=== PATIENT | male | born 1980 | race Caucasian/White ===

== ENCOUNTER 2017-03-23 15:08 | Emergency (ER) | payer OTHER ==
[~2017-03-23] VITALS: Ht 188 cm; Wt 76.9 kg
[~2017-03-23 15:08] MED LIST: ACET-1311 PO; ALBUAER19 INH; NAPR-1168 PO; TRAM-10 PO
[2017-03-23 15:12] VITALS: TEMP 36.3; Ht 188 cm; Wt 76.9 kg
[2017-03-23] MEDS ORDERED: KETOROLAC TROMETHAMINE 60 MG/2 ML VIAL IM STA (15:36)
[2017-03-23] MEDS ORDERED: HYDROmorphone INJ 1 MG/ML SYR IM STA ×2 (15:36→16:32)
--- NOTE | 2017-03-23 16:26 | EMERGENCY ROOM VISIT NOTE ---
ED Visit Note First contact with patient: 16:25 I have seen and examined this patient with Debby Miranda and generally agree with the treatment plan as discussed. Problem List Medical Problems: (1) Bipolar II disorder Status: Chronic (2) Idiopathic peripheral neuropathy Status: Chronic (3) Methicillin resistant Staphylococcus aureus infection Status: Resolved (4) Tobacco user Status: Chronic Current/Historical Medications Scheduled PRN Albuterol Hfa (Ventolin Hfa), 2 PUFFS INH Q6H PRN for SOB/Wheezing Aspirin (Aspirin), 650 MG PO BID PRN for Pain Ibuprofen (Advil), 1,000 MG PO DAILY PRN for Headache or Pain Allergies Coded Allergies: Cyclobenzaprine (Verified Allergy, Severe, SHORTNESS OF BREATH, 03/23/17) Zolpidem (Verified Allergy, Unknown, hallucinations, 03/23/17) Benzodiazepines (Verified Adverse Reaction, Intermediate, PSYCH ISSUES, ) Uncoded Allergies: [id number] (Allergy, Severe, SHORTNESS OF BREATH, 06/14/15) [id number] (Allergy, Intermediate, PSYCH ISSUES, 06/14/15) [id number] (Allergy, Unknown, hallucinations, 06/14/15) Vital Signs Date Time Temp Pulse Resp B/P (MAP) Pulse Ox O2 Delivery O2 Flow Rate FiO2 03/23/17 15:12 36.3 110 18 118/77 96 Room Air Medications Administered Medications (Trade) Dose Ordered Sig/Cynthia Route Start Time Stop Time Status Last Admin Dose Admin Hydromorphone HCl (Dilaudid Inj) 1 mg NOW STAT IM 03/23/17 15:36 03/23/17 15:38 DC 03/23/17 15:51 1 MG Ketorolac Tromethamine (Toradol Inj) 60 mg NOW STAT IM 03/23/17 15:36 03/23/17 15:38 DC 03/23/17 15:50 60 MG Departure Information Referrals No Doctor, Assigned (PCP) Patient Instructions My [facility]
--- NOTE | 2017-03-23 16:34 | EMERGENCY ROOM VISIT NOTE ---
History First contact with patient: 15:15 Chief Complaint: HEADACHE Stated Complaint: MIGRAINE History of Present Illness The patient is a 36 year old male who presents to the Emergency Room with complaints of migraine headache that started last evening. She he states it is on both sides of the top of his head. He denies any visual changes except for photosensitivity. The patient denies any dizziness. The patient denies any nausea or vomiting. The patient states this is typical for his migraine headaches. This is not the worse headache of his life. Review of Systems 10 system review was performed and was negative unless stated otherwise history of present illness. Past Medical/Surgical History Medical Problems: (1) Bipolar II disorder (2) Idiopathic peripheral neuropathy (3) Methicillin resistant Staphylococcus aureus infection (4) Tobacco user Family History No pertinent family history Social History Smoking Status: Former Smoker Alcohol Use: none Drug Use: none Marital Status: Occupation Status: employed Current/Historical Medications Scheduled PRN Albuterol Hfa (Ventolin Hfa), 2 PUFFS INH Q6H PRN for SOB/Wheezing Aspirin (Aspirin), 650 MG PO BID PRN for Pain Ibuprofen (Advil), 1,000 MG PO DAILY PRN for Headache or Pain Allergies Coded Allergies: Cyclobenzaprine (Verified Allergy, Severe, SHORTNESS OF BREATH, 03/23/17) Zolpidem (Verified Allergy, Unknown, hallucinations, 03/23/17) Benzodiazepines (Verified Adverse Reaction, Intermediate, PSYCH ISSUES, ) Uncoded Allergies: [id number] (Allergy, Severe, SHORTNESS OF BREATH, 06/14/15) [id number] (Allergy, Intermediate, PSYCH ISSUES, 06/14/15) [id number] (Allergy, Unknown, hallucinations, 06/14/15) Physical Exam Vital Signs Date Time Temp Pulse Resp B/P (MAP) Pulse Ox O2 Delivery O2 Flow Rate FiO2 03/23/17 15:12 36.3 110 18 118/77 96 Room Air Physical Exam GENERAL: 36-year-old white male appears lying in a darkened room in no acute distress. MENTAL STATUS: Patient is alert and oriented x3 EYES: PERRLA. EOMs intact. EARS: Canals clear. TMs without fluid level noted. NECK: Supple, no lymphadenopathy noted. No carotid bruits noted. LUNGS: Clear auscultation without wheezes rales or rhonchi. CARDIAC: Regular rate and rhythm without murmur. Pulses is full and equal throughout. ABDOMEN: Positive bowel sounds all 4 quadrants. Soft, nontender to palpation without organomegaly or masses. NEURO:Cranial nerves two through 12 intact. Cerebellar function intact with [id number]. Fine motor intact with alternating finger motions. Medical Decision & Procedures Medications Administered Medications (Trade) Dose Ordered Sig/Cynthia Route Start Time Stop Time Status Last Admin Dose Admin Hydromorphone HCl (Dilaudid Inj) 1 mg NOW STAT IM 03/23/17 15:36 03/23/17 15:38 DC 03/23/17 15:51 1 MG Ketorolac Tromethamine (Toradol Inj) 60 mg NOW STAT IM 03/23/17 15:36 03/23/17 15:38 DC 03/23/17 15:50 60 MG ED Course The patient was evaluated. The patient's EMR was reviewed. The patient was given Dilaudid 1 mg IM and Toradol 60 mg IM. The patient was reevaluated and was still in significant pain and therefore was given an additional 1 mg of Dilaudid IM. The patient was reevaluated and still had a slight headache but was discharged to home in stable condition.. Medical Decision Differential includes: Acute intracranial bleed, trauma, meningitis, encephalitis, increased intracranial pressure, mass or mass effect, facial or dental infection, temporal arteritis, CVA, TIA, acute hypertensive emergency, sinusitis, carbon monoxide exposure. The patient presented with this typical migraine headache symptoms therefore no additional diagnostic imaging was performed. Impression Primary Impression: Headache Departure Information Dispostion Home / Self-Care Condition GOOD Referrals No Doctor, Assigned (PCP) Forms HOME CARE DOCUMENTATION FORM, IMPORTANT VISIT INFORMATION Patient Instructions ED Headache Migraine, [facility] Additional Instructions Go home and rest in a dark room. Do not drive for the remainder of the day. If symptoms persist or worsen, return to ER. If you have recurrent migraines recommend follow-up with your family doctor or neurologist. Problem Qualifiers Primary Impression: Headache Headache type: unspecified Headache chronicity pattern: acute headache Intractability: intractable Qualified Codes: R51 - Headache
[2017-03-23 16:50] VITALS: BP 122/79; PULSE 80; O2SAT 95
[2017-08-22] MEDS ORDERED: ASPI325T45 PO (13:34)
[2017-08-22] MEDS ORDERED: IBUP-1050 PO (15:34)
[2017-08-22] MEDS ORDERED: VNTHFA/IN INH (15:34)
== END 2017-03-23 16:55 | disposition home or self-care (01) ==
LOC: C.EDB 15:09 → C.EDD 16:55
DX: G43.909 Migraine, unspecified, not intractable, without status migrainosus (principal); F31.81 Bipolar II disorder; Z87.891 Personal history of nicotine dependence

== ENCOUNTER 2017-04-30 07:54 | Emergency (ER) | payer OTHER ==
[~2017-04-30] VITALS: Ht 188 cm; Wt 75.2 kg
[~2017-04-30 07:54] MED LIST changes: -ACET-1311 PO; -ALBUAER19 INH; +ASPI325T45 PO; +IBUP-1050 PO; -NAPR-1168 PO; -TRAM-10 PO; +VNTHFA/IN INH
[2017-04-30 07:56] VITALS: TEMP 36.7; Ht 188 cm; Wt 75.2 kg
[2017-04-30] MEDS ORDERED: DiphenhydrAMINE HCL 50 MG/ML VIAL IV STA (08:18)
[2017-04-30] MEDS ORDERED: ONDANSETRON INJ 2 MG/ML 2 ML VIAL IV STA (08:18)
[2017-04-30] MEDS ORDERED: KETOROLAC TROMETHAMINE 30 MG/ML VIAL IV STA (08:18)
[2017-04-30] MEDS ORDERED: SODIUM CHLORIDE 0.9% 1000ML 1,000 ML IV STA (08:18)
[2017-04-30] MEDS ORDERED: PROCHLORPERAZINE 5 MG/ML 2 ML VIAL IV STA (08:18)
[2017-04-30] MEDS ORDERED: DEXAMETHASONE SOD INJ 10 MG/ML VIAL IV ONE (08:30)
[2017-04-30 09:45] VITALS: BP 138/82; PULSE 83; O2SAT 96
--- NOTE | 2017-04-30 10:09 | EMERGENCY ROOM VISIT NOTE ---
ED Visit Note First contact with patient: 07:59 CHIEF COMPLAINT: Headache 3 days HISTORY OF PRESENT ILLNESS: Patient is a 37-year-old white male who presents to emergency department for evaluation of a headache that started about 3 days ago. He has a history of headaches, but has not been formally diagnosed with a migraine disorder. He states that his headache started Wednesday evening. He describes it as being located in the left side of his head. It is constant and throbbing in nature. He presently rates his pain an 8/10. He notes associated dizziness, nausea and photophobia. He has had difficulty sleeping due to the pain. He states this is similar to the headaches that he has been experiencing in the past. It is not alleviated with ibuprofen, aspirin and melatonin. He reports being under increased stress recently due to a move, and health issues related to his son. He states that the headaches are often worsened by exertion. He was here about one month ago for a migraine. Prior to that he was here about a year ago. He had a negative head CT scan at that time. He has never been formally evaluated by a neurologist. He reports that he is in the process of becoming reestablished with a primary care provider in [place]. He has not been ill with any cold or upper respiratory symptoms or fever. No head or neck trauma. He denies any difficulty with balance, speech or coordination. No numbness, tickling or weakness into the extremities. REVIEW OF SYSTEMS: Review of systems as per HPI. All other systems reviewed were negative. 10 systems reviewed. PMH: Electronic medical records are reviewed and summarized as above/below. See Problem List. SOCIAL HISTORY: Patient lives at home with his son. He is presently on disability. Positive tobacco use. PHYSICAL EXAM: Vital Signs: Reviewed Nurse's notes. General Appearance: Patient is an uncomfortable-appearing 37-year-old white male who is awake and alert and laying in a darkened room in moderate distress due to his headache. Eyes: Pupils equal round reactive to light extraocular muscles are intact, no proptosis, mild photophobia ENT: Oropharynx is clear, mucous membranes are moist, tympanic membranes are clear bilaterally, no sinus or dental tenderness. Neck: Supple, no cervical lymphadenopathy, no meningismus Heart: Regular rate and rhythm, S1 and S2 Lungs: Clear to auscultation bilaterally, no wheezes Rales or rhonchi, no increased work of breathing Abdomen: Soft nontender nondistended. Normal active bowel sounds. No rebound. No guarding. Back: No midline tenderness to palpation. : No CVA tenderness to palpation. Skin: Warm, no diaphoresis, no rashes. Extremities: No cyanosis, clubbing, or edema Neurologic: Patient is awake alert, and oriented x 3. Cranial nerves 2-12 are grossly intact. Motor 5 out of 5 strength bilateral upper extremities and lower extremities. No gross sensory deficits. Reflexes are 2+ throughout. EMERGENCY DEPARTMENT COURSE: The patient was seen and evaluated as above. His old records were reviewed. IV lock was initiated and he was hydrated with a liter of normal saline solution, given Toradol 30 mg, Zofran 4 mg, Benadryl 25 mg and Compazine 10 mg IV. He was allowed to rest in the emergency department. He was reassessed frequently. He rated his headache improved at a 5/10. He reports that he has to take public transportation home, and given this and his history of opiate dependence and Suboxone use, I was not comfortable providing him with narcotics today. He reported that he would not be able to fill a prescription for steroids. He was encouraged to continue using over-the- counter medications, and was strongly advised to reestablish care with his primary care provider for further care and management of his chronic headache condition. The patient rated his headache a 4/10 at discharge. Differential includes: acute intracranial bleed, meningitis, encephalitis, mass or mass effect, sinusitis, infection, migraine, tumor, headache, temporal arteritis and carbon monoxide exposure. Medication reconciliation: I attest that I have personally reviewed the patient' s current medication list. Blood pressure screening : Patient was found to have normal blood pressure on screening and does not require follow-up. Problem List Medical Problems: (1) Anxiety State Nos Status: Chronic (2) Asthma, Unspecified Status: Chronic (3) Bipolar II disorder Status: Chronic (4) Cellulitis and abscess of ankle Status: Resolved (5) Headache Status: Resolved (6) Idiopathic peripheral neuropathy Status: Chronic (7) Methicillin resistant Staphylococcus aureus infection Status: Resolved (8) Migraine Status: Chronic (9) Tobacco user Status: Chronic Current/Historical Medications Scheduled PRN Albuterol Hfa (Ventolin Hfa), 2 PUFFS INH Q6H PRN for SOB/Wheezing Aspirin (Aspirin), 650 MG PO BID PRN for Pain Ibuprofen (Advil), 1,000 MG PO DAILY PRN for Headache or Pain Allergies Coded Allergies: Cyclobenzaprine (Verified Allergy, Severe, SHORTNESS OF BREATH, 04/30/17) Zolpidem (Verified Allergy, Unknown, hallucinations, 04/30/17) Benzodiazepines (Verified Adverse Reaction, Intermediate, PSYCH ISSUES, ) Uncoded Allergies: [id number] (Allergy, Severe, SHORTNESS OF BREATH, 06/14/15) [id number] (Allergy, Intermediate, PSYCH ISSUES, 06/14/15) [id number] (Allergy, Unknown, hallucinations, 06/14/15) Vital Signs Date Time Temp Pulse Resp B/P (MAP) Pulse Ox O2 Delivery O2 Flow Rate FiO2 04/30/17 09:45 83 16 138/82 96 Room Air 04/30/17 07:56 36.7 93 18 122/88 98 Room Air Medications Administered Medications (Trade) Dose Ordered Sig/Cynthia Route Start Time Stop Time Status Last Admin Dose Admin Ketorolac Tromethamine (Toradol Inj) 30 mg NOW STAT IV 04/30/17 08:18 04/30/17 08:20 DC 04/30/17 08:42 30 MG Prochlorperazine Edisylate (Compazine Inj) 10 mg NOW STAT IV 04/30/17 08:18 04/30/17 08:20 DC 04/30/17 08:41 10 MG Diphenhydramine HCl (Benadryl Inj) 25 mg NOW STAT IV 04/30/17 08:18 04/30/17 08:20 DC 04/30/17 08:42 25 MG Ondansetron HCl (Zofran Inj) 4 mg NOW STAT IV 04/30/17 08:18 04/30/17 08:20 DC 04/30/17 08:41 4 MG Sodium Chloride 1,000 ml @ 999 mls/hr Q1H1M STAT IV 04/30/17 08:18 04/30/17 09:18 DC 04/30/17 08:18 999 MLS/HR Dexamethasone Sodium Phosphate (Decadron Inj) 10 mg NOW ONCE IV 04/30/17 08:30 04/30/17 08:31 DC 04/30/17 08:43 10 MG Departure Information Impression Primary Impression: Headache Referrals No Doctor, Assigned (PCP) Patient Instructions My [facility] Additional Instructions DO NOT drive, drink alcohol, operate machinery, or perform dangerous activities today. You were given medications in the ER that can affect your ability to safely function or operate a vehicle. Rest today in a quiet, peaceful, dark environment and get a full 8-10 hrs of sleep tonight. Avoid loud noises, smoke/smoking, alcohol, bright lights, stress, or physical exertion today to minimize the chance the headache may return. Continue current medications. Ibuprofen(Motrin, Advil) may be used for fever or pain. Use 600mg every six hours as needed. Take with food. Avoid using more than 2400mg in a 24 hour period. Do not use 2400mg per day for more than three consecutive days without physician direction. Prolonged inappropriate use can lead to stomach upset or ulcers. (AND/OR) Acetaminophen(Tylenol) may be used for fever or pain. Use 1000mg every six hours as needed. Avoid using more than 3000mg in a 24 hour period. Return to the ER for passing out, worsening headache, vision problems, neck stiffness/pain, fevers, vomiting, worsening of your condition, or as needed. Follow up with your primary physician in 2-3 days for a recheck of your current condition.
== END 2017-04-30 10:15 | disposition home or self-care (01) ==
LOC: C.EDB 07:55 → C.EDA 10:15
DX: R51 Headache (principal); F17.200 Nicotine dependence, unspecified, uncomplicated; F41.9 Anxiety disorder, unspecified; J45.909 Unspecified asthma, uncomplicated; F31.9 Bipolar disorder, unspecified; G60.9 Hereditary and idiopathic neuropathy, unspecified; Z86.14 Personal history of Methicillin resistant Staphylococcus aureus infection; Z79.82 Long term (current) use of aspirin

== ENCOUNTER 2017-08-22 18:44 | Inpatient (IN) | payer OTHER ==
[~2017-08-22] VITALS: Ht 188 cm; Wt 79.2 kg
[2017-08-22] MEDS ORDERED: VANCOMYCIN INJ 1,000 MG in SODIUM CHLORIDE 0.9% 250ML 250 ML IV STA (19:10)
--- NOTE | 2017-08-22 19:29 | DIAGNOSTIC IMAGING REPORT ---
CHEST ONE VIEW PORTABLE HISTORY: Sepsis COMPARISON: Chest 02/12/2013. FINDINGS: The lungs are clear. Cardiac silhouette is normal in size. No pleural effusions. No pneumothorax. IMPRESSION: No acute process. Electronically signed by: Omer Santos M.D. 08/22/2017 7:28 PM Dictated Date/Time: 08/22/2017 7:27 PM
[2017-08-22 20:07] LABS: BASO ABS # 0.01 K/uL (0-0.2); COMPLETE YES; HEMATOCRIT 35.2 % (42-52); IG% 0.6 %; LYMPH % 4.1 %; LYMPH ABS # 0.86 K/uL (1.2-3.4); MEAN CELL VOLUME 86.3 fL (80-100); MEAN CORPUSCULAR HEMOGLOBIN 27.9 pg (25-34); MEAN CORPUSCULAR HGB CONC 32.4 g/dl (32-36); MEAN PLATELET VOLUME 10.9 fL (7.4-10.4); MONO % 6.1 %; NEUT % 89.2 %; PLATELET COUNT 222 K/uL (130-400); RED BLOOD COUNT 4.08 M/uL (4.7-6.1); WHITE BLOOD COUNT 21.02 K/uL (4.8-10.8)
[2017-08-22 20:18] LABS: INR 1.2 (0.9-1.1); PARTIAL THROMBOPLASTIN RATIO 1.4; PROTHROMBIN TIME (PATIENT) 12.4 SECONDS (9.0-12.0)
[2017-08-22 20:20] LABS: BUN/CREATININE RATIO 20.3 (10-20); CALCIUM 9.3 mg/dl (8.5-10.1); CREATININE 0.84 mg/dl (0.60-1.40); POTASSIUM 3.3 mmol/L (3.5-5.1)
[2017-08-22 20:24] LABS: ALB/GLOB RATIO 0.6 (0.9-2)
[2017-08-22] MEDS ORDERED: LORAZEPAM 2 MG/ML 1 ML VIAL IV STA (21:57)
[2017-08-22] MEDS ORDERED: ALBUTEROL HFA 8 GM INHALER INH ONE ×2 (22:29→22:30)
--- NOTE | 2017-08-22 22:54 | DIAGNOSTIC IMAGING REPORT ---
LEFT UPPER EXTREMITY VENOUS DOPPLER HISTORY: eval for dvt left arm COMPARISON STUDY: None. FINDINGS: The left internal jugular vein is patent. There is normal flow within the left subclavian vein. There is normal flow and compressibility within the left axillary, basilic, brachial, radial, and ulnar veins. The cephalic vein is thrombosed from the upper arm to the wrist. This is consistent with a superficial thrombus. IMPRESSION: No DVT within the left upper extremity. The majority of the cephalic vein is thrombosed consistent with a superficial thrombosis. Electronically signed by: Omer Santos M.D. 08/22/2017 10:53 PM Dictated Date/Time: 08/22/2017 10:51 PM
[2017-08-22] MEDS ORDERED: LACTATED RINGER'S 1000ML 1,000 ML IV SCH (23:30)
[2017-08-22] MEDS ORDERED: ACETAMINOPHEN 325 MG TAB PO SCH (23:30)
[2017-08-22] MEDS ORDERED: MAGNESIUM HYDROXIDE SUSP 30 ML UDC PO PRN (23:30)
[2017-08-22] MEDS ORDERED: CEFEPIME IV 1,000 MG in DEXTROSE 5% 100ML 100 ML IV SCH (23:30)
[2017-08-22] MEDS ORDERED: POLYETHYLENE (MIRALAX) 17 GM PACK PO PRN (23:30)
[2017-08-22] MEDS ORDERED: ONDANSETRON INJ 2 MG/ML 2 ML VIAL IV PRN (23:30)
[2017-08-22] MEDS ORDERED: ALUMINUM/MAGNESIUM/SIMETH (MAALOX MAX) 30 ML UDC PO PRN (23:30)
[2017-08-22] MEDS ORDERED: ACETAMINOPHEN 325 MG TAB PO PRN (23:30)
--- NOTE | 2017-08-23 00:04 | History and Physical ---
History & Physical Date & Time of Service: August 22, 2017 Chief Complaint: Swollen Lt Arm Primary Care Physician: No Doctor, Assigned History of Present Illness Source: patient, hospital records [place] is a 37 yo M who presents with left arm swelling. He reports this started last Wednesday after he was injecting speed into his L arm while camping. He reports he did not sterilize the arm as he usually does before injecting since he was camping. He reports intermittent fevers the last week but overnight yesterday was when he felt the worst. Nothing has made his pain in the arm better or worse. He was concerned he had a DVT. He had tried warm compresses but that did not help much. He had also tried Aspirin and reports he took an entire aspirin bottle, but this did not help. He also took Tylenol and Ibuprofen throughout the last few days. Past Medical/Surgical History Medical Problems: (1) Anxiety State Nos Status: Chronic (2) Asthma, Unspecified Status: Chronic (3) Bipolar II disorder Status: Chronic (4) Cellulitis and abscess of ankle Status: Resolved (5) Headache Status: Resolved (6) Idiopathic peripheral neuropathy Status: Chronic (7) Methicillin resistant Staphylococcus aureus infection Status: Resolved (8) Migraine Status: Chronic (9) Tobacco user Status: Chronic Family History No pertinent family history Social History Had stopped using IV drugs for 2 years but relapsed last week. Lives in [place], usually alone unless he is with his son who is visiting. Uses marijuana, smokes occasionally. Smoking Status: Current Some Day Smoker Alcohol Use: socially Drug Use: other Marital Status: Housing status: lives alone Occupational Status: unemployed Immunizations History of Influenza Vaccine: Unknown History of Tetanus Vaccine?: Unknown Tetanus Immunization Date: Dec 04, 2003 History of Pneumococcal: Unknown History of Hepatitis B Vaccine: Unknown Multi-Drug Resistant Organisms History of MDRO: Yes Type of MDRO: MRSA Allergies Coded Allergies: Cyclobenzaprine (Verified Allergy, Severe, SHORTNESS OF BREATH, 04/30/17) Zolpidem (Verified Allergy, Unknown, hallucinations, 04/30/17) Benzodiazepines (Verified Adverse Reaction, Intermediate, PSYCH ISSUES, ) Uncoded Allergies: [id number] (Allergy, Severe, SHORTNESS OF BREATH, 06/14/15) [id number] (Allergy, Intermediate, PSYCH ISSUES, 06/14/15) [id number] (Allergy, Unknown, hallucinations, 06/14/15) Home Medications Scheduled PRN Albuterol Hfa (Ventolin Hfa), 2 PUFFS INH Q6H PRN for SOB/Wheezing Aspirin (Aspirin), 650 MG PO UD PRN for Pain Ibuprofen (Advil), 800 MG PO Q8 PRN for Headache or Pain Review of Systems See HPI for pertinent positives & negatives. A total of 10 systems reviewed and were otherwise negative. Physical Exam Vital Signs Date Time Temp Pulse Resp B/P (MAP) Pulse Ox O2 Delivery O2 Flow Rate FiO2 08/22/17 22:51 137 22 124/70 94 Room Air 08/22/17 20:54 95 16 131/77 96 Room Air 08/22/17 19:57 95 Room Air 08/22/17 19:54 36.8 08/22/17 18:53 36.4 109 20 137/73 98 Room Air General Appearance: WD/WN, no apparent distress, + thin Head: normocephalic, atraumatic Eyes: normal inspection, PERRL ENT: hearing grossly normal, + pertinent finding (edentulous) Neck: supple, no JVD Respiratory/Chest: lungs clear, normal breath sounds, no respiratory distress Cardiovascular: regular rate, rhythm, no murmur, normal peripheral pulses Abdomen/GI: normal bowel sounds, non tender, soft Back: no CVA tenderness, no muscle spasm, normal range of motion Extremities/Musculoskelatal: + pertinent finding (edema to L arm, most prominently in hand. erythema and tenderness up to mid L forearm.) Neurologic/Psych: alert, normal mood/affect, normal reflexes, oriented x 3 Skin: + rash (up to mid-L forearm, mostly on medial aspect) Diagnostics Laboratory Results Results Past 24 Hours Test 08/22/17 19:35 08/22/17 19:42 08/22/17 20:59 Range/Units White Blood Count 21.02 4.8-10.8 K/uL Red Blood Count 4.08 4.7-6.1 M/uL Hemoglobin 11.4 14.0-18.0 g/dL Hematocrit 35.2 42-52 % Mean Corpuscular Volume 86.3 80-100 fL Mean Corpuscular Hemoglobin 27.9 25-34 pg Mean Corpuscular Hemoglobin Concent 32.4 32-36 g/dl Platelet Count 222 130-400 K/uL Mean Platelet Volume 10.9 7.4-10.4 fL Neutrophils (%) (Auto) 89.2 % Lymphocytes (%) (Auto) 4.1 % Monocytes (%) (Auto) 6.1 % Eosinophils (%) (Auto) 0.0 % Basophils (%) (Auto) 0.0 % Neutrophils # (Auto) 18.73 1.4-6.5 K/uL Lymphocytes # (Auto) 0.86 1.2-3.4 K/uL Monocytes # (Auto) 1.29 0.11-0.59 K/uL Eosinophils # (Auto) 0.01 0-0.5 K/uL Basophils # (Auto) 0.01 0-0.2 K/uL RDW Standard Deviation 45.1 36.4-46.3 fL RDW Coefficient of Variation 14.3 11.5-14.5 % Immature Granulocyte % (Auto) 0.6 % Immature Granulocyte # (Auto) 0.12 0.00-0.02 K/uL Prothrombin Time 12.4 9.0-12.0 SECONDS Prothromb Time International Ratio 1.2 0.9-1.1 Activated Partial Thromboplast Time 35.5 21.0-31.0 SECONDS Partial Thromboplastin Ratio 1.4 Sodium Level 137 136-145 mmol/L Potassium Level 3.3 3.5-5.1 mmol/L Chloride Level 100 98-107 mmol/L Carbon Dioxide Level 27 21-32 mmol/L Anion Gap 9.0 3-11 mmol/L Blood Urea Nitrogen 17 7-18 mg/dl Creatinine 0.84 0.60-1.40 mg/dl Est Creatinine Clear Calc Drug Dose 134.4 ml/min Estimated GFR () 127.8 Estimated GFR (Non- 110.3 BUN/Creatinine Ratio 20.3 10-20 Random Glucose 85 70-99 mg/dl Calcium Level 9.3 8.5-10.1 mg/dl Total Bilirubin 0.3 0.2-1 mg/dl Aspartate Amino Transf (AST/SGOT) 10 15-37 U/L Alanine Aminotransferase (ALT/SGPT) 12 12-78 U/L Alkaline Phosphatase 116 45-117 U/L Total Protein 7.7 6.4-8.2 gm/dl Albumin 3.0 3.4-5.0 gm/dl Globulin 4.7 2.5-4.0 gm/dl Albumin/Globulin Ratio 0.6 0.9-2 Bedside Lactic Acid Venous 1.29 0.90-1.70 mmol/L Salicylates Level 13.9 2.8-20 mg/dl Acetaminophen Level < 2 10-30 ug/ml Microbiology Results 08/22/17 Blood Culture, Received Pending 08/22/17 Blood Culture, Received Pending Diagnostic Radiology LEFT UPPER EXTREMITY VENOUS DOPPLER HISTORY: eval for dvt left arm COMPARISON STUDY: None. FINDINGS: The left internal jugular vein is patent. There is normal flow within the left subclavian vein. There is normal flow and compressibility within the left axillary, basilic, brachial, radial, and ulnar veins. The cephalic vein is thrombosed from the upper arm to the wrist. This is consistent with a superficial thrombus. IMPRESSION: No DVT within the left upper extremity. The majority of the cephalic vein is thrombosed consistent with a superficial thrombosis. CXR normal Impression Assessment and Plan 37 yo M, recent IV drug use, presents with cellulitis and superficial thrombosis of the L arm. Cellulitis of L forearm - Will treat with Vancomycin and Cefepime IV for now - Elevate arm - If worsens, would consider consulting ID - Tylenol for pain Thrombosis of L cephalic vein - Will provide a dose of Lovenox 1.5mg/kg - If does not improve, will consider consulting Vascular Tachycardia - Likely from infection and dehydration, will provide IV fluids for now and monitor IV drug use - Will obtain an echo to evaluate for endocarditis if fever and tachycardia persist (though this may require a XENIA, will start with TTE first) - Pending drug urine tox screen Hx of asthma - Albuterol VTE: Lovenox Dispo: Tele Code status: Full Attending addendum: I have physically seen this patient, have supervised the medical residents activities, and agree with the H&P unless as otherwise noted. Assessment and Plan: Cellulitis of left upper extremity/presumptive infected left upper extremity superficial thrombophlebitis involving cephalic vein/history of MRSA-- Place on vancomycin IV and cefepime IV. Keep left arm elevated History of narcotic abuse and recent injection while out in the [place]oo[place]. We'll place on Tylenol when necessary for pain Therapeutic Lovenox subcutaneous. Monitor closely for compartment syndrome Order a 2-D echocardiogram with Dopplers to assess for coincident SBE Level of Care Telemetry Advanced Directives Existing Advance Directive: No Existing Living Will: No Existing Power of Laborer [place]: No Resuscitation Status FULL RESUSCITATION VTE Prophylaxis VTE Risk Assessment Done? Y/N: Yes Risk Level: Moderate Given or contraindicated: Other Anticoagulation (Lovenox 1 mg/kg subcutaneous every 12 hours) Resident Tracking Resident Involvement: Resident Care Provided Care Provided: Adult Hospital Medicine
[2017-08-23] MEDS ORDERED: CEFEPIME IV 1,000 MG in SYRINGE 0 ML IV STA (00:12)
[2017-08-23] MEDS ORDERED: ALUMINUM/MAGNESIUM/SIMETH (MAALOX MAX) 30 ML UDC PO PRN (00:30)
[2017-08-23] MEDS ORDERED: POLYETHYLENE (MIRALAX) 17 GM PACK PO PRN (00:30)
[2017-08-23] MEDS ORDERED: ONDANSETRON INJ 2 MG/ML 2 ML VIAL IV PRN (00:30)
--- NOTE | 2017-08-23 00:55 | EMERGENCY ROOM VISIT NOTE ---
History Report prepared by Edilberto: Kim Ramirez Under the Supervision of: Dr. Colby Sky M.D. First contact with patient: 19:00 Chief Complaint: SWELLING TO EXTREMITY Stated Complaint: SWOLLEN LT ARM History of Present Illness The patient is a 37 year old male who presents to the Emergency Room with complaints of constant swelling to his left arm starting a week ago. The patient states that he relapsed on speed a week ago. He states that he is an IV drug user. He states that this is the first time he has done so in 2 years. He states that he did so while camping and went out to buy a brand new box of needles. He reports that he hasn't injected since a week ago and that the swelling and redness started almost immediately. The patient states that he had this happen once before. He states it went away after he massaged it out and wrapped it tightly in the past. He reports that he has been using warm compresses with little relief. He notes that since he was camping he didn't prep his skin. The patient states that he has had a tactile fever and been vomiting. He notes all he has been having is water, Aspirin, and Ibuprofen. He states that he thinks he may have overdose on Aspirin because he has been having ringing in his ears. He reports that he took a whole bottle of 81 mg Aspirin in one day. The patient denies having HIV, chest pain, and shortness of breath. The patient notes a history of asthma. The patient notes that the pain is about gone from when it originally swelled. Source of History: patient Onset: a week ago Position: arm (left) Quality: other (swelling) Timing: constant Associated Symptoms: + fevers, + vomiting, No chest pain, No SOB Note: The patient complains of redness to his arm and ringing in his ears. Review of Systems See HPI for pertinent positives & negatives. A total of 10 systems reviewed and were otherwise negative. Past Medical & Surgical Medical Problems: (1) Anxiety State Nos (2) Asthma, Unspecified (3) Bipolar II disorder (4) Cellulitis and abscess of ankle (5) Fever (6) Headache (7) Idiopathic peripheral neuropathy (8) Left arm swelling (9) Methicillin resistant Staphylococcus aureus infection (10) Migraine (11) SIRS (systemic inflammatory response syndrome) (12) Thrombophlebitis (13) Tobacco user Family History No pertinent family history Social History Smoking Status: Never Smoker Alcohol Use: none Drug Use: other (speed) Marital Status: Housing Status: lives alone Occupation Status: employed Current/Historical Medications Scheduled PRN Albuterol Hfa (Ventolin Hfa), 2 PUFFS INH Q6H PRN for SOB/Wheezing Aspirin (Aspirin), 650 MG PO UD PRN for Pain Ibuprofen (Advil), 800 MG PO Q8 PRN for Headache or Pain Allergies Coded Allergies: Cyclobenzaprine (Verified Allergy, Severe, SHORTNESS OF BREATH, 04/30/17) Zolpidem (Verified Allergy, Unknown, hallucinations, 04/30/17) Benzodiazepines (Verified Adverse Reaction, Intermediate, PSYCH ISSUES, ) Uncoded Allergies: [id number] (Allergy, Severe, SHORTNESS OF BREATH, 06/14/15) [id number] (Allergy, Intermediate, PSYCH ISSUES, 06/14/15) [id number] (Allergy, Unknown, hallucinations, 06/14/15) Physical Exam Vital Signs Date Time Temp Pulse Resp B/P (MAP) Pulse Ox O2 Delivery O2 Flow Rate FiO2 08/22/17 23:22 135 08/22/17 22:51 137 22 124/70 94 Room Air 08/22/17 20:54 95 16 131/77 96 Room Air 08/22/17 19:57 95 Room Air 08/22/17 19:54 36.8 08/22/17 18:53 36.4 109 20 137/73 98 Room Air Physical Exam Constitutional: Vital signs reviewed. Eyes: Pupils are equal round reactive to light. Conjunctiva are noninjected. ENT: Pharynx is clear without erythema or exudate. Mucous membranes are moist. Neck supple without meningeal signs. Respiratory: Clear to auscultation bilaterally. Breath sounds are equal bilaterally. Cardiovascular: Regular rate and rhythm. No rubs or gallops. GI: Soft, nondistended and nontender. Bowel sounds are present. Musculoskeletal: No peripheral edema. No lower extremity tenderness. Swelling to the left upper extremity from mid bicep to the wrist with erythema. No increased warmth. No signs of compartment syndrome. Integumentary: No cyanosis. Neurological: The patient is awake and alert. No focal deficits. Psychiatric: Normal affect. Medical Decision & Procedures ER Provider Diagnostic Interpretation: Radiology results as stated below per my review and the radiologist's interpretation: CHEST ONE VIEW PORTABLE HISTORY: Sepsis COMPARISON: Chest 02/12/2013. FINDINGS: The lungs are clear. Cardiac silhouette is normal in size. No pleural effusions. No pneumothorax. IMPRESSION: No acute process. Electronically signed by: Omer Santos M.D. 08/22/2017 7:28 PM Dictated Date/Time: 08/22/2017 7:27 PM LEFT UPPER EXTREMITY VENOUS DOPPLER HISTORY: eval for dvt left arm COMPARISON STUDY: None. FINDINGS: The left internal jugular vein is patent. There is normal flow within the left subclavian vein. There is normal flow and compressibility within the left axillary, basilic, brachial, radial, and ulnar veins. The cephalic vein is thrombosed from the upper arm to the wrist. This is consistent with a superficial thrombus. IMPRESSION: No DVT within the left upper extremity. The majority of the cephalic vein is thrombosed consistent with a superficial thrombosis. Electronically signed by: Omer Santos M.D. 08/22/2017 10:53 PM Dictated Date/Time: 08/22/2017 10:51 PM Laboratory Results 08/22/17 19:35 Red Blood Count 4.08, Mean Corpuscular Volume 86.3, Mean Corpuscular Hemoglobin 27.9, Mean Corpuscular Hemoglobin Concent 32.4, Mean Platelet Volume 10.9, Neutrophils (%) (Auto) 89.2, Lymphocytes (%) (Auto) 4.1, Monocytes (%) (Auto) 6.1, Eosinophils (%) (Auto) 0.0, Basophils (%) (Auto) 0.0, Neutrophils # (Auto) 18.73, Lymphocytes # (Auto) 0.86, Monocytes # (Auto) 1.29, Eosinophils # (Auto) 0.01, Basophils # (Auto) 0.01 08/22/17 19:35 Test 08/22/17 19:35 08/22/17 19:42 08/22/17 20:59 White Blood Count 21.02 K/uL (4.8-10.8) Red Blood Count 4.08 M/uL (4.7-6.1) Hemoglobin 11.4 g/dL (14.0-18.0) Hematocrit 35.2 % (42-52) Mean Corpuscular Volume 86.3 fL (80-100) Mean Corpuscular Hemoglobin 27.9 pg (25-34) Mean Corpuscular Hemoglobin Concent 32.4 g/dl (32-36) Platelet Count 222 K/uL (130-400) Mean Platelet Volume 10.9 fL (7.4-10.4) Neutrophils (%) (Auto) 89.2 % Lymphocytes (%) (Auto) 4.1 % Monocytes (%) (Auto) 6.1 % Eosinophils (%) (Auto) 0.0 % Basophils (%) (Auto) 0.0 % Neutrophils # (Auto) 18.73 K/uL (1.4-6.5) Lymphocytes # (Auto) 0.86 K/uL (1.2-3.4) Monocytes # (Auto) 1.29 K/uL (0.11-0.59) Eosinophils # (Auto) 0.01 K/uL (0-0.5) Basophils # (Auto) 0.01 K/uL (0-0.2) RDW Standard Deviation 45.1 fL (36.4-46.3) RDW Coefficient of Variation 14.3 % (11.5-14.5) Immature Granulocyte % (Auto) 0.6 % Immature Granulocyte # (Auto) 0.12 K/uL (0.00-0.02) Prothrombin Time 12.4 SECONDS (9.0-12.0) Prothromb Time International Ratio 1.2 (0.9-1.1) Activated Partial Thromboplast Time 35.5 SECONDS (21.0-31.0) Partial Thromboplastin Ratio 1.4 Anion Gap 9.0 mmol/L (3-11) Est Creatinine Clear Calc Drug Dose 134.4 ml/min Estimated GFR () 127.8 Estimated GFR (Non- 110.3 BUN/Creatinine Ratio 20.3 (10-20) Calcium Level 9.3 mg/dl (8.5-10.1) Total Bilirubin 0.3 mg/dl (0.2-1) Aspartate Amino Transf (AST/SGOT) 10 U/L (15-37) Alanine Aminotransferase (ALT/SGPT) 12 U/L (12-78) Alkaline Phosphatase 116 U/L (45-117) Total Protein 7.7 gm/dl (6.4-8.2) Albumin 3.0 gm/dl (3.4-5.0) Globulin 4.7 gm/dl (2.5-4.0) Albumin/Globulin Ratio 0.6 (0.9-2) Bedside Lactic Acid Venous 1.29 mmol/L (0.90-1.70) Salicylates Level 13.9 mg/dl (2.8-20) Acetaminophen Level < 2 ug/ml (10-30) Laboratory results as reviewed by me. Medications Administered Medications (Trade) Dose Ordered Sig/Cynthia Route Start Time Stop Time Status Last Admin Dose Admin Vancomycin HCl 1000 mg/Sodium Chloride 270 ml @ 125 mls/hr NOW STAT IV 08/22/17 19:10 08/22/17 21:19 DC 08/22/17 19:10 125 MLS/HR Lorazepam (Ativan Inj) 1 mg NOW STAT IV 08/22/17 21:57 08/22/17 21:58 DC 08/22/17 22:10 1 MG Albuterol (Ventolin Hfa Inhaler) 2 puffs NOW ONCE INH 08/22/17 22:30 08/22/17 22:31 DC 08/22/17 22:30 2 PUFFS Cefepime HCl 1000 mg/Syringe 11 ml @ 5.5 mls/min NOW STAT IV 08/23/17 00:12 08/23/17 00:13 DC 08/23/17 00:41 5.5 MLS/MIN ED Course 1901: The patient was evaluated in room B9. A complete history and physical exam was performed. 1909: Ordered Vancomycin HCl 1000 mg/ Sodium Chloride 270 ml @ 125 mls/hr IV. 2124: I reevaluated the patient and talked to him about his test results. He states that he wants to treat this at home, but I told him that I didn't think that this was a good idea. 2152: The patient was getting anxious at ultrasound so I ordered Ativan IV. He also demanded Albuterol or he will not be able to finish the ultrasound. 2156: Ordered Ativan Inj 1 mg IV. 2229: Ordered Albuterol 2 puffs INH. 2257: I reevaluated the patient and talked to him about his test results. His heart rate is 140, although he just used the Albuterol. He is really anxious about what's going on. He denies chest pain and shortness of breath. I explained that he needed to be admitted for anticoagulants IV. 2331: I spoke with Dr. Matthews of [facility] [place] We discussed the patient and his results. The patient will be further evaluated by Dr. Matthews. Medical Decision This is a 37-year-old male who presents with left arm swelling and pain. Differential diagnosis includes cellulitis, myositis, abscess, DVT, superficial phlebitis, compartment syndrome. I did perform a limited focused review of portions of the patient's old chart on the electronic medical record. The patient has had no recent pertinent visits to this hospital. I did evaluate the patient as noted above. The patient is presenting with left arm swelling and redness. He states he had pain initially but the pain is almost completely gone at this point. There is no evidence of compartment syndrome. He does have what appears to be cellulitis to the arm extending from the wrist to the mid upper arm. His symptoms started after injecting himself with illicit drugs a week ago. IV access was established. The patient was placed on a continuous district supervisor. I did order and personally review the patient's chest x-ray as described above. I did order and review the patient' s blood work as noted in the electronic medical record. His white blood cell count is over 21,000. His salicylate level is within normal limits. He does state that he took a large amount of aspirin to help with his pain. He does not have evidence of salicylate toxicity at this time. No anion gap or acidosis. Blood cultures were obtained and I did treat patient with vancomycin IV. I did order a Doppler ultrasound of the left upper extremity. I did review the images myself as well as the radiology report as described above. He does have superficial, colitis of the cephalic vein. No DVT is noted. He did have significant anxiety during the procedure and was given a Ventolin inhaler and Ativan 1 mg IV. I did reassess the patient. I did discuss his test results with him. He is very tachycardic at this time but he states that he is very anxious about being admitted and the clot in his arm. He denies any shortness of breath or chest pain or back pain. I did recommend he be admitted for IV antibiotics and anticoagulation. I did discuss the case with the hospitalist and mental health case manager. Medication Reconcilliation Current Medication List: was personally reviewed by me Blood Pressure Screening Patient's blood pressure: Elevated blood pressure Blood pressure disposition: Referred to PCP Consults Time Called: 2255 Consulting Physician: Dr. Matthews of [facility] [place]ed Call[place] [phone] Matthews of [facility] [place]. We discussed the patient and his results. The patient will be further evaluated by Dr. Matthews. Impression Primary Impression: Left arm cellulitis Additional Impressions: Superficial thrombophlebitis of arm IV drug abuse Scribe Attestation The scribe's documentation has been prepared under my direct and personally reviewed by me in its entirety. I confirm that the note above accurately reflects all work, treatment, procedures, and medical decision making performed by me. Departure Information Dispostion Being Evaluated By Hospitalist Referrals No Doctor, Assigned (PCP) Patient Instructions My [facility] Problem Qualifiers Additional Impressions: Superficial thrombophlebitis of arm Laterality: left Qualified Codes: I80.8 - Phlebitis and thrombophlebitis of other sites
[2017-08-23] MEDS ORDERED: VANCOMYCIN CONSULT ACTIVE PRN (01:30)
[2017-08-23] MEDS: LACTATED RINGER'S 1000ML 1,000 ML IV SCH ×3 (01:30→21:32)
[2017-08-23 01:32] VITALS: BP 105/70; PULSE 113; TEMP 36.8; O2SAT 97; Ht 188 cm; Wt 79.2 kg
[2017-08-23] MEDS: VANCOMYCIN INJ 1,250 MG in SODIUM CHLORIDE 0.9% 250ML 250 ML IV SCH ×3 (02:08→18:02)
[2017-08-23 03:30] VITALS: BP 90/60; PULSE 84; TEMP 36.8; O2SAT 97
[2017-08-23 06:13] LABS: HEMATOCRIT 31.2 % (42-52); MEAN CORPUSCULAR HEMOGLOBIN 27.5 pg (25-34); MEAN CORPUSCULAR HGB CONC 32.1 g/dl (32-36); MEAN PLATELET VOLUME 10.7 fL (7.4-10.4); PLATELET COUNT 177 K/uL (130-400); RED BLOOD COUNT 3.63 M/uL (4.7-6.1); WHITE BLOOD COUNT 19.65 K/uL (4.8-10.8)
[2017-08-23 06:44] LABS: CALCIUM 8.2 mg/dl (8.5-10.1); CREATININE 0.59 mg/dl (0.60-1.40); POTASSIUM 3.5 mmol/L (3.5-5.1)
[2017-08-23] MEDS ORDERED: CEFEPIME IV 500 MG in SYRINGE 0 ML IV SCH (08:00)
[2017-08-23 08:15] VITALS: BP 102/77; PULSE 82; TEMP 36.9; O2SAT 96
[2017-08-23] MEDS: CEFEPIME IV 1,000 MG in SYRINGE 0 ML IV SCH ×2 (08:27→15:37)
[2017-08-23] MEDS: ALBUTEROL HFA 8 GM INHALER INH SCH ×4 (08:28→19:51)
[2017-08-23] MEDS ORDERED: VANCOMYCIN INJ 1,000 MG in SODIUM CHLORIDE 0.9% 250ML 250 ML IV SCH (09:00)
[2017-08-23] MEDS ORDERED: ENOXAPARIN 120 MG/0.8 ML SYR SQ SCH (09:00)
[2017-08-23] MEDS ORDERED: ENOXAPARIN 1.5 MG/KG SQ SCH (09:00)
[2017-08-23] MEDS ORDERED: KETOROLAC TROMETHAMINE 15 MG/ML VIAL ONE (10:00)
[2017-08-23] MEDS ORDERED: NURSING VERBAL MED ORDER ONE ×2 (10:00→16:30)
--- NOTE | 2017-08-23 11:04 | Pharmacy Progress Note ---
Pharmacy Abx Initial Consult Date of Service Aug 23, 2017. Pharmacy Dosing Scope Date of Consult: 08/22/17 Pharmacy is consulted to initiate Vancomycin IV dosing therapy, order appropriate labs and adjust drug dose/frequency. Subjective The patient is a 37 year old male admitted on Aug 22, 2017 at 23:37 with L arm cellulitis. Objective Height (Feet): 6 Height (Inches): 2.00 Weight (Kilograms): 79.200 Vital Signs (Past 12Hrs) Vital Signs Past 12 Hours Date Time Temp Pulse Resp B/P (MAP) Pulse Ox O2 Delivery O2 Flow Rate FiO2 08/23/17 08:15 36.9 82 16 102/77 (85) 96 Room Air 08/23/17 08:00 Room Air 08/23/17 04:00 Room Air 08/23/17 03:30 36.8 84 16 90/60 (70) 97 Room Air 08/23/17 01:32 36.8 113 20 105/70 97 Room Air 08/23/17 00:49 114 16 122/70 98 08/22/17 23:22 135 Lab Results (24Hrs) Laboratory Tests (24 Hours) Test 08/22/17 19:35 08/23/17 05:22 White Blood Count 21.02 K/uL (4.8-10.8) H 19.65 K/uL (4.8-10.8) H Red Blood Count 4.08 M/uL (4.7-6.1) L Hemoglobin 11.4 g/dL (14.0-18.0) L Hematocrit 35.2 % (42-52) L Mean Corpuscular Volume 86.3 fL (80-100) Mean Corpuscular Hemoglobin 27.9 pg (25-34) Mean Corpuscular Hemoglobin Concent 32.4 g/dl (32-36) Platelet Count 222 K/uL (130-400) Mean Platelet Volume 10.9 fL (7.4-10.4) H Neutrophils (%) (Auto) 89.2 % Lymphocytes (%) (Auto) 4.1 % Monocytes (%) (Auto) 6.1 % Eosinophils (%) (Auto) 0.0 % Basophils (%) (Auto) 0.0 % Neutrophils # (Auto) 18.73 K/uL (1.4-6.5) H Lymphocytes # (Auto) 0.86 K/uL (1.2-3.4) L Monocytes # (Auto) 1.29 K/uL (0.11-0.59) H Eosinophils # (Auto) 0.01 K/uL (0-0.5) Basophils # (Auto) 0.01 K/uL (0-0.2) Micro Results Date/Time Source Procedure Growth Status 08/22/17 19:35 Blood Blood Culture Pending Received 08/22/17 19:30 Blood Blood Culture Pending Received Assessment & Plan Assessment 37 year old male initiated on Vancomycin/cefepime IV for L arm cellulitis. Blood cultures pending. Plan Vancomycin IV * Loading dose: 1000 mg (12.4 mg/kg) X 1 given in ED * Maintenance dose determined by overnight pharmacist: 1250 mg IV (15.5 mg/kg) every 8 hours * Goal trough level for cellulitis: ~15 mcg/mL * Trough level ordered for 08/23/17 @1730 prior to 1800 dose. Pharmacy will continue to follow and will adjust dose/frequency as necessary. Thank you.
[2017-08-23 11:49] LABS: BENZODIAZEPINE, URINE NEG (NEG); COCAINE,URINE NEG (NEG); PHENCYCLIDINE, URINE NEG (NEG)
[2017-08-23 12:27] VITALS: BP 113/75; PULSE 91; TEMP 36.6; O2SAT 100
[2017-08-23 15:29] VITALS: BP 118/68; PULSE 85; TEMP 36.9; O2SAT 99
[2017-08-23] MEDS: KETOROLAC TROMETHAMINE 15 MG/ML VIAL IV. PRN (15:42)
[2017-08-23 16:10] VITALS: BP 118/68; PULSE 85; TEMP 36.9; O2SAT 99
[2017-08-23] MEDS ORDERED: CALCIUM CARBONATE 500 MG CHEWABLE PO PRN (17:00)
[2017-08-23] MEDS ORDERED: VANCOMYCIN TROUGH ONE (17:30)
--- NOTE | 2017-08-23 17:36 | ECHOCARDIOGRAM REPORT ---
*NOTICE TO RECEIVING LIBERTARIAN AGENCY This information is strictly Confidential and protected under [place] law. [place] law prohibits you from making any further disclosure of this information unless further disclosure is expressly permitted by the written consent of the person to whom it pertains or is authorized by law. A general authorization for the release of medical or other information is not sufficient for this purpose. Hospital accepts no responsibility if the information is made available to any other person, INCLUDING THE PATIENT. Interpretation Summary * Name: CATERINA FOWLER Study Date: 08/23/2017 11:49 AM BP: 102/77 mmHg * Patient Location: C.2E\S\E204\S\1 HR: 87 * : 1980 (M/d/yyyy) Gender: Male Height: 74 in * Age: 37 yrs Ethnicity: CA Weight: 174 lb * Ordering Physician: Dixie Ashley * Referring Physician: Self, Referred * Performed By: Barbara Cruz RCS * * Reason For Study: ENDOCARDITIS * BSA: 2.0 m2 * -- Conclusions -- * 1. Normal LV size. Normal LV wall thickness. * 2. Normal LV systolic function. LVEF 55-60%. No regional wall motion abnormalities. * 3. Normal RV size and function. * 4. No significant valvular pathology. No evidence of vegetations. * 5. No prior studies for comparison. Procedure Details * A complete two-dimensional transthoracic echocardiogram was performed (2D, M-mode, Doppler and color flow Doppler). Left Ventricle * The left ventricle is grossly normal size. * There is normal left ventricular wall thickness. * Ejection Fraction = 55-60%. * No regional wall motion abnormalities noted. Right Ventricle * The right ventricle is grossly normal size. * The right ventricular systolic function is normal as assessed by tricuspid annular plane systolic excursion (TAPSE) (normal >1.5 cm). Atria * The left atrial size is normal. * Right atrial size is normal. * No ASD detected; PFO is not assessed. Mitral Valve * The mitral valve is grossly normal. * There is no vegetation seen on the mitral valve. * There is no mitral valve stenosis. * Significant mitral regurgitation is absent. Tricuspid Valve * The tricuspid valve is not well visualized, but is grossly normal. * There is no tricuspid valve vegetation. * There is no tricuspid stenosis. * Significant tricuspid regurgitation is absent. Aortic Valve * The aortic valve opens well. * The aortic valve is trileaflet. * There is no aortic valvular vegetation. * No hemodynamically significant valvular aortic stenosis. * There is no significant aortic regurgitation. Pulmonic Valve * The pulmonary valve is inadequately visualized, but the Doppler data is adequate for interpretation. * Pulmonic stenosis is absent. * There is no significant pulmonary regurgitation. Great Vessels * The aortic root and proximal ascending aorta are normal sized. Pericardium/Pleural * There is no pericardial effusion. Great Vessels * IVC < 2.1, <50% change with respiration. MMode 2D Measurements and Calculations IVSd 1.1 cm IVSs 1.7 cm LVIDd 5.5 cm LVIDs 3.7 cm LVPWd 1.1 cm LVPWs 1.6 cm IVS/LVPW 1.0 FS 33.0 % EDV(Teich) 150.1 ml ESV(Teich) 58.8 ml EF(Teich) 60.9 % EDV(cubed) 170.4 ml ESV(cubed) 51.3 ml EF(cubed) 69.9 % % IVS thick 48.6 % % LVPW thick 41.1 % LV mass(C)d 256.0 grams LV mass(C)dI 125.0 grams/m\S\2 LV mass(C)s 244.2 grams LV mass(C)sI 119.2 grams/m\S\2 SV(Teich) 91.4 ml SI(Teich) 44.6 ml/m\S\2 SV(cubed) 119.0 ml SI(cubed) 58.1 ml/m\S\2 Ao root diam 3.3 cm Ao root area 8.8 cm\S\2 ACS 2.3 cm LA dimension 4.0 cm LA/Ao 1.2 LVOT diam 2.1 cm LVOT area 3.3 cm\S\2 LVAd ap4 42.1 cm\S\2 LVLd ap4 8.8 cm EDV(MOD-sp4) 165.9 ml EDV(sp4-el) 171.3 ml LVAs ap4 24.4 cm\S\2 LVLs ap4 6.9 cm ESV(MOD-sp4) 76.7 ml ESV(sp4-el) 73.7 ml EF(MOD-sp4) 53.8 % EF(sp4-el) 57.0 % LVAd ap2 43.9 cm\S\2 LVLd ap2 9.2 cm EDV(MOD-sp2) 174.9 ml EDV(sp2-el) 178.9 ml LVAs ap2 24.9 cm\S\2 LVLs ap2 6.7 cm ESV(MOD-sp2) 75.9 ml ESV(sp2-el) 78.7 ml EF(MOD-sp2) 56.6 % EF(sp2-el) 56.0 % LVLd %diff 4.0 % EDV(MOD-bp) 169.5 ml LVLs %diff -2.97 % ESV(MOD-bp) 77.2 ml EF(MOD-bp) 54.4 % SV(MOD-sp4) 89.2 ml SI(MOD-sp4) 43.6 ml/m\S\2 SV(MOD-sp2) 98.9 ml SI(MOD-sp2) 48.3 ml/m\S\2 SV(MOD-bp) 92.2 ml SI(MOD-bp) 45.0 ml/m\S\2 SV(sp4-el) 97.6 ml SI(sp4-el) 47.7 ml/m\S\2 SV(sp2-el) 100.2 ml SI(sp2-el) 48.9 ml/m\S\2 Doppler Measurements and Calculations Ao V2 max 118.2 cm/sec Ao max PG 5.6 mmHg Ao max PG (full) 0.80 mmHg DA(V,A) 3.1 cm\S\2 DA(V,D) 3.1 cm\S\2 LV V1 max PG 4.8 mmHg LV V1 max 109.5 cm/sec PA V2 max 116.5 cm/sec PA max PG 5.4 mmHg
--- NOTE | 2017-08-23 19:56 | Pharmacy Progress Note ---
Pharmacy Abx Dose Short Note Date of Service Aug 23, 2017. Assessment & Plan Assessment The patient is a 37 year old male being treated with vancomycin/rocephin for L arm cellulitis. Blood cultures from 08/22 grew gram positive cocci. Day # 2 of antimicrobial therapy. Item Value Date Time Vancomycin Level Trough 11.2 mcg/ml 08/23/17 1800 Item Value Date Time Blood Culture - Preliminary Resulted 08/22/17 1935 Blood Gram Positive Cocci Blood Culture - Preliminary Resulted 08/22/17 1930 Blood Gram Positive Cocci Plan Vancomycin * Trough level of 11.2 mcg/mL is subtherapeutic. * Increase dose to (21mg/kg) 1750 mg IV every 8 hours * Goal trough level 15-20 mcg/mL * Trough level ordered for: 08/24 @1530 Pharmacy will continue to follow and will adjust dose/frequency as necessary. Thank you.
[2017-08-23] MEDS ORDERED: CEFTRIAXONE SOD INJ 2,000 MG in DEXTROSE 5% 50ML 50 ML IV ONE (20:00)
--- NOTE | 2017-08-23 20:33 | Family Medicine Progress Note ---
Progress Note Date of Service Aug 23, 2017. Subjective Pt evaluation today including: conversation w/ patient, physical exam, chart review, lab review, review of studies Pain: Patient complaints of moderate pain over his left forearm Voiding: no voiding problems, no incontinence Patient is resting comfortably in bed this morning. He states that he is having moderate discomfort over the left arm, where a palpable cord is located between the distal biceps to the wrist. He states that the discomfort has significantly improved since starting antibiotic therapy yesterday. Denies any fevers or chills. Constitutional: No fever, No chills, No sweats Respiratory: No cough, No wheezing, No shortness of breath, No dyspnea at rest Cardiovascular: No chest pain, No edema, No palpitations Abdomen: No pain, No nausea, No vomiting Musculoskeletal: + problem reported (Pain over the left forearm with warmth and a palpable cord) Neurologic: No weakness, No numbness/tingling Medications Current Inpatient Medications Medications (Trade) Dose Ordered Sig/Cynthia Route Start Time Stop Time Status Last Admin Dose Admin Acetaminophen (Tylenol Tab) 650 mg Q4H PRN PO 08/23/17 00:30 09/22/17 00:29 Al Hydrox/Mg Hydrox/Simethicone (Maalox Max Susp) 15 ml Q4H PRN PO 08/23/17 00:30 09/22/17 00:29 Magnesium Hydroxide (Milk Of Magnesia Susp) 30 ml Q12H PRN PO 08/23/17 00:30 09/22/17 00:29 Ondansetron HCl (Zofran Inj) 4 mg Q6H PRN IV 08/23/17 00:30 09/22/17 00:29 Polyethylene (Miralax Powder Packet) 17 gm DAILY PRN PO 08/23/17 00:30 09/22/17 00:29 Albuterol (Ventolin Hfa Inhaler) 2 puffs Q4HWA INH 08/23/17 08:00 09/22/17 07:59 08/23/17 19:51 2 PUFFS Lactated Ringer's 1,000 ml @ 100 mls/hr Q10H IV 08/23/17 01:30 09/22/17 01:29 08/23/17 11:30 100 MLS/HR Vancomycin HCl (Consult) 1 ea UD PRN N/A 08/23/17 01:30 09/22/17 01:29 Ketorolac Tromethamine (Toradol Inj) 15 mg Q6H PRN IV. 08/23/17 10:15 08/28/17 10:14 08/23/17 15:42 15 MG Calcium Carbonate (Tums Chew Tab) 1,000 mg Q8H PRN PO 08/23/17 17:00 09/22/17 16:59 08/23/17 18:39 1,000 MG Ceftriaxone Sodium 2000 mg/ Dextrose 70 ml @ 100 mls/hr ONE ONCE IV 08/23/17 20:00 08/23/17 20:41 Enoxaparin Sodium (Lovenox Inj) 40 mg QAM SQ 08/24/17 08:00 09/23/17 07:59 Vancomycin HCl 1750 mg/Sodium Chloride 535 ml @ 200 mls/hr Q8H IV 08/24/17 00:00 09/02/17 01:59 Objective Vital Signs Date Time Temp Pulse Resp B/P (MAP) Pulse Ox O2 Delivery O2 Flow Rate FiO2 08/23/17 18:30 Room Air 08/23/17 16:10 36.9 85 24 99 08/23/17 15:29 36.9 85 24 118/68 (85) 99 Room Air 08/23/17 12:27 36.6 91 16 113/75 (88) 100 Room Air 08/23/17 12:00 Room Air 08/23/17 08:15 36.9 82 16 102/77 (85) 96 Room Air 08/23/17 08:00 Room Air 08/23/17 04:00 Room Air 08/23/17 03:30 36.8 84 16 90/60 (70) 97 Room Air 08/23/17 01:32 36.8 113 20 105/70 97 Room Air 08/23/17 00:49 114 16 122/70 98 08/22/17 23:22 135 08/22/17 22:51 137 22 124/70 94 Room Air 08/22/17 20:54 95 16 131/77 96 Room Air Physical Exam General Appearance: WD/WN, no apparent distress Respiratory/Chest: chest non-tender, lungs clear, normal breath sounds, no respiratory distress, no accessory muscle use Cardiovascular: regular rate, rhythm, no edema, no gallop, no murmur Abdomen: normal bowel sounds, non tender, soft Extremities: + pertinent finding (Palpable cord between the distal biceps and the distal forarm proximal to the wrist on the left arm. Moderate erythema over the effected area in addition to the surrounding skin. Tenderness to palpation most significant over the proximal forearm.) Neurologic/Psychiatric: alert, normal mood/affect, oriented x 3 Laboratory Results Results Past 24 Hours Test 08/22/17 20:59 08/23/17 05:22 08/23/17 11:20 08/23/17 18:00 Range/Units Salicylates Level 13.9 2.8-20 mg/dl Acetaminophen Level < 2 10-30 ug/ml White Blood Count 19.65 4.8-10.8 K/uL Red Blood Count 3.63 4.7-6.1 M/uL Hemoglobin 10.0 14.0-18.0 g/dL Hematocrit 31.2 42-52 % Mean Corpuscular Volume 86.0 80-100 fL Mean Corpuscular Hemoglobin 27.5 25-34 pg Mean Corpuscular Hemoglobin Concent 32.1 32-36 g/dl RDW Standard Deviation 45.4 36.4-46.3 fL RDW Coefficient of Variation 14.4 11.5-14.5 % Platelet Count 177 130-400 K/uL Mean Platelet Volume 10.7 7.4-10.4 fL Sodium Level 137 136-145 mmol/L Potassium Level 3.5 3.5-5.1 mmol/L Chloride Level 104 98-107 mmol/L Carbon Dioxide Level 26 21-32 mmol/L Anion Gap 7.0 3-11 mmol/L Blood Urea Nitrogen 15 7-18 mg/dl Creatinine 0.59 0.60-1.40 mg/dl Est Creatinine Clear Calc Drug Dose 188.3 ml/min Estimated GFR () 147.8 Estimated GFR (Non- 127.5 BUN/Creatinine Ratio 26.0 10-20 Random Glucose 108 70-99 mg/dl Calcium Level 8.2 8.5-10.1 mg/dl Urine Opiates Screen NEG NEG Urine Methadone, Qualitative NEG NEG Urine Barbiturates NEG NEG Urine Phencyclidine (PCP) Level NEG NEG Ur Amphetamine/Methamphetamine NEG NEG MDMA (Ecstasy) Screen NEG NEG Urine Benzodiazepines Screen NEG NEG Urine Cocaine Metabolite NEG NEG Urine Marijuana (THC) POS NEG Vancomycin Level Trough 11.2 SEE COMMENT mcg/ml Microbiology Results 08/23/17 Blood Culture, Ordered Pending 08/23/17 Blood Culture, Ordered Pending Assessment and Plan Patient is a 37 year old male that presents with worsening left arm pain secondary to IV drug use 1) Superficial Thrombosis of L arm/ Cellulitis of L Forearm --> Improving clinically on IV Antibiotics, Blood Cultures positive for Gram Positive Cocci, Continue broad spectrum coverage with Vancomycin and Rocephin - Venous doppler: Cephalic Vein thrombosed, No DVT - Elevate arm - Warm compress 15 minutes TID - Vancomycin and Cefepime IV --> Will give extra dose of Rocephin tonight as patient states he will be leaving AMA tomorrow - Blood Cultures positive from Gram Positive Cocci - Repeat blood cultures ordered - Toradol 15mg q6h PRN for pain - Received dose of Lovenox 1.5mg/kg - Tomorrow will convert to prophylactic lovenox (40mg qD) - Moved to Med/Surg due to improvement on Antibiotics 2) Tachycardia - Resolved, Sinus Rhythm in 70s overnight on tele - Likely from infection and dehydration 3) IV drug use - ECHO shows no valvular abnormalities or vegetations - Urine tox screen negative for amphetamines or opiates 4) Hx of asthma - Albuterol 5) Aspirin overdose - Patient took bottle of aspirin over last few days due to pain - Prophylactic PPI ordered for protection - Watch for melena and monitor H/H VTE: Lovenox Dispo: Med/Surg Code status: Full Reviewed: Pt Seen/Exam by Me History Resident Physician Supervision Note: I interviewed and examined the patient. Discussed with Dr. Basilio and agree with findings and plan as documented in the note. Any exceptions or clarifications are listed here: Pt says PENNY feels much better than previously.He informs me that he has a crucial family meeting tomorrow in [place] that he must attend that has been planned for some time, and that he will have to leave AMA in the morning. Wants to know how dangerous this is. We discussed his positive Blood cultures, risk of worsening infection without appropriate antibiotics, etc. Vitals reviewed NAD, anxious, thin, appears older than stated age Edentulous RRR no mgr CTAB no wcr Ext: PENNY with diffuse erythema, edema from hand to mid humerus, +palpable cord in AC region and ventral foream 37 yo male with a h/o IVDA here with LUE cellulitis and superficial thrombophlebitis after IV drug use. Now with sepsis, GPC Bacteremia. -was on Cefepime and Vanco, discussed giving Rocephin for 24 hour coverage in case leaves AMA-can do in the AM before he leaves-pt states he plans on coming back to the ER to check himself back into the hospital when he returns from his family meeting in [place] tomorrow -repeat BCxs now and ensure clearing ECHO no vegetation. If BCxs persistently positive, may need XENIA -will need 2 weeks total IV abx, await BCx ID and sensitivity Given h/o IVDA, sending him home with a PICC is a huge risk for him to have easy access for further drug use -continue Lovenox but at DVT proph dose, warm compresses, and NSAIDs with PPI for superficial thrombophlebitis Documented By: Dixie Ashley
[2017-08-23] MEDS ORDERED: PANTOprazole INJ 40 MG in SYRINGE 0 ML IV ONE (20:45)
[2017-08-23] MEDS: ACETAMINOPHEN 325 MG TAB PO PRN (21:00)
--- NOTE | 2017-08-23 21:57 | Progress Note ---
Progress Note Date of Service Aug 23, 2017. Progress Note Called by nurse overnight for patient's requests 1- Wanted to discuss his blood cultures since thought it may be a contaminant. Informed them that both are now positive, so he should wait for sensitivities to return. pt was going to leave AMA in the morning otherwise. 2- Suboxone. Pt reports his sister brought in suboxone and didn't realize it was there. Reports he does not have further suboxone at home. Reviewed PDMP, pt had a 15 day prescription for BID dosing given on 08/10/2017. Has been getting this every [address] in [place]. Unclear if patient took the suboxone his sister brought in, his urine drug screen also only showed marijuana. I had placed an order for one dose, cancelled now until is it clarified if he took it today. 3- Box fan requested. Resident Tracking Resident Involvement: Tobacco Sampler Coverage Note Care Provided: Adult Hospital Medicine
[2017-08-23] MEDS ORDERED: BUPRENORPHINE/NALOXONE 2/0.5MG 1 TAB PO ONE (22:00)
[2017-08-24] VITALS: O2SAT 97
[2017-08-24 00:30] VITALS: BP 129/77; PULSE 73; TEMP 36.8; O2SAT 100
[2017-08-24] MEDS ORDERED: NURSING VERBAL MED ORDER ONE (02:15)
[2017-08-24] MEDS: ACETAMINOPHEN 325 MG TAB PO PRN ×2 (03:35→14:07)
[2017-08-24] MEDS: KETOROLAC TROMETHAMINE 15 MG/ML VIAL IV. PRN ×4 (03:35→22:20)
[2017-08-24] MEDS: VANCOMYCIN INJ 1,750 MG in SODIUM CHLORIDE 0.9% 500ML 500 ML IV SCH ×3 (03:36→21:03)
[2017-08-24 07:31] VITALS: BP 147/75; PULSE 84; TEMP 36.9; O2SAT 99
[2017-08-24 08:05] LABS: HEMATOCRIT 31.1 % (42-52); MEAN CELL VOLUME 85.9 fL (80-100); MEAN CORPUSCULAR HEMOGLOBIN 27.9 pg (25-34); MEAN CORPUSCULAR HGB CONC 32.5 g/dl (32-36); MEAN PLATELET VOLUME 10.4 fL (7.4-10.4); PLATELET COUNT 212 K/uL (130-400); RED BLOOD COUNT 3.62 M/uL (4.7-6.1); WHITE BLOOD COUNT 14.52 K/uL (4.8-10.8)
[2017-08-24] MEDS: ENOXAPARIN 40 MG/0.4 ML SYR SQ SCH (08:16)
[2017-08-24] MEDS: PANTOprazole SOD 40 MG TAB PO SCH (08:16)
[2017-08-24] MEDS: ALBUTEROL HFA 8 GM INHALER INH SCH ×4 (08:17→20:00)
[2017-08-24 08:37] LABS: BLOOD UREA NITROGEN 12 mg/dl (7-18); BUN/CREATININE RATIO 23.1 (10-20); CALCIUM 8.7 mg/dl (8.5-10.1); CARBON DIOXIDE 28 mmol/L (21-32); CHLORIDE 101 mmol/L (98-107); CREATININE 0.51 mg/dl (0.60-1.40); GLUCOSE 76 mg/dl (70-99); POTASSIUM 2.6 mmol/L (3.5-5.1); SODIUM 136 mmol/L (136-145)
[2017-08-24] MEDS: POTASSIUM CHLR 10 MEQ / WTR 10 MEQ in PREMIXED WATER 100 ML IV SCH ×5 (09:55→19:13)
[2017-08-24] MEDS ORDERED: POTASSIUM CHLORIDE 20 MEQ TABCR PO ONE (10:00)
[2017-08-24] MEDS ORDERED: BUPRENORPHINE/NALOXONE 8/2 MG TAB SL ONE (12:00)
[2017-08-24 15:15] VITALS: BP 144/89; PULSE 79; TEMP 36.9; O2SAT 100
[2017-08-24] MEDS ORDERED: VANCOMYCIN TROUGH ONE (15:30)
[2017-08-24] MEDS: BUPRENORPHINE/NALOXONE 8/2 MG TAB SL SCH (21:02)
--- NOTE | 2017-08-24 21:07 | Family Medicine Progress Note ---
Progress Note Date of Service Aug 24, 2017. Subjective Pt evaluation today including: conversation w/ patient, physical exam, chart review, lab review, review of studies Pain: 3/10 left arm pain Voiding: no voiding problems, no incontinence Patient states that overnight he was having worsening pain in his biceps region and was well controlled with Toradol. The swelling over his forearm appears to have improved with current antibiotic treatment. Patient also overnight revealed that he is normally on Suboxone and is following with [facility] in [place]. This morning he states that he will be missing his Bi-monthly appointment to refill his Suboxone. He is adamant about remaining clean. Constitutional: No fever, No chills, No sweats Respiratory: No cough, No sputum, No wheezing Cardiovascular: No chest pain, No palpitations Abdomen: No pain, No nausea, No vomiting Musculoskeletal: + problem reported (Tenderness over medial aspect of biceps. Tenderness over proximal forearm and swelling.) Skin: + problem reported (redness and swelling from wrist to biceps) Medications Current Inpatient Medications Medications (Trade) Dose Ordered Sig/Cynthia Route Start Time Stop Time Status Last Admin Dose Admin Acetaminophen (Tylenol Tab) 650 mg Q4H PRN PO 08/23/17 00:30 09/22/17 00:29 08/24/17 14:07 650 MG Al Hydrox/Mg Hydrox/Simethicone (Maalox Max Susp) 15 ml Q4H PRN PO 08/23/17 00:30 09/22/17 00:29 Magnesium Hydroxide (Milk Of Magnesia Susp) 30 ml Q12H PRN PO 08/23/17 00:30 09/22/17 00:29 Ondansetron HCl (Zofran Inj) 4 mg Q6H PRN IV 08/23/17 00:30 09/22/17 00:29 Polyethylene (Miralax Powder Packet) 17 gm DAILY PRN PO 08/23/17 00:30 09/22/17 00:29 Albuterol (Ventolin Hfa Inhaler) 2 puffs Q4HWA INH 08/23/17 08:00 09/22/17 07:59 08/24/17 16:12 2 PUFFS Vancomycin HCl (Consult) 1 ea UD PRN N/A 08/23/17 01:30 09/22/17 01:29 Ketorolac Tromethamine (Toradol Inj) 15 mg Q6H PRN IV. 08/23/17 10:15 08/28/17 10:14 08/24/17 16:16 15 MG Calcium Carbonate (Tums Chew Tab) 1,000 mg Q8H PRN PO 08/23/17 17:00 09/22/17 16:59 08/23/17 18:39 1,000 MG Enoxaparin Sodium (Lovenox Inj) 40 mg QAM SQ 08/24/17 08:00 09/23/17 07:59 08/24/17 08:16 40 MG Vancomycin HCl 1750 mg/Sodium Chloride 535 ml @ 200 mls/hr Q8H IV 08/24/17 00:00 09/02/17 01:59 08/24/17 12:23 200 MLS/HR Pantoprazole Sodium (Protonix Tab) 40 mg QAM PO 08/24/17 08:00 09/23/17 07:59 08/24/17 08:16 40 MG Buprenorphine/ Naloxone (Suboxone Tab) 1 tab BID SL 08/24/17 20:00 09/23/17 19:59 Potassium Chloride (Klor-Con Tab) 40 meq BID PO 08/24/17 20:00 09/23/17 19:59 Objective Vital Signs Date Time Temp Pulse Resp B/P (MAP) Pulse Ox O2 Delivery O2 Flow Rate FiO2 08/24/17 16:30 Room Air 08/24/17 15:15 36.9 79 18 144/89 (107) 100 Room Air 08/24/17 09:00 Room Air 08/24/17 07:31 36.9 84 18 147/75 (99) 99 Room Air 08/24/17 00:30 36.8 73 20 129/77 (94) 100 Room Air 08/24/17 00:00 97 Room Air Physical Exam General Appearance: WD/WN, no apparent distress Respiratory/Chest: chest non-tender, lungs clear, normal breath sounds, no respiratory distress, no accessory muscle use Cardiovascular: regular rate, rhythm, no edema, no gallop, no murmur Abdomen: normal bowel sounds, non tender, soft Extremities: + swelling, + pertinent finding (Tenderness to palpation over medial aspect of biceps. Firmness over forearm with palpable cord over proximal forearm with overlying erythema. Erythema extends from wrist distally to mid biceps proximally. 2+ radial pulses and full sensation in the forearm. Full ROM of all digits and wrist.) Neurologic/Psychiatric: alert, normal mood/affect, oriented x 3 Laboratory Results Results Past 24 Hours Test 08/24/17 07:19 Range/Units White Blood Count 14.52 4.8-10.8 K/uL Red Blood Count 3.62 4.7-6.1 M/uL Hemoglobin 10.1 14.0-18.0 g/dL Hematocrit 31.1 42-52 % Mean Corpuscular Volume 85.9 80-100 fL Mean Corpuscular Hemoglobin 27.9 25-34 pg Mean Corpuscular Hemoglobin Concent 32.5 32-36 g/dl RDW Standard Deviation 45.0 36.4-46.3 fL RDW Coefficient of Variation 14.3 11.5-14.5 % Platelet Count 212 130-400 K/uL Mean Platelet Volume 10.4 7.4-10.4 fL Sodium Level 136 136-145 mmol/L Potassium Level 2.6 3.5-5.1 mmol/L Chloride Level 101 98-107 mmol/L Carbon Dioxide Level 28 21-32 mmol/L Anion Gap 7.0 3-11 mmol/L Blood Urea Nitrogen 12 7-18 mg/dl Creatinine 0.51 0.60-1.40 mg/dl Est Creatinine Clear Calc Drug Dose 217.8 ml/min Estimated GFR () > 150.0 Estimated GFR (Non- 135.4 BUN/Creatinine Ratio 23.1 10-20 Random Glucose 76 70-99 mg/dl Calcium Level 8.7 8.5-10.1 mg/dl Assessment and Plan Patient is a 37 year old male that presents with worsening left arm pain secondary to IV drug use 1) Superficial Thrombosis of L arm/ Cellulitis of L Forearm --> Improving clinically on IV Antibiotics, Blood Cultures positive for Gram Positive Cocci, Continue broad spectrum coverage with Vancomycin and Rocephin - Based on blood cultures --> Narrow antibiotic spectrum to Vancomycin --> Currently on Day 2 of Antibiotic therapy (Previously received 2 days of Vancomycin + Cefepime and Rocephin) - Leukocytosis improving (19.65 to 14.52) - Venous doppler: Cephalic Vein thrombosed, No DVT - Elevate arm - Warm compress 15 minutes TID - Blood Cultures positive from Gram Positive Cocci - Repeat blood cultures ordered - Toradol 15mg q6h PRN for pain - Lovenox 40mg daily - Med/Surg 2) Tachycardia - Resolved, Sinus Rhythm in 70s overnight on tele - Likely from infection and dehydration 3) IV drug use - ECHO shows no valvular abnormalities or vegetations - Urine tox screen negative for amphetamines or opiates - Suboxone (8 Buprenorphine/2 Naloxone) --> Confirmed dose after calling [facility] in [place] 4) Hx of asthma - Albuterol 5) Aspirin overdose - Patient took bottle of aspirin over last few days due to pain - Prophylactic PPI ordered for protection --> Protonix - Watch for melena and monitor H/H 6) Hypokalemia - K+ of 2.6 Today - Potassium 50 mEq IV - KCl 40mg PO BID ordered - Morning BMP tomorrow VTE: Lovenox Dispo: Med/Surg Code status: Full Resident Tracking Resident Involvement: Resident Care Provided Care Provided: Adult Hospital Medicine
[2017-08-24] MEDS: POTASSIUM CHLORIDE 20 MEQ TABCR PO SCH (22:22)
[2017-08-24 23:59] VITALS: BP 135/79; PULSE 72; TEMP 36.8; O2SAT 99
[2017-08-25] MEDS: VANCOMYCIN INJ 1,750 MG in SODIUM CHLORIDE 0.9% 500ML 500 ML IV SCH ×3 (04:12→20:54)
[2017-08-25] MEDS: KETOROLAC TROMETHAMINE 15 MG/ML VIAL IV. PRN ×4 (04:16→22:11)
[2017-08-25] MEDS: PANTOprazole SOD 40 MG TAB PO SCH (07:42)
[2017-08-25] MEDS: POTASSIUM CHLORIDE 20 MEQ TABCR PO SCH ×2 (07:42→20:55)
[2017-08-25] MEDS: ALBUTEROL HFA 8 GM INHALER INH SCH ×4 (07:42→20:55)
[2017-08-25] MEDS: ENOXAPARIN 40 MG/0.4 ML SYR SQ SCH (07:44)
[2017-08-25] MEDS: MAGNESIUM HYDROXIDE SUSP 30 ML UDC PO PRN ×2 (07:47→21:00)
[2017-08-25] MEDS: BUPRENORPHINE/NALOXONE 8/2 MG TAB SL SCH ×2 (07:48→20:54)
[2017-08-25 07:50] LABS: HEMATOCRIT 30.1 % (42-52); MEAN CELL VOLUME 85.3 fL (80-100); MEAN CORPUSCULAR HEMOGLOBIN 27.2 pg (25-34); MEAN CORPUSCULAR HGB CONC 31.9 g/dl (32-36); MEAN PLATELET VOLUME 10.4 fL (7.4-10.4); PLATELET COUNT 184 K/uL (130-400); RED BLOOD COUNT 3.53 M/uL (4.7-6.1); WHITE BLOOD COUNT 8.86 K/uL (4.8-10.8)
[2017-08-25 07:53] VITALS: BP 133/66; PULSE 66; TEMP 37; O2SAT 98
[2017-08-25] MEDS: ACETAMINOPHEN 325 MG TAB PO PRN ×2 (08:01→21:00)
[2017-08-25 08:37] LABS: BLOOD UREA NITROGEN 8 mg/dl (7-18); BUN/CREATININE RATIO 14.9 (10-20); CALCIUM 8.4 mg/dl (8.5-10.1); CARBON DIOXIDE 29 mmol/L (21-32); CHLORIDE 103 mmol/L (98-107); CREATININE 0.54 mg/dl (0.60-1.40); GLUCOSE 76 mg/dl (70-99); POTASSIUM 3.1 mmol/L (3.5-5.1); SODIUM 136 mmol/L (136-145)
[2017-08-25] MEDS ORDERED: VANCOMYCIN TROUGH ONE (11:30)
--- NOTE | 2017-08-25 14:10 | Pharmacy Progress Note ---
Pharmacy Abx Dose Progress Nt Date of Service Aug 25, 2017. Pharmacy Dosing Scope The patient is currently receiving the following antimicrobial agents per Pharmacy consult: Vancomycin 1750 mg IV every 8 hours Objective Height (Feet): 6 Height (Inches): 2.00 Weight (Kilograms): 79.200 Vital Signs (Past 12Hrs) Vital Signs Past 12 Hours Date Time Temp Pulse Resp B/P (MAP) Pulse Ox O2 Delivery O2 Flow Rate FiO2 08/25/17 08:00 Room Air 08/25/17 07:53 37.0 66 18 133/66 (88) 98 Lab Results (24Hrs) Laboratory Tests (24 Hours) Test 08/25/17 07:22 White Blood Count 8.86 K/uL (4.8-10.8) Micro Results Date/Time Source Procedure Growth Status 08/23/17 19:58 Blood Blood Culture - Preliminary NO GROWTH TO DATE. Resulted 08/23/17 19:45 Blood Blood Culture - Preliminary NO GROWTH TO DATE. Resulted 08/22/17 19:35 Blood Blood Culture - Final Alpha Strep Not S.pne/Enteroco Complete 08/22/17 19:30 Blood Blood Culture - Final Coag Neg Staph Not Lugdunensis Complete Assessment & Plan Assessment 37 year old male receiving vancomycin IV for treatment of left forearm cellulitis with gram positive bacteremia. * 1/2 BC growing coagulase negative staph and 1/2 growing alpha strep (not S.pneumoniae or enterococci). Repeat cultures pending. * h/o MRSA and IV drug use. No evidence of valvular abnormalities or vegetations on ECHO. * Day # 4 of antimicrobial therapy Plan Vancomycin IV * Trough level of 17.9 mcg/mL is therapeutic * Continue current dose of 1750 mg IV every 8 hours * Goal trough level for cellulitis/bacteremia : 15 to 20 mcg/mL * Trough level ordered for: 08/25/17 * If extended IV antibiotic therapy is desired, dalbavancin may be an option d/ t h/o IVDU. Dalbavancin is FDA approved for the treatment of cellulitis. It is not FDA approved for bacteremia, however, there is data supporting its use in catheter-related bloodstream infections caused by gram positive organisms. This would require approval from the Infectious Diseases service. Pharmacy will continue to follow and will adjust dose/frequency as necessary. Thank you.
--- NOTE | 2017-08-25 15:17 | Medical Consult ---
Consultation Date of Consultation: Aug 25, 2017. Attending Physician: Jesus Zendejas D.O. Reason for Consultation: IV drug use, Staph bacteremia History of Present Illness 37-year-old male with history of IV drug abuse, who was admitted to the hospital August 23 with several day history of progressively worsening left arm pain, swelling, and erythema. He reportedly had injected methamphetamine into that arm previously. Came to the emergency department where he was found to have evidence of severe cellulitis, and ultrasound confirmed the presence of cephalic vein thrombosis. patient was started on IV vancomycin and Zosyn. Blood culture growing coagulase negative Staph, 2nd set growing alpha strep. Currently afebrile but with significant pain in his left arm, rated 8 out of 10 in intensity currently. Past Medical/Surgical History Medical Problems: (1) Anxiety State Nos Status: Chronic (2) Asthma, Unspecified Status: Chronic (3) Bipolar II disorder Status: Chronic (4) Headache Status: Acute (5) Idiopathic peripheral neuropathy Status: Chronic (6) IV drug abuse Status: Acute (7) Left arm cellulitis Status: Acute (8) Migraine Status: Chronic (9) Superficial thrombophlebitis of arm Status: Acute (10) Tobacco user Status: Chronic Medical Problems: (1) Anxiety State Nos (2) Asthma, Unspecified (3) Bipolar II disorder (4) Cellulitis and abscess of ankle (5) Fever (6) Headache (7) Idiopathic peripheral neuropathy (8) Left arm swelling (9) Methicillin resistant Staphylococcus aureus infection (10) Migraine (11) SIRS (systemic inflammatory response syndrome) (12) Thrombophlebitis (13) Tobacco user Family History No pertinent family history Social History Smoking Status: Unknown if Ever Smoked Alcohol Use: socially Drug Use: other Marital Status: Housing Status: lives alone Occupation Status: unemployed Allergies Coded Allergies: Cyclobenzaprine (Verified Allergy, Severe, SHORTNESS OF BREATH, 04/30/17) Zolpidem (Verified Allergy, Unknown, hallucinations, 04/30/17) Benzodiazepines (Verified Adverse Reaction, Intermediate, PSYCH ISSUES, ) Current Inpatient Medications He Current Inpatient Medications Medications (Trade) Dose Ordered Sig/Cynthia Route Start Time Stop Time Status Last Admin Dose Admin Acetaminophen (Tylenol Tab) 650 mg Q4H PRN PO 08/23/17 00:30 09/22/17 00:29 08/25/17 08:01 650 MG Al Hydrox/Mg Hydrox/Simethicone (Maalox Max Susp) 15 ml Q4H PRN PO 08/23/17 00:30 09/22/17 00:29 Magnesium Hydroxide (Milk Of Magnesia Susp) 30 ml Q12H PRN PO 08/23/17 00:30 09/22/17 00:29 08/25/17 07:47 30 ML Ondansetron HCl (Zofran Inj) 4 mg Q6H PRN IV 08/23/17 00:30 09/22/17 00:29 08/24/17 20:17 4 MG Polyethylene (Miralax Powder Packet) 17 gm DAILY PRN PO 08/23/17 00:30 09/22/17 00:29 Albuterol (Ventolin Hfa Inhaler) 2 puffs Q4HWA INH 08/23/17 08:00 09/22/17 07:59 08/25/17 07:42 2 PUFFS Vancomycin HCl (Consult) 1 ea UD PRN N/A 08/23/17 01:30 09/22/17 01:29 Ketorolac Tromethamine (Toradol Inj) 15 mg Q6H PRN IV. 08/23/17 10:15 08/28/17 10:14 08/25/17 10:20 15 MG Calcium Carbonate (Tums Chew Tab) 1,000 mg Q8H PRN PO 08/23/17 17:00 09/22/17 16:59 08/23/17 18:39 1,000 MG Enoxaparin Sodium (Lovenox Inj) 40 mg QAM SQ 08/24/17 08:00 09/23/17 07:59 08/25/17 07:44 40 MG Vancomycin HCl 1750 mg/Sodium Chloride 535 ml @ 200 mls/hr Q8H IV 08/24/17 00:00 09/02/17 01:59 08/25/17 12:29 200 MLS/HR Pantoprazole Sodium (Protonix Tab) 40 mg QAM PO 08/24/17 08:00 09/23/17 07:59 08/25/17 07:42 40 MG Buprenorphine/ Naloxone (Suboxone Tab) 1 tab BID SL 08/24/17 20:00 09/23/17 19:59 08/25/17 07:48 1 TAB Potassium Chloride (Klor-Con Tab) 40 meq BID PO 08/24/17 20:00 09/23/17 19:59 08/25/17 07:42 40 MEQ Review of Systems Constitutional: No fever, No chills Eyes: No problem reported ENT: No problem reported Respiratory: No problem reported Cardiovascular: No problem reported Abdomen: No problem reported Musculoskeletal: + muscle pain Genitourinary - Male: No problem reported Neurologic: No problem reported Psychiatric: + substance abuse Endocrine: No problem reported Hematologic / Lymphatic: No problem reported Integumentary: + new/changing skin lesions Allergic / Immunologic: No problem reported Physical Exam Date Time Temp Pulse Resp B/P (MAP) Pulse Ox O2 Delivery O2 Flow Rate FiO2 08/25/17 08:00 Room Air 08/25/17 07:53 37.0 66 18 133/66 (88) 98 08/25/17 00:00 Room Air 08/24/17 23:59 36.8 72 20 135/79 (97) 99 Room Air 08/24/17 20:00 Room Air 08/24/17 16:30 Room Air 08/24/17 15:15 36.9 79 18 144/89 (107) 100 Room Air General Appearance: WD/WN, no apparent distress Head: normocephalic, atraumatic Eyes: normal inspection, EOMI, sclerae normal ENT: normal ENT inspection, pharynx normal Neck: supple, no adenopathy, thyroid normal, trachea midline Respiratory/Chest: chest non-tender, lungs clear, normal breath sounds, no respiratory distress Cardiovascular: regular rate, rhythm, no gallop, no murmur Abdomen/GI: normal bowel sounds, non tender, soft, no organomegaly Back: normal inspection, no CVA tenderness Extremities/Musculoskelatal: normal inspection, no calf tenderness, + inflammation (Left arm), + swelling (Left arm) Neurologic/Psych: alert, oriented x 3 Skin: normal color, no rash, + pertinent finding (Left arm cellulitis with tender left forearm cord) Lymphatic: no adenopathy Laboratory Results RUN DATE: 08/25/17 [facility] LAB PAGE 1 RUN TIME: 1318 Specimen Inquiry PATIENT: CATERINA FOWLER LOC: [place]rena # : [id number] AGE/SX: 37/M ROOM: [facility] REG : 08/22/[address]: Jesus Zendejas D.O : 1980 BED: 1 DIS : STATUS: ADM IN TLOC: SPEC #: [id number] KECIA: 08/22/17 STATUS: COMP REQ #: [id number] RECD: 08/22/[address]: Colby Sky M.D. SOURCE: BLOOD ENTR: 08/22/[address]: Evangelina Viera, Assigned [facility]: ORDERED: BLOOD CULTURE Procedure Result Verified Site BLD CULT Final 08/25/17-1318 Organism 1 ALPHA STREP NOT S.PNE/ENTEROCO SENS NO SENSITIVITY TO FOLLOW One set of 2 positive. Isolation does not necessarily mean infection. No susceptibility tests performed. Contact microbiology laboratory ([phone]) if further studies are indicated. Phoned Positive Blood Culture Gram Stain Report to FELICITA TOBAR on 08/23/17 At 1935 By AUBREY. Results were verbalized back to AUBREY. Last 24 Hours Test 08/25/17 07:22 08/25/17 11:36 White Blood Count 8.86 K/uL Red Blood Count 3.53 M/uL Hemoglobin 9.6 g/dL Hematocrit 30.1 % Mean Corpuscular Volume 85.3 fL Mean Corpuscular Hemoglobin 27.2 pg Mean Corpuscular Hemoglobin Concent 31.9 g/dl RDW Standard Deviation 44.6 fL RDW Coefficient of Variation 14.2 % Platelet Count 184 K/uL Mean Platelet Volume 10.4 fL Sodium Level 136 mmol/L Potassium Level 3.1 mmol/L Chloride Level 103 mmol/L Carbon Dioxide Level 29 mmol/L Anion Gap 4.0 mmol/L Blood Urea Nitrogen 8 mg/dl Creatinine 0.54 mg/dl Est Creatinine Clear Calc Drug Dose 205.7 ml/min Estimated GFR () > 150.0 Estimated GFR (Non- 132.3 BUN/Creatinine Ratio 14.9 Random Glucose 76 mg/dl Calcium Level 8.4 mg/dl Vancomycin Level Trough 17.9 mcg/ml Patient Name: CATERINA FOWLER Unit Number: [id number] Dictated: 08/22/[id number] Transcribed: 08/22/172250 ART Printed Date/Time: [~ rep prt dt]/[~ rep prt tm] [~ rep ct labl] - [~ rep ct ivnm] [facility] [address] Radiology Department [place], [place] [id number] Dictated: 08/22/172250 Transcribed: 08/22/172250 [facility] Printed Date/Time: [~ rep prt dt]/[~ rep prt tm] [~ rep ct labl] - [~ rep ct ivnm] LEFT UPPER EXTREMITY VENOUS DOPPLER HISTORY: eval for dvt left arm COMPARISON STUDY: None. FINDINGS: The left internal jugular vein is patent. There is normal flow within the left subclavian vein. There is normal flow and compressibility within the left axillary, basilic, brachial, radial, and ulnar veins. The cephalic vein is thrombosed from the upper arm to the wrist. This is consistent with a superficial thrombus. IMPRESSION: No DVT within the left upper extremity. The majority of the cephalic vein is thrombosed consistent with a superficial thrombosis. Electronically signed by: Omer Santos M.D. 08/22/2017 10:53 PM Dictated Date/Time: 08/22/2017 10:51 PM The status of this report is Signed. Draft = Not yet reviewed or approved by Radiologist. Signed = Reviewed and approved by Radiologist. <AttendingPhy></AttendingPhy> <FamilyPhy>No Doctor, Assigned</FamilyPhy> < PrimaryPhy>No Doctor, Assigned</PrimaryPhy> <UnitNumber>[id number]</UnitNumber> <VisitNumber>[id number]</VisitNumber> <PatientName>CATERINA FOWLER</PatientName > <DateOfBirth>1980</DateOfBirth> <Location>C.EDB</Location> <ServiceDate> 08/22/17</ServiceDate> <MNE>ESINDI</MNE> <OrderingPhy>Colby Sky MD</ OrderingPhy> <OrderingPhyMNE>f rep ord dr carter</OrderingPhyMNE> <DictatingPhyMNE> f rep dict dr carter</DictatingPhyMNE> <CCListMNE>f rep ct mne</CCListMNE> < AdmittingPhyMNE>f pt admit dr carter</AdmittingPhyMNE> <AttendingPhyMNE>f pt attend dr carter</AttendingPhyMNE> <ConsultingPhyMNE>f pt consult dr carter</ConsultingPhyMNE> <FamilyPhyMNE>f pt fam dr carter</FamilyPhyMNE> <OtherPhyMNE>f pt other dr carter</OtherPhyMNE> < PrimaryPhyMNE>f pt prim care dr carter</PrimaryPhyMNE> <ReferringPhyMNE>f pt referring dr carter</ReferringPhyMNE> Assessment & Plan Septic thrombophlebitis with cellulitis of the left arm in patient with known IV drug use, with positive blood culture, 1 set with strep, other with coagulase negative Staph. Significance unclear given discrepancy between cultures. Additional cultures have been taken. Patient should be continued on current IV antibiotics pending further culture results. Length of IV therapy will be determined by clinical response. Patient not good candidate for outpatient IV antibiotics. Will follow.
[2017-08-25 15:30] VITALS: BP 124/68; PULSE 69; TEMP 36.8; O2SAT 93
--- NOTE | 2017-08-25 15:43 | Family Medicine Progress Note ---
Progress Note Date of Service Aug 25, 2017. Subjective Pt evaluation today including: conversation w/ patient, physical exam, chart review, lab review, review of studies Pain: Mild 2/10 pain in left arm Voiding: no voiding problems, no incontinence Patient states that his pain is significantly improved with antibiotic treatment and Toradol. He states that while he was sleeping the area of questionable abscess over the left forearm began to drain and the pressure over that region has significantly improved. States that his fever and chills have resolved and denies any shortness of breath, palpitations or chest pain. Constitutional: + fatigue, No fever, No chills, No sweats, No weakness Respiratory: No cough, No sputum, No wheezing, No shortness of breath Cardiovascular: No chest pain, No palpitations Abdomen: No pain, No nausea, No vomiting, No diarrhea Skin: + problem reported (Left arm redness and swelling improving) Medications Current Inpatient Medications Medications (Trade) Dose Ordered Sig/Cynthia Route Start Time Stop Time Status Last Admin Dose Admin Acetaminophen (Tylenol Tab) 650 mg Q4H PRN PO 08/23/17 00:30 09/22/17 00:29 08/25/17 08:01 650 MG Al Hydrox/Mg Hydrox/Simethicone (Maalox Max Susp) 15 ml Q4H PRN PO 08/23/17 00:30 09/22/17 00:29 Magnesium Hydroxide (Milk Of Magnesia Susp) 30 ml Q12H PRN PO 08/23/17 00:30 09/22/17 00:29 08/25/17 07:47 30 ML Ondansetron HCl (Zofran Inj) 4 mg Q6H PRN IV 08/23/17 00:30 09/22/17 00:29 08/24/17 20:17 4 MG Polyethylene (Miralax Powder Packet) 17 gm DAILY PRN PO 08/23/17 00:30 09/22/17 00:29 Albuterol (Ventolin Hfa Inhaler) 2 puffs Q4HWA INH 08/23/17 08:00 09/22/17 07:59 08/25/17 07:42 2 PUFFS Vancomycin HCl (Consult) 1 ea UD PRN N/A 08/23/17 01:30 09/22/17 01:29 Ketorolac Tromethamine (Toradol Inj) 15 mg Q6H PRN IV. 08/23/17 10:15 08/28/17 10:14 08/25/17 10:20 15 MG Calcium Carbonate (Tums Chew Tab) 1,000 mg Q8H PRN PO 08/23/17 17:00 09/22/17 16:59 08/23/17 18:39 1,000 MG Enoxaparin Sodium (Lovenox Inj) 40 mg QAM SQ 08/24/17 08:00 09/23/17 07:59 08/25/17 07:44 40 MG Vancomycin HCl 1750 mg/Sodium Chloride 535 ml @ 200 mls/hr Q8H IV 08/24/17 00:00 09/02/17 01:59 08/25/17 12:29 200 MLS/HR Pantoprazole Sodium (Protonix Tab) 40 mg QAM PO 08/24/17 08:00 09/23/17 07:59 08/25/17 07:42 40 MG Buprenorphine/ Naloxone (Suboxone Tab) 1 tab BID SL 08/24/17 20:00 09/23/17 19:59 08/25/17 07:48 1 TAB Potassium Chloride (Klor-Con Tab) 40 meq BID PO 08/24/17 20:00 09/23/17 19:59 08/25/17 07:42 40 MEQ Objective Vital Signs Date Time Temp Pulse Resp B/P (MAP) Pulse Ox O2 Delivery O2 Flow Rate FiO2 08/25/17 08:00 Room Air 08/25/17 07:53 37.0 66 18 133/66 (88) 98 08/25/17 00:00 Room Air 08/24/17 23:59 36.8 72 20 135/79 (97) 99 Room Air 08/24/17 20:00 Room Air 08/24/17 16:30 Room Air Physical Exam General Appearance: WD/WN, no apparent distress Eyes: normal inspection, sclerae normal Respiratory/Chest: chest non-tender, lungs clear, normal breath sounds Cardiovascular: regular rate, rhythm, no edema, no gallop, no murmur Abdomen: normal bowel sounds, non tender, soft Extremities: normal inspection, no pedal edema, no calf tenderness Neurologic/Psychiatric: alert, normal mood/affect, oriented x 3 Skin: + pertinent finding (Erythema over left biceps and forearm improving and moving away from from the margins both proximally and distally. Significantly improved swelling over the forearm region and removal of dressing reveals serosanguinius discharge from the abscess over the forearm. The patient states that there is still tenderness especially over the biceps but it continues to improve.) Laboratory Results Results Past 24 Hours Test 08/25/17 07:22 08/25/17 11:36 Range/Units White Blood Count 8.86 4.8-10.8 K/uL Red Blood Count 3.53 4.7-6.1 M/uL Hemoglobin 9.6 14.0-18.0 g/dL Hematocrit 30.1 42-52 % Mean Corpuscular Volume 85.3 80-100 fL Mean Corpuscular Hemoglobin 27.2 25-34 pg Mean Corpuscular Hemoglobin Concent 31.9 32-36 g/dl RDW Standard Deviation 44.6 36.4-46.3 fL RDW Coefficient of Variation 14.2 11.5-14.5 % Platelet Count 184 130-400 K/uL Mean Platelet Volume 10.4 7.4-10.4 fL Sodium Level 136 136-145 mmol/L Potassium Level 3.1 3.5-5.1 mmol/L Chloride Level 103 98-107 mmol/L Carbon Dioxide Level 29 21-32 mmol/L Anion Gap 4.0 3-11 mmol/L Blood Urea Nitrogen 8 7-18 mg/dl Creatinine 0.54 0.60-1.40 mg/dl Est Creatinine Clear Calc Drug Dose 205.7 ml/min Estimated GFR () > 150.0 Estimated GFR (Non- 132.3 BUN/Creatinine Ratio 14.9 10-20 Random Glucose 76 70-99 mg/dl Calcium Level 8.4 8.5-10.1 mg/dl Vancomycin Level Trough 17.9 SEE COMMENT mcg/ml Assessment and Plan Patient is a 37 year old male that presents with worsening left arm pain secondary to IV drug use 1) Superficial Thrombosis of L arm/ Cellulitis of L Forearm --> Improving clinically on IV Antibiotics, Blood Cultures positive for Gram Positive Cocci, Continue broad spectrum coverage with Vancomycin and Rocephin - Leukocytosis continue to improve (19.65 --> 14.52 --> 8.86) - Based on blood cultures --> Narrow antibiotic spectrum to Vancomycin --> Currently on Day 3 of Antibiotic therapy (Previously received 2 days of Vancomycin + Cefepime and Rocephin) - Venous doppler: Cephalic Vein thrombosed, No DVT - Elevate arm - Warm compress 15 minutes TID - Blood Cultures positive from Gram Positive Cocci - Repeat blood cultures ordered - Toradol 15mg q6h PRN for pain - Lovenox 40mg daily - Med/Surg - Not good candidate for outpatient IV therapy --> Will determine course based on recommendations from Infectious disease 2) Tachycardia - Resolved, Sinus Rhythm in 70s overnight on tele - Likely from infection and dehydration 3) IV drug use - ECHO shows no valvular abnormalities or vegetations - Urine tox screen negative for amphetamines or opiates - Suboxone (8 Buprenorphine/2 Naloxone) --> Confirmed dose after calling [facility] in [place] - soft iron inspector discussed counselling options locally for patient so he does not have to travel to [place] but patient was argumentative. Options relayed were [facility] in [facility] 4) Hx of asthma - Albuterol 5) Aspirin overdose - Patient took bottle of aspirin over last few days due to pain - Prophylactic PPI ordered for protection --> Protonix - Watch for melena and monitor H/H 6) Hypokalemia - Improving - K+ of 3.1 Today - KCl 40mg PO BID VTE: Lovenox Dispo: Med/Surg Code status: Full I agree with resident assessment and plan and have seen and examined pt myself Resting comfortably in bed VSS Labs reviewed Left arm cellulitis with hx of IV drug abuse Cont IV vanc at this time Appreciate ID recs Repeat blood cx NGTC Poor candidate for OP antibx
[2017-08-26] MEDS: KETOROLAC TROMETHAMINE 15 MG/ML VIAL IV. PRN ×4 (03:36→21:23)
[2017-08-26] MEDS: VANCOMYCIN INJ 1,750 MG in SODIUM CHLORIDE 0.9% 500ML 500 ML IV SCH ×3 (03:37→20:16)
[2017-08-26 06:32] LABS: HEMATOCRIT 29.9 % (42-52); MEAN CELL VOLUME 84.9 fL (80-100); MEAN CORPUSCULAR HEMOGLOBIN 27.3 pg (25-34); MEAN CORPUSCULAR HGB CONC 32.1 g/dl (32-36); MEAN PLATELET VOLUME 10.2 fL (7.4-10.4); PLATELET COUNT 196 K/uL (130-400); RED BLOOD COUNT 3.52 M/uL (4.7-6.1); WHITE BLOOD COUNT 7.15 K/uL (4.8-10.8)
[2017-08-26 06:58] LABS: BUN/CREATININE RATIO 13.3 (10-20); CALCIUM 8.1 mg/dl (8.5-10.1); CREATININE 0.6 mg/dl (0.60-1.40); POTASSIUM 3.5 mmol/L (3.5-5.1)
[2017-08-26 07:37] VITALS: BP 131/76; PULSE 69; TEMP 36.7; O2SAT 97
[2017-08-26] MEDS: ALBUTEROL HFA 8 GM INHALER INH SCH ×4 (08:02→20:16)
[2017-08-26] MEDS: PANTOprazole SOD 40 MG TAB PO SCH (08:04)
[2017-08-26] MEDS: POTASSIUM CHLORIDE 20 MEQ TABCR PO SCH ×2 (08:04→20:17)
[2017-08-26] MEDS: ENOXAPARIN 40 MG/0.4 ML SYR SQ SCH (08:05)
[2017-08-26] MEDS: BUPRENORPHINE/NALOXONE 8/2 MG TAB SL SCH ×2 (08:11→20:44)
[2017-08-26] MEDS: ACETAMINOPHEN 325 MG TAB PO PRN ×3 (08:18→20:21)
[2017-08-26 15:29] VITALS: BP 143/72; PULSE 86; TEMP 37.1; O2SAT 99
--- NOTE | 2017-08-26 15:38 | Family Medicine Progress Note ---
Progress Note Date of Service Aug 26, 2017. Subjective Pt evaluation today including: conversation w/ patient, physical exam, chart review, lab review, review of studies Pain: Pain well controlled with toradol Voiding: no voiding problems, no incontinence Patient resting comfortably in bed this morning with no acute complaints overnight. Has noticed improvement in both swelling and erythema of the left arm. Denies any fevers or chills overnight. Constitutional: No fever, No chills, No sweats, No fatigue Respiratory: No cough, No sputum, No wheezing Cardiovascular: No chest pain, No palpitations Abdomen: No pain, No nausea, No vomiting Neurologic: No weakness, No numbness/tingling, No vertigo Skin: + problem reported (left forearm redness and swelling improved) Medications Current Inpatient Medications Medications (Trade) Dose Ordered Sig/Cynthia Route Start Time Stop Time Status Last Admin Dose Admin Acetaminophen (Tylenol Tab) 650 mg Q4H PRN PO 08/23/17 00:30 09/22/17 00:29 08/26/17 13:04 650 MG Al Hydrox/Mg Hydrox/Simethicone (Maalox Max Susp) 15 ml Q4H PRN PO 08/23/17 00:30 09/22/17 00:29 Magnesium Hydroxide (Milk Of Magnesia Susp) 30 ml Q12H PRN PO 08/23/17 00:30 09/22/17 00:29 08/25/17 21:00 30 ML Ondansetron HCl (Zofran Inj) 4 mg Q6H PRN IV 08/23/17 00:30 09/22/17 00:29 08/24/17 20:17 4 MG Polyethylene (Miralax Powder Packet) 17 gm DAILY PRN PO 08/23/17 00:30 09/22/17 00:29 Albuterol (Ventolin Hfa Inhaler) 2 puffs Q4HWA INH 08/23/17 08:00 09/22/17 07:59 08/26/17 12:55 2 PUFFS Vancomycin HCl (Consult) 1 ea UD PRN N/A 08/23/17 01:30 09/22/17 01:29 Ketorolac Tromethamine (Toradol Inj) 15 mg Q6H PRN IV. 08/23/17 10:15 08/28/17 10:14 08/26/17 09:34 15 MG Calcium Carbonate (Tums Chew Tab) 1,000 mg Q8H PRN PO 08/23/17 17:00 09/22/17 16:59 08/23/17 18:39 1,000 MG Enoxaparin Sodium (Lovenox Inj) 40 mg QAM SQ 08/24/17 08:00 09/23/17 07:59 08/26/17 08:05 40 MG Vancomycin HCl 1750 mg/Sodium Chloride 535 ml @ 200 mls/hr Q8H IV 08/24/17 00:00 09/02/17 01:59 08/26/17 12:55 200 MLS/HR Pantoprazole Sodium (Protonix Tab) 40 mg QAM PO 08/24/17 08:00 09/23/17 07:59 08/26/17 08:04 40 MG Buprenorphine/ Naloxone (Suboxone Tab) 1 tab BID SL 08/24/17 20:00 09/23/17 19:59 08/26/17 08:11 1 TAB Potassium Chloride (Klor-Con Tab) 40 meq BID PO 08/24/17 20:00 09/23/17 19:59 08/26/17 08:04 40 MEQ Objective Vital Signs Date Time Temp Pulse Resp B/P (MAP) Pulse Ox O2 Delivery O2 Flow Rate FiO2 08/26/17 15:29 37.1 86 18 143/72 (95) 99 Room Air 08/26/17 08:00 Room Air 08/26/17 07:37 36.7 69 18 131/76 (94) 97 08/26/17 00:00 Room Air 08/25/17 20:00 Room Air 08/25/17 16:00 Room Air Physical Exam General Appearance: WD/WN, no apparent distress Eyes: normal inspection, sclerae normal Respiratory/Chest: chest non-tender, lungs clear, normal breath sounds Cardiovascular: regular rate, rhythm, no edema, no gallop Abdomen: normal bowel sounds, non tender, soft Extremities: normal range of motion, non-tender, + pertinent finding (left arm erythema has improved and swelling over previous abscess has reduced significantly since yesterday. Palpable queenie over proximal forearm has also reduced in size. No significant tenderness with palpating compared to yesterday. Dressing over forearm is c/d/i.) Neurologic/Psychiatric: alert, normal mood/affect, oriented x 3 Laboratory Results Results Past 24 Hours Test 08/26/17 06:18 Range/Units White Blood Count 7.15 4.8-10.8 K/uL Red Blood Count 3.52 4.7-6.1 M/uL Hemoglobin 9.6 14.0-18.0 g/dL Hematocrit 29.9 42-52 % Mean Corpuscular Volume 84.9 80-100 fL Mean Corpuscular Hemoglobin 27.3 25-34 pg Mean Corpuscular Hemoglobin Concent 32.1 32-36 g/dl RDW Standard Deviation 43.7 36.4-46.3 fL RDW Coefficient of Variation 14.1 11.5-14.5 % Platelet Count 196 130-400 K/uL Mean Platelet Volume 10.2 7.4-10.4 fL Sodium Level 137 136-145 mmol/L Potassium Level 3.5 3.5-5.1 mmol/L Chloride Level 104 98-107 mmol/L Carbon Dioxide Level 27 21-32 mmol/L Anion Gap 5.0 3-11 mmol/L Blood Urea Nitrogen 8 7-18 mg/dl Creatinine 0.60 0.60-1.40 mg/dl Est Creatinine Clear Calc Drug Dose 185.2 ml/min Estimated GFR () 146.8 Estimated GFR (Non- 126.7 BUN/Creatinine Ratio 13.3 10-20 Random Glucose 110 70-99 mg/dl Calcium Level 8.1 8.5-10.1 mg/dl Assessment and Plan Patient is a 37 year old male that presents with worsening left arm pain secondary to IV drug use 1) Superficial Thrombosis of L arm/ Cellulitis of L Forearm --> Improving clinically on IV Antibiotics, Blood Cultures positive for Gram Positive Cocci, Continue broad spectrum coverage with Vancomycin and Rocephin - Leukocytosis continue to improve (19.65 --> 14.52 --> 8.86 --> 76.15) - Based on blood cultures --> Narrow antibiotic spectrum to Vancomycin --> Currently on Day 4 of Antibiotic therapy (Previously received 2 days of Vancomycin + Cefepime and Rocephin) - Venous doppler: Cephalic Vein thrombosed, No DVT - Elevate arm - Warm compress 15 minutes TID - Blood Cultures positive --> 1 tube coag negative staph not lugdunenses, 1 tube alpha strep not strep pneumo/enterococcus --> sensitivities pending - Repeat blood cultures ordered - Toradol 15mg q6h PRN for pain - Lovenox 40mg daily - Med/Surg - Not good candidate for outpatient IV therapy --> Will determine course based on recommendations from Infectious disease 2) Tachycardia - Resolved, Sinus Rhythm in 70s overnight on tele - Likely from infection and dehydration 3) IV drug use - ECHO shows no valvular abnormalities or vegetations - Urine tox screen negative for amphetamines or opiates - Suboxone (8 Buprenorphine/2 Naloxone) --> Confirmed dose after calling [facility] in [place] - cafeteria team leader discussed counselling options locally for patient so he does not have to travel to [place] but patient was argumentative. Options relayed were [facility] located in [facility] 4) Hx of asthma - Albuterol 5) Aspirin overdose - Patient took bottle of aspirin over last few days due to pain - Prophylactic PPI ordered for protection --> Protonix - Watch for melena and monitor H/H 6) Hypokalemia - Resolved - K+ of 3.5 Today - KCl 40mg PO BID VTE: Lovenox Dispo: Med/Surg Code status: Full Resident Tracking Resident Involvement: Resident Care Provided Care Provided: Adult Hospital Medicine
[2017-08-26 18:00] VITALS: BP 139/84; PULSE 69; TEMP 36.7; O2SAT 97
[2017-08-26 23:14] VITALS: BP 137/87; PULSE 72; TEMP 36.8; O2SAT 97
[2017-08-27] MEDS: VANCOMYCIN INJ 1,750 MG in SODIUM CHLORIDE 0.9% 500ML 500 ML IV SCH (03:30)
[2017-08-27] MEDS: KETOROLAC TROMETHAMINE 15 MG/ML VIAL IV. PRN ×2 (03:30→09:12)
[2017-08-27] MEDS: ACETAMINOPHEN 325 MG TAB PO PRN ×2 (03:33→08:46)
[2017-08-27] MEDS: PANTOprazole SOD 40 MG TAB PO SCH (08:37)
[2017-08-27] MEDS: ALBUTEROL HFA 8 GM INHALER INH SCH (08:38)
[2017-08-27] MEDS: ENOXAPARIN 40 MG/0.4 ML SYR SQ SCH (08:38)
[2017-08-27] MEDS: POTASSIUM CHLORIDE 20 MEQ TABCR PO SCH (08:38)
[2017-08-27] MEDS: BUPRENORPHINE/NALOXONE 8/2 MG TAB SL SCH (09:04)
[2017-08-27 09:08] VITALS: BP 137/68; PULSE 63; TEMP 36.6; O2SAT 97
[2017-08-27] MEDS ORDERED: SULF800T23 PO ×2 (11:03→15:03)
[2017-08-27] MEDS ORDERED: ACET-1047 PO (11:03)
[2017-08-27] MEDS ORDERED: LEVO1TAB35 PO ×2 (11:03→15:03)
--- NOTE | 2017-08-27 11:10 | Discharge Instructions ---
Discharge Instructions Date of Service Aug 27, 2017. Admission Reason for Admission: Fever, Left Arm Swelling, Sirs, Thrombophlebitis Discharge Discharge Diagnosis / Problem: Left Arm Cellulitis with bacteremia secondary to IVDU Discharge Goals Goal(s): Improve function, Therapeutic intervention Activity Recommendations Activity Limitations: per Instructions/Follow-up section . Instructions / Follow-Up Instructions / Follow-Up You were treated in the hospital for a skin infection and clots in your left arm. You were treated with IV antibiotics and your infection and pain substantially improved. You will be discharged home on a 1 week course of oral antibiotics. Medications: Levaquin 750mg tab - Take 1 tab daily for 7 days - this is an antibiotic for your infection --> This antibiotic makes your at risk for tendon injuries over the next month so please limit any heavy lifting or running for the next month Bactrim DS 800mg/160mg tab - Take 1 tab twice daily for 7 days - this is an antibiotic for your infection Ibuprofen(Motrin, Advil) may be used for fever or pain. Use 800mg every eight hours as needed. Take with food. Avoid using more than 2400mg in a 24 hour period. Do not use 2400mg per day for more than three consecutive days without physician direction. Prolonged inappropriate use can lead to stomach upset or ulcers. (AND/OR) Acetaminophen(Tylenol) may be used for fever or pain. Use 625mg every four hours as needed or 1000mg every six hours as needed. Avoid using more than 4000mg in a 24 hour period. Rest and drink plenty of fluids as tolerated. Return to the ER immediately for worsening or persistent arm pain, redness, swelling, vomiting, fevers, chest pains, difficulty breathing, worsening of your condition, or as needed. Follow up with your primary physician in 2-3 days for a recheck of your current condition. Current Hospital Diet Patient's current hospital diet: Regular Diet Discharge Diet Recommended Diet: Regular Diet Pending Studies Studies pending at discharge: no Medical Emergencies . Who to Call and When: Medical Emergencies: If at any time you feel your situation is an emergency, please call 911 immediately. . Non-Emergent Contact Non-Emergency issues call your: Primary Care Provider . . "Provider Documentation" section prepared by Tayo Basilio. . VTE Core Measure Inpt VTE Proph given/why not?: Other Anticoagulation (Lovenox 1 mg/kg subcutaneous every 12 hours) Resident Tracking Resident Involvement: Resident Care Provided Care Provided: Adult [facility] Medicine
[2017-08-27 11:16] VITALS: BP 137/68; PULSE 63; TEMP 36.6; O2SAT 97
--- NOTE | 2017-08-27 15:09 | Discharge Summary ---
Discharge Summary Date of Service Aug 27, 2017. Discharge Summary Admission Date: Aug 22, 2017 at 23:37 Discharge Date: Aug 27, 2017 Discharge Disposition: Home Principal Diagnosis: Superficial Thrombosis, Cellulitis Problems/Secondary Diagnoses: (1) Anxiety State Nos Status: Chronic (2) Asthma, Unspecified Status: Chronic (3) Bipolar II disorder Status: Chronic (4) Idiopathic peripheral neuropathy Status: Chronic (5) Migraine Status: Chronic (6) Tobacco user Status: Chronic Immunizations: Have You Had Influenza Vaccine: Unknown History of Tetanus Vaccine?: Unknown Tetanus Immunization Date: Dec 04, 2003 History of Pneumococcal: Unknown History of Hepatitis B Vaccine: Unknown Medication Reconciliation New Medications: Levofloxacin (Levaquin) 750 Mg Tab 750 MG PO DAILY for 7 Days, #7 TAB Sulfa/Trimethoprim (Bactrim Ds 800MG/160MG) Tab 1 TAB PO BID for 7 Days, #14 TAB Acetaminophen (Mapap) 325 Mg Tab 650 MG PO Q4H PRN for Pain or Fever for 7 Days, #20 TAB Continued Medications: Albuterol Hfa (Ventolin Hfa) 200 Puffs/[id number] Mcg Aers 2 PUFFS INH Q6H PRN for SOB/Wheezing, INHALER Aspirin (Aspirin) 325 Mg Tab 650 MG PO UD PRN for Pain TAKE PER PACKAGE DIRECTIONS Ibuprofen (Advil) 200 Mg Tab 800 MG PO Q8 PRN for Headache or Pain, TAB Discharge Exam Review of Systems: Constitutional: No fever, No chills, No weight loss, No fatigue Respiratory: No cough, No sputum, No shortness of breath Cardiovascular: No chest pain, No palpitations Abdomen: No pain, No nausea, No vomiting Integumentary: + problem reported (Left arm tenderness and redness have improved. Still has palpable cord that is tender to palpation.) Physical Exam: General Appearance: WD/WN, no apparent distress Respiratory/Chest: chest non-tender, lungs clear, normal breath sounds Cardiovascular: regular rate, rhythm, no edema, no gallop, no murmur Abdomen / GI: normal bowel sounds, non tender, soft Extremities: + pertinent finding (Left arm swelling and erythema significantly improved. Still palpable cord present over proximal forearm region with mild tenderness to palpation. Erythema and swelling extend from distal forearm to mid biceps. Full ROM of all digits in the left hand, sensation grossly intact, and 2+ pulses over the left radial artery. ) Neurologic/Psychiatric: alert, normal mood/affect, oriented x 3 Hospital Course Patient is a 37 year old male that presents with worsening left arm pain secondary to IV drug use 1) Superficial Thrombosis of L arm/ Cellulitis of L Forearm --> Improving clinically on IV Antibiotics, Blood Cultures positive for Gram Positive Cocci, Received 5 days of broad spectrum coverage with Vancomycin and Rocephin --> Discharge on 14 days of PO Levaquin + Bactrim - Leukocytosis continue to improve (19.65 --> 14.52 --> 8.86 --> 6.15) - Based on blood cultures --> Narrowed antibiotic spectrum to Vancomycin --> Completed 5 days of IV antibiotics --> Disccharged on additional 14 days of PO antibiotics - Venous doppler: Cephalic Vein thrombosed, No DVT - Elevate arm - Warm compress 15 minutes TID - Blood Cultures positive --> 1 tube coag negative staph not lugdunenses, 1 tube alpha strep not strep pneumo/enterococcus - Repeat blood cultures ordered --> No growth - Toradol 15mg q6h PRN for pain - Lovenox 40mg daily - Med/Surg - Not good candidate for outpatient IV therapy --> Will determine course based on recommendations from Infectious disease 2) Tachycardia - Resolved, Sinus Rhythm in 70s overnight on tele - Likely from infection and dehydration 3) IV drug use - ECHO shows no valvular abnormalities or vegetations - Urine tox screen negative for amphetamines or opiates - Suboxone (8 Buprenorphine/2 Naloxone) --> Confirmed dose after calling [facility] in [place] 4) Hx of asthma - Albuterol 5) Aspirin overdose - Patient took bottle of aspirin over last few days due to pain - Prophylactic PPI ordered for protection --> Protonix - Watch for melena and monitor H/H 6) Hypokalemia - Resolved - K+ of 3.5 Today - KCl 40mg PO BID VTE: Lovenox Dispo: Med/Surg Code status: Full Total Time Spent: Greater than 30 minutes This includes examination of the patient, discharge planning, medication reconciliation, and communication with other providers. Discharge Instructions Please refer to the electronic Patient Visit Report (Discharge Instructions) for additional information.
--- NOTE | 2017-08-31 06:49 | EDITING REQUIRED CODING QUERY ---
SEPSIS To promote full compliance with coding requirements relating to patient care, physician participation is requested in all cases of remote medical coder uncertainty. Please assist us with the question(s) below: In responding to this query, please exercise your independent professional judgment. The fact that a question is asked does not imply that any particular answer is desired or expected. We appreciate your clarification on this issue. Septic Thrombophlebitis was documented in the record, please clarify below to the best of your knowledge. Thank you for your help! (X) Sepsis (X) Present on Admission () Not present on admission () Unable to clinically determine () Other, patient has:
== END 2017-08-27 12:15 | disposition home or self-care (01) | DRG 872 ==
LOC: C.EDB 18:45 → C.2E 23:37 → ENRESERV 08-23 00:39 → C.4E 08-23 16:23
PROVIDERS: ADMIT Hospitalist; ATTEND Hospitalist
DX: A41.9 Sepsis, unspecified organism (principal); L03.114 Cellulitis of left upper limb; I82.612 Acute embolism and thrombosis of superficial veins of left upper extremity; F19.20 Other psychoactive substance dependence, uncomplicated; R00.0 Tachycardia, unspecified; I80.8 Phlebitis and thrombophlebitis of other sites; E87.6 Hypokalemia; T39.011A Poisoning by aspirin, accidental (unintentional), initial encounter; J45.909 Unspecified asthma, uncomplicated; Z79.82 Long term (current) use of aspirin; Z86.14 Personal history of Methicillin resistant Staphylococcus aureus infection; F17.200 Nicotine dependence, unspecified, uncomplicated

== ENCOUNTER 2021-05-17 23:29 | Inpatient (IN) ==
[2021-05-18 00:02] LABS: Hematocrit (blood only) 33.3 % (42-52); Hemoglobin 10.1 g/dL (14.0-18.0); Mean Corpuscular Hemoglobin 23.7 pg (25-34); Mean Corpuscular Hgb Conc 30.3 g/dL (32-36); Mean Corpuscular Volume 78.2 fL (80-100); Mean Platelet Volume 8.8 fL (7.4-10.4); Platelet Count 438 K/uL (130-400); RDW Coefficient of Variation 16.3 % (11.5-14.5); RDW Standard Deviation 46.4 fL (36.4-46.3); Red Blood Count 4.26 M/uL (4.7-6.1)
[2021-05-18 00:03] LABS: Appearance Urine Clear (Clear); Bilirubin Urine Negative (Negative); Blood Urine Negative (Negative); Color Urine Yellow; Glucose Urine UA Negative (Negative); Ketones Urine Negative (Negative); Leukocyte Esterase Urine Negative (Negative); Nitrite Urine Negative (Negative); Protein Urine Negative (Negative); Specific Gravity Urine 1.015 (1.000-1.030); Urobilinogen Urine Negative (Negative)
--- NOTE | 2021-05-18 00:04 | Emergency Department Note ---
History of Present Illness General Chief complaint: Mental Health Evaluation Time Seen by Provider: 05/17/21 23:31 Source: patient Mode of arrival: ambulatory Limitations: no limitations History of Present Illness Provider complaint: mental health evaluation Onset (ago): unknown Maximum Pain Intensity: 1 This is a 41-year-old male brought in by police on a 302 warrant. Petitioning statement on 302 states that patient has been increasingly paranoid and delusional, agitated/combative at times. Patient denies SI and HI. Patient states he does have a prior history of drug use but is not currently using and takes Suboxone. States he is not taking any other medications nor does he see any current mental health providers. 302 petitioning statement states the pa sahil does have a prior history of bipolar disorder. Pt seen during a time of high acuity and national emergency pandemic while wearing PPE. Home Medications Medication Instructions Recorded Confirmed Type buprenorphine 8 mg-naloxone 2 mg 1 tab SUBLINGUAL BID 10/27/19 05/18/21 History sublingual tablet Allergies Allergy/AdvReac Type Severity Reaction Status Date / Time cyclobenzaprine Allergy Severe SHORTNESS Verified 05/18/21 00:02 OF BREATH zolpidem Allergy Unknown hallucinati Verified 05/18/21 00:02 ons Benzodiazepines AdvReac Intermediate PSYCH Verified 05/18/21 00:02 ISSUES Past Med/Surg History Medical History IV drug user No pertinent family history SIRS (systemic inflammatory response syndrome) Surgical History History of hernia surgery Social History Smoking Status: Current every day smoker Tobacco Type: Cigarettes and Smokeless Tobacco (Dip or Chew) Preferred Language: Slovenian Feels Safe at Home: Yes Review of Systems A total of 10 systems reviewed and were otherwise negative All systems reviewed & are unremarkable except as noted in HPI & below Physical Exam Vital Signs Vital Signs - 24 hr 05/17/21 23:33 05/18/21 01:59 Temperature 36.9 C Temperature Source Oral Pulse Rate 112 H Pulse Rate [Finger] 102 H Respiratory Rate 18 18 Respiratory Effort / Characteristics Non-Labored Spontaneous Non-Labored Spontaneous Respiratory Depth Normal Normal Respiratory Pattern Regular Blood Pressure 134/91 Blood Pressure [Right Arm] 119/65 Blood Pressure Mean 105 Blood Pressure Mean [Right Arm] 83 Blood Pressure Position Sitting Pulse Oximetry 99 95 Oxygen Delivery Method Room Air Room Air GENERAL: alert, well appearing, well nourished, no distress, non-toxic EYE EXAM: normal conjunctiva, PERRL and EOM's grossly intact OROPHARYNX: no exudate, no erythema, lips, buccal mucosa, and tongue normal and mucous membranes are moist NECK: supple, no nuchal rigidity, no adenopathy, non-tender LUNGS: Clear to auscultation. Normal chest wall mechanics, no w/r/r HEART: no murmurs, S1 normal and S2 normal ABDOMEN: abdomen soft, non-tender, normo-active bowel sounds, no masses, no rebound or guarding. BACK: Back is symmetrical on inspection and there is no deformity, no midline tenderness, no CVA tenderness. SKIN: no rashes and no bruising, multiple areas of healing excoriation to bilateral forearms, no overlying rash or surrounding erythema UPPER EXTREMITIES: upper extremities are grossly normal. FROM, nml pulses b/l. LOWER EXTREMITIES: No pitting edema. FROM, nml pulses b/l. Chronic appearing deformity of the right knee, well-healed vertical scar along the medial aspect consistent with prior surgery. No overlying erythema, no active joint effusion, patient states he has chronic pain in this knee due to his prior injury and subsequent surgery and chronic edema. NEURO EXAM: Normal sensorium, cranial nerves II-XII grossly intact, normal speech, no gross weakness of arms, no gross weakness of legs. Gross sensation intact. Course Course 0600: Pt evaluated by case management manager. 0700: 302 signed by [place]. Delegate here beginning bed search. 0840: Case signed out to Dr. Rodriguez. Medical Decision Making Differential Diagnosis Differential diagnoses considered include mood disorder, infection, hypoglycemia, electrolyte abnormalities, cardiac sources, intracerebral event, toxicologic, neurologic, as well as others. Medical Records Attestation: I reviewed the patient's medical records. Home Medications Current Medication List: was personally reviewed by [place] Laboratory Data Attestation: I reviewed the patient's lab results. Result diagrams: 05/17/21 23:50 05/17/21 23:50 Lab Results 08/14/21 08/14/21 08/14/21 Range/Units 23:46 23:46 23:50 WBC 11.90 H (4.8-10.8) K/uL RBC 4.26 L (4.7-6.1) M/uL Hgb 10.1 L (14.0-18.0) g/dL Hct 33.3 L (42-52) % MCV 78.2 L (80-100) fL MCH 23.7 L (25-34) pg MCHC 30.3 L (32-36) g/dL RDW Std Deviation 46.4 H (36.4-46.3) fL RDW Coeff of [place] 16.3 H (11.5-14.5) % Plt Count 438 H (130-400) K/uL MPV 8.8 (7.4-10.4) fL Immature Gran % (Auto) 6.2 % Neut % (Auto) 82.6 % Lymph % (Auto) 8.2 % Dane % (Auto) 1.4 % Eos % (Auto) 1.3 % Baso % (Auto) 0.3 % Neut # (Auto) 9.83 H (1.4-6.5) K/uL Lymph # (Auto) 0.97 L (1.2-3.4) K/uL Dane # (Auto) 0.17 (0.11-0.59) K/uL Eos # (Auto) 0.15 (0-0.5) K/uL Baso # (Auto) 0.04 (0-0.2) K/uL Immature Gran # (Auto) 0.74 H (0.00-0.02) K/uL Polychromasia 1+ Sodium (136-145) mmol/L Potassium (3.5-5.1) mmol/L Chloride (98-107) mmol/L Carbon Dioxide (21-32) mmol/L Anion Gap (3-11) BUN (7-18) mg/dl Creatinine (0.6-1.4) mg/dl Est Cr Clr Drug Dosing ml/min Est GFR ( Amer) ml/min Est GFR (Non-Af Amer) ml/min BUN/Creatinine Ratio (10-20) Glucose (70-99) mg/dl Calcium (8.5-10.1) mg/dl Total Bilirubin (0.2-1) mg/dl AST (15-37) U/L ALT (12-78) U/L Alkaline Phosphatase (45-117) U/L Total Protein (6.4-8.2) gm/dl Albumin (3.4-5.0) gm/dl Globulin (2.5-4.0) gm/dl Albumin/Globulin Ratio (0.9-2) TSH (0.300-4.500) uIu/ml Urine Color Yellow Urine Appearance Clear (Clear) Urine pH 7.0 (4.5-7.5) Ur Specific [place] 1.015 (1.000-1.030) Urine Protein Negative (Negative) Urine Glucose (UA) Negative (Negative) Urine Ketones Negative (Negative) Urine Blood Negative (Negative) Urine Nitrite Negative (Negative) Urine Bilirubin Negative (Negative) Urine Urobilinogen Negative (Negative) Ur Leukocyte Esterase Negative (Negative) Salicylates (2.8-20) mg/dl Urine Opiates Screen Neg (Neg) Ur Methadone, Qual Neg (Neg) Acetaminophen (10-30) ug/ml Urine Barbiturates Neg (Neg) Ur Phencyclidine (PCP) Neg (Neg) U Amphetamin/Meth Scrn Neg (Neg) MDMA (Ecstasy) Screen Neg (Neg) U Benzodiazepines Scrn Neg (Neg) Ur Cocaine Metabolite Neg (Neg) U Marijuana (THC) Screen Pos H (Neg) Ethyl Alcohol mg/dL (0-3) mg/dl COVID-19 Eval Order SARS-CoV-2 (PCR) (Negative) 05/17/21 05/17/21 05/17/21 Range/Units 23:50 23:50 23:50 WBC (4.8-10.8) K/uL RBC (4.7-6.1) M/uL Hgb (14.0-18.0) g/dL Hct (42-52) % MCV (80-100) fL MCH (25-34) pg MCHC (32-36) g/dL RDW Std Deviation (36.4-46.3) fL RDW Coeff of Smith[place] (11.5-14.5) % Plt Count (130-400) K/uL MPV (7.4-10.4) fL Immature Gran % (Auto) % Neut % (Auto) % Lymph % (Auto) % Dane % (Auto) % Eos % (Auto) % Baso % (Auto) % Neut # (Auto) (1.4-6.5) K/uL Lymph # (Auto) (1.2-3.4) K/uL Dane # (Auto) (0.11-0.59) K/uL Eos # (Auto) (0-0.5) K/uL Baso # (Auto) (0-0.2) K/uL Immature Gran # (Auto) (0.00-0.02) K/uL Polychromasia Sodium 134 L (136-145) mmol/L Potassium 3.8 (3.5-5.1) mmol/L Chloride 101 (98-107) mmol/L Carbon Dioxide 28 (21-32) mmol/L Anion Gap 5.0 (3-11) BUN 8 (7-18) mg/dl Creatinine 0.59 L (0.6-1.4) mg/dl Est Cr Clr Drug Dosing 187.7 ml/min Est GFR ( Amer) 143.7 ml/min Est GFR (Non-Af Amer) 124.0 ml/min BUN/Creatinine Ratio 13.7 (10-20) Glucose 106 H (70-99) mg/dl Calcium 9.0 (8.5-10.1) mg/dl Total Bilirubin 0.5 (0.2-1) mg/dl AST 19 (15-37) U/L ALT 29 (12-78) U/L Alkaline Phosphatase 306 H (45-117) U/L Total Protein 8.5 H (6.4-8.2) gm/dl Albumin 2.7 L (3.4-5.0) gm/dl Globulin 5.7 H (2.5-4.0) gm/dl Albumin/Globulin Ratio 0.5 L (0.9-2) TSH 1.700 (0.300-4.500) uIu/ml Urine Color Urine Appearance (Clear) Urine pH (4.5-7.5) Ur Specific [place] (1.000-1.030) Urine Protein (Negative) Urine Glucose (UA) (Negative) Urine Ketones (Negative) Urine Blood (Negative) Urine Nitrite (Negative) Urine Bilirubin (Negative) Urine Urobilinogen (Negative) Ur Leukocyte Esterase (Negative) Salicylates < 1.7 L (2.8-20) mg/dl Urine Opiates Screen (Neg) Ur Methadone, Qual (Neg) Acetaminophen < 2 L (10-30) ug/ml Urine Barbiturates (Neg) Ur Phencyclidine (PCP) (Neg) U Amphetamin/Meth Scrn (Neg) MDMA (Ecstasy) Screen (Neg) U Benzodiazepines Scrn (Neg) Ur Cocaine Metabolite (Neg) U Marijuana (THC) Screen (Neg) Ethyl Alcohol mg/dL < 3.0 (0-3) mg/dl COVID-19 Eval Order SARS-CoV-2 (PCR) (Negative) 05/18/21 05/18/21 Range/Units 00:00 00:00 WBC (4.8-10.8) K/uL RBC (4.7-6.1) M/uL Hgb (14.0-18.0) g/dL Hct (42-52) % MCV (80-100) fL MCH (25-34) pg MCHC (32-36) g/dL RDW Std Deviation (36.4-46.3) fL RDW Coeff of [place] (11.5-14.5) % Plt Count (130-400) K/uL MPV (7.4-10.4) fL Immature Gran % (Auto) % Neut % (Auto) % Lymph % (Auto) % Dane % (Auto) % Eos % (Auto) % Baso % (Auto) % Neut # (Auto) (1.4-6.5) K/uL Lymph # (Auto) (1.2-3.4) K/uL Dane # (Auto) (0.11-0.59) K/uL Eos # (Auto) (0-0.5) K/uL Baso # (Auto) (0-0.2) K/uL Immature Gran # (Auto) (0.00-0.02) K/uL Polychromasia Sodium (136-145) mmol/L Potassium (3.5-5.1) mmol/L Chloride (98-107) mmol/L Carbon Dioxide (21-32) mmol/L Anion Gap (3-11) BUN (7-18) mg/dl Creatinine (0.6-1.4) mg/dl Est Cr Clr Drug Dosing ml/min Est GFR ( Amer) ml/min Est GFR (Non-Af Amer) ml/min BUN/Creatinine Ratio (10-20) Glucose (70-99) mg/dl Calcium (8.5-10.1) mg/dl Total Bilirubin (0.2-1) mg/dl AST (15-37) U/L ALT (12-78) U/L Alkaline Phosphatase (45-117) U/L Total Protein (6.4-8.2) gm/dl Albumin (3.4-5.0) gm/dl Globulin (2.5-4.0) gm/dl Albumin/Globulin Ratio (0.9-2) TSH (0.300-4.500) uIu/ml Urine Color Urine Appearance (Clear) Urine pH (4.5-7.5) Ur Specific [place] (1.000-1.030) Urine Protein (Negative) Urine Glucose (UA) (Negative) Urine Ketones (Negative) Urine Blood (Negative) Urine Nitrite (Negative) Urine Bilirubin (Negative) Urine Urobilinogen (Negative) Ur Leukocyte Esterase (Negative) Salicylates (2.8-20) mg/dl Urine Opiates Screen (Neg) Ur Methadone, Qual (Neg) Acetaminophen (10-30) ug/ml Urine Barbiturates (Neg) Ur Phencyclidine (PCP) (Neg) U Amphetamin/Meth Scrn (Neg) MDMA (Ecstasy) Screen (Neg) U Benzodiazepines Scrn (Neg) Ur Cocaine Metabolite (Neg) U Marijuana (THC) Screen (Neg) Ethyl Alcohol mg/dL (0-3) mg/dl COVID-19 Eval Order Covid19 at [facility] SARS-CoV-2 (PCR) NEGATIVE (Negative) MDM Narrative This is a 41-year-old male brought in as a 302 warrant by police. Patient with paranoia, delusions, and poor insight into his condition. Patient unwilling to voluntarily pursue inpatient mental health treatment. 302 upheld. At time of signout delegate is beginning bed search. Patient will need outpatient follow- up for his isolated alkaline phosphatase elevation. Impression & Plan Psychosis, Paranoia, Delusions, Aggressive behavior, Alkaline phosphatase elevation Discharge Plan Visit Data Chief Complaint: Mental Health Evaluation ED Provider: Patricia Rodriguez Discharge Problem: Psychosis, Paranoia, Delusions, Aggressive behavior, Alkaline phosphatase elevation Forms Stand Alone Forms: [facility], Suicide Prevention Resources Prescriptions Prescriptions: No Action buprenorphine-naloxone 8-2 mg Tablet, Sublingual 1 tab SUBLINGUAL BID RF: 0 Referrals Referrals: PCP,NO [Primary Care Provider] -
[2021-05-18 00:19] LABS: Albumin Level 2.7 gm/dl (3.4-5.0); BUN Creatinine Ratio 13.7 (10-20); Creatinine Clr Calc Pharmacy 187.7 ml/min; Est GFR (African American) 143.7 ml/min; Potassium 3.8 mmol/L (3.5-5.1)
[2021-05-18 00:25] LABS: Basophils # (auto) 0.04 K/uL (0-0.2); Basophils % (auto) 0.3 %; Eosinophils # (auto) 0.15 K/uL (0-0.5); Eosinophils % (auto) 1.3 %; Immature Granulocytes # (auto) 0.74 K/uL (0.00-0.02); Immature Granulocytes % (auto) 6.2 %; Lymphocytes # (auto) 0.97 K/uL (1.2-3.4); Lymphocytes % (auto) 8.2 %; Monocytes # (auto) 0.17 K/uL (0.11-0.59); Monocytes % (auto) 1.4 %; Neutrophils # (auto) 9.83 K/uL (1.4-6.5); Neutrophils % (auto) 82.6 %; Polychromasia 1+
[2021-05-18 00:29] LABS: Albumin Globulin Ratio 0.5 (0.9-2); Bilirubin,Total 0.5 mg/dl (0.2-1); Globulin 5.7 gm/dl (2.5-4.0); Thyroid Stimulating Hormone 1.7 uIu/ml (0.300-4.500); Total Protein 8.5 gm/dl (6.4-8.2)
[2021-05-18 00:32] LABS: Acetaminophen < 2 ug/ml (10-30); Salicylate < 1.7 mg/dl (2.8-20)
[2021-05-18 00:33] LABS: Amphetamines+Metham, Urine Neg (Neg); Barbiturates, Urine Neg (Neg); Benzodiazepine, Urine Neg (Neg); Cocaine, Urine Neg (Neg); MDMA (Ecstacy), Urine Neg (Neg); Methadone, Urine Neg (Neg); Opiate, Urine Neg (Neg); Phencyclidine, Urine Neg (Neg)
[2021-05-18 11:33] LABS: Basophils # (auto) 0.02 K/uL (0-0.2); Basophils % (auto) 0.2 %; Eosinophils # (auto) 0.09 K/uL (0-0.5); Eosinophils % (auto) 0.8 %; Hematocrit (blood only) 30.2 % (42-52); Hemoglobin 9.1 g/dL (14.0-18.0); Immature Granulocytes # (auto) 0.15 K/uL (0.00-0.02); Immature Granulocytes % (auto) 1.3 %; Lymphocytes % (auto) 10.1 %; Mean Corpuscular Hemoglobin 23.6 pg (25-34); Mean Corpuscular Hgb Conc 30.1 g/dL (32-36); Mean Corpuscular Volume 78.4 fL (80-100); Mean Platelet Volume 8.9 fL (7.4-10.4); Monocytes # (auto) 0.64 K/uL (0.11-0.59); Monocytes % (auto) 5.4 %; Neutrophils # (auto) 9.75 K/uL (1.4-6.5); Neutrophils % (auto) 82.2 %; Platelet Count 356 K/uL (130-400); RDW Coefficient of Variation 16.6 % (11.5-14.5); Red Blood Count 3.85 M/uL (4.7-6.1); White Blood Count 11.85 K/uL (4.8-10.8)
[2021-05-18 11:49] LABS: Albumin Level 2.4 gm/dl (3.4-5.0); BUN Creatinine Ratio 14.4 (10-20); Calcium 9.5 mg/dl (8.5-10.1); Creatinine Clr Calc Pharmacy 194.3 ml/min; Est GFR (African American) 145.8 ml/min; Est GFR (Non-African American) 125.8 ml/min; Potassium 4.1 mmol/L (3.5-5.1)
[2021-05-18 11:52] LABS: Albumin Globulin Ratio 0.4 (0.9-2); Bilirubin,Total 0.6 mg/dl (0.2-1); Globulin 5.4 gm/dl (2.5-4.0); Total Protein 7.8 gm/dl (6.4-8.2)
[2021-05-18] MEDS ORDERED: BUPRENORPHINE/NALOXONE 8/2 MG TAB SL STA (14:31)
--- NOTE | 2021-05-18 15:25 | Emergency Department Note ---
ED Visit Note I received this patient in signout at the change of shift from Dr. Padmini Fink pending a mental health bed search. Patient is currently on a 302 as he was paranoid and delusional. The delegate is currently been searching and he is currently under review by [facility]. Patient did receive his Suboxone per home dosing. Case was signed out to Dr. Edmondson at the change of shift pending final disposition. . : Psychosis Qualifiers: Psychosis type: unspecified psychosis type Qualified Code(s): F29 - Unspecified psychosis not due to a substance or known physiological condition
--- NOTE | 2021-05-18 22:18 | Emergency Department Note ---
ED Visit Note The patient was taken in signout from Dr. Rodriguez at change of shift. Patient was initially seen by Dr. Fink. Please see her note for details of the patient's visit. In brief, the patient is a 41-year-old gentleman who presented with paranoid delusions with 302 and delegate bed search in progress. Suboxone Rx confirmed in PDMP and was ordered as scheduled medication. Patient signed out to Dr. Fink at change of shift. . : Psychosis Qualifiers: Psychosis type: unspecified psychosis type Qualified Code(s): F29 - Unspecified psychosis not due to a substance or known physiological condition
[2021-05-19] MEDS: BUPRENORPHINE/NALOXONE 8/2 MG TAB SL SCH ×3 (00:43→21:24)
[2021-05-19] MEDS ORDERED: IBUPROFEN 200 MG TAB PO STA (05:58)
--- NOTE | 2021-05-19 06:33 | Emergency Department Note ---
ED Visit Note Patient signed out to me at change of shift by Dr. Edmondson. Patient is a 302 with a bed search underway by the delegate. Patient slept throughout his shift, did request Motrin for his chronic knee pain. Otherwise had no complaints and no other changes were reported. Patient signed out to Dr. Noriega at change of shift. . : Psychosis Qualifiers: Psychosis type: unspecified psychosis type Qualified Code(s): F29 - Unspecified psychosis not due to a substance or known physiological condition
[2021-05-19] MEDS ORDERED: LOPERAMIDE HCL 2 MG CAP PO STA (07:42)
[2021-05-19 10:17] LABS: Basophils # (auto) 0.03 K/uL (0-0.2); Basophils % (auto) 0.2 %; Eosinophils % (auto) 0.8 %; Hematocrit (blood only) 34.7 % (42-52); Hemoglobin 10.6 g/dL (14.0-18.0); Immature Granulocytes # (auto) 0.37 K/uL (0.00-0.02); Immature Granulocytes % (auto) 2.8 %; Lymphocytes # (auto) 2.92 K/uL (1.2-3.4); Lymphocytes % (auto) 21.9 %; Mean Corpuscular Hemoglobin 23.9 pg (25-34); Mean Corpuscular Hgb Conc 30.5 g/dL (32-36); Mean Corpuscular Volume 78.3 fL (80-100); Mean Platelet Volume 8.9 fL (7.4-10.4); Monocytes # (auto) 0.84 K/uL (0.11-0.59); Monocytes % (auto) 6.3 %; Neutrophils # (auto) 9.07 K/uL (1.4-6.5); Platelet Count 479 K/uL (130-400); RDW Coefficient of Variation 16.5 % (11.5-14.5); Red Blood Count 4.43 M/uL (4.7-6.1); White Blood Count 13.33 K/uL (4.8-10.8)
[2021-05-19 10:43] LABS: BUN Creatinine Ratio 32.8 (10-20); Calcium 10.2 mg/dl (8.5-10.1); Creatinine Clr Calc Pharmacy 178.6 ml/min; Est GFR (African American) 140.8 ml/min; Est GFR (Non-African American) 121.5 ml/min; Potassium 4.6 mmol/L (3.5-5.1)
[2021-05-19] MEDS ORDERED: MAGNESIUM HYDROXIDE SUSP 30 ML UDC PO PRN (10:50)
[2021-05-19] MEDS ORDERED: hydrOXYzine HCl 25 MG TAB PO PRN ×2 (10:50)
[2021-05-19] MEDS ORDERED: ACETAMINOPHEN 325 MG TAB PO PRN (10:50)
[2021-05-19] MEDS ORDERED: SODIUM CHLORIDE 0.65% NA SOLN 45 ML (OCEAN) PRN (10:50)
[2021-05-19] MEDS ORDERED: ALUMINUM/MAGNESIUM SUSP 30 ML UDC PO PRN (10:50)
[2021-05-19] MEDS ORDERED: BISMUTH SUBSALICYLATE LIQD 236 ML PO PRN (10:50)
[2021-05-19] MEDS ORDERED: diazePAM 2 MG TABLET PO ONE (11:35)
[2021-05-19] MEDS: NICOTINE POLACRILEX 2 MG GUM MT PRN ×2 (11:47→17:06)
--- NOTE | 2021-05-19 14:48 | Emergency Department Note ---
ED Visit Note Patient was signed out to me awaiting disposition. Accepted to 3 S. . : Psychosis Qualifiers: Psychosis type: unspecified psychosis type Qualified Code(s): F29 - Unspecified psychosis not due to a substance or known physiological condition
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
[2021-05-19] MEDS ORDERED: IBUPROFEN 200 MG TAB PO PRN (19:55)
[2021-05-19] MEDS ORDERED: hydrOXYzine HCl 25 MG TAB PO SCH (22:00)
[2021-05-20] MEDS ORDERED: LIDOCAINE 2%/EPINEPHRINE 1:200,000 20 ML SDV INFIL ONE (08:07)
--- NOTE | 2021-05-20 11:11 | Orthopedic Consultation ---
Date of Service May 20, 2021 Assessment & Plan (1) Effusion of right knee: The aspiration is mildly concerning for a septic effusion though it appears chronic. Does have underlying osteoarthritis changes, likely a result of posttraumatic change. The aspiration was sent for laboratory evaluation. If is results are consistent with a septic process, he should be treated with an irrigation debridement by knee arthroscopy, possible open. He is n.p.o. and should remain so today until laboratory results are returned. We will tentatively add him to the OR schedule for myself or a partner to do expeditiously later today. I explained the potential need for knee arthroscopy, and he stated his understanding. Formal informed consent will still need to be obtained. The plan was reviewed with his nurse as well as primary psychiatric physician. History of Present Illness Reason for Consultation: Right knee painful effusion Requesting Physician: . Attending Physician: Tod Brewster MD 41-year-old male with a history of drug abuse and bipolar disorder was admitted on 05/19/2021 for involuntary commitment due to mood swings and potential hallucinations. On admission, it was noted that he still had persistent right knee swelling and difficulty weightbearing. He was requiring crutches for ambulation. He had a history of a previous evaluation in the ER on 03/05/2021 where he was noted to have difficulty weightbearing with a swollen right knee. There was concern for a septic effusion and an aspiration was planned. Unfortunately, the patient left AGAINST MEDICAL ADVICE before this can be evaluated further. Today the patient reports that he has been persistently painful and has had trouble walking this whole summer. He denies any acute injuries that he can recall associated with the symptoms. He does have a history of IV drug abuse. He has a history of a tibial plateau fracture that he reported was from falling from a roof. He underwent surgery with open reduction internal fixation. When asked if he has had a history of arthritis treatment, he cannot recall. He also is unaware of any previous gout diagnoses. Allergies Allergy/AdvReac Type Severity Reaction Status Date / Time cyclobenzaprine Allergy Severe SHORTNESS Verified 05/18/21 00:02 OF BREATH zolpidem Allergy Unknown hallucinati Verified 05/18/21 00:02 ons Benzodiazepines AdvReac Intermediate PSYCH Verified 05/18/21 00:02 ISSUES Home Medications Medication Instructions Recorded Confirmed Type buprenorphine 8 mg-naloxone 2 mg 1 tab SUBLINGUAL BID 10/27/19 05/18/21 History sublingual tablet Past Med/Surg History Medical History IV drug user No pertinent family history SIRS (systemic inflammatory response syndrome) Surgical History History of hernia surgery Social History Smoking Status: Heavy tobacco smoker Tobacco Type: Cigarettes and Smokeless Tobacco (Dip or Chew) Preferred Language: Chadian Communication Ability: Effective Assignment Officer Required: No Beliefs That Will Affect Care: None Feels Safe at Home: Yes Assistive Devices: Crutches Assistive Devices Comment: uses crutches appropriately Review of Systems All systems reviewed & are unremarkable except as noted in HPI & below. Physical Exam Right lower extremity: The knee has a obvious mild to moderate effusion. He attempts to cooperate but cannot extend past 25 degrees short of full extension. He can flex to about 95 degrees. He is nontender along the medial scar for his plateau surgery. He is diffusely tender over the suprapatellar pouch. Is minimally tender along the joint lines. Constitutional + disheveled and cooperative; no acute distress and not intoxicated appearing Respiratory normal respiratory effort; no respiratory distress Cardiovascular Extremities: normal capillary refill; no edema Skin Diffuse truncal and extremity rashes without any evidence of cellulitis. The skin overlying the right knee without significant compromise or edema. Psychiatric A+Ox3, euthymic affect Results & Data Results & Data Laboratory Results White blood cell count was elevated mildly yesterday. No new labs today. A knee aspiration was performed yielding approximately 20 mL of thickened brown and somewhat purulent fluid. It was not pus under pressure. Diagnostic Findings X-rays of the right knee: X-rays were obtained on this admission and they demonstrate diffuse degenerative change in the anterior and medial lateral compartments. His x-rays are nonweightbearing. There is indwelling medial tibial plateau plate and screw construct with no evidence of loosening. PG Care Time/CCT Total # of Minutes Spent Total Time Spent with Patient: Total time spent is greater than 50% in coordination of care (as documented) at patient's floor/unit and/or counseling patient: Coding Level of Care Code 90616 Inpt Consult Level 4 Diagnoses Effusion of right knee M25.461
[2021-05-20 12:07] LABS: Appearance Synovial Fluid TURBID; Color Synovial Fluid AMBER; Mononuclear WBC Synovial 8.2 %; Polynuclear WBC Synovial 91.8 %; RBC Synovial Fluid (A) 68000 /uL; Source Synovial Fluid KNEE; WBC Synovial Fluid (A) 129130 /ul (0-200)
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
[2021-05-21 08:51] LABS: Marijuana Quant, GCMS Urine 45 ng/mL (<5)
[2021-05-23 17:42] LABS: Lyme DNA PCR CSF or Synovial Not detected (Not Detected); Lyme DNA Source Synovial Fluid
== END 2021-05-20 13:55 | disposition home or self-care (01) | DRG 897 ==
LOC: ED 23:29 → 3S 05-19 10:50
DX: F15.14 Other stimulant abuse with stimulant-induced mood disorder; F17.290 Nicotine dependence, other tobacco product, uncomplicated; F17.210 Nicotine dependence, cigarettes, uncomplicated; M25.461 Effusion, right knee; F19.10 Other psychoactive substance abuse, uncomplicated

== ENCOUNTER 2021-05-20 14:01 | Inpatient (IN) ==
[2021-05-20] MEDS ORDERED: diphenhydrAMINE 50 MG/ML VIAL IV PRN (14:15)
[2021-05-20] MEDS ORDERED: MAGNESIUM HYDROXIDE SUSP 30 ML UDC PO PRN (14:15)
[2021-05-20] MEDS ORDERED: ONDANSETRON INJ 2 MG/ML 2 ML VIAL IV PRN ×2 (14:15→15:24)
[2021-05-20] MEDS ORDERED: fentaNYL citrate 100 MCG/2 ML VIAL ONE ×2 (14:33→15:52)
[2021-05-20] MEDS ORDERED: ONDANSETRON INJ 2 MG/ML 2 ML VIAL ONE (14:33)
[2021-05-20] MEDS ORDERED: DEXAMETHASONE SOD INJ 4 MG/ML VIAL ONE (14:33)
[2021-05-20] MEDS ORDERED: LIDOCAINE 2% 2 ML VIAL/AMP(20MG/ML) INFIL ONE (14:33)
[2021-05-20] MEDS ORDERED: PROPOFOL IV EMULSION 10 MG/ML 20 ML VIAL IV ONE (14:33)
[2021-05-20] MEDS ORDERED: MIDAZOLAM HCL 1 MG/ML 2ML VIAL ONE (14:33)
[2021-05-20] MEDS ORDERED: BUPIVACAINE 0.25% 30 ML VIAL ONE (14:34)
[2021-05-20] MEDS ORDERED: EPINEPHrine INJ 1 MG/ML AMP ONE (14:34)
--- NOTE | 2021-05-20 14:49 | History & Physical Report ---
Date of Service May 20, 2021 Assessment & Plan (1) Effusion of right knee: The aspiration is mildly concerning for septic effusion and was sent for laboratory evaluation. Results are consistent with septic process. He has been NPO since yesterday. OR now for Arthroscopic I&D of left knee, possibly open Formal consent obtained by Dr. Hooper. Post operative plan to follow. History of Present Illness Chief Complaint: Left Knee Septic Effusion. Primary Care Provider: NO PCP 41-year-old male with a history of drug abuse and bipolar disorder was admitted on 05/19/2021 for involuntary commitment due to mood swings and potential hallucinations. On admission, it was noted that he still had persistent right knee swelling and difficulty weightbearing. He was requiring crutches for ambulation. He had a history of a previous evaluation in the ER on 03/05/2021 where he was noted to have difficulty weightbearing with a swollen right knee. There was concern for a septic effusion and an aspiration was planned. Unfortunately, the patient left AGAINST MEDICAL ADVICE before this can be evaluated further. Today the patient reports that he has been persistently painful and has had trouble walking this whole summer. He denies any acute injuries that he can recall associated with the symptoms. He does have a history of IV drug abuse. He has a history of a tibial plateau fracture that he reported was from falling from a roof. He underwent surgery with open reduction internal fixation. When asked if he has had a history of arthritis treatment, he cannot recall. He also is unaware of any previous gout diagnoses. . Allergies Allergy/AdvReac Type Severity Reaction Status Date / Time cyclobenzaprine Allergy Severe SHORTNESS Verified 05/18/21 00:02 OF BREATH zolpidem Allergy Unknown hallucinati Verified 05/18/21 00:02 ons Benzodiazepines AdvReac Intermediate PSYCH Verified 05/18/21 00:02 ISSUES Home Medications Medication Instructions Recorded Confirmed Type buprenorphine 8 mg-naloxone 2 mg 1 tab SUBLINGUAL BID 10/27/19 05/18/21 History sublingual tablet hydroxyzine HCl 25 mg tablet 50 mg PO HSZ #0 tab 05/20/21 Rx Past Med/Surg History Medical History IV drug user No pertinent family history SIRS (systemic inflammatory response syndrome) Surgical History History of hernia surgery Social History Smoking Status: Former smoker Tobacco Type: Cigarettes and Smokeless Tobacco (Dip or Chew) Second Hand Exposure: No; Do You Dip or Chew Tobacco: Yes; Tobacco Cessation Education Requested by Patient: No Hx Alcohol Use: No Hx Substance Use: Yes Last Used Substance Other:: marijuana 1 week ago Substance Use Type Other:: about 3 weeks ago Preferred Language: [place] Citizen Communication Ability: Effective Senior Buyer Required: No Beliefs That Will Affect Care: None Current Living Situation: Family Other Information That Helps Us Care for You: No Feels Safe at Home: Yes Assistive Devices: Crutches Review of Systems All systems reviewed & are unremarkable except as noted in HPI & below. Physical Exam Right lower extremity: The knee has a obvious mild to moderate effusion. He attempts to cooperate but cannot extend past 25 degrees short of full extension. He can flex to about 95 degrees. He is nontender along the medial scar for his plateau surgery. He is diffusely tender over the suprapatellar pouch. Is minimally tender along the joint lines. Constitutional + disheveled and cooperative; no acute distress and not intoxicated appearing Respiratory normal respiratory effort; no respiratory distress Cardiovascular Extremities: normal capillary refill; no edema Skin Diffuse truncal and extremity rashes without any evidence of cellulitis. The skin overlying the right knee without significant compromise or edema. Psychiatric A+Ox3, euthymic affect . Results & Data Results & Data Laboratory Results . Laboratory Tests 05/19/21 05/19/21 09:59 09:59 WBC 13.33 H Hgb 10.6 L Hct 34.7 L Plt Count 479 H Neut # (Auto) 9.07 H Sodium 131 L Potassium 4.6 Chloride 100 BUN 20 H D Creatinine 0.62 Diagnostic Findings Laboratory Tests 05/20/21 10:30 Synovial Source KNEE Synovial Color CALLI Synovial Appearance TURBID Synovial WBC 951601 H Synovial RBC 04648 Synovial Polynuclear % 91.8 Synovial Mononuclear % 8.2 -No crystals seen on microscopic examination -Infectious studies pending (GS/Culture, AFB, Fungal, Lyme) . PG Care Time/CCT Total # of Minutes Spent Total Time Spent with Patient: Total time spent is greater than 50% in coordination of care (as documented) at patient's floor/unit and/or counseling patient: Supervising Physician Co-Signing Physician Notes agree w note. urgent right knee arthroscopic I&D for septic effusion. Coding Level of Care Code 89800 Initial Inpt Care Lvl 3 (57 - DECISION FOR SURGERY) Diagnoses Effusion of right knee M25.461
--- NOTE | 2021-05-20 14:52 | Anesthesiology Consultation ---
Date of Service May 20, 2021 Assessment & Plan (1) Encounter for pre-operative examination: Chart Review Chart Review: Acceptable Risk for Surgery (pending finding out NPO status) History Surgery Operation Date: 05/20/21 11:20 Proposed Procedures p Right Knee Arthroscopy, Irrigation and Debridement - Niall Hooper MD Height/Weight Height: 6 ft 2 in Weight: 89.6 kg Allergies Allergy/AdvReac Type Severity Reaction Status Date / Time cyclobenzaprine Allergy Severe SHORTNESS Verified 05/18/21 00:02 OF BREATH zolpidem Allergy Unknown hallucinati Verified 05/18/21 00:02 ons Benzodiazepines AdvReac Intermediate PSYCH Verified 05/18/21 00:02 ISSUES Medications Home Medications Medication Instructions Recorded Confirmed Last Taken buprenorphine 8 mg-naloxone 2 mg 1 tab SUBLINGUAL BID 10/27/19 05/18/21 05/17/21 sublingual tablet hydroxyzine HCl 25 mg tablet 50 mg PO HSZ #0 tab 05/20/21 Unknown Past Medical History Medical History IV drug user No pertinent family history SIRS (systemic inflammatory response syndrome) Past Surgical History Surgical History History of hernia surgery Social History Smoking Status: Former smoker tobacco type: cigarettes Do You Dip or Chew Tobacco: Yes Hx Alcohol Use: No Hx Substance Use: Yes substance use type: marijuana and IV drugs Substance Use Type Other:: about 3 weeks ago Last Used Substance Other:: marijuana 1 week ago Physical Exam Vital Signs Last Vital Signs Temp 36.6 C 05/20/21 14:06 Pulse 96 H 05/20/21 14:06 Resp 16 05/20/21 14:06 BP 121/83 05/20/21 14:06 Pulse Ox 97 05/20/21 14:06 Lab Results Anesthesia Preop Results Results Anesthesia Widget: WBC 13.33 K/uL (4.8-10.8) H 05/19/21 Hgb 10.6 g/dL (14.0-18.0) L 05/19/21 Hct 34.7 % (42-52) L 05/19/21 Plt 479 K/uL (130-400) H 05/19/21 Na 131 mmol/L (136-145) L 05/19/21 K 4.6 mmol/L (3.5-5.1) 05/19/21 Cl 100 mmol/L (98-107) 05/19/21 CO2 26 mmol/L (21-32) 05/19/21 BUN 20 mg/dl (7-18) H 05/19/21 Creat 0.62 mg/dl (0.6-1.4) 05/19/21 Glucose Level 95 mg/dl (70-99) 05/19/21 TSH 1.700 uIu/ml (0.300-4.500) 05/17/21 COVID-19 PCR NEGATIVE (Negative) 05/18/21
[2021-05-20] MEDS ORDERED: ACETAMINOPHEN 1000 MG/100 ML IV IV ONE (15:10)
[2021-05-20] MEDS ORDERED: LARYING-O-JET KIT (LTA) ONE (15:15)
[2021-05-20] MEDS ORDERED: SUCCINYLCHOLINE CHLORIDE 20 MG/ML 10 ML VIAL IV ONE (15:15)
[2021-05-20] MEDS ORDERED: ROCURONIUM BROMIDE 10 MG/ML 5 ML VIAL IV ONE (15:15)
--- NOTE | 2021-05-20 15:18 | History & Physical Bridge Note ---
Date of Service May 20, 2021 History & Physical Bridge Note I have examined the patient, reviewed the History & Physical and in the interval since the performance of the History & Physical I have noted the following changes of clinical significance: no changes noted Patient is aware of COVID-19 risks. Patient is asymptomatic for COVID-19. Patient has been tested for COVID-19 - [NEGATIVE].
[2021-05-20] MEDS ORDERED: PROMETHAZINE HCL 12.5 MG in SODIUM CHLORIDE 0.9% 50 ML IV PRN (15:24)
[2021-05-20] MEDS ORDERED: ePHEDrine sulfate 50 MG/ML AMP IV PRN (15:24)
[2021-05-20] MEDS ORDERED: HYDROmorphone INJ 1 MG/ML SYRINGE IV PRN (15:24)
[2021-05-20] MEDS ORDERED: ATROPINE SULFATE 0.1 MG/ML 10ML SYR IV PRN (15:24)
[2021-05-20] MEDS ORDERED: PIPERACILL/TAZOBAC CONSULT ACTIVE PRN (15:25)
[2021-05-20] MEDS ORDERED: VANCOMYCIN CONSULT ACTIVE PRN ×2 (15:25→18:43)
[2021-05-20] MEDS ORDERED: VANCOMYCIN HCL 1 GM/270 ML BAG ONE (15:37)
[2021-05-20] MEDS ORDERED: KETOROLAC 30 MG/ML VIAL ONE (15:58)
[2021-05-20] MEDS ORDERED: HYDROmorphone INJ 2 MG/ML SYR/VIAL ONE ×2 (15:59→16:29)
[2021-05-20] MEDS ORDERED: PIPERACILLIN/TAZOBACTAM 3.375 GM in DEXTROSE 5% 100 ML IV ONE (16:00)
[2021-05-20] MEDS ORDERED: HYDROmorphone INJ 0.5 MG/0.5 ML SYR IV PRN ×2 (17:27→17:41)
[2021-05-20] MEDS ORDERED: oxyCODONE HCL IR 5 MG TAB (IMMEDIATE RELEASE) PO PRN ×4 (17:27→17:41)
--- NOTE | 2021-05-20 17:38 | Operative Report ---
PG Post Operative Report Pre & Post Diagnosis Operation Date: 05/20/21 11:20 Pre-Op Diagnosis: Right knee septic effusion Post-Op Diagnosis: Right knee septic effusion I identified the patient and participated in the time-out.: Yes Procedure Operation Date: 05/20/21 11:20 Actual Procedures p Right knee arthroscopy, irrigation and extensive debridement(Right) - Niall Hooper MD Surgeon Niall Hooper MD Equipment Washer Pascual Hahn PA-C Estimated Blood Loss 50 Findings See Below EUA demonstrated fixed flexion contracture at about 40 degrees. He can flex to 110 degrees. After extensive arthroscopic debridement, there was only a gain of 10-15 degrees of extension. He had abundant thickened synovitis throughout the anterior compartment, suprapatellar pouch, medial lateral gutters. The medial lateral compartment showed extensive chondrolysis, particular on the plateaus. There was subchondral bone visible in the margins of the medial and lateral femoral condyles. 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 Specimens Tissue specimen consisting of synovium for tissue culture Anesthesia Type General Complications none Disposition Accompanied Patient To Recovery: No Disposition: Recovery Room Indications 41-year-old male with history of IV drug abuse and a chronic painful swollen knee since at least March 2021 was admitted with a 302 to the [facility]. Orthopedics was consulted for a painful effusion and inability to bear weight. He had an elevated white counts over the course of his stay. The knee aspiration today yielded purulent material that showed a white blood cell count of over 100,000. Given these findings, my recommendation was for an arthroscopic irrigation debridement to remove an infectious source from a likely chronic septic knee. His radiographs revealed degenerative changes at baseline. We discussed the risk-benefit of surgery in detail with the patient, and he was agreeable to proceed. Informed consent was obtained in the preop holding area today. Description of Procedure On the day of surgery was greeted in the preoperative holding area with informed consent was reviewed and confirmed. The surgical site was identified by the patient and signed by myself. The patient was turned over to the anesthesia team. The patient was taken to the operating place upon the OR table and anesthesia was induced. The position was supine for knee arthroscopy with a lateral post. All bony prominences what were well-padded. A nonsterile tourniquet was placed high in the thigh. Leg hair was trimmed. The operative extremity was prepped and draped in usual sterile fashion for knee arthroscopy. Surgical timeout was called by the circulating nurse verified all present. Antibiotics had been held for culture, and equipment was available and functional. Using superficial landmarks the lateral portal was established using #11 blade. Trocar was used to enter the joint and the camera was then introduced. The medial portal was established using arthroscopic visualization and spinal needle for localization. The capsulotomy performed using 11 blade under arthroscopic visualization. An accessory superior lateral portal was established for outflow and a metal cannula was placed here connected to suction. A probe was introduced and thorough diagnostic arthroscopy was carried out revealing the findings listed above. The joint fluid was extensively purulent upon entry and required high flow irrigation to obtain visualization. The motorized shaver was utilized for an extensive synovectomy in the suprapatellar pouch with debridement of thickened synovium from the capsular redman and the medial lateral gutters. There were several areas of chronic appearing thickened tissue that could have potentially been former abscesses. Dissection was carried out to the medial lateral gutter, with switching to medial and lateral view as needed to improve visualization and access with a shaver. Electrocautery was used to achieve hemostasis as we went. Once all inflamed synovium was dissected back to stable capsular tissue, we proceeded to the medial compartment. At this point, the tourniquet was inflated to allow more appropriate visualization. Total tourniquet time was 43 minutes at 250 mmHg. The medial compartment showed extensive chondrolysis of the medial tibial plateau and near complete medial meniscectomy. There were several areas of full-thickness cartilage loss in the femoral condyles as well. All synovial tissue about the meniscus was debrided using a motorized shaver. On the plateau there were areas of complete devitalization of cartilage with exposed subchondral woven bone which could potentially be related to chronic osteolysis from an chronic septic joint. We entered their intra-articular notch and there was a torn ACL that lied on the PCL. There was an empty lateral wall with extensive synovitic material that was debrided back to stable margin. We scope through the ACL area to the posterior compartment to remove synovium about the reflection of the posterior capsule. The PCL was intact. There was a flipped lateral meniscus component into the articular notch which was debrided to improve visualization. The lateral compartment was entered in the [id number] position. Again there was extensive subchondral erosion in the plateau and several areas of full- thickness cartilage loss in the lateral femoral condyle. The meniscus was essentially absent back to capsular redman with thickened synovium. This was debrided back to healthy appearing tissue. The retropatellar fat pad was then debrided gently until normal tissue was encountered. We then thoroughly irrigated the knee in all compartments. I then use electrocautery to achieve hemostasis in areas with obvious bleeding. I then returned to the suprapatellar pouch and continue to irrigate the knee for a total of 6 x 3000 mL bags throughout the case. Suction was used to decompress the arthroscopic fluid. A 10 Finnish round drain was then placed from the superior lateral portal down to the anterior medial portal. It was hooked to a CHRISTAL drain. The diagnostic arthroscopy was completed in the anterior compartment, the gutters, and the lateral compartment. The knee was then thoroughly irrigated with arthroscopic fluid and drained of arthroscopic fluid. The wounds were then closed with interrupted 3-0 nylon suture. The drain was secured with a simple stitch in the superior lateral portal and backed up by long Steri-Strips. The wounds are dressed with sterile Xeroform, sterile gauze, ABD, and contained by web roll followed by an Jamaal wrap. The patient tolerated procedure well, was asked with the operative without complication, and transferred to the recovery area in stable condition. Anesthesia did note that he required 4 mg of Dilaudid, 200 mg of fentanyl, 30 mg of Toradol and at 1000 mg of acetaminophen IV. Disposition: The patient will be weightbearing and range of motion as tolerated. He will remain as an inpatient on parenteral empiric antibiotic coverage until cultures return to tailor the antibiotic plan. We will seek antibiotic guidance from infectious disease consult, if available. Lovenox will be used for initial DVT prophylaxis, with transition to oral aspirin when his pain is under better control and we do not need IV Toradol. Pain management will be complicated but will have a multimodal plan established with nonopioid options maxed. We will consult psychiatric service for ongoing management from his original admission. I attest to the content of the Intraoperative Record and any orders documented therein. Any exceptions are noted below.
[2021-05-20] MEDS: fentaNYL citrate 100 MCG/2 ML VIAL IV PRN ×2 (17:54→17:59)
[2021-05-20] MEDS ORDERED: HYDROmorphone INJ 1 MG/ML SYRINGE ONE (18:00)
[2021-05-20] MEDS: HYDROmorphone INJ 1 MG/ML SYRINGE IV PRN ×2 (18:04→18:09)
[2021-05-20] MEDS ORDERED: NALOXONE HCL 0.4 MG/1 ML VIAL/CARP IV PRN (18:09)
[2021-05-20] MEDS ORDERED: HYDROmorphone PCA 30 MG/30 ML IV PRN (18:09)
--- NOTE | 2021-05-20 19:01 | Anesthesiology Progress Note ---
Date of Service May 20, 2021 Anesthesia Post Procedure Vital Signs Vital Signs: Temp Pulse Pulse Pulse Resp BP BP 05/20/21 18:44 97.7 F 84 16 118/65 05/20/21 18:25 97.9 F 85 13 113/71 05/20/21 18:15 86 14 116/68 05/20/21 18:05 84 18 117/81 05/20/21 17:55 80 20 113/76 05/20/21 17:45 84 14 112/67 05/20/21 17:35 84 16 108/69 05/20/21 17:29 97.7 F 85 18 116/76 05/20/21 14:06 97.9 F 96 H 16 121/83 05/20/21 14:03 97.9 F 96 H 96 H 16 121/83 Pulse Ox 05/20/21 18:44 97 05/20/21 18:25 93 05/20/21 18:15 95 05/20/21 18:05 94 05/20/21 17:55 95 05/20/21 17:45 100 05/20/21 17:35 98 05/20/21 17:29 100 05/20/21 14:06 97 05/20/21 14:03 97 Pain Intensity Right Knee: Pain Intensity: 4 Transfer of Care Handoff Completed per policy Notes Mental Status: alert / awake / arousable and participated in evaluation Patient Amnestic to Procedure: Yes Nausea / Vomiting: adequately controlled Pain: adequately controlled Airway Patency, RR, SpO2: stable & adequate BP & HR: stable & adequate Hydration State: stable & adequate Anesthetic Complications: no major complications apparent and Pt Satisfied with anesthetic care
[2021-05-20] MEDS: KETOROLAC TROMETHAMINE 15 MG/ML VIAL IV SCH ×2 (19:06→23:44)
[2021-05-20 20:31] LABS: Creatinine Clr Calc Pharmacy 145.7 ml/min; Est GFR (African American) 129.5 ml/min; Est GFR (Non-African American) 111.7 ml/min
[2021-05-20] MEDS: SODIUM CHLORIDE 0.9% 1000ML 1,000 ML IV SCH (20:40)
[2021-05-20] MEDS: PIPERACILLIN/TAZOBACTAM 3.375 GM in DEXTROSE 5% 100 ML IV SCH (20:54)
[2021-05-20] MEDS: ENOXAPARIN INJ 40 MG/0.4 ML SYR SQ SCH (20:54)
[2021-05-20] MEDS: DOCUSATE SODIUM 100 MG CAP PO SCH (20:56)
[2021-05-20] MEDS: GABAPENTIN 300 MG CAP PO SCH (20:56)
[2021-05-20] MEDS: BUPRENORPHINE/NALOXONE 8/2 MG TAB SL SCH (20:59)
[2021-05-20] MEDS ORDERED: VANCOMYCIN HCL 1,000 MG/270 ML BAG IV SCH (21:00)
[2021-05-20] MEDS: ACETAMINOPHEN 1,000 MG/100 ML VIAL IV SCH (21:00)
[2021-05-20] MEDS ORDERED: ACETAMINOPHEN 1000 MG/100 ML IV IV SCH (22:00)
[2021-05-20] MEDS: hydrOXYzine HCl 25 MG TAB PO SCH (22:38)
[2021-05-21] MEDS: VANCOMYCIN HCL 1,000 MG in SODIUM CHLORIDE 0.9% 250 ML IV SCH ×3 (01:19→17:12)
[2021-05-21] MEDS: PIPERACILLIN/TAZOBACTAM 3.375 GM in DEXTROSE 5% 100 ML IV SCH ×3 (04:54→21:09)
[2021-05-21] MEDS: KETOROLAC TROMETHAMINE 15 MG/ML VIAL IV SCH ×3 (04:54→17:14)
[2021-05-21] MEDS ORDERED: VANCOMYCIN HCL 1,000 MG/270 ML BAG IV SCH (06:00)
[2021-05-21] MEDS: ACETAMINOPHEN 1,000 MG/100 ML VIAL IV SCH ×2 (06:05→13:59)
[2021-05-21] MEDS ORDERED: ceFAZolin 2000MG 2,000 MG/15 ML SYR IV SCH (08:00)
--- NOTE | 2021-05-21 08:12 | Orthopedic Progress Note ---
Date of Service May 21, 2021 Assessment & Plan (1) Septic arthritis of knee, right: Making uncomplicated progress on POD1. Pain management sufficient thus far - Appreciate Pain Mgt and Psych consults - Advance w PT/OT for ADLs and knee ROM. WBAT and ROMAT. Drain will be irritable for now. - Monitor drain - will consider pulling tomorrow. - Empiric abx to continue until speciation and sensitivities. - DVT ppx Lovenox until ambulatory and NSAID needs decrease to use ASA Dispo: Need parenteral abx tx until final abx plan is established by cultures. Expect 1-3 days. Subjective Seen over lunch. States that pain 'is not bad' unless he moves it. Fearful for therapy today. Nursing reports no issues overnight. ADDING MACHINE SERVICER was not used. Review of Systems All systems reviewed & are unremarkable except as noted in HPI & below. Physical Exam RLE: Knee dressing c/d/i. Drain with serosang drainage. DNVI. ROM 20-60. Results & Data Results & Data Laboratory Results . H & H 05/21/21 Range/Units 08:12 Hgb 9.0 L (14.0-18.0) g/dL Hct 30.4 L (42-52) % Microbiology 05/20/21 16:15 Gram Stain - Final Knee,Right Aerobic and Anaerobic Culture - Preliminary Staphylococcus species Diagnostic Findings . Microbiology 05/20/21 16:15 Gram Stain - Final Knee,Right PG Care Time/CCT Total # of Minutes Spent Total Time Spent with Patient: Total time spent is greater than 50% in coordination of care (as documented) at patient's floor/unit and/or counseling patient: Coding Level of Care Code 78585 Post Operative Follow-Up Diagnoses Septic arthritis of knee, right M00.9
[2021-05-21 08:37] LABS: Basophils # (auto) 0.02 K/uL (0-0.2); Basophils % (auto) 0.2 %; Eosinophils # (auto) 0.12 K/uL (0-0.5); Eosinophils % (auto) 1.2 %; Hematocrit (blood only) 30.4 % (42-52); Immature Granulocytes # (auto) 0.06 K/uL (0.00-0.02); Immature Granulocytes % (auto) 0.6 %; Lymphocytes # (auto) 2.44 K/uL (1.2-3.4); Lymphocytes % (auto) 25.1 %; Mean Corpuscular Hemoglobin 23.2 pg (25-34); Mean Corpuscular Hgb Conc 29.6 g/dL (32-36); Mean Corpuscular Volume 78.4 fL (80-100); Monocytes # (auto) 0.62 K/uL (0.11-0.59); Monocytes % (auto) 6.4 %; Neutrophils # (auto) 6.45 K/uL (1.4-6.5); Neutrophils % (auto) 66.5 %; Platelet Count 427 K/uL (130-400); RDW Coefficient of Variation 16.5 % (11.5-14.5); RDW Standard Deviation 47.4 fL (36.4-46.3); Red Blood Count 3.88 M/uL (4.7-6.1); White Blood Count 9.71 K/uL (4.8-10.8)
--- NOTE | 2021-05-21 09:10 | Pain Management Consultation ---
Date of Consultation May 21, 2021 Assessment & Plan (1) Septic arthritis of knee, right: (2) Polysubstance abuse: (3) IV drug user: 1. Will discontinue [employer]TI[employer] MA[employer]TE[employer]CE WORKER hydromorphone as the patient has had minimal pain throughout the night and was extremely sedate. There appears to be no need for [employer]TI[employer]NCE WORKER hydromorphone at this time. 2. Recommend ongoing utilization of IV Toradol which the patient is finding to be effective at pain control. We discussed utilization anticipation of movement. 3. Consider transition to celecoxib 100 mg twice daily 4. Consider limited utilization of hydrocodone for as needed breakthrough pain. Would recommend extremely limited prescription of hydrocodone for discharge due to his history of polysubstance abuse. 5. Would recommend ongoing utilization of Suboxone and follow-up in the outpatient setting with Suboxone clinic 6. Continue with gabapentin 300 mg 3 times daily with consideration of dose titration in the outpatient setting Thank you for allowing us to participate in the care of Mr. Owusu. History of Present Illness Reason for Consultation: Right knee pain-septic arthritis Requesting Physician: Niall Hooper MD Attending Physician: Niall Hooper MD History of Present Illness Mr. Owusu is a 41-year-old white male who was initially admitted for mental health evaluation on a 302 warrant brought in by police with increasing paranoia, delusional, agitation and combativeness. The patient has a longstanding history of polysubstance abuse and has been on chronic Suboxone therapy currently followed by Suboxone clinic near [place] in [place]. Patient reports that he has resumed using methamphetamine within the past month indicating his most recent use was a few weeks ago. The patient had complaints of right-sided knee pain with swelling and diminished range of motion which was found to be septic and required a surgical procedure performed by Dr. Hooper yesterday on 05/20/2021. Patient is currently on IV antibiotic therapy for treatment of the septic arthritis. His Suboxone therapy has been resumed upon this admission which he did refuse this morning. Patient has been extremely sedate over the past 12 hours per nursing staff. He was written for hydromorphone [employer]CE WORKER which was not started due to his sedation. His pain complaints have been minimal. He reports his pain is currently a 0-1/10 but his pain can escalate to an 8/10 with movement of the right leg/knee. Patient indicates that he does find IV Toradol to be effective without side effects. The patient reports diarrhea upon this admission and some loose stools but he denies any acute withdrawal from illicit drugs. Patient denies axial low back pain or lumbar radicular component to his current pain complaints. He denies abdominal pain or rectal bleeding. He admits to excessive use of Aleve throughout the summer due to the knee pain. Patient has no further constitutional complaints at this time. Plan of care discussed with Dr. Chelsy Urias. Pain Assessment Full Body Front + Back: 1. Right knee pain status post arthroscopy, irrigation and extensive debridement Pain scale - at its best (0-10): 1 Pain scale - at its worst (0-10): 8 Allergies Allergy/AdvReac Type Severity Reaction Status Date / Time cyclobenzaprine Allergy Severe SHORTNESS Verified 05/18/21 00:02 OF BREATH zolpidem Allergy Unknown hallucinati Verified 05/18/21 00:02 ons Benzodiazepines AdvReac Intermediate PSYCH Verified 05/18/21 00:02 ISSUES Home Medications Medication Instructions Recorded Confirmed Type buprenorphine 8 mg-naloxone 2 mg 1 tab SUBLINGUAL BID 10/27/19 05/18/21 History sublingual tablet hydroxyzine HCl 25 mg tablet 50 mg PO HSZ #0 tab 05/20/21 Rx Pain History Pain Intensity Pain scale - at its best (0-10): 1 Pain scale - at its worst (0-10): 8 Patient History Medical History (Updated 05/21/21 @ 09:08 by Kyle Lock PA-C) Aggressive behavior Delusions IV drug user No pertinent family history Paranoia Polysubstance abuse Psychosis Septic arthritis of knee, right SIRS (systemic inflammatory response syndrome) Surgical History History of hernia surgery Social History Smoking Status: Former smoker Tobacco Type: Cigarettes and Smokeless Tobacco (Dip or Chew) Second Hand Exposure: No; Do You Dip or Chew Tobacco: Yes; Tobacco Cessation Education Requested by Patient: No Hx Alcohol Use: No Hx Substance Use: Yes Last Used Substance Other:: marijuana 1 week ago Substance Use Type Other:: about 3 weeks ago Preferred Language: Grenadian Communication Ability: Effective Optical Brightener Maker Helper Required: No Beliefs That Will Affect Care: None Current Living Situation: Family Other Information That Helps Us Care for You: No Feels Safe at Home: Yes Assistive Devices: Crutches Physical Exam Physical Exam: General: Patient lying quietly in exam room in no acute distress. Patient was eating his breakfast upon entering. Speech slightly rapid. Thought process appropriate. Mood and affect appropriate. Cognition intact. Head: Normocephalic and atraumatic. ENT: No evidence of nasal or oral mucosal lesions. Mucous membranes are moist. Eyes: Pupils equal round reactive to light. Neck: Supple without adenopathy and full range of motion. Abdomen: Soft and nondistended. No organomegaly. Bowel sounds active. Lower extremities: Patient has a large Jamaal wrap and dressing in place on the right lower extremity with CHRISTAL drain. Knee is in approximately 45 and 50 degrees of flexion. Moderate discomfort with minimal range of motion. Dressing was not removed for visual inspection. Patient has sensation distally to sharp and dull of the toes, foot and ankle region. Pulses are 2+ and intact dorsalis pedis and posterior tibial bilaterally and equal. His strength was 5/5 with dorsiflexion, plantarflexion and EHL testing bilaterally. There is no appreciable edema of the distal lower extremities. Neurologic: Cranial nerves grossly intact. Ambulatory function not witnessed.
[2021-05-21 09:19] LABS: BUN Creatinine Ratio 34.7 (10-20); C Reactive Protein 5.48 mg/dl (0-0.29); Calcium 8.5 mg/dl (8.5-10.1); Creatinine Clr Calc Pharmacy 151.7 ml/min; Est GFR (African American) 131.7 ml/min; Est GFR (Non-African American) 113.6 ml/min
[2021-05-21] MEDS: GABAPENTIN 300 MG CAP PO SCH ×3 (09:51→21:08)
[2021-05-21] MEDS: DOCUSATE SODIUM 100 MG CAP PO SCH ×2 (09:51→21:07)
[2021-05-21] MEDS: BUPRENORPHINE/NALOXONE 8/2 MG TAB SL SCH ×2 (10:58→21:07)
--- NOTE | 2021-05-21 13:42 | Psychiatric Consultation ---
Date of Consultation May 21, 2021 Impression / Recommendations Impression This is a 41-year-old male who presented to the unit on a 302 for complaints of delusional/psychotic behavior in the home. Upon evaluation in the psychiatric unit it was determined that patient is not delusional or psychotic and that the symptoms used to prompt his admission were likely caused by his methamphetamine use. Patient is no longer using any substances and is denying the need for rehab. Currently patient has a stable mood without any perceptual disturbances. He no longer meets criteria for inpatient psychiatric hospitalization. Patient is stable from a psychiatric perspective to be discharged back to the community. (1) Polysubstance abuse: -Patient is doing well without any overt psychiatric symptoms. -He does not meet criteria for inpatient psychiatric hospitalization Medications: Continue hydroxyzine 50 mg as needed nightly for sleep Patient is normally prescribed Suboxone, will defer management of this medication during acute postoperative state to hospitalist team/pain management. Risk Factors Assessment Male: Yes : Yes Do You Have Access To A Gun?: No Health Problems: Yes Substance Use Disorders: Yes Hopelessness: No Psych History Chief Complaint "I am okay, I am thankful I got this surgery". History of Present Illness Patient recently had a 1 day stay on the psychiatric inpatient unit. His hospital course is as follows: Patient was referred to the unit on a 302 for concerns of hallucinations and mood swings. Patient denied symptoms when asked however 3 was upheld in the emergency room due to collateral information from patient's sister. Upon admission to the unit patient was cooperative with care although somewhat irritable for his presence here on the unit. Patient did acknowledge a drug past for which she was taking Suboxone but also acknowledged recent use of methamphetamine as recently as a week prior. It was explained to patient that this is drug use may have been responsible for the symptoms of hallucinations and mood swings. Patient did acknowledge occasional difficulty sleeping and requested the use of ZzzQuil medication as needed. Patient was informed that an appropriate substitute, Vistaril, would be used instead to which she was agreeable. It was mutually decided with the patient that he would be observed for a day or so prior to revisiting the idea of involuntary hospitalization given the report of serious perceptual symptoms. Patient was in agreement with the plan, was thankful for the assistance with sleep via Vistaril, and expressed a potential interest in outpatient therapy services. Patient did express some concern regarding his right knee, which had been swollen and had been preventing him from walking. Accommodations were made for patient have crutches while in the unit, and consultation with orthopedic team was called. Upon evaluation this morning, patient continued to be calm and cooperative without any instances of delusion or hallucinations. Orthopedic team arrived and ministerio samples and labs from patient which indicated a significant infection requiring surgical procedure. Patient will be discharged to medical service for treatment of his knee. He no longer meets 302 criteria and has not expressed any suicidal or homicidal ideation nor has he shown any psychiatric symptoms while here on the unit. Upon evaluation today patient states that he is feeling better and is thankful for the operation. He states that he feels as if it will help him with his anger and frustration now that he will not be in constant pain. Patient continues to deny any psychotic or delusional symptoms. He denies any suicidal or homicidal ideation. He stated that he is sleeping well and eating well. He reports feeling better and is looking forward to being able to be more mobile now that his knee is being treated. Past Psychiatric History Do You Have Access To A Gun?: No Allergies Allergy/AdvReac Type Severity Reaction Status Date / Time cyclobenzaprine Allergy Severe SHORTNESS Verified 05/18/21 00:02 OF BREATH zolpidem Allergy Unknown hallucinati Verified 05/18/21 00:02 ons Benzodiazepines AdvReac Intermediate PSYCH Verified 05/18/21 00:02 ISSUES Home Medications Medication Instructions Recorded Confirmed Type buprenorphine 8 mg-naloxone 2 mg 1 tab SUBLINGUAL BID 10/27/19 05/18/21 History sublingual tablet hydroxyzine HCl 25 mg tablet 50 mg PO HSZ #0 tab 05/20/21 Rx Personal History Beliefs That Will Affect Care: None Patient History Medical History (Updated 05/21/21 @ 09:08 by Kyle Lock PA-C) Aggressive behavior Delusions IV drug user No pertinent family history Paranoia Polysubstance abuse Psychosis Septic arthritis of knee, right SIRS (systemic inflammatory response syndrome) Surgical History History of hernia surgery Social History Smoking Status: Former smoker Tobacco Type: Cigarettes and Smokeless Tobacco (Dip or Chew) Second Hand Exposure: No; Do You Dip or Chew Tobacco: Yes; Tobacco Cessation Education Requested by Patient: No Hx Alcohol Use: No Hx Substance Use: Yes Last Used Substance Other:: marijuana 1 week ago Substance Use Type Other:: about 3 weeks ago Preferred Language: Egyptian Communication Ability: Effective Commercial Litigation Paralegal Required: No Beliefs That Will Affect Care: None Current Living Situation: Family Other Information That Helps Us Care for You: No Feels Safe at Home: Yes Assistive Devices: Crutches Physical Exam Psychiatric: Orientation: alert and oriented x 3 Apperance: appropriately groomed Eye Contact: + fair eye contact Motor Behavior: no abnormal motor movements Speech: normal rate/rhythm/volume of speech Affect: euthymic affect Mood: no depressed mood Thought Process: goal directed thought process, linear/logical thought process and clear/coherent thought process Thought Content: reality based without delusions Suicidal Thoughts: denies suicidal thoughts Homicidal Thoughts: denies homicidal thoughts Hallucinations: no auditory hallucinations and no visual hallucinations Cognition: recent memory grossly intact Estimated Intelligence: average estimated intelligence Insight: + fair insight Judgement: + fair judgement Vital Signs (Past 24 Hours): Last Vital Signs Temp 37.0 C 05/21/21 07:51 Pulse 84 05/21/21 07:51 Resp 16 05/21/21 07:51 BP 106/57 L 05/21/21 07:51 Pulse Ox 93 05/21/21 07:51 Review of Systems All systems reviewed & are unremarkable except as noted in HPI & below Results & Data (PSY) Medications Administered Buprenorphine/Naloxone (Buprenorphine/Naloxone 8/2 Mg Tab) 1 tab SL BID [facility] Stop: 06/19/21 20:59 Last Admin: 05/21/21 10:58 Dose: 1 tab Documented by: [id number] Admin: 05/20/21 20:59 Dose: Not Given Documented by: [id number] Docusate Sodium (Docusate Sodium 100 Mg Cap) 100 mg PO BID [facility] Stop: 06/19/21 20:59 Last Admin: 05/21/21 09:51 Dose: 100 mg Documented by: [id number] Admin: 05/20/21 20:56 Dose: 100 mg Documented by: [id number] Enoxaparin Sodium (Enoxaparin Inj 40 Mg/0.4 Ml Syr) 40 mg SQ Q24H [facility] Stop: 06/19/21 19:14 Last Admin: 05/20/21 20:54 Dose: 40 mg Documented by: [id number] Gabapentin (Gabapentin 300 Mg Cap) 300 mg PO TID [facility] Stop: 06/19/21 20:59 Last Admin: 05/21/21 09:51 Dose: 300 mg Documented by: [id number] Admin: 05/20/21 20:56 Dose: 300 mg Documented by: [id number] Hydroxyzine HCl (Hydroxyzine Hcl 25 Mg Tab) 50 mg PO HSZ [facility] Stop: 06/19/21 21:59 Last Admin: 05/20/21 22:38 Dose: Not Given Documented by: [id number] Piperacillin Sod/Tazobactam (Sod 3.375 gm/ Dextrose) 115 mls @ 28.75 mls/hr IV Q8H [facility]; Protocol Stop: 05/22/21 20:59 Last Admin: 05/21/21 12:48 Dose: 28.8 mls/hr Documented by: [id number] Infusion: 05/21/21 09:23 Dose: 0 mls/hr Documented by: [id number] Infusion: 05/21/21 06:20 Dose: 28.8 mls/hr Documented by: [id number] Admin: 05/21/21 04:54 Dose: 28.8 mls/hr Documented by: [id number] Infusion: 05/21/21 01:14 Dose: 0 mls/hr Documented by: [id number] Infusion: 05/21/21 00:24 Dose: 0 mls/hr Documented by: [id number] Infusion: 05/20/21 21:15 Dose: 28.8 mls/hr Documented by: [id number] Admin: 05/20/21 20:54 Dose: 28.8 mls/hr Documented by: [id number] Sodium Chloride (Nss 1000ml) 1,000 mls @ 15 mls/hr IV .Q24H [facility] Stop: 06/03/21 18:09 Last Admin: 05/20/21 20:40 Dose: Not Given Documented by: [id number] Acetaminophen (Ofirmev) 1,000 mg in 100 mls @ 400 mls/hr IV Q8 [facility]; Protocol Stop: 05/21/21 23:59 Last Infusion: 05/21/21 06:20 Dose: 0 mls/hr Documented by: [id number] Admin: 05/21/21 06:05 Dose: 400 mls/hr Documented by: [id number] Infusion: 05/20/21 21:15 Dose: 0 mls/hr Documented by: [id number] Admin: 05/20/21 21:00 Dose: 400 mls/hr Documented by: [id number] Vancomycin HCl 1,000 mg/ (Sodium Chloride) 270 mls @ 200 mls/hr IV Q8H [facility] Stop: 05/23/21 00:59 Last Infusion: 05/21/21 10:59 Dose: 0 mls/hr Documented by: [id number] Admin: 05/21/21 09:35 Dose: 200 mls/hr Documented by: [id number] Infusion: 05/21/21 02:40 Dose: 0 mls/hr Documented by: [id number] Admin: 05/21/21 01:19 Dose: 200 mls/hr Documented by: [id number] Ketorolac Tromethamine (Ketorolac Tromethamine 15 Mg/Ml Vial) 15 mg IV Q6H [facility] Stop: 05/25/21 17:29 Last Admin: 05/21/21 10:59 Dose: 15 mg Documented by: [id number] Admin: 05/21/21 04:54 Dose: 15 mg Documented by: [id number] Admin: 05/20/21 23:44 Dose: 15 mg Documented by: [id number] Admin: 05/20/21 19:06 Dose: Not Given Documented by: [id number] Coding Level of Care Code 50255 U Intl Hosp Care Lvl 2 Diagnoses Polysubstance abuse F19.10 Time Spent (min) 45
--- NOTE | 2021-05-21 15:32 | Pharmacy Report ---
Pharmacy Abx Initial Consult - Date of Service May 21, 2021 - Pharmacy Dosing Scope Date of Consult: 05/21/21 Consultation requested by: Dr. Hooper Pharmacy is consulted to initiate Vancomycin IV and Zosyn dosing therapy, order appropriate labs and adjust drug dose/frequency. - Subjective The patient is a 41 year old M admitted on 05/20/21 14:01. - Objective Height: 6 ft 2 in Weight: 89.6 kg Vital Signs (Past 12hrs): Vital Signs Temp Pulse Resp BP BP Pulse Ox 05/21/21 15:21 36.8 C 82 16 127/74 95 05/21/21 07:51 37.0 C 84 16 106/57 L 93 05/21/21 03:27 36.5 C 79 16 117/69 95 Lab Results (24hrs): Laboratory Tests (24 Hours) 05/21/21 05/21/21 05/21/21 08:12 08:12 08:12 WBC 9.71 Neut # (Auto) 6.45 ESR > 130 H Creatinine 0.73 Est Cr Clr Drug Dosing 151.7 C-Reactive Protein 5.48 H 05/20/21 19:55 WBC Neut # (Auto) ESR Creatinine 0.76 Est Cr Clr Drug Dosing 145.7 C-Reactive Protein Micro Results: 05/20/21 16:15 Gram Stain - Final Knee,Right - Risk Factors for Resistance History of IV drug abuse Chronic swollen knee - Assessment & Plan Assessment 41 year old M admitted for R knee infection treatment and I&D. Patient started empirically on Vanco and Zosyn. Today R knee grew Staph species, ID and sensitivities pending. Plan Vancomycin IV * Loading dose: 1000 mg (11 mg/kg) IV x 1 given yesterday at 1144 AM. * Maintenance dose: 1000 mg IV (11 mg/kg) every 8 hours * Goal trough level for joint infection: 15 to 20 mcg/mL * Trough Vanco level ordered for 05/22/21 before dose at 9 am. Piperacillin/tazobactam * 3.375 g bolus administered over 30 minutes, then 3.375 g IV extended infusion every 8 hours for CrCl greater than 20 mL/min Pharmacy will continue to follow and will adjust dose/frequency as necessary. Thank you.
[2021-05-21] MEDS: SODIUM CHLORIDE 0.9% 1000ML 1,000 ML IV SCH (16:13)
[2021-05-21] MEDS ORDERED: ACETAMINOPHEN 500 MG TAB PO PRN (17:44)
[2021-05-21] MEDS: ENOXAPARIN INJ 40 MG/0.4 ML SYR SQ SCH (18:42)
[2021-05-21] MEDS: hydrOXYzine HCl 25 MG TAB PO SCH (21:06)
[2021-05-22] MEDS: KETOROLAC TROMETHAMINE 15 MG/ML VIAL IV SCH ×3 (00:20→11:23)
[2021-05-22] MEDS: HYDROcodone/ACETAMINOPHEN 10/325 TAB PO PRN ×2 (01:11→21:41)
[2021-05-22] MEDS: VANCOMYCIN HCL 1,000 MG in SODIUM CHLORIDE 0.9% 250 ML IV SCH ×2 (01:12→09:51)
[2021-05-22] MEDS: PIPERACILLIN/TAZOBACTAM 3.375 GM in DEXTROSE 5% 100 ML IV SCH (05:23)
[2021-05-22] MEDS ORDERED: VANCOMYCIN TROUGH ONE (08:30)
[2021-05-22 08:44] LABS: Basophils # (auto) 0.02 K/uL (0-0.2); Basophils % (auto) 0.2 %; Eosinophils # (auto) 0.21 K/uL (0-0.5); Eosinophils % (auto) 2.2 %; Hemoglobin 8.4 g/dL (14.0-18.0); Immature Granulocytes # (auto) 0.09 K/uL (0.00-0.02); Lymphocytes # (auto) 3.17 K/uL (1.2-3.4); Lymphocytes % (auto) 33.8 %; Mean Corpuscular Hemoglobin 23.6 pg (25-34); Mean Corpuscular Volume 78.7 fL (80-100); Mean Platelet Volume 8.8 fL (7.4-10.4); Monocytes # (auto) 0.84 K/uL (0.11-0.59); Monocytes % (auto) 8.9 %; Neutrophils # (auto) 5.06 K/uL (1.4-6.5); Neutrophils % (auto) 53.9 %; Platelet Count 355 K/uL (130-400); RDW Coefficient of Variation 16.3 % (11.5-14.5); RDW Standard Deviation 47.2 fL (36.4-46.3); Red Blood Count 3.56 M/uL (4.7-6.1); White Blood Count 9.39 K/uL (4.8-10.8)
[2021-05-22 09:07] LABS: BUN Creatinine Ratio 24.7 (10-20); C Reactive Protein 5.83 mg/dl (0-0.29); Calcium 8.5 mg/dl (8.5-10.1); Creatinine Clr Calc Pharmacy 194.3 ml/min; Est GFR (African American) 145.8 ml/min; Est GFR (Non-African American) 125.8 ml/min; Potassium 3.5 mmol/L (3.5-5.1)
[2021-05-22] MEDS: DOCUSATE SODIUM 100 MG CAP PO SCH ×2 (09:54→21:35)
[2021-05-22] MEDS: GABAPENTIN 300 MG CAP PO SCH ×3 (09:54→21:35)
--- NOTE | 2021-05-22 11:18 | Pharmacy Report ---
Pharmacy Vanc AUC Short Note - Date of Service May 22, 2021 - Assessment & Plan Assessment 41 year old M receiving IV VANCOMYCIN for treatment of MRSA KNEE INFECTION. Day # 3 of 14 of IV antibiotic therapy: Vancomycin 1g IV Q8H Plan Vancomycin * Trough level = 11.6mcg/ml * AUC/LYRIC is the preferred PK/PD target for vancomycin * AUC guided dosing is effective and associated with decreased risk of nephrotoxicity compared to traditional trough targets * Change to 1250 mg IV every 8 hours which is is predicted to achieve target AUC/LYRIC of 400-600 mg/L.hr and may be associated with a 15 % risk of nephrotoxicity * Repeat trough on 05/24 Pharmacy will continue to follow and will adjust dose/frequency as necessary. Thank you.
[2021-05-22] MEDS: BUPRENORPHINE/NALOXONE 8/2 MG TAB SL SCH ×2 (11:21→21:34)
--- NOTE | 2021-05-22 11:52 | Orthopedic Progress Note ---
Date of Service May 22, 2021 Assessment & Plan (1) Septic arthritis of knee, right: (2) MRSA infection (methicillin-resistant Staphylococcus aureus): -Making uncomplicated progress on POD2. -Pain control -Pain management following, recs appreciated -Off RUBBER SPLICER -Transition Toradol to Celecoxib 100 mg PO BID -Continue scheduled gabapentin -IV tylenol transitioned to PO tylenol -Continue G[employer] SQU[employer]GER suboxone -Continue prn Hydrocodone/acetaminophen q 4 h prn; minimize use of this d/t IVDA hx; can use to premedicate prior to PT initially - Drain removed today, reinforce dressings PRN. Can be changed daily prn if saturated - Advance w PT/OT for ADLs and knee ROM. WBAT and ROMAT. - Antibiotics -Cultures from aspiration and intraoperative cultures growing MRSA -Continue IV vancomycin, will need 2 week course or parenteral IV abx followed by 2 weeks PO -D/c'd zosyn; GS w/o gram negative spp. - DVT ppx: D/c Lovenox, transition to daily PO aspirin - Appreciate Psych recommendations; no longer meets criteria for inpatient Psych admission Dispo: Likely needs inpatent rehab vs. SNF to complete his 2 week course of IV abx as well as inpatient PT. Not safe to send home w/ PICC d/t hx IVDA. Will need to follow up in clinic in 2-3 weeks for wound check/suture removal. Discussed plan w/ pt today. Reinforced the need for Case Management and Physical Therapy involvement in his care. Explained he will need inpatient rehab vs SNF after hospitalization for prolonged IV abx and inpatient PT. He voiced understanding of this and was agreeable. Subjective Doing better this AM. Less knee pain today. Per nursing he refused PT yesterday and today, refused Case Management yesterday. Review of Systems All systems reviewed & are unremarkable except as noted in HPI & below. Physical Exam General: Chronically ill appearing male resting in bed in NAD. AAO x 4. RLE: Dressing taken down today. Drain w/ serosanguinous drainage; pulled today. Incisions C/D/I. Redressed w/ gauze, ABD, KHLOE wrap. DNVI. ROM 20-60. Painful w/ any PROM. Results & Data Results & Data Laboratory Results . Laboratory Tests 08/19/21 08/19/21 08/19/21 08:27 08:27 08:27 WBC 9.39 Hgb 8.4 L Hct 28.0 L Plt Count 355 ESR 111 H Sodium 137 Potassium 3.5 Creatinine 0.57 L C-Reactive Protein 5.83 H Diagnostic Findings . Microbiology 05/20/21 16:15 Knee,Right Gram Stain - Final 05/20/21 10:30 Joint Fluid/Space (Synovial) Gram Stain - Final 05/20/21 16:15 Knee,Right Aerobic and Anaerobic Culture - Preliminary Staph aureus MRSA 05/20/21 10:30 Joint Fluid/Space (Synovial) Aerobic and Anaerobic Culture - Preliminary Staph aureus MRSA PG Care Time/CCT Total # of Minutes Spent Total Time Spent with Patient: Total time spent is greater than 50% in coordination of care (as documented) at patient's floor/unit and/or counseling patient: Supervising Physician Co-Signing Physician Notes Seen and evaluated with ASH LÓPEZ. Coding Level of Care Code 39641 Subseq Hosp Care Lvl 3 Diagnoses Septic arthritis of knee, right M00.9 MRSA infection (methicillin-resistant Staphylococcus aureus) A49.02
[2021-05-22] MEDS: CELECOXIB 100 MG CAP PO SCH ×2 (13:00→21:35)
[2021-05-22] MEDS: VANCOMYCIN HCL 1,250 MG in SODIUM CHLORIDE 0.9% 250 ML IV SCH (17:36)
[2021-05-22] MEDS ORDERED: NICOTINE POLACRILEX 2 MG GUM MT PRN (17:46)
[2021-05-22] MEDS: SODIUM CHLORIDE 0.9% 1000ML 1,000 ML IV SCH (19:21)
[2021-05-22] MEDS: NICOTINE POLACRILEX 2 MG GUM MT PRN (20:10)
[2021-05-22] MEDS: hydrOXYzine HCl 25 MG TAB PO SCH (21:36)
[2021-05-23] MEDS: VANCOMYCIN HCL 1,250 MG in SODIUM CHLORIDE 0.9% 250 ML IV SCH ×3 (01:58→17:12)
[2021-05-23 07:04] LABS: Creatinine Clr Calc Pharmacy 184.6 ml/min; Est GFR (African American) 142.7 ml/min; Est GFR (Non-African American) 123.1 ml/min
[2021-05-23] MEDS: NICOTINE POLACRILEX 2 MG GUM MT PRN ×3 (08:53→20:01)
[2021-05-23] MEDS: DOCUSATE SODIUM 100 MG CAP PO SCH ×2 (08:54→20:09)
[2021-05-23] MEDS: ASPIRIN 325 MG ECTAB PO SCH (08:54)
[2021-05-23] MEDS: CELECOXIB 100 MG CAP PO SCH ×2 (08:54→20:07)
[2021-05-23] MEDS: GABAPENTIN 300 MG CAP PO SCH ×3 (08:54→20:08)
[2021-05-23] MEDS: HYDROcodone/ACETAMINOPHEN 10/325 TAB PO PRN ×3 (09:04→18:42)
[2021-05-23] MEDS: BUPRENORPHINE/NALOXONE 8/2 MG TAB SL SCH ×2 (10:34→20:07)
--- NOTE | 2021-05-23 12:50 | Orthopedic Progress Note ---
Date of Service May 23, 2021 Assessment & Plan (1) Septic arthritis of knee, right: (2) MRSA infection (methicillin-resistant Staphylococcus aureus): Making uncomplicated progress on POD3. -Pain control -Cont POC -Continue prn Hydrocodone/acetaminophen q 4 h prn; minimize use of this d/t IVDA hx; can use to premedicate prior to PT initially - Dressing change daily and prn - Advance w PT/OT for ADLs and knee ROM. WBAT and ROMAT. - Antibiotics -Will consult ID to eval options given difficulty of IV access with IVDA hx -Cultures from aspiration and intraoperative cultures growing MRSA -Continue IV vancomycin, will need 2 week course or parenteral IV abx followed by 2 weeks PO - DVT ppx: D/c Lovenox, transition to daily PO aspirin - Appreciate Psych recommendations; no longer meets criteria for inpatient Psych admission Dispo: Will ask ID for options for parenteral therapy. Probably best to plan for IV vancomycin for 2 week duration postop for now. Subjective Pain is '5/10' on evaluation. Said that the nurse 'is driving me nuts.' Could not specify. Aware that he needs to IV antibiotics for a period of time. Review of Systems All systems reviewed & are unremarkable except as noted in HPI & below. Physical Exam General: Chronically ill appearing male resting in bed in NAD. AAO x 4. RLE: Dressing c/d/i. Left in place bc he was quite irritable. No harm in leaving for the day. ROM 15-90, which is improved. +DF to 5d and PF to 20d. Tight heel cord. NV intact. Results & Data Results & Data Laboratory Results H & H 05/21/21 05/22/21 Range/Units 08:12 08:27 Hgb 9.0 L 8.4 L (14.0-18.0) g/dL Hct 30.4 L 28.0 L (42-52) % Diagnostic Findings . PG Care Time/CCT Total # of Minutes Spent Total Time Spent with Patient: Total time spent is greater than 50% in coordination of care (as documented) at patient's floor/unit and/or counseling patient: Coding Level of Care Code 75397 Post Operative Follow-Up Diagnoses Septic arthritis of knee, right M00.9 MRSA infection (methicillin-resistant Staphylococcus aureus) A49.02
[2021-05-23] MEDS: hydrOXYzine HCl 25 MG TAB PO SCH (20:07)
[2021-05-24] MEDS ORDERED: VANCOMYCIN TROUGH ONE (00:30)
[2021-05-24] MEDS: HYDROcodone/ACETAMINOPHEN 10/325 TAB PO PRN ×3 (00:54→20:08)
[2021-05-24] MEDS: VANCOMYCIN HCL 1,250 MG in SODIUM CHLORIDE 0.9% 250 ML IV SCH ×3 (01:27→16:58)
[2021-05-24] MEDS: GABAPENTIN 300 MG CAP PO SCH ×3 (09:03→20:09)
[2021-05-24] MEDS: ASPIRIN 325 MG ECTAB PO SCH (09:03)
[2021-05-24] MEDS: DOCUSATE SODIUM 100 MG CAP PO SCH ×2 (09:03→20:09)
[2021-05-24] MEDS: CELECOXIB 100 MG CAP PO SCH ×2 (09:03→20:09)
[2021-05-24] MEDS: NICOTINE POLACRILEX 2 MG GUM MT PRN ×4 (09:12→20:09)
--- NOTE | 2021-05-24 09:31 | Pharmacy Report ---
Pharmacy Abx Dose Short Note - Date of Service May 24, 2021 - Assessment & Plan Assessment * 41 year old M receiving vancomycin for treatment of MRSA KNEE INFECTION * Day #5 of 14 of IV antibiotic therapy Plan Vancomycin * Target AUC/LYRIC = 400-600 * Trough level of 12.1 mcg/mL is predicted to achieve target AUC/LYRIC * AUC guided dosing is effective and associated with decreased risk of nephrotoxicity * Continue current dose of 1250mg IV q8h * Repeat trough ordered for 05/25 @0830 Pharmacy will continue to follow and will adjust dose/frequency as necessary. Thank you.
[2021-05-24] MEDS: BUPRENORPHINE/NALOXONE 8/2 MG TAB SL SCH ×2 (12:08→20:40)
--- NOTE | 2021-05-24 14:01 | Orthopedic Progress Note ---
Date of Service May 24, 2021 Assessment & Plan (1) Septic arthritis of knee, right: (2) MRSA infection (methicillin-resistant Staphylococcus aureus): Making uncomplicated progress on POD4. -Pain control -Cont POC -Continue prn Hydrocodone/acetaminophen q 4 h prn; minimize use of this d/t IVDA hx; can use to premedicate prior to PT initially - Dressing change daily and prn - Advance w PT/OT for ADLs and knee ROM. WBAT and ROMAT. - Antibiotics -Will ID consult pending given difficulty of IV access with IVDA hx -Cultures from aspiration and intraoperative cultures growing MRSA -Continue IV vancomycin, will need 2 week course or parenteral IV abx followed by 2 weeks PO - DVT ppx: D/c Lovenox, transition to daily PO aspirin - Appreciate Psych recommendations; no longer meets criteria for inpatient Psych admission Dispo: Will ask ID for options for parenteral therapy. Probably best to plan for IV vancomycin for 2 week duration postop for now. Subjective In good spirits today. States his pain is greatly improved. Has been up and ambulating with crutches per nursing. Review of Systems All systems reviewed & are unremarkable except as noted in HPI & below. Physical Exam General: Chronically ill appearing male resting in bed in NAD. AAO x 4. RLE: Dressing c/d/i. ROM 15-90, which is improved. +DF to 5d and PF to 20d. Tight heel cord. NV intact. . Results & Data Results & Data Laboratory Results None recent. Diagnostic Findings None recent . PG Care Time/CCT Total # of Minutes Spent Total Time Spent with Patient: Total time spent is greater than 50% in coordination of care (as documented) at patient's floor/unit and/or counseling patient: Coding Level of Care Code 09409 Subseq Hosp Care Lvl 2 Diagnoses Septic arthritis of knee, right M00.9 MRSA infection (methicillin-resistant Staphylococcus aureus) A49.02
[2021-05-24] MEDS: hydrOXYzine HCl 25 MG TAB PO SCH (20:40)
[2021-05-25] MEDS: VANCOMYCIN HCL 1,250 MG in SODIUM CHLORIDE 0.9% 250 ML IV SCH ×3 (00:47→17:18)
[2021-05-25] MEDS: HYDROcodone/ACETAMINOPHEN 10/325 TAB PO PRN ×3 (02:15→20:03)
[2021-05-25] MEDS ORDERED: VANCOMYCIN TROUGH ONE (08:30)
[2021-05-25] MEDS: BUPRENORPHINE/NALOXONE 8/2 MG TAB SL SCH ×2 (09:53→21:32)
[2021-05-25] MEDS: CELECOXIB 100 MG CAP PO SCH ×2 (09:54→21:39)
[2021-05-25] MEDS: GABAPENTIN 300 MG CAP PO SCH ×3 (09:54→21:39)
[2021-05-25] MEDS: DOCUSATE SODIUM 100 MG CAP PO SCH ×2 (09:54→21:40)
[2021-05-25] MEDS: ASPIRIN 325 MG ECTAB PO SCH (09:54)
--- NOTE | 2021-05-25 10:17 | Orthopedic Progress Note ---
Date of Service May 25, 2021 Assessment & Plan (1) Septic arthritis of knee, right: (2) MRSA infection (methicillin-resistant Staphylococcus aureus): Making uncomplicated progress on POD5. Continued inpatient for parenteral therapy and placement issues. - Pain control -Cont POC -Continue prn Hydrocodone/acetaminophen q 4 h prn; minimize use of this d/t IVDA hx; can use to premedicate prior to PT initially - Dressing change prn. May leave open to air if no drainage. - Advance w PT/OT for ADLs and knee ROM. WBAT and ROMAT. - Antibiotics: Treating MRSA joint sepsis -ID consult pending given difficulty of IV access with IVDA hx -Continue IV vancomycin, will need 2 week course or parenteral IV abx followed by 2 weeks PO -Will eval labs again given somewhat increase in effusion - DVT ppx: Cont PO aspirin Dispo: Will ask ID for options for parenteral therapy. Probably best to plan for IV vancomycin for 2 week duration postop for now. Placement issues. Subjective Reports increase in pain since yesterday and attributes to 'walking around more' and 'doing too much'. Denies fevers/chills. Review of Systems All systems reviewed & are unremarkable except as noted in HPI & below. Physical Exam Sleeping on arrival, cooperative. RLE: Dressing taken down. Wounds well approx without erythema or drainage. Moderate effusion. ROM 15-95. Constitutional no acute distress Respiratory normal respiratory effort Results & Data Results & Data Laboratory Results Cr level normal. Appreciate Pharmacy Vanc management Diagnostic Findings . PG Care Time/CCT Total # of Minutes Spent Total Time Spent with Patient: Total time spent is greater than 50% in coordination of care (as documented) at patient's floor/unit and/or counseling patient: Coding Level of Care Code 14471 Post Operative Follow-Up Diagnoses Septic arthritis of knee, right M00.9 MRSA infection (methicillin-resistant Staphylococcus aureus) A49.02
[2021-05-25] MEDS: NICOTINE POLACRILEX 2 MG GUM MT PRN ×6 (11:04→21:40)
--- NOTE | 2021-05-25 16:24 | Pharmacy Report ---
Pharmacy Abx Dose Short Note - Date of Service May 25, 2021 - Assessment & Plan Assessment 41 year old M receiving Vancomcyin for treatment of MRSA knee infection Day # 6 of antimicrobial therapy. Plan Vancomycin * Target AUC/LYRIC = 400-600 * Trough level of 11.7 mcg/mL is predicted to achieve target AUC/LYRIC * AUC guided dosing is effective and associated with decreased risk of nephrotoxicity * Continue current dose of 1250mg IV q8h Pharmacy will continue to follow and will adjust dose/frequency as necessary. Thank you.
[2021-05-25] MEDS: hydrOXYzine HCl 25 MG TAB PO SCH (21:41)
[2021-05-26] MEDS: NICOTINE POLACRILEX 2 MG GUM MT PRN ×7 (00:18→21:35)
[2021-05-26] MEDS: VANCOMYCIN HCL 1,250 MG in SODIUM CHLORIDE 0.9% 250 ML IV SCH (01:14)
[2021-05-26 06:49] LABS: Basophils # (auto) 0.05 K/uL (0-0.2); Basophils % (auto) 0.6 %; Eosinophils # (auto) 0.24 K/uL (0-0.5); Eosinophils % (auto) 2.9 %; Hematocrit (blood only) 31.1 % (42-52); Hemoglobin 9.3 g/dL (14.0-18.0); Immature Granulocytes # (auto) 0.04 K/uL (0.00-0.02); Immature Granulocytes % (auto) 0.5 %; Lymphocytes # (auto) 2.58 K/uL (1.2-3.4); Lymphocytes % (auto) 31.4 %; Mean Corpuscular Hemoglobin 23.7 pg (25-34); Mean Corpuscular Hgb Conc 29.9 g/dL (32-36); Mean Corpuscular Volume 79.1 fL (80-100); Mean Platelet Volume 9.4 fL (7.4-10.4); Monocytes # (auto) 0.67 K/uL (0.11-0.59); Monocytes % (auto) 8.2 %; Neutrophils # (auto) 4.63 K/uL (1.4-6.5); Neutrophils % (auto) 56.4 %; Platelet Count 458 K/uL (130-400); RDW Coefficient of Variation 16.9 % (11.5-14.5); Red Blood Count 3.93 M/uL (4.7-6.1); White Blood Count 8.21 K/uL (4.8-10.8)
[2021-05-26] MEDS: HYDROcodone/ACETAMINOPHEN 10/325 TAB PO PRN ×3 (07:14→21:23)
[2021-05-26 07:26] LABS: C Reactive Protein 9.13 mg/dl (0-0.29); Creatinine Clr Calc Pharmacy 201.3 ml/min; Est GFR (African American) 147.9 ml/min; Est GFR (Non-African American) 127.6 ml/min
[2021-05-26] MEDS: ASPIRIN 325 MG ECTAB PO SCH (08:57)
[2021-05-26] MEDS: CELECOXIB 100 MG CAP PO SCH ×2 (08:57→21:34)
[2021-05-26] MEDS: BUPRENORPHINE/NALOXONE 8/2 MG TAB SL SCH ×2 (08:57→21:23)
[2021-05-26] MEDS: GABAPENTIN 300 MG CAP PO SCH ×3 (08:57→21:34)
[2021-05-26] MEDS: DOCUSATE SODIUM 100 MG CAP PO SCH ×2 (08:58→21:23)
--- NOTE | 2021-05-26 09:20 | Pharmacy Report ---
Pharmacy Abx Dose Short Note - Date of Service May 26, 2021 - Assessment & Plan Assessment 41 year old M receiving Vancomycin for treatment of right knee infection * Day #7 of antimicrobial therapy * Right knee culture from 05/20/21 grew MRSA with a reported LYRIC of 2 * Contacted lab to see if turbidity method can be ran on sample today to determine true LYRIC * [facility] has been consulted. Await their input. Plan Vancomycin * Trough level of 11.7 mcg/mL is therapeutic. However, given that it is decreasing and if true LYRIC of organism is 2, would like to be more aggressive with vancomycin dosing * Therefore, increasing dose to 1500 mg IV every 8 hours today * Targeting an AUC/LYRIC ratio of 500-600 mg/L.hr. Increased dose is predicted to achieve a steady state AUC/LYRIC of 574 mg/L.hr. * Trough level to assess AUC/LYRIC ordered for tomorrow morning Pharmacy will continue to follow and will adjust dose/frequency as necessary. Thank you.
[2021-05-26] MEDS: VANCOMYCIN HCL 1,500 MG in SODIUM CHLORIDE 0.9% 500 ML IV SCH ×2 (09:47→17:47)
--- NOTE | 2021-05-26 13:07 | Orthopedic Progress Note ---
Date of Service May 26, 2021 Assessment & Plan (1) Septic arthritis of knee, right: (2) MRSA infection (methicillin-resistant Staphylococcus aureus): Making uncomplicated progress on POD6. Continued inpatient for parenteral therapy and placement issues. -Large effusion noted today. This was aspirated more for symptomatic relief rather than diagnostic purposes. Yielded 44 cc of dark bloody fluid. Will resent cell count w/diff and cultures to screen for additional organisms. Has underl lee severe arthritis but cannot inject steroid d/t infection. Anticipate swelling will continue for months. - Pain control -Cont POC -Continue prn Hydrocodone/acetaminophen q 4 h prn; minimize use of this d/t IVDA hx; can use to premedicate prior to PT initially - Dressing change prn. May leave open to air if no drainage. - Advance w PT/OT for ADLs and knee ROM. WBAT and ROMAT. - Antibiotics: Treating MRSA joint sepsis -ID consult pending given difficulty of IV access with IVDA hx -Continue IV vancomycin, will need 2 week course or parenteral IV abx followed by 2 weeks PO -Labs as clinically indicated; no leukocytosis noted on today's labs; inflammatory labs remain elevated - DVT ppx: Cont PO aspirin Dispo: Will ask ID for options for parenteral therapy. Probably best to plan for IV vancomycin for 2 week duration postop for now. Placement issues. Subjective States knee feels sore today, similar to yesterday. Has not been out of bed yet today, refused PT today per nursing. Review of Systems All systems reviewed & are unremarkable except as noted in HPI & below. Physical Exam Sleeping on arrival, cooperative. RLE: Dressing off today. Wounds well approx without erythema or drainage. Large effusion. ROM 15-95. Constitutional no acute distress Respiratory normal respiratory effort . Results & Data Results & Data Laboratory Results Laboratory Tests 05/26/21 05/26/21 05/26/21 05:52 05:52 05:52 WBC 8.21 Hgb 9.3 L Hct 31.1 L Plt Count 458 H ESR 107 H C-Reactive Protein 9.13 H . Diagnostic Findings None recent . PG Care Time/CCT Total # of Minutes Spent Total Time Spent with Patient: Total time spent is greater than 50% in coordination of care (as documented) at patient's floor/unit and/or counseling patient: Coding Level of Care Code 71844 Post Operative Follow-Up Diagnoses Septic arthritis of knee, right M00.9 MRSA infection (methicillin-resistant Staphylococcus aureus) A49.02
[2021-05-26] MEDS ORDERED: LIDOCAINE 2%/EPINEPHRINE 1:200,000 20 ML SDV INFIL ONE (13:30)
[2021-05-26 20:40] LABS: Appearance Synovial Fluid CLOUDY; Color Synovial Fluid RED; Mononuclear WBC Synovial 6.5 %; Polynuclear WBC Synovial 93.5 %; RBC Synovial Fluid (A) 484000 /uL; Source Synovial Fluid KNEE; WBC Synovial Fluid (A) 32456 /ul (0-200)
[2021-05-26] MEDS: hydrOXYzine HCl 25 MG TAB PO SCH (21:24)
[2021-05-27] MEDS: VANCOMYCIN HCL 1,500 MG in SODIUM CHLORIDE 0.9% 500 ML IV SCH ×3 (01:50→16:50)
[2021-05-27] MEDS: NICOTINE POLACRILEX 2 MG GUM MT PRN ×6 (04:31→21:38)
[2021-05-27] MEDS ORDERED: VANCOMYCIN TROUGH ONE (08:30)
[2021-05-27] MEDS: BUPRENORPHINE/NALOXONE 8/2 MG TAB SL SCH ×2 (09:13→21:37)
[2021-05-27] MEDS: CELECOXIB 100 MG CAP PO SCH ×2 (09:13→21:38)
[2021-05-27] MEDS: GABAPENTIN 300 MG CAP PO SCH ×3 (09:13→21:38)
[2021-05-27] MEDS: ASPIRIN 325 MG ECTAB PO SCH (09:14)
[2021-05-27] MEDS: DOCUSATE SODIUM 100 MG CAP PO SCH ×2 (09:14→21:41)
--- NOTE | 2021-05-27 09:48 | Pharmacy Report ---
Pharmacy Vanc AUC Short Note - Date of Service May 27, 2021 - Assessment & Plan Assessment 41 year old M receiving Vancomycin for treatment of right knee infection * Day #8 of antimicrobial therapy * Right knee culture from 05/20/21 grew MRSA with a reported LYRIC of 2 * True Vanc LYRIC = 2 for this organism per microbiology lab via turbidity method * [facility] has been consulted. Await their input. Plan Vancomycin * AUC/LYRIC is the preferred PK/PD target for vancomycin * AUC guided dosing is effective and associated with decreased risk of nephrotoxicity compared to traditional trough targets * Goal AUC/LYRIC = 400 - 600 mg/L.hr * Trough level of 17.7 mcg/mL is predicted to achieve target AUC/LYRIC of 400-600 mg/L.hr and may be associated with a 11% risk of nephrotoxicity * Continue dose of 1500 mg IV every 8 hours * Next trough due 05/29/21 Pharmacy will continue to follow and will adjust dose/frequency as necessary. Thank you.
--- NOTE | 2021-05-27 12:40 | Orthopedic Progress Note ---
Date of Service May 27, 2021 Assessment & Plan (1) Septic arthritis of knee, right: (2) MRSA infection (methicillin-resistant Staphylococcus aureus): Making uncomplicated progress on POD7. Continued inpatient for parenteral therapy and placement issues. -No need to aspirate knee today. Synovial labs pending. Anticipate fpc knee effusion. - Pain control -Cont POC -Continue prn Hydrocodone/acetaminophen q 4 h prn; minimize use of this d/t IVDA hx; can use to premedicate prior to PT initially; requiring minimal dosing of this per nursing - Dressing change prn. May leave open to air if no drainage. - Advance w PT/OT for ADLs and knee ROM. WBAT and ROMAT. - Antibiotics: Treating MRSA joint sepsis -ID consult pending given difficulty of IV access with IVDA hx -Continue IV vancomycin, will need 2 week course or parenteral IV abx followed by 2 weeks PO -Labs as clinically indicated - DVT ppx: Cont PO aspirin Dispo: Will ask ID for options for parenteral therapy. Probably best to plan for IV vancomycin for 2 week duration postop for now. Referrals to [facility] and [facility] for Nursing pending. Subjective Feels well today. Less pain since knee was aspirated yesterday. No issues from nursing. Review of Systems All systems reviewed & are unremarkable except as noted in HPI & below. Physical Exam Pleasant and cooperative today. RLE: Dressing off today. Wounds well approx without erythema or drainage. Knee is nontender today. Still w/ moderate effusion. ROM 15-95. No pain w/ active or passive range of motion. Constitutional no acute distress Respiratory normal respiratory effort . . Results & Data Results & Data Laboratory Results None today . Diagnostic Findings Repeat synovial labs pending . PG Care Time/CCT Total # of Minutes Spent Total Time Spent with Patient: Total time spent is greater than 50% in coordination of care (as documented) at patient's floor/unit and/or counseling patient: Coding Level of Care Code 02101 Post Operative Follow-Up Diagnoses Septic arthritis of knee, right M00.9 MRSA infection (methicillin-resistant Staphylococcus aureus) A49.02
[2021-05-27] MEDS: HYDROcodone/ACETAMINOPHEN 10/325 TAB PO PRN ×2 (13:49→21:37)
[2021-05-27] MEDS: hydrOXYzine HCl 25 MG TAB PO SCH (21:41)
[2021-05-28] MEDS: NICOTINE POLACRILEX 2 MG GUM MT PRN ×8 (00:42→21:41)
[2021-05-28] MEDS: VANCOMYCIN HCL 1,500 MG in SODIUM CHLORIDE 0.9% 500 ML IV SCH ×3 (00:42→16:47)
[2021-05-28] MEDS: GABAPENTIN 300 MG CAP PO SCH ×3 (09:02→21:44)
[2021-05-28] MEDS: BUPRENORPHINE/NALOXONE 8/2 MG TAB SL SCH ×2 (09:02→21:42)
[2021-05-28] MEDS: ASPIRIN 325 MG ECTAB PO SCH (09:02)
[2021-05-28] MEDS: CELECOXIB 100 MG CAP PO SCH ×2 (09:02→21:42)
[2021-05-28] MEDS: DOCUSATE SODIUM 100 MG CAP PO SCH ×2 (09:02→21:42)
[2021-05-28] MEDS: HYDROcodone/ACETAMINOPHEN 10/325 TAB PO PRN (09:14)
--- NOTE | 2021-05-28 13:16 | Orthopedic Progress Note ---
Date of Service May 28, 2021 Assessment & Plan (1) Septic arthritis of knee, right: (2) MRSA infection (methicillin-resistant Staphylococcus aureus): Making uncomplicated progress on POD8. Continued inpatient for parenteral therapy and placement issues. -No need to aspirate knee today. Synovial labs pending. Anticipate chcf knee effusion. - Pain control -Cont POC -Continue prn Hydrocodone/acetaminophen q 4 h prn; minimize use of this d/t IVDA hx; can use to premedicate prior to PT initially; requiring minimal dosing of this per nursing - Dressing change prn. May leave open to air if no drainage. - Advance w PT/OT for ADLs and knee ROM. WBAT and ROMAT. - Antibiotics: Treating MRSA joint sepsis -ID consult pending given difficulty of IV access with IVDA hx -Continue IV vancomycin, will need 2 week course or parenteral IV abx followed by 2 weeks PO -Labs as clinically indicated - DVT ppx: Cont PO aspirin Dispo: Will ask ID for options for parenteral therapy. Probably best to plan for IV vancomycin for 2 week duration postop for now. Referrals to [facility] and [facility] for Nursing pending. Subjective Doing well today. Feels good ambulating with crutches. Review of Systems All systems reviewed & are unremarkable except as noted in HPI & below. Physical Exam Pleasant and cooperative today. RLE: Dressing off today. Wounds well approx without erythema or drainage. Knee is nontender today. Still w/ moderate effusion. ROM 15-95. No pain w/ active or passive range of motion. Constitutional no acute distress Respiratory normal respiratory effort .. Results & Data Results & Data Laboratory Results None recent . Diagnostic Findings N/A . PG Care Time/CCT Total # of Minutes Spent Total Time Spent with Patient: Total time spent is greater than 50% in coordination of care (as documented) at patient's floor/unit and/or counseling patient: Coding Level of Care Code 41590 Post Operative Follow-Up Diagnoses Septic arthritis of knee, right M00.9 MRSA infection (methicillin-resistant Staphylococcus aureus) A49.02
[2021-05-28] MEDS: hydrOXYzine HCl 25 MG TAB PO SCH (21:46)
[2021-05-29] MEDS: NICOTINE POLACRILEX 2 MG GUM MT PRN ×11 (00:23→23:40)
[2021-05-29] MEDS: VANCOMYCIN HCL 1,500 MG in SODIUM CHLORIDE 0.9% 500 ML IV SCH ×2 (00:23→10:17)
[2021-05-29] MEDS ORDERED: VANCOMYCIN TROUGH ONE (08:30)
[2021-05-29] MEDS: BUPRENORPHINE/NALOXONE 8/2 MG TAB SL SCH ×2 (08:58→20:55)
[2021-05-29] MEDS: GABAPENTIN 300 MG CAP PO SCH ×3 (08:58→20:55)
[2021-05-29] MEDS: ASPIRIN 325 MG ECTAB PO SCH (08:58)
[2021-05-29] MEDS: CELECOXIB 100 MG CAP PO SCH ×2 (08:58→20:55)
[2021-05-29] MEDS: DOCUSATE SODIUM 100 MG CAP PO SCH ×2 (08:59→20:55)
[2021-05-29 09:39] LABS: Basophils # (auto) 0.05 K/uL (0-0.2); Basophils % (auto) 0.6 %; Eosinophils # (auto) 0.23 K/uL (0-0.5); Eosinophils % (auto) 2.6 %; Hematocrit (blood only) 32.7 % (42-52); Hemoglobin 9.6 g/dL (14.0-18.0); Immature Granulocytes # (auto) 0.04 K/uL (0.00-0.02); Immature Granulocytes % (auto) 0.5 %; Lymphocytes # (auto) 2.71 K/uL (1.2-3.4); Lymphocytes % (auto) 30.6 %; Mean Corpuscular Hemoglobin 23.2 pg (25-34); Mean Corpuscular Hgb Conc 29.4 g/dL (32-36); Mean Corpuscular Volume 79.2 fL (80-100); Mean Platelet Volume 8.9 fL (7.4-10.4); Monocytes # (auto) 0.75 K/uL (0.11-0.59); Monocytes % (auto) 8.5 %; Neutrophils # (auto) 5.09 K/uL (1.4-6.5); Neutrophils % (auto) 57.2 %; Platelet Count 434 K/uL (130-400); RDW Standard Deviation 48.6 fL (36.4-46.3); Red Blood Count 4.13 M/uL (4.7-6.1); White Blood Count 8.87 K/uL (4.8-10.8)
[2021-05-29 09:59] LABS: BUN Creatinine Ratio 18.1 (10-20); C Reactive Protein 5.41 mg/dl (0-0.29); Calcium 9.1 mg/dl (8.5-10.1); Creatinine Clr Calc Pharmacy 181.5 ml/min; Est GFR (African American) 141.8 ml/min; Est GFR (Non-African American) 122.3 ml/min; Potassium 3.7 mmol/L (3.5-5.1)
--- NOTE | 2021-05-29 10:00 | Orthopedic Progress Note ---
Date of Service May 29, 2021 Assessment & Plan (1) Septic arthritis of knee, right: (2) MRSA infection (methicillin-resistant Staphylococcus aureus): Making uncomplicated progress on POD9. Continued inpatient for placement issues -No need to aspirate knee today. Cultures remain positive. Anticipate lobsterman knee effusion. - Pain control -Cont POC -Continue prn Hydrocodone/acetaminophen q 4 h prn; minimize use of this d/t IVDA hx; can use to premedicate prior to PT initially; requiring minimal dosing of this per nursing - Dressing change prn. May leave open to air if no drainage. - Advance w PT/OT for ADLs and knee ROM. WBAT and ROMAT. - Antibiotics: Treating MRSA joint sepsis -Appreciate ID recommendations -Will transition to PO Bactrim DS BID x 6 weeks starting today. Needs weekly BMP and CRP and treat at least until CRP has normalized. -Labs as clinically indicated - DVT ppx: Cont PO aspirin Dispo: He is stable from a medical and orthopedic perspective for discharge to home with self care since he no longer requires IV abx. However he is now homeless and anticipate he will have issues with follow up going forward. Needs follow up in clinic 2-3 weeks post op, weekly labs while on PO abx, and standard post op follow ups for knee arthroscopy. Would also benefit from ongoing PT but anticipate that he would not do well with PT. Will touch base with Case Management today for plan going forward. Subjective Knee feels fine today. Not much pain. Concerned because he had a phone call with family yesterday that did not go well, now does not have a place to stay after discharge. Review of Systems All systems reviewed & are unremarkable except as noted in HPI & below. Physical Exam Pleasant and cooperative today. RLE: Dressing off today. Wounds well approx without erythema or drainage. Knee is nontender today. Still w/ moderate effusion. ROM 15-95. No pain w/ active or passive range of motion. Constitutional no acute distress Respiratory normal respiratory effort . Results & Data Results & Data Laboratory Results Laboratory Tests 05/26/21 05/29/21 05/29/21 05:52 09:23 09:23 WBC 8.87 BUN 11 Creatinine 0.61 C-Reactive Protein 9.13 H 5.41 H . Diagnostic Findings None recent . PG Care Time/CCT Total # of Minutes Spent Total Time Spent with Patient: Total time spent is greater than 50% in coordination of care (as documented) at patient's floor/unit and/or counseling patient: Coding Level of Care Code 02831 Post Operative Follow-Up Diagnoses Septic arthritis of knee, right M00.9 MRSA infection (methicillin-resistant Staphylococcus aureus) A49.02
--- NOTE | 2021-05-29 10:10 | Pharmacy Report ---
Pharmacy Abx Dose Short Note - Date of Service May 29, 2021 - Assessment & Plan Assessment 41 year old M receiving Vancomycin for treatment of right knee infection * Day #10 of antimicrobial therapy * Right knee culture from 05/20/21 grew MRSA with a reported LYRIC of 2 * True Vanc LYRIC = 2 for this organism per microbiology lab via turbidity method * [facility] recommended Bactrim DS 1 tab PO BID. Spoke with orthopedics, plan is to start Bactrim DS today. Plan Vancomycin * Trough level of 13.6 mcg/mL is therapeutic * Continue dose of 1500 mg IV every 8 hours * Goal trough level: 15 mcg/mL * No further troughs will be ordered Pharmacy will continue to follow and will adjust dose/frequency as necessary. Thank you.
[2021-05-29] MEDS ORDERED: NICOTINE 21 MG/24 HR TDSY TD SCH (10:30)
[2021-05-29] MEDS: HYDROcodone/ACETAMINOPHEN 10/325 TAB PO PRN ×2 (17:42→21:48)
[2021-05-29] MEDS: SULFAMETHOXAZOLE/TRIMETHOPRIM DS 800/160MG TAB PO SCH (20:55)
[2021-05-29] MEDS: hydrOXYzine HCl 25 MG TAB PO SCH (21:48)
[2021-05-30 07:30] VITALS: PULSE 82; TEMP 98.6; O2SAT 94
[2021-05-30] MEDS: ASPIRIN 325 MG ECTAB PO SCH ×2 (09:43→11:15)
[2021-05-30] MEDS: DOCUSATE SODIUM 100 MG CAP PO SCH (09:43)
[2021-05-30] MEDS: CELECOXIB 100 MG CAP PO SCH (09:43)
[2021-05-30] MEDS: GABAPENTIN 300 MG CAP PO SCH ×2 (09:43→13:54)
[2021-05-30] MEDS: BUPRENORPHINE/NALOXONE 8/2 MG TAB SL SCH (09:43)
[2021-05-30] MEDS: SULFAMETHOXAZOLE/TRIMETHOPRIM DS 800/160MG TAB PO SCH (09:43)
[2021-05-30] MEDS ORDERED: MICONAZOLE NITRATE POWDER 43 GM EXT PRN (09:57)
[2021-05-30] MEDS: HYDROcodone/ACETAMINOPHEN 10/325 TAB PO PRN (10:06)
--- NOTE | 2021-05-30 10:44 | Orthopedic Progress Note ---
Date of Service May 30, 2021 Assessment & Plan (1) Septic arthritis of knee, right: (2) MRSA infection (methicillin-resistant Staphylococcus aureus): POD10. Continued inpatient for placement issues. Stable effusion. Needs further abx tx to 6 weeks postop for optimal treatment. - Dressing for comfort only - Advance w PT/OT for ADLs and knee ROM. WBAT and ROMAT. - Antibiotics: Treating MRSA joint sepsis -Appreciate ID recommendations -Continue PO Bactrim DS BID x 6 weeks starting today. Needs weekly BMP and CRP and treat at least until CRP has normalized. - DVT ppx: Cont PO aspirin Will attempt discharge today with plan for safety and followup. Dispo: He is stable from a medical and orthopedic perspective for discharge to home with self care since he no longer requires IV abx. However he is now homeless and anticipate he will have issues with follow up going forward. Needs follow up in clinic 2-3 weeks post op, weekly labs while on PO abx, and standard post op follow ups for knee arthroscopy. Would also benefit from ongoing PT but anticipate that he would not do well with PT. Will touch base with Case Management today for plan going forward. Subjective Reports frustration with not being able to leave overnight - said that his opportunity for place to stay is now gone. Pain tolerable but thinks it is getting worse. Still not able to 'put weight on it'. Nursing reported agitation overnight. Psych eval and intervened. Agreed to not leave AMA. Review of Systems All systems reviewed & are unremarkable except as noted in HPI & below. Physical Exam Gen: AAOx3. Conversant but clearly frustrated. RLE: Dressing off. Wounds well approx without erythema or drainage. Sutures remain. Unclear tenderness bc of lack of cooperation. Still w/ moderate effusion. ROM 15-95. No pain w/ active or passive range of motion and readily shows his motion by moving around the bed. Results & Data Results & Data Laboratory Results . Diagnostic Findings . 05/21/21 05/22/21 05/26/21 Range/Units 08:12 08:27 05:52 Hgb 9.0 L 8.4 L 9.3 L (14.0-18.0) g/dL Hct 30.4 L 28.0 L 31.1 L (42-52) % 05/29/21 Range/Units 09:23 Hgb 9.6 L (14.0-18.0) g/dL Hct 32.7 L (42-52) % PG Care Time/CCT Total # of Minutes Spent Total Time Spent with Patient: Total time spent is greater than 50% in coordination of care (as documented) at patient's floor/unit and/or counseling patient: Coding Level of Care Code 18773 Post Operative Follow-Up Diagnoses Septic arthritis of knee, right M00.9 MRSA infection (methicillin-resistant Staphylococcus aureus) A49.02
--- NOTE | 2021-05-30 13:44 | Discharge Summary ---
Date of Service May 30, 2021 Admission HPI (Per Admitting) 41-year-old male with a history of drug abuse and bipolar disorder was admitted on 05/19/2021 for involuntary commitment due to mood swings and potential hallucinations. On admission, it was noted that he still had persistent right knee swelling and difficulty weightbearing. He was requiring crutches for ambulation. He had a history of a previous evaluation in the ER on 03/05/2021 where he was noted to have difficulty weightbearing with a swollen right knee. There was concern for a septic effusion and an aspiration was planned. Unfortunately, the patient left AGAINST MEDICAL ADVICE before this can be evaluated further. Today the patient reports that he has been persistently painful and has had trouble walking this whole summer. He denies any acute injuries that he can recall associated with the symptoms. He does have a history of IV drug abuse. He has a history of a tibial plateau fracture that he reported was from falling from a roof. He underwent surgery with open reduction internal fixation. When asked if he has had a history of arthritis treatment, he cannot recall. He also is unaware of any previous gout diagnoses. . Admission Exam (Per Admitting) Right lower extremity: The knee has a obvious mild to moderate effusion. He attempts to cooperate but cannot extend past 25 degrees short of full extension. He can flex to about 95 degrees. He is nontender along the medial scar for his plateau surgery. He is diffusely tender over the suprapatellar pouch. Is minimally tender along the joint lines. Constitutional + disheveled and cooperative; no acute distress and not intoxicated appearing Respiratory normal respiratory effort; no respiratory distress Cardiovascular Extremities: normal capillary refill; no edema Skin Diffuse truncal and extremity rashes without any evidence of cellulitis. The skin overlying the right knee without significant compromise or edema. Psychiatric A+Ox3, euthymic affect . Principal Diagnosis Same as "Discharge Diagnosis" noted below under Discharge Instructions. Discharge Exam Gen: AAOx3. Conversant but clearly frustrated. RLE: Dressing off. Wounds well approx without erythema or drainage. Sutures remain. Unclear tenderness bc of lack of cooperation. Still w/ moderate effusion. ROM 15-95. No pain w/ active or passive range of motion and readily shows his motion by moving around the bed. Discharge Data Consultations 05/20/21 14:23 Consult Psychiatry Routine 05/20/21 18:25 Consult Pain Management Routine 05/23/21 12:16 Consult Infectious Diseases Routine Procedures Performed Operation Date: 05/20/21 11:20 Actual Procedures p Right knee arthroscopy, irrigation and extensive debridement(Right) - Niall Hooper MD Hospital Course (1) MRSA infection (methicillin-resistant Staphylococcus aureus): (2) Septic arthritis of knee, right: Originally admitted to Psychiatric unit d/t psychosis/drug use. There was found to have a swollen knee w/ concern for infection. Taken to OR after knee aspiration concerning for infection. Underwent R knee arthroscopic I&D with extensive debridement on 05/13. Cultures grew MRSA. Placed on IV vancomycin initially. [facility] ED consulted who recommended transition to PO Bactrim x 6 weeks. Remained inpatient post operatively d/t placement issues. Now off PO antibiotics and stable from a medical and orthopedic standpoint. Cleared by Psych and does not meet criteria for inpatient psych admission. PG Care Time/CCT Total # of Minutes Spent Total Time Spent with Patient: Total time spent is greater than 50% in coordination of care (as documented) at patient's floor/unit and/or counseling patient: Discharge Plan Discharge Items Patient Disposition: Home - Self-Care Reason For Visit: INFECTED RIGHT KNEE Discharge Diagnosis: Septic arthritis of right knee secondary to MRSA Activity: Per Instructions section Non-emergency contact: Surgeon Call non-emergency contact if: your pain is not controlled and your temperature is above 101 Follow-up/Referrals: Niall Hooper MD [Surgeon] - 06/04/21 (Please call the clinic to schedule a time. ) PCP,NO [Primary Care Provider] - Diet: Regular Addtl Attending Provider Instructions: -You need a total of 6 weeks of oral antibiotics. You will be taking Bactrim DS 1 tab twice daily x 6 weeks from surgery. Finish the bottle as scheduled. -We will need to check labs weekly while on antibiotics. These are to check the inflammation levels in your body to make sure the antibiotics are working, as well as your kidney function due to the antibiotics you are on. -Follow up in the Orthopedic clinic in 1-2 weeks for wound check/suture removal. -For pain we will continue your scheduled gabapentin that was used in the hospital. Utilize Celebrex (prescribed) in combination with tylenol for as needed pain relief. If Celebrex is too expensive, would recommend 800 mg of Ibuprofen or Motrin or Advil. Rest, ice, and elevate the leg as needed as well to help pain and swelling. We will send a small amount of as needed narcotic for breakthrough pain for two more weeks.. -OK to bear weight on right leg as tolerated with crutches. OK for range of motion as tolerated. -You need to abstain from any IV drug use as this will put you at higher risk of ongoing infection or infections in different areas throughout your body. -You can call our office with any questions at [phone]. We are located at [address], [place] [address] Pending Studies at Discharge: No Stand-Alone Forms: My [facility], Opioid Pain Management, Smoking Cessation Medications and DC Order Prescriptions: New acetaminophen [Tylenol Extra Strength] 500 mg Tablet 1,000 mg PO Q8H PRN (Reason: pain, mild) Qty: 100 RF: 0 aspirin [Ecotrin] 325 mg Tablet,Delayed Release (Dr/Ec) 325 mg PO DAILY Qty: 60 RF: 0 celecoxib [Celebrex] 100 mg Capsule 100 mg PO BID Qty: 90 RF: 0 gabapentin 300 mg Capsule 300 mg PO TID Qty: 90 RF: 2 hydrocodone-acetaminophen 10-325 mg Tablet 1 tab PO Q4H PRN (Reason: pain) Qty: 14 RF: 0 Continued buprenorphine-naloxone 8-2 mg Tablet, Sublingual 1 tab SUBLINGUAL BID RF: 0 hydroxyzine HCl 25 mg Tablet 50 mg PO HSZ Qty: 0 RF: 0 Discharge Orders: Discharge Order (Routine); Ordered 05/30/21 Ordered By: Niall Hooper Admission Data Admit Date/Time: 05/20/21 14:15 Attending Provider: Niall Hooper Admit Provider: Devin Moctezuma Primary Care Provider: PCP,NO Other Providers: Ansley Manriquez ; Dr Ganesh ; Shea Feliciano ; Tod Brewster ; Chelsy Urias ; [facility] ; [facility], ; Prabhakar Green ; Nba Omer ; Giorgio Israel I. ; Noah Hernandez II ; Maria Esther Landry ; Ash Olguin ; [facility]
[2021-05-30] MEDS: NICOTINE POLACRILEX 2 MG GUM MT PRN (13:56)
[2021-05-30 14:28] VITALS: BP 118/72
== END 2021-05-30 15:57 | disposition home or self-care (01) | DRG 487 ==
LOC: 3E 14:01 → SUATTDRO 14:01 → 3E 05-27 12:25
DX: B95.62 Methicillin resistant Staphylococcus aureus infection as the cause of diseases classified elsewhere; S82.142 Displaced bicondylar fracture of left tibia; M00.861 Arthritis due to other bacteria, right knee; Z88.8 Allergy status to other drugs, medicaments and biological substances; F31.9 Bipolar disorder, unspecified; Y92.89 Other specified places as the place of occurrence of the external cause; X58.XXXD Exposure to other specified factors, subsequent encounter; F55.8 Abuse of other non-psychoactive substances; Z87.891 Personal history of nicotine dependence

== ENCOUNTER 2021-06-21 13:40 | Inpatient (IN) ==
--- NOTE | 2021-06-21 14:30 | Emergency Department Note ---
Impression & Plan Septic joint of right knee joint, Osteomyelitis of right knee region ED Provider Note CHIEF COMPLAINT: Persistent sutures in the right knee after surgery 1 month ago, right knee pain and swelling. HISTORY OF PRESENT ILLNESS: Patient is a 41-year-old male with past medical history significant for IV drug use, and MRSA septic right knee status post arthroscopic I&D roughly 1 month ago who presents the emergency department for evaluation of his right knee. He still has sutures in place from his surgery from 05/20/2021. He states that the knee is still painful and swollen and has gotten worse in the last couple of days. He currently rates his discomfort a 3/10. He is using crutches for ambulation. Patient was seen here at our facility and treated by Dr. Hooper for the initial infection. He underwent arthroscopic I&D and debridement on 05/20. He was treated with IV Zosyn and Vanco, and t ransition to Bactrim 1 DS twice daily at the recommendation of ID. Patient was in-house until 05/30/2021 when he was ultimately discharged. Patient was supposed to follow-up with Dr. Hooper in the office sometime around 06/04, did not make this appointment. He was also reportedly supposed to be having weekly blood work which he has not done. Patient becomes tearful and expresses significant barriers to transportation secondary to his living and social situation. He is not able to make appointments. He has been generally compliant with his Bactrim but has missed some doses. He is unable to quantify how many. He was prescribed gabapentin and [place] for pain postoperatively but took himself off both of these medications as he did not like the way that today made him feel. He is taking Celebrex, full-strength aspirin and Aleve. He is still on his Suboxone. He has been using some recreational marijuana and use Ritalin offered to him by a friend. He denies IV drug use since hospitalization. He subjectively reports fevers, has not taken his temperature with a thermometer. He reports he had a fa ll the other day. He states that this is the first time since he left the hospital that he had access to a vehicle to get anywhere to be evaluated. REVIEW OF SYSTEMS: Review of systems as per HPI. All other systems reviewed were negative. 10 systems reviewed. PMH: Electronic medical records are reviewed and summarized as above/below. See Problem List. SOCIAL HISTORY: Patient lists himself as homeless, apparently has a difficult relationship with his sister, where he sometimes stays. Uses chewing tobacco and vapes. PHYSICAL EXAM: Vital Signs: Reviewed Nurse's notes. CONSTITUTIONAL: Patient is a well-appearing 41-year-old male who is awake and alert and in no acute distress. He is afebrile, vital signs are stable. CARDIOVASCULAR: Regular rate and rhythm, no murmur appreciated.. Peripheral pulses easily palpable. RESPIRATORY: Breath sounds equal and clear to auscultation. MUSCULOSKELETAL: Examination of the right knee notes arthroscopy surgical scars well-healing, intact with suture material present. He has a well-healed medial surgical scar. Postsurgical deformity of the knee noted, with generalized swelling of the knee joint with palpable knee joint effusion noted. Skin is intact, without overt erythema or cellulitic changes. There is increased warmth but the joint is not overtly hot to the touch. The patient lacks roughly 10 to 15 degrees of extension. He can actively flex to roughly 90 degrees before he has pain. Calf is soft and nontender. Distal pulses are easily palpable. No lymphangitic streaking noted. INTEGUMENTARY: No lesions or rash, normal skin turgor. LYMPH: No lymphadenopathy. EMERGENCY DEPARTMENT COURSE: The patient was seen and assessed as above. Old records were reviewed, including his recent hospitalization and course. Patient unfortunately due to multiple factors has not been able to have any orthopedic follow-up since his discharge from our facility 3 weeks ago. IV was initiated and laboratory studies were collected. CBC with differential, CMP, ESR, CRP and urine toxicology screen were obtained. Blood cultures x2 were drawn. For possible admitting purposes, a Covid swab was obtained. I did review the patient with his established orthopedic surgeon, Dr. Hooper via telephone. Dr. Hooper felt that knee aspirate for synovial fluid analysis was appropriate, this was done at the bedside by myself. Knee x-ray was also performed as the patient reported a history of a fall a week ago. Laboratory studies note a normal white count at 8000, no left shift noted but bandemia present. He is noted to be anemic, H&H 9.3 and 31.4. Indices indicate a hypochromic, microcytic pattern. Platelet count is 431,000. Sed rate elevated at 97, CRP elevated at 4.88. No significant electrolyte abnormalities noted. BUN 29, creatinine 0.92. Transaminases are normal. Urine toxic screen is a test for amphetamine and marijuana, consistent with his Ritalin and marijuana use. Covid test was negative. Synovial fluid cell count notes 23 WBC, 150,000 RBCs, 87% Polys. Gram stain notes many polys, few mononucleated cells and no organisms. Culture is pending. Right knee x-ray notes progressive medial and lateral compartment joint space narrowing and erosive changes of the tibial plateaus, lateral femoral condyle and possible subtle periostitis of the distal metadiaphysis of the right femur. Large right knee joint effusion and soft tissue swelling noted. Findings are suspicious for a septic joint with osteomyelitis. Dr. Hooper reviewed the patient's ED work-up, and feels that admission for further work-up and surgical intervention is necessary. Please refer to his H&P and admission orders for further information. Differential diagnoses entertained included cellulitis, bursitis, septic joint, osteomyelitis, infected hardware, fracture, hardware compromise, DVT, superficial thrombophlebitis, among others. PROCEDURE NOTE: Right knee aspirate for synovial fluid analysis for possible persistent septic joint. The patient's knee was placed in extension, and bumped with a blanket behind the knee. The sutures x3 from the prior arthroscopy were cleansed with alcohol, then removed. The lateral aspect of the knee was prepped with Betadine x3. Sterile technique was used. Target off of the edge of the patella laterally was anesthetized with 1% plain buffered lidocaine. The knee joint was then entered with an 18-gauge needle. Aspirate was successful with roughly 32 cc of blood- tinged watery fluid obtained. Aspirate fluid was sent for cell count, Gram stain and culture. The patient's knee was cleansed thoroughly with normal saline solution. Bacitracin was applied to the aspirate site,, then 4 x 4's and Jamaal wrap. Patient tolerated the procedure well. Past Med/Surg History Medical History Aggressive behavior Delusions No pertinent family history Paranoia Psychosis Septic arthritis of knee, right SIRS (systemic inflammatory response syndrome) Surgical History History of hernia surgery S/P right knee arthroscopy for septic joint, Dr. 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 Beliefs That Will Affect Care: None marital status: Current Living Situation: Family Feels Safe at Home: No Is there a partner from a previous relationship who is making you feel unsafe now?: No Assistive Devices: Crutches Allergies Allergies Allergy/AdvReac Type Severity Reaction Status Date / Time cyclobenzaprine Allergy Severe SHORTNESS Verified 05/18/21 00:02 OF BREATH zolpidem Allergy Unknown hallucinati Verified 05/18/21 00:02 ons Benzodiazepines AdvReac Intermediate PSYCH Verified 05/18/21 00:02 ISSUES Home Meds Home Medications Medication Instructions Recorded Confirmed buprenorphine 8 mg-naloxone 2 mg 1 tab SUBLINGUAL BID 10/27/19 05/18/21 sublingual tablet Previous Rx's Medication Instructions Recorded hydroxyzine HCl 25 mg tablet 50 mg PO HSZ #0 tab 05/20/21 acetaminophen 500 mg tablet 1,000 mg PO Q8H PRN #100 tab 05/30/21 (Tylenol Extra Strength) aspirin 325 mg tablet,delayed 325 mg PO DAILY #60 tab 05/30/21 release (Ecotrin) celecoxib 100 mg capsule (Celebrex) 100 mg PO BID #90 cap 05/30/21 gabapentin 300 mg capsule 300 mg PO TID #90 cap 05/30/21 hydrocodone 10 mg-acetaminophen 1 tab PO Q4H PRN #14 tab 05/30/21 325 mg tablet sulfamethoxazole 800 1 tab PO Q12 #70 tab 05/30/21 mg-trimethoprim 160 mg tablet (Bactrim DS) Results & Data (ED) Vital Signs Vital Signs - 24 hr 06/21/21 13:44 06/21/21 15:00 06/21/21 16:32 Temperature 36.9 C Temperature Source Temporal Artery Scan Pulse Rate 108 H Pulse Rate [Finger] 85 88 Pulse Rhythm [Finger] Regular Regular Respiratory Rate 18 16 16 Respiratory Effort / Characteristics Non-Labored Spontaneous Non-Labored Non-Labored Respiratory Depth Normal Normal Normal Blood Pressure 144/86 H Blood Pressure [Left Arm] 125/71 121/68 Blood Pressure Mean 105 Blood Pressure Mean [Left Arm] 89 85 Pulse Oximetry 98 95 100 Oxygen Delivery Method Room Air Room Air Room Air Sepsis Recent Fever Within 48 Hours No Sepsis New/Unexplained Change in Mental Status No Sepsis Action Taken by Nursing No Action Required Home Medications Current Medication List: was personally reviewed by me Laboratory Data Attestation: I reviewed the patient's lab results. Result diagrams: 06/21/21 15:00 06/21/21 14:42 Lab Results 06/21/21 06/21/21 06/21/21 Range/Units 13:00 14:42 14:59 WBC (4.8-10.8) K/uL RBC (4.7-6.1) M/uL Hgb (14.0-18.0) g/dL Hct (42-52) % MCV (80-100) fL MCH (25-34) pg MCHC (32-36) g/dL RDW Std Deviation (36.4-46.3) fL RDW Coeff of [place] (11.5-14.5) % Plt Count (130-400) K/uL MPV (7.4-10.4) fL Immature Gran % (Auto) % Neut % (Auto) % Lymph % (Auto) % [place] % (Auto) % Eos % (Auto) % Baso % (Auto) % Neut # (Auto) (1.4-6.5) K/uL Lymph # (Auto) (1.2-3.4) K/uL [place] # (Auto) (0.11-0.59) K/uL Eos # (Auto) (0-0.5) K/uL Baso # (Auto) (0-0.2) K/uL Immature Gran # (Auto) (0.00-0.02) K/uL ESR (0-15) mm/hr Sodium 134 L (136-145) mmol/L Potassium 4.0 (3.5-5.1) mmol/L Chloride 101 (98-107) mmol/L Carbon Dioxide 28 (21-32) mmol/L Anion Gap 5.0 (3-11) BUN 29 H (7-18) mg/dl Creatinine 0.92 (0.6-1.4) mg/dl Est Cr Clr Drug Dosing 120.4 ml/min Est GFR ( Amer) 117.6 ml/min Est GFR (Non-Af Amer) 101.5 ml/min BUN/Creatinine Ratio 31.3 H (10-20) Glucose 117 H (70-99) mg/dl Calcium 9.3 (8.5-10.1) mg/dl Total Bilirubin 0.2 (0.2-1) mg/dl AST 34 (15-37) U/L ALT 25 (12-78) U/L Alkaline Phosphatase 108 (45-117) U/L C-Reactive Protein 4.88 H (0-0.29) mg/dl Total Protein 8.7 H (6.4-8.2) gm/dl Albumin 3.0 L (3.4-5.0) gm/dl Globulin 5.7 H (2.5-4.0) gm/dl Albumin/Globulin Ratio 0.5 L (0.9-2) Specimen Hemolysis Fluid Comment Synovial Source Synovial Color Synovial Appearance Synovial WBC (0-200) /ul Synovial RBC /uL Synovial Polynuclear % % Synovial Mononuclear % % Urine Opiates Screen Neg (Neg) Ur Methadone, Qual Neg (Neg) Urine Barbiturates Neg (Neg) Ur Phencyclidine (PCP) Neg (Neg) U Amphetamin/Meth Scrn Pos H (Neg) MDMA (Ecstasy) Screen Neg (Neg) U Benzodiazepines Scrn Neg (Neg) Ur Cocaine Metabolite Neg (Neg) U Marijuana (THC) Screen Pos H (Neg) COVID-19 Eval Order Covid19 at [facility] SARS-CoV-2 (PCR) (Negative) 06/21/21 06/21/21 06/21/21 Range/Units 14:59 15:00 15:00 WBC 8.00 (4.8-10.8) K/uL RBC 4.04 L (4.7-6.1) M/uL Hgb 9.3 L (14.0-18.0) g/dL Hct 31.4 L (42-52) % MCV 77.7 L (80-100) fL MCH 23.0 L (25-34) pg MCHC 29.6 L (32-36) g/dL RDW Std Deviation 49.8 H (36.4-46.3) fL RDW Coeff of [place] 17.4 H (11.5-14.5) % Plt Count 431 H (130-400) K/uL MPV 8.5 (7.4-10.4) fL Immature Gran % (Auto) 0.4 % Neut % (Auto) 60.5 % Lymph % (Auto) 30.5 % [place] % (Auto) 6.9 % Eos % (Auto) 1.3 % Baso % (Auto) 0.4 % Neut # (Auto) 4.85 (1.4-6.5) K/uL Lymph # (Auto) 2.44 (1.2-3.4) K/uL [place] # (Auto) 0.55 (0.11-0.59) K/uL Eos # (Auto) 0.10 (0-0.5) K/uL Baso # (Auto) 0.03 (0-0.2) K/uL Immature Gran # (Auto) 0.03 H (0.00-0.02) K/uL ESR 97 H (0-15) mm/hr Sodium (136-145) mmol/L Potassium (3.5-5.1) mmol/L Chloride (98-107) mmol/L Carbon Dioxide (21-32) mmol/L Anion Gap (3-11) BUN (7-18) mg/dl Creatinine (0.6-1.4) mg/dl Est Cr Clr Drug Dosing ml/min Est GFR ( Amer) ml/min Est GFR (Non-Af Amer) ml/min BUN/Creatinine Ratio (10-20) Glucose (70-99) mg/dl Calcium (8.5-10.1) mg/dl Total Bilirubin (0.2-1) mg/dl AST (15-37) U/L ALT (12-78) U/L Alkaline Phosphatase (45-117) U/L C-Reactive Protein (0-0.29) mg/dl Total Protein (6.4-8.2) gm/dl Albumin (3.4-5.0) gm/dl Globulin (2.5-4.0) gm/dl Albumin/Globulin Ratio (0.9-2) Specimen Hemolysis Fluid Comment Synovial Source Synovial Color Synovial Appearance Synovial WBC (0-200) /ul Synovial RBC /uL Synovial Polynuclear % % Synovial Mononuclear % % Urine Opiates Screen (Neg) Ur Methadone, Qual (Neg) Urine Barbiturates (Neg) Ur Phencyclidine (PCP) (Neg) U Amphetamin/Meth Scrn (Neg) MDMA (Ecstasy) Screen (Neg) U Benzodiazepines Scrn (Neg) Ur Cocaine Metabolite (Neg) U Marijuana (THC) Screen (Neg) COVID-19 Eval Order SARS-CoV-2 (PCR) NEGATIVE (Negative) 06/21/21 Range/Units 15:30 WBC (4.8-10.8) K/uL RBC (4.7-6.1) M/uL Hgb (14.0-18.0) g/dL Hct (42-52) % MCV (80-100) fL MCH (25-34) pg MCHC (32-36) g/dL RDW Std Deviation (36.4-46.3) fL RDW Coeff of [place] (11.5-14.5) % Plt Count (130-400) K/uL MPV (7.4-10.4) fL Immature Gran % (Auto) % Neut % (Auto) % Lymph % (Auto) % [place] % (Auto) % Eos % (Auto) % Baso % (Auto) % Neut # (Auto) (1.4-6.5) K/uL Lymph # (Auto) (1.2-3.4) K/uL [place] # (Auto) (0.11-0.59) K/uL Eos # (Auto) (0-0.5) K/uL Baso # (Auto) (0-0.2) K/uL Immature Gran # (Auto) (0.00-0.02) K/uL ESR (0-15) mm/hr Sodium (136-145) mmol/L Potassium (3.5-5.1) mmol/L Chloride (98-107) mmol/L Carbon Dioxide (21-32) mmol/L Anion Gap (3-11) BUN (7-18) mg/dl Creatinine (0.6-1.4) mg/dl Est Cr Clr Drug Dosing ml/min Est GFR ( Amer) ml/min Est GFR (Non-Af Amer) ml/min BUN/Creatinine Ratio (10-20) Glucose (70-99) mg/dl Calcium (8.5-10.1) mg/dl Total Bilirubin (0.2-1) mg/dl AST (15-37) U/L ALT (12-78) U/L Alkaline Phosphatase (45-117) U/L C-Reactive Protein (0-0.29) mg/dl Total Protein (6.4-8.2) gm/dl Albumin (3.4-5.0) gm/dl Globulin (2.5-4.0) gm/dl Albumin/Globulin Ratio (0.9-2) Specimen Hemolysis Fluid Comment Synovial Source KNEE Synovial Color RED Synovial Appearance CLOUDY Synovial WBC 23 (0-200) /ul Synovial RBC 077444 /uL Synovial Polynuclear % 87.7 % Synovial Mononuclear % 12.3 % Urine Opiates Screen (Neg) Ur Methadone, Qual (Neg) Urine Barbiturates (Neg) Ur Phencyclidine (PCP) (Neg) U Amphetamin/Meth Scrn (Neg) MDMA (Ecstasy) Screen (Neg) U Benzodiazepines Scrn (Neg) Ur Cocaine Metabolite (Neg) U Marijuana (THC) Screen (Neg) COVID-19 Eval Order SARS-CoV-2 (PCR) (Negative) Administered Medications Discontinued Medications Lidocaine HCl (Xylocaine 1%/Sod Bicarb 20 Ml Vial) 20 ml INFIL NOW ONE Stop: 06/21/21 15:05 Last Admin: 06/21/21 15:32 Dose: 20 ml Documented by: [id number] Imaging Data Attestation: I personally reviewed and interpreted this imaging study as follows: Radiologist's Impression: Knee X-Ray 06/21/21 15:03 XR knee RT 3V CLINICAL HISTORY: pain, hx of septic joint, ORIF tib plateau fx COMPARISON: Right knee radiographs March 04, 2021. FINDINGS: Proximal medial tibial plate and screw fixation is noted. Hardware is intact. There is no acute fracture. Note is made of a large right knee joint effusion. Right knee soft tissue swelling is present. There is medial translation of the tibia with respect to the tibia. There is also lateral patellar tilt. There are multiple suspected joint bodies that measure up to 6 mm. Note is made of progressive joint space narrowing within the medial and lateral compartments as well as progressive erosive changes of the tibial plateaus and the lateral femoral condyle. Erosive changes of the medial tibial plateau may extend to the hardware. IMPRESSION: 1. Progressive medial and lateral compartment joint space narrowing and erosive changes of the tibial plateaus and lateral femoral condyle. Large right knee joint effusion and soft tissue swelling. The findings are suspicious for a septic joint with osteomyelitis. 2. Status post post proximal tibial internal fixation. No acute fracture. 3. Multiple suspected joint bodies. ACT 112: Negative or not required by law. Electronically signed by: Benjamin Goldberg M.D. 06/21/2021 3:22 PM Discharge Plan Visit Data Chief Complaint: Knee Injury/Pain Stated Complaint: R KNEE PAIN ED Provider: Chintan Shi ED Midlevel Provider: Sigrid Farr Discharge Problem: Septic joint of right knee joint, Osteomyelitis of right knee region Patient Disposition: Admitted As Inpatient Discharge Instructions Interventions: ED Discharge Assessment Last Done: 06/21/21 17:53 Discharge Problem: Septic joint of right knee joint Qualifiers: Septic arthritis organism: staphylococcal Qualified Code(s): M00.061 - Staphylococcal arthritis, right knee
[2021-06-21] MEDS ORDERED: XYLOCAINE 1%/SOD BICARB 20 ML VIAL INFIL ONE (15:04)
[2021-06-21 15:13] LABS: Basophils # (auto) 0.03 K/uL (0-0.2); Basophils % (auto) 0.4 %; Eosinophils % (auto) 1.3 %; Hematocrit (blood only) 31.4 % (42-52); Hemoglobin 9.3 g/dL (14.0-18.0); Immature Granulocytes # (auto) 0.03 K/uL (0.00-0.02); Immature Granulocytes % (auto) 0.4 %; Lymphocytes # (auto) 2.44 K/uL (1.2-3.4); Lymphocytes % (auto) 30.5 %; Mean Corpuscular Hgb Conc 29.6 g/dL (32-36); Mean Corpuscular Volume 77.7 fL (80-100); Mean Platelet Volume 8.5 fL (7.4-10.4); Monocytes # (auto) 0.55 K/uL (0.11-0.59); Monocytes % (auto) 6.9 %; Neutrophils # (auto) 4.85 K/uL (1.4-6.5); Neutrophils % (auto) 60.5 %; Platelet Count 431 K/uL (130-400); RDW Coefficient of Variation 17.4 % (11.5-14.5); RDW Standard Deviation 49.8 fL (36.4-46.3); Red Blood Count 4.04 M/uL (4.7-6.1)
[2021-06-21 15:14] LABS: Albumin Globulin Ratio 0.5 (0.9-2); BUN Creatinine Ratio 31.3 (10-20); Bilirubin,Total 0.2 mg/dl (0.2-1); C Reactive Protein 4.88 mg/dl (0-0.29); Calcium 9.3 mg/dl (8.5-10.1); Creatinine Clr Calc Pharmacy 120.4 ml/min; Est GFR (African American) 117.6 ml/min; Est GFR (Non-African American) 101.5 ml/min; Globulin 5.7 gm/dl (2.5-4.0); Total Protein 8.7 gm/dl (6.4-8.2)
[2021-06-21 15:21] LABS: Amphetamines+Metham, Urine Pos (Neg); Barbiturates, Urine Neg (Neg); Benzodiazepine, Urine Neg (Neg); Cocaine, Urine Neg (Neg); MDMA (Ecstacy), Urine Neg (Neg); Methadone, Urine Neg (Neg); Opiate, Urine Neg (Neg); Phencyclidine, Urine Neg (Neg)
--- NOTE | 2021-06-21 15:24 | XRay Report ---
XR knee RT 3V CLINICAL HISTORY: pain, hx of septic joint, ORIF tib plateau fx COMPARISON: Right knee radiographs March 04, 2021. FINDINGS: Proximal medial tibial plate and screw fixation is noted. Hardware is intact. There is no acute fracture. Note is made of a large right knee joint effusion. Right knee soft tissue swelling is present. There is medial translation of the tibia with respect to the tibia. There is also lateral p atellar tilt. There are multiple suspected joint bodies that measure up to 6 mm. Note is made of prog ressive joint space narrowing within the medial and lateral compartments as well as progressive erosi ve changes of the tibial plateaus and the lateral femoral condyle. Erosive changes of the medial tibi al plateau may extend to the hardware. IMPRESSION: 1. Progressive medial and lateral compartment joint space narrowing and erosive changes of the tibial plateaus and lateral femoral condyle. Large right knee joint effusion and soft tissue swelling. The findings are suspicious for a septic joint with osteomyelitis. 2. Status post post proximal tibial internal fixation. No acute fracture. 3. Multiple suspected joint bodies. ACT 112: Negative or not required by law. Electronically signed by: Benjamin Goldberg M.D. 06/21/2021 3:22 PM
[2021-06-21 16:20] LABS: Appearance Synovial Fluid CLOUDY; Color Synovial Fluid RED; Mononuclear WBC Synovial 12.3 %; Polynuclear WBC Synovial 87.7 %; RBC Synovial Fluid (A) 150000 /uL; Source Synovial Fluid KNEE; WBC Synovial Fluid (A) 23 /ul (0-200)
[2021-06-21] MEDS ORDERED: ONDANSETRON INJ 2 MG/ML 2 ML VIAL IV PRN (18:13)
[2021-06-21] MEDS ORDERED: CELECOXIB 100 MG CAP PO PRN (18:13)
[2021-06-21] MEDS ORDERED: MAGNESIUM HYDROXIDE SUSP 30 ML UDC PO PRN (18:13)
[2021-06-21] MEDS ORDERED: diphenhydrAMINE Capsule 25 MG CAP PO PRN (18:13)
--- NOTE | 2021-06-21 18:25 | History & Physical Report ---
Date of Service June 21, 2021 Assessment & Plan (1) Septic joint of right knee joint: (2) Osteomyelitis of right knee region: (3) MRSA infection (methicillin-resistant Staphylococcus aureus): While he has made progress with regard to the white blood cell count, ESR, CRP, the overall clinical picture is 1 of progression of an erosive process about the right knee. He states that he has been consistent on Bactrim. This could be a picture of refractory chronic osteomyelitis. He is currently without a stable home, and I do not expect this to be adequately managed as an outpatient. I discussed the situation with the patient. He is in agreement with my recommendations. Admit to the [facility] [place] [place] [facility]. Plan for surgical treatment of the infection with arthroscopic knee debridement, tibial hardware removal, with possibility for open debridement of the tibia and femur if needed. I discussed the risks and benefits of surgical intervention at this point. The risks include but not limited to infection, neurovascular injury, continued arthrofibrosis of the knee joint, further destruction the joint with or without surgery, nerve/vessel injury, blood loss, pain syndromes, blood clots, and complications related to anesthesia. He has appropriate questions, demonstrate good understanding, and wanted to proceed with surgery. Informed consent was documented in the emergency room. Surgical site was identified by the patient and marked by me. Continue outpatient Suboxone, acetaminophen, and Celebrex DVT prophylaxis will be mechanical for now and return to aspirin or LMWH postop. Antibiotics will be changed from his oral regimen to vancomycin cultures tomorrow He can be weightbearing as tolerated on the knee and use crutches that he has as needed. NPO at midnight for surgery in the morning. Expect that he will need an MRI after plate removal to evaluate for osteomyelitic abscess or sequestrum. MRI prior to surgery unlikely to be sensitive enough to guide further treatment to the plate. If the MRI is clear of sequestrum or abscesses after surgery, will continue prolonged antibiotic therapy using an infectious disease consult for guidance. Disposition: He will remain inpatient for surgery and recovery. He may need parenteral antibiotic therapy for prolonged duration. Expect 3-5-day hospital stay. Case management will be needed to assist with placement given his social status. History of Present Illness Chief Complaint: Recurrent right knee pain and swelling Primary Care Provider: Ana Miguel MD 41-year-old male with history of intravenous drug abuse and psychosis/paranoia return to the ED with increasing pain and swelling to the knee. He was an inpatient approximately 5 weeks ago after being admitted from the psychiatric [facility] with obvious septic right knee. He underwent an irrigation debridement. Multiple culture showed MRSA. He remained as an inpatient for parenteral therapy before discharge to an oral regimen of double strength Bactrim, guided by infectious disease consult. He did not follow-up as instructed. He states that he had no ride. States he came to the ER today because the first time he was available for follow-up in a long time. He admits that he has been walking on the leg but needing crutches at times. He tried to do some work and the knee was too painful. He denies any feelings of malaise nor fevers. He admits to tolerance to the Bactrim. He does admit to use of marijuana and some Adderall because he needed to stay awake and avoid being arrested for being homeless. He notes no other sources of pain or complaints. Allergies Allergy/AdvReac Type Severity Reaction Status Date / Time cyclobenzaprine Allergy Severe SHORTNESS Verified 05/18/21 00:02 OF BREATH zolpidem Allergy Unknown hallucinati Verified 05/18/21 00:02 ons Benzodiazepines AdvReac Intermediate PSYCH Verified 05/18/21 00:02 ISSUES Home Medications Medication Instructions Recorded Confirmed Type buprenorphine 8 mg-naloxone 2 mg 1 tab SUBLINGUAL BID 10/27/19 05/18/21 History sublingual tablet hydroxyzine HCl 25 mg tablet 50 mg PO HSZ #0 tab 05/20/21 Rx acetaminophen 500 mg tablet 1,000 mg PO Q8H PRN #100 tab 05/30/21 Rx (Tylenol Extra Strength) aspirin 325 mg tablet,delayed 325 mg PO DAILY #60 tab 05/30/21 Rx release (Ecotrin) celecoxib 100 mg capsule (Celebrex) 100 mg PO BID #90 cap 05/30/21 Rx gabapentin 300 mg capsule 300 mg PO TID #90 cap 05/30/21 Rx hydrocodone 10 mg-acetaminophen 1 tab PO Q4H PRN #14 tab 05/30/21 Rx 325 mg tablet sulfamethoxazole 800 1 tab PO Q12 #70 tab 05/30/21 Rx mg-trimethoprim 160 mg tablet (Bactrim DS) Past Med/Surg History Medical History Aggressive behavior Delusions No pertinent family history Paranoia Psychosis Septic arthritis of knee, right SIRS (systemic inflammatory response syndrome) Surgical History History of hernia surgery S/P right knee arthroscopy for septic joint, Dr. Hooper Social History Smoking Status: Current every day smoker Tobacco Type: E-cigarettes / Vaping and Smokeless Tobacco (Dip or Chew) Second Hand Exposure: No; Hx Alcohol Use: No Hx Substance Use: Yes Last Used Substance Other:: marijuana 1 week ago Substance Use Type Other:: about 3 weeks ago Preferred Language: Italian Communication Ability: Effective Tab Card Press Operator Required: No Beliefs That Will Affect Care: None marital status: Current Living Situation: Family Feels Safe at Home: No Is there a partner from a previous relationship who is making you feel unsafe now?: No Assistive Devices: Crutches Review of Systems All systems reviewed & are unremarkable except as noted in HPI & below. Physical Exam . Constitutional no acute distress and not intoxicated appearing Respiratory normal respiratory effort; no respiratory distress Cardiovascular Extremities: normal capillary refill; no edema Skin no rashes, warm and dry Psychiatric A+Ox3, euthymic affect Results & Data Results & Data Laboratory Results . Laboratory Tests 06/21/21 06/21/21 06/21/21 13:00 14:42 15:00 WBC 8.00 Hgb 9.3 L Hct 31.4 L ESR C-Reactive Protein 4.88 H Synovial RBC U Amphetamin/Meth Scrn Pos H U Marijuana (THC) Screen Pos H 06/21/21 06/21/21 15:00 15:30 WBC Hgb Hct ESR 97 H C-Reactive Protein Synovial RBC [id number] U Amphetamin/Meth Scrn U Marijuana (THC) Screen Microbiology 06/21/21 15:30 Joint Fluid,Knee Gram Stain - Final Diagnostic Findings Radiographs of the right knee were performed and reviewed by me. I agree with the radiologist. There is evidence of progressive loss of joint space since his previous admission. There is suspicion of periostitis of the distal femur. There is no evidence of abscess formation or sequestrum on these x-rays. There is also evidence of erosion of the joint space down to the tibial plateau hardware. There is clear erosion of bone about this joint which is concerning for chronic osteomyelitis and progression. PG Care Time/CCT Total # of Minutes Spent Total Time Spent with Patient: Total time spent is greater than 50% in coordination of care (as documented) at patient's floor/unit and/or counseling patient: Coding Level of Care Code 53412 Initial Inpt Care Lvl 3 Diagnoses Septic joint of right knee joint M00.061 Septic arthritis organism: staphylococcal Osteomyelitis of right knee region M86.9 MRSA infection (methicillin-resistant Staphylococcus aureus) A49.02 (1) Septic joint of right knee joint Septic arthritis organism: staphylococcal Qualified Code(s): M00.061 - Staphylococcal arthritis, right knee
[2021-06-21] MEDS: FERROUS SULFATE 325 MG TAB PO SCH (20:20)
[2021-06-21] MEDS: SULFAMETHOXAZOLE/TRIMETHOPRIM DS 800/160MG TAB PO SCH (20:20)
[2021-06-21] MEDS: GABAPENTIN 300 MG CAP PO SCH (20:21)
[2021-06-21] MEDS: BUPRENORPHINE/NALOXONE 8/2 MG TAB SL SCH (20:23)
[2021-06-21] MEDS ORDERED: BUPRENORPHINE NALOXONE SL SCH (21:00)
[2021-06-22] MEDS ORDERED: PROPOFOL IV EMULSION 10 MG/ML 20 ML VIAL IV ONE (07:20)
[2021-06-22] MEDS ORDERED: DEXAMETHASONE SOD INJ 4 MG/ML VIAL ONE (07:20)
[2021-06-22] MEDS ORDERED: LIDOCAINE 2% 2 ML VIAL/AMP(20MG/ML) INFIL ONE (07:20)
[2021-06-22] MEDS ORDERED: ONDANSETRON INJ 2 MG/ML 2 ML VIAL ONE (07:20)
[2021-06-22] MEDS ORDERED: fentaNYL citrate 100 MCG/2 ML VIAL ONE ×3 (07:20→09:28)
--- NOTE | 2021-06-22 07:28 | Anesthesiology Consultation ---
Date of Service June 22, 2021 Assessment & Plan (1) IV drug abuse: (2) Encounter for pre-operative examination: Chart Review Chart Review: Acceptable Risk for Surgery History Surgery Operation Date: 06/22/21 07:30 Proposed Procedures p Right Knee Arthroscopic Debridement, Open Tibial Hardware Removal(Right) - Niall Hooper MD Height/Weight Height: 6 ft 2 in Weight: 94.1 kg Allergies Allergy/AdvReac Type Severity Reaction Status Date / Time cyclobenzaprine Allergy Severe SHORTNESS Verified 05/18/21 00:02 OF BREATH zolpidem Allergy Unknown hallucinati Verified 05/18/21 00:02 ons Benzodiazepines AdvReac Intermediate PSYCH Verified 05/18/21 00:02 ISSUES Medications Home Medications Medication Instructions Recorded Confirmed Last Taken buprenorphine 8 mg-naloxone 2 mg 1 tab SUBLINGUAL BID 10/27/19 05/18/21 05/17/21 sublingual tablet hydroxyzine HCl 25 mg tablet 50 mg PO HSZ #0 tab 05/20/21 Unknown acetaminophen 500 mg tablet 1,000 mg PO Q8H PRN #100 tab 05/30/21 Unknown (Tylenol Extra Strength) aspirin 325 mg tablet,delayed 325 mg PO DAILY #60 tab 05/30/21 Unknown release (Ecotrin) celecoxib 100 mg capsule (Celebrex) 100 mg PO BID #90 cap 05/30/21 Unknown gabapentin 300 mg capsule 300 mg PO TID #90 cap 05/30/21 Unknown hydrocodone 10 mg-acetaminophen 1 tab PO Q4H PRN #14 tab 05/30/21 Unknown 325 mg tablet sulfamethoxazole 800 1 tab PO Q12 #70 tab 05/30/21 Unknown mg-trimethoprim 160 mg tablet (Bactrim DS) Active Medications Generic Name Dose Route Start Last Admin Trade Name Freq PRN Reason Stop Dose Admin Buprenorphine/Naloxone 1 tab 06/21/21 21:00 06/21/21 20:23 Buprenorphine/Naloxone 8/2 Mg Tab SL 07/21/21 20:59 Not Given BID LADONNA Ferrous Sulfate 325 mg 06/21/21 18:13 06/21/21 20:20 Ferrous Sulfate 325 Mg Tab PO 07/21/21 18:12 325 mg TIDM LADONNA Administration Gabapentin 300 mg 06/21/21 21:00 06/21/21 20:21 Gabapentin 300 Mg Cap PO 07/21/21 20:59 Not Given TID LADONNA Trimethoprim/Sulfamethoxazole 1 tab 06/21/21 21:00 06/21/21 20:20 Sulfamethoxazole/Trimethoprim Ds 800/160mg Tab PO 08/02/21 20:59 1 tab Q12 LADONNA Administration Past Medical History Medical History (Updated 06/22/21 @ 07:28 by James Villarreal MD) Aggressive behavior Anemia Delusions IV drug abuse No pertinent family history Paranoia Psychosis Septic arthritis of knee, right SIRS (systemic inflammatory response syndrome) Past Surgical History Surgical History History of hernia surgery S/P right knee arthroscopy for septic joint, Dr. Hooper Social History Smoking Status: Former smoker tobacco type: cigarettes Do You Dip or Chew Tobacco: No Hx Alcohol Use: No Hx Substance Use: Yes substance use type: marijuana Substance Use Type Other:: IV drugs Last Used Substance: Unknown Last Used Substance Other:: marijuana 1 week ago Physical Exam Vital Signs Last Vital Signs Temp 36.8 C 06/22/21 07:17 Pulse 80 06/22/21 07:17 Resp 16 06/22/21 07:17 BP 114/68 06/22/21 07:17 Pulse Ox 95 06/22/21 07:17 Testing Laboratory Results 06/21/21 15:00 06/21/21 14:42 06/21/21 15:30 Gram Stain - Final Joint Fluid,Knee
[2021-06-22] MEDS ORDERED: BUPIVACAINE/EPINEPHRINE 0.5% MPF 1:200,000 10 ML VIAL ONE (07:29)
--- NOTE | 2021-06-22 07:30 | History & Physical Bridge Note ---
Date of Service June 22, 2021 History & Physical Bridge Note I have examined the patient, reviewed the History & Physical and in the interval since the performance of the History & Physical I have noted the following changes of clinical significance: no changes noted.
[2021-06-22] MEDS ORDERED: EPINEPHrine INJ 1 MG/ML AMP ONE (07:31)
[2021-06-22] MEDS ORDERED: BUPIVACAINE 0.5 % 5 MG/1 ML MPF 30ML VIAL ONE (07:32)
[2021-06-22] MEDS ORDERED: VANCOMYCIN CONSULT ACTIVE PRN ×2 (07:37→11:18)
[2021-06-22] MEDS ORDERED: VANCOMYCIN HCL 1,000 MG/270 ML BAG IV STA (07:37)
[2021-06-22] MEDS ORDERED: ATROPINE SULFATE 0.1 MG/ML 10ML SYR IV PRN (07:41)
[2021-06-22] MEDS ORDERED: ONDANSETRON INJ 2 MG/ML 2 ML VIAL IV PRN (07:41)
[2021-06-22] MEDS ORDERED: KETOROLAC 30 MG/ML VIAL IV PRN ×2 (07:41→10:38)
[2021-06-22] MEDS ORDERED: HYDROmorphone INJ 2 MG/ML SYR/VIAL ONE ×2 (08:10→08:38)
--- NOTE | 2021-06-22 08:55 | Fluoroscopy Report ---
FL knee RT 1 or 2V CLINICAL HISTORY: I D HARDWARE REMOVAL COMPARISON STUDY: None. Correlation is made with radiograph of the right knee performed on June 21, 2021. FLUOROSCOPY TIME: 4 seconds. NUMBER OF FLUOROSCOPIC IMAGES: 1 FINDINGS: Single of fluoroscopy intraoperative image was presented for review. Previously seen orthopedic hardw are within the proximal aspect of the right tibia is no longer visualized. IMPRESSION: As above. ACT 112: Negative or not required by law. The above report was generated using voice recognition software. It may contain grammatical, syntax o r spelling errors. Electronically signed by: Joleen Esposito DO 06/22/2021 8:54 AM
[2021-06-22] MEDS ORDERED: ACETAMINOPHEN 1000 MG/100 ML IV IV ONE (09:11)
--- NOTE | 2021-06-22 09:51 | Post Operative Brief Note ---
PG Immediate Post Op with CF Date of Surgery June 22, 2021 Pre & Post Diagnosis Operation Date: 06/22/21 07:30 Pre-Op Diagnosis: Septic joint of right knee joint Osteomyelitis of right knee region Post-Op Diagnosis: Septic joint of right knee joint Osteomyelitis of right knee region I identified the patient and participated in the time-out.: Yes Procedure Operation Date: 06/22/21 07:30 Actual Procedures p Right Tibial Hardware Removal with Open Debridement and Right Knee Arthros copic Debridement(Right) - Niall Hooper MD Surgeon Niall Hooper MD Associate Theatre Professor Johnny Manzano PA-C Estimated Blood Loss 20 Findings Consistent with Post-Op Diagnosis Specimens Specimen Description: Culture 1. Femur Periosteum (routine aerobic, anaerobic and gram stain, fungal) 2. Right knee joint (routine aerobic, anaerobic and gram stain, fungal) 3. Right knee joint (routine aerobic, anaerobic and gram stain, fungal) 4. Right proximal tibia (routine aerobic, anaerobic and gram stain, fungal) Permanent A. Explated harware right tibia Drains Jadon-Sun Drain (10Fr round)
[2021-06-22] MEDS ORDERED: KETOROLAC TROMETHAMINE 15 MG/ML VIAL IV PRN (10:02)
[2021-06-22] MEDS: HYDROmorphone INJ 1 MG/ML SYRINGE IV PRN ×8 (10:18→22:27)
--- NOTE | 2021-06-22 10:18 | Operative Report ---
PG Post Operative Report Pre & Post Diagnosis Operation Date: 06/22/21 07:30 Pre-Op Diagnosis: Septic joint of right knee joint Osteomyelitis of right knee region Post-Op Diagnosis: Septic joint of right knee joint Osteomyelitis of right knee region I identified the patient and participated in the time-out.: Yes Procedure Operation Date: 06/22/21 07:30 Actual Procedures p Right Tibial Hardware Removal with Open Debridement and Right Knee Arthroscopic Debridement(Right) - Niall Hooper MD Surgeon Niall Hooper MD Digester Cook Johnny Manzano PA-C Estimated Blood Loss 20 Findings Consistent with Post-Op Diagnosis Tibial plate and mucopurulent material in some of the deep proximal screws. The knee joint had abundant clear serous synovial fluid under pressure. Multiple cultures were taken. Specimens Multiple cultures include 2 joint swabs, tibial bone, periosteal tissue from femur Drains 10 Syriac round CHRISTAL Complications none Disposition Accompanied Patient To Recovery: No Disposition: Recovery Room Indications 41-year-old male history of IV drug abuse and chronic septic knee arthritis who was noncompliant with follow-up return to the ER yesterday with signs and symptoms of progressing of his right septic knee and potential periarticular involvement with infected hardware. Description of Procedure On the day of surgery, the patient was greeted in the preoperative holding area. The informed consent was reviewed and confirmed by myself and the patient. The patient identified the surgical site and was marked by me. The patient was then turned over to anesthesia. Taken to the operating room and placed supine on the OR table, and anesthesia was induced. The airway was secured. The right lower extremity was prepped with hair removal and a nonsterile tourniquet was placed high in the thigh. The right lower extremities then prepped and draped in usual sterile fashion for knee arthroscopy. Procedure was initiated by elevating extremity for 30 seconds followed by inflation of the tourniquet to 250 mmHg for total of 90 minutes. Procedure was initiated by incising along his previous scar in the posterior medial tibia to approach the plate. He had thickened periosteal layers without martin purulence. The hamstrings were identified and protected. Plate was d ebrided with a series of curettes and osteotomes of overgrown bone. Were able to access each screw head and remove the screws under hand and power. We then confirmed all the screws removed before elevating the plate using series of osteotomes. Once all the hardware was removed we took final fluoroscopic images. We then debrided the periosteum and bone. Each screw hole was debrided. The proximal subarticular screws trajectories had mucopurulent tissue that was sent for deep culture. Debrided all evidence of purulent material and nonviable bone. The distal femur was visible and it was thickened edematous periosteum which was sent for another deep culture. The medial capsule was involved and completely violated at that time. We could see into the joint. We thoroughly irrigated this area using bulb syringe. We then incised the previous knee arthroscopy portals and used a trocar to enter the joint. We began arthroscopy and suprapatellar pouch. The motorized shaver was used to debride extensively the synovitis that was present, as well as significant contracture and scar inflamed erythematous synovial tissue. Extensive debridement was carried with high flow irrigation. We irrigated and debrided through the gutters then approach the notch. Again there was abundant inflamed synovial tissue. I was able to access the medial and lateral compartments and there was complete erosion of the plateau through the subchondral bone to underlying woven bone. The femur had areas of intact cartilage. The far medial aspect of the medial femoral condyle had erosion through the subchondral bone to the woven bone which provided potential access to the distal femur for infectious progression. The lateral femoral condyle was mostly intact. Cruciate ligaments are intact. There was minimal meniscal tissue in either compartment. Continued arthroscopic irrigation debridement once again through all compartments. Viewing in the motorized shaver was switched to portals to access the lateral gutter in its entirety. Once 4 bags of arthroscopic fluid were run through the knee, proceeded to remove the arthroscopic instruments. We continued the high flow arthroscopic irrigation open to the tibial wound to ensure no debris had washed out into the screw holes. We then establish hemostasis and began closure. A 10 Syriac drain was placed to the wound bed of the tibia and advanced underneath the capsule and out the superior medial distal femur region. It was attached to a CHRISTAL bulb. The periosteal layers were approximated over the exposed bone with 0 Vicryl antibiotic impregnated suture. This layer incorporated the medial capsule, which was closed with a drain perforating more proximally. The deep tissues were irrigated once again. We then began closure with 2-0 nylon suture using simple at the arthroscopic portals and vertical mattress along the posterior tibial incision. Wounds are dressed with sterile Xeroform, sterile gauze and contain by ABDs and web roll. The limb was dressed with a large Jamaal wrap from toes to the thigh. Patient was then turned over to the anesthesiologist. He tolerated procedure well, was extubated in the operating room without complication, and transferred to the recovery area in stable condition. Disposition: He will remain an inpatient for parenteral IV antibiotics in an empiric fashion until cultures are completed. This has the picture of chronic osteomyelitis and leaves the question of whether the distal femur is involved. Will order an MRI of the knee to evaluate for abscess formation in the distal femur and proximal tibia. He will likely need long-term parenteral antibiotic therapy, and will consult infectious disease for guidance with our cultures and antibiotic selection. He will be weightbearing as tolerated and range of motion as tolerated. PT/OT consults will be obtained for mobilization. DVT prophylaxis will be low molecular weight heparin for now. I attest to the content of the Intraoperative Record and any orders documented therein. Any exceptions are noted below.
[2021-06-22] MEDS ORDERED: KETOROLAC 30 MG/ML VIAL ONE (10:35)
--- NOTE | 2021-06-22 10:49 | Anesthesiology Progress Note ---
Date of Service June 22, 2021 Anesthesia Post Procedure Vital Signs Vital Signs: Temp Pulse Pulse Pulse Resp BP BP 06/22/21 10:45 80 16 117/76 06/22/21 10:35 76 16 119/71 06/22/21 10:25 76 16 116/71 06/22/21 10:15 84 16 113/74 06/22/21 10:05 36.2 C L 78 16 117/67 06/22/21 09:56 36.2 C L 85 16 118/75 06/22/21 07:17 36.8 C 80 16 06/21/21 22:49 37.1 C 83 16 06/21/21 18:33 36.6 C 89 18 123/77 06/21/21 18:13 36.6 C 89 18 123/77 06/21/21 16:32 88 16 121/68 06/21/21 15:00 85 16 125/71 06/21/21 13:44 36.9 C 108 H 18 144/86 H BP Pulse Ox 06/22/21 10:45 98 06/22/21 10:35 94 06/22/21 10:25 98 06/22/21 10:15 100 06/22/21 10:05 100 06/22/21 09:56 99 06/22/21 07:17 114/68 95 06/21/21 22:49 130/53 L 97 06/21/21 18:33 97 06/21/21 18:13 97 06/21/21 16:32 100 06/21/21 15:00 95 06/21/21 13:44 98 Pain Intensity Right Knee: Pain Intensity: 3 Transfer of Care Handoff Completed per policy Notes Mental Status: alert / awake / arousable Patient Amnestic to Procedure: Yes Nausea / Vomiting: adequately controlled Pain: adequately controlled Airway Patency, RR, SpO2: stable & adequate BP & HR: stable & adequate Hydration State: stable & adequate Anesthetic Complications: no major complications apparent
[2021-06-22] MEDS ORDERED: NALOXONE HCL 0.4 MG/1 ML VIAL/CARP IV PRN (11:18)
[2021-06-22] MEDS ORDERED: bisacodyL 10 MG SUPP PR PRN (11:18)
[2021-06-22] MEDS ORDERED: VANCOMYCIN HCL 1,000 MG in SODIUM CHLORIDE 0.9% 250 ML IV SCH (11:18)
[2021-06-22] MEDS ORDERED: TAMSULOSIN HCL 0.4 MG CAP PO PRN (11:18)
[2021-06-22] MEDS ORDERED: VANCOMYCIN HCL 1,250 MG in SODIUM CHLORIDE 0.9% 250 ML IV STA (12:02)
[2021-06-22] MEDS: SODIUM CHLORIDE 0.9% 1000ML 1,000 ML IV SCH ×2 (12:19→22:27)
--- NOTE | 2021-06-22 12:21 | Pharmacy Report ---
Pharmacy Abx Dose Short Note - Date of Service June 22, 2021 - Assessment & Plan Assessment 41 year old M receiving IV Vancomycin for treatment of septic R knee joint, +osteomyelitis, possible refractory chronic osteomyelitis Day # 1 of antimicrobial therapy. * Patient was on Bactrim prior to admission * No labs were drawn today, utilized labs from yesterday to calculate pharmacokinetic parameters: * Ke ~0.084/hr, T1/2 ~7.96 hrs * Patient with history of MRSA infection, as recently as last month * According to [facility], a maintenance regimen of Vancomycin 1250mg IV q12 will produce a therapeutic trough of 15 mg/dL to achieve AUC 492 mg/L.hr with a toxicity risk of 10% Plan Vancomycin * Give additional Vancomycin dose [place] 1250mg IV x 1 now to make a total loading dose of ~24 mg/kg (1000mg was given perioperatively) * Initiate Vancomycin 1250mg (~13mg/kg) IV q12 * Goal trough level for osteomyelitis : 15 to 20 mcg/mL * Trough level ordered for: 06/24/21 @ 0930 to confirm predicted pharmacokinetics Pharmacy will continue to follow and will adjust dose/frequency as necessary. Thank you.
[2021-06-22] MEDS ORDERED: GADOBUTROL 10ML VIAL IV ONE (13:29)
[2021-06-22] MEDS: FERROUS SULFATE 325 MG TAB PO SCH ×3 (14:14→18:21)
[2021-06-22] MEDS: PANTOprazole 40 MG TAB PO SCH (14:15)
[2021-06-22] MEDS: GABAPENTIN 300 MG CAP PO SCH ×3 (14:15→19:26)
[2021-06-22] MEDS: BUPRENORPHINE/NALOXONE 8/2 MG TAB SL SCH ×2 (14:18→19:28)
[2021-06-22] MEDS: hydrOXYzine HCl 25 MG TAB PO SCH ×2 (14:19→19:53)
--- NOTE | 2021-06-22 15:36 | Magnetic Resonance Report ---
MR knee RT wo/w con CLINICAL HISTORY: chronic osteo, ? need surgery 24 hrs COMPARISON STUDY: TECHNIQUE: MRI of the right knee was performed utilizing proton density T1, and T2 weighted sequences in the axial, sagittal, and coronal planes FINDINGS: Menisci: The medial and lateral menisci are not well seen. Ligaments: Anterior cruciate ligament is not well seen, possibly foreign. No PCL tear is seen however posterior cruciate ligament appear thickened.. Knee joint space is significantly narrowed with cartilaginous loss. There is mild medial subluxation of the distal aspect of the femur in relation to the tibial plateau. Heterogeneous signal is seen within tibial plateau. Focal area of cortical damage is seen within lateral tibial plateau (06/21) and might represent depres sed fracture. Few irregular areas of magnetic susceptibility within medial aspect of the tibial plateau might repre sent gas collection and sequela from recent hardwire removal. Heterogeneous areas of decrease T1 and increased T2 signal within lateral tibial plateau, bilateral f emoral condyle and patella also shows enhancement after intravenous contrast administration likely re presenting osteomyelitis. Extensive soft tissue edema surrounding knee joint is associated with post contrast-enhancement which could be sign of septic or inflammatory arthritis. There is diffuse soft tissue and muscular edema with patchy areas of enhancement is seen which could also represent infectious/inflammatory process. IMPRESSION: 1. Findings are concerning for chronic/acute osteomyelitis with associated infectious knee joint eff usion/collection concerning for septic or inflammatory arthritis. 2. Bilateral menisci are torn/macerated. Articular surfaces of distal femur and proximal tibia show significant cartilaginous loss and damage of osseous cortex. Possible small fracture at the lateral t ibial plateau. 3. Tear of ACL. 4. Removal of the orthopedic hardware from medial tibial plateau. Focal areas of magnetic susceptibi lity within medial tibial plateau likely represent gastric collection after recent surgery. 5. The rest of findings as above. ACT 112: Negative or not required by law. The above report was generated using voice recognition software. It may contain grammatical, syntax o r spelling errors. Electronically signed by: Joleen Esposito DO 06/22/2021 3:35 PM
[2021-06-22] MEDS: SULFAMETHOXAZOLE/TRIMETHOPRIM DS 800/160MG TAB PO SCH (19:10)
[2021-06-22] MEDS: ACETAMINOPHEN 500 MG TAB PO PRN (19:52)
[2021-06-22] MEDS: DOCUSATE SODIUM 100 MG CAP PO SCH (19:52)
[2021-06-22] MEDS: SENNA 8.6 MG TAB PO SCH (19:52)
[2021-06-22] MEDS: ASCORBIC ACID 500 MG TAB PO SCH (19:53)
[2021-06-22] MEDS: oxyCODONE HCL IR 5 MG TAB (IMMEDIATE RELEASE) PO PRN (20:09)
[2021-06-22] MEDS ORDERED: VANCOMYCIN HCL 1,250 MG in SODIUM CHLORIDE 0.9% 250 ML IV SCH (22:00)
[2021-06-23 05:22] LABS: Hematocrit (blood only) 29.6 % (42-52); Hemoglobin 8.8 g/dL (14.0-18.0); Mean Corpuscular Hemoglobin 22.6 pg (25-34); Mean Corpuscular Hgb Conc 29.7 g/dL (32-36); Mean Corpuscular Volume 76.1 fL (80-100); Mean Platelet Volume 8.4 fL (7.4-10.4); Platelet Count 361 K/uL (130-400); RDW Coefficient of Variation 16.8 % (11.5-14.5); RDW Standard Deviation 46.9 fL (36.4-46.3); Red Blood Count 3.89 M/uL (4.7-6.1)
[2021-06-23 05:56] LABS: BUN Creatinine Ratio 27.7 (10-20); Calcium 8.7 mg/dl (8.5-10.1); Creatinine Clr Calc Pharmacy 151.7 ml/min; Est GFR (African American) 131.7 ml/min; Est GFR (Non-African American) 113.6 ml/min; Potassium 3.5 mmol/L (3.5-5.1)
[2021-06-23 05:58] LABS: C Reactive Protein 2.08 mg/dl (0-0.29)
[2021-06-23] MEDS ORDERED: dexAMETHasone 4 MG TAB PO SCH (08:00)
[2021-06-23] MEDS: HYDROmorphone INJ 1 MG/ML SYRINGE IV PRN ×3 (08:22→21:25)
[2021-06-23] MEDS: DOCUSATE SODIUM 100 MG CAP PO SCH ×2 (08:29→21:26)
[2021-06-23] MEDS: ASCORBIC ACID 500 MG TAB PO SCH ×2 (08:29→16:56)
[2021-06-23] MEDS: MULTIVITAMIN TAB PO SCH (08:29)
[2021-06-23] MEDS: FERROUS SULFATE 325 MG TAB PO SCH ×3 (08:29→16:56)
[2021-06-23] MEDS: PANTOprazole 40 MG TAB PO SCH (08:30)
[2021-06-23] MEDS: ENOXAPARIN INJ 40 MG/0.4 ML SYR SQ SCH (08:30)
[2021-06-23] MEDS: hydrOXYzine HCl 25 MG TAB PO SCH (08:30)
[2021-06-23] MEDS: GABAPENTIN 300 MG CAP PO SCH ×3 (08:31→21:25)
[2021-06-23] MEDS: BUPRENORPHINE/NALOXONE 8/2 MG TAB SL SCH ×2 (08:31→21:24)
--- NOTE | 2021-06-23 08:32 | Orthopedic Progress Note ---
Date of Service June 23, 2021 Assessment & Plan (1) Septic joint of right knee joint: (2) Osteomyelitis of right knee region: (3) MRSA infection (methicillin-resistant Staphylococcus aureus): Day 1 S/p Right Tibial Hardware Removal with Open Debridement and Right Knee Arthroscopic Debridement -Making expected progress on POD 1. Clinically stable, expect higher requirement of pain meds for now. -Drain to remain in place today, possibly remove tomorrow -Pain control: PO oxycodone and IV dilaudid prn. Continue outpatient Suboxone, acetaminophen, gabapentin, and Celebrex. D/c toradol. -DVT prophylaxis: Lovenox -Antibiotics: IV vancomycin until cultures finalize. -Activity: He can be weightbearing as tolerated on the knee and use crutches that he has as needed. Continue PT/OT while inpatient. -Diet: Regular Disposition: Continue inpatient status. He may need parenteral antibiotic therapy for prolonged duration. Expect 3-5-day hospital stay. 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 Dispo status pending an infectious disease consult. Plan discussed w/ pt at bedside who voiced understanding. Subjective Cooperative this morning. Endorses moderate knee pain, worse w/ knee extension. No other concerns. Review of Systems All systems reviewed & are unremarkable except as noted in HPI & below. Physical Exam Dressing taken down for examination. Incisions C/D/I. No surrounding erythema or drainage. Drain w/ minimal bloody drainage. Some tenderness around incisions. Pain w/ PROM/AROM, worse w/ extension. ROM 15-95 degrees. Results & Data Results & Data Laboratory Results Laboratory Tests 06/23/21 06/23/21 06/23/21 05:08 05:08 05:08 WBC 12.10 H Hgb 8.8 L Hct 29.6 L Plt Count 361 ESR 79 H Sodium 136 Potassium 3.5 BUN 20 H Creatinine 0.73 Glucose 117 H C-Reactive Protein 2.08 H . Diagnostic Findings Knee MRI - Findings consistent w/ chronic/acute osteomyelitis. Interval removal of knee hardware w/ no areas of abscesses near hardware sites. PG Care Time/CCT Total # of Minutes Spent Total Time Spent with Patient: Total time spent is greater than 50% in coordination of care (as documented) at patient's floor/unit and/or counseling patient: Coding Level of Care Code 72913 Post Operative Follow-Up Diagnoses Septic joint of right knee joint M00.061 Septic arthritis organism: staphylococcal Osteomyelitis of right knee region M86.9 MRSA infection (methicillin-resistant Staphylococcus aureus) A49.02 (1) Septic joint of right knee joint Septic arthritis organism: staphylococcal Qualified Code(s): M00.061 - Staphylococcal arthritis, right knee
[2021-06-23] MEDS: VANCOMYCIN HCL 1,500 MG in SODIUM CHLORIDE 0.9% 500 ML IV SCH ×2 (10:59→21:27)
[2021-06-23] MEDS: SENNA 8.6 MG TAB PO SCH (21:26)
[2021-06-24] MEDS: HYDROmorphone INJ 1 MG/ML SYRINGE IV PRN ×2 (06:31→13:49)
[2021-06-24] MEDS: FERROUS SULFATE 325 MG TAB PO SCH ×3 (08:42→16:22)
[2021-06-24] MEDS: ENOXAPARIN INJ 40 MG/0.4 ML SYR SQ SCH (08:42)
[2021-06-24] MEDS: DOCUSATE SODIUM 100 MG CAP PO SCH ×2 (08:42→20:25)
[2021-06-24] MEDS: ASCORBIC ACID 500 MG TAB PO SCH ×2 (08:43→16:22)
[2021-06-24] MEDS: hydrOXYzine HCl 25 MG TAB PO SCH (08:43)
[2021-06-24] MEDS: GABAPENTIN 300 MG CAP PO SCH ×3 (08:43→20:23)
[2021-06-24] MEDS: PANTOprazole 40 MG TAB PO SCH (08:43)
[2021-06-24] MEDS: BUPRENORPHINE/NALOXONE 8/2 MG TAB SL SCH ×3 (08:43→20:45)
[2021-06-24] MEDS: MULTIVITAMIN TAB PO SCH (08:44)
[2021-06-24] MEDS ORDERED: VANCOMYCIN TROUGH ONE (09:30)
[2021-06-24] MEDS: VANCOMYCIN HCL 1,500 MG in SODIUM CHLORIDE 0.9% 500 ML IV SCH (10:48)
--- NOTE | 2021-06-24 11:46 | Orthopedic Progress Note ---
Date of Service June 24, 2021 Assessment & Plan (1) Septic joint of right knee joint: (2) Osteomyelitis of right knee region: (3) MRSA infection (methicillin-resistant Staphylococcus aureus): Day 2 S/p Right Tibial Hardware Removal with Open Debridement and Right Knee Arthroscopic Debridement -Making expected progress on POD 2. Clinically stable. -Infectious disease consult pending, should hear back later today. -Drain to remain in place today, reassess tomorrow for removal. Dressing changes daily prn if saturated. -Pain control: PO oxycodone and IV dilaudid prn, spoke to pt about trying to use less IV pain medication today and he was agreeable. Continue outpatient Suboxone , acetaminophen, gabapentin, and Celebrex. D/c toradol. -DVT prophylaxis: Lovenox -Antibiotics: IV vancomycin until cultures finalize. -Activity: He can be weightbearing as tolerated on the knee and use crutches that he has as needed. Continue PT/OT while inpatient. Encouraged pt to try OOB more, still hasn't been OOB post operatively. -Diet: Regular Disposition: Continue inpatient status. He may need parenteral antibiotic therapy for prolonged duration. Expect 3-5-day hospital stay. Case management will be needed to assist with placement given his social status and senior care antibiotic need. Dispo status pending an infectious disease consult. Plan discussed w/ pt at bedside who voiced understanding. Subjective No new clinical events. Feels tired this morning, pain is okay. Denies any other symptoms. Review of Systems All systems reviewed & are unremarkable except as noted in HPI & below. Physical Exam Dressing remained in place to examination. Drain w/ minimal bloody drainage. Knee remains tender. Pain w/ PROM/AROM, improved from yesterday.. ROM 15-95 degrees. . Results & Data Results & Data Laboratory Results None today . Diagnostic Findings None today . PG Care Time/CCT Total # of Minutes Spent Total Time Spent with Patient: Total time spent is greater than 50% in coordination of care (as documented) at patient's floor/unit and/or counseling patient: Coding Level of Care Code 99741 Post Operative Follow-Up Diagnoses Septic joint of right knee joint M00.061 Septic arthritis organism: staphylococcal Osteomyelitis of right knee region M86.9 MRSA infection (methicillin-resistant Staphylococcus aureus) A49.02 (1) Septic joint of right knee joint Septic arthritis organism: staphylococcal Qualified Code(s): M00.061 - Staphylococcal arthritis, right knee
--- NOTE | 2021-06-24 12:22 | Pharmacy Report ---
Pharmacy Vanc AUC Short Note - Date of Service June 24, 2021 - Assessment & Plan Assessment 41 year old M receiving vancomycin for treatment of MRSA joint infection. Pertinent microbiologic data includes: joint culture growing MRSA with vancomycin LYRIC of 1 per turbidity method. Day # 3 of antimicrobial therapy. Plan Vancomycin * AUC/LYRIC is the preferred PK/PD target for vancomycin * AUC guided dosing is effective and associated with decreased risk of ne phrotoxicity compared to traditional trough targets * Trough level of 7.6 mcg/mL is predicted to achieve target AUC/LYRIC of 400-600 mg/L.hr (predicted is 404 mg/L.hr) and may be associated with a 6 % risk of nephrotoxicity. * Change to 1250 mg IV every 8 hours (predicted to achieve AUC/LYRIC of 505 mg/L.hr which is more appropriate for confirmed MRSA infection) * Trough ordered for: 06/26/21 Pharmacy will continue to follow and will adjust dose/frequency as necessary. Thank you.
[2021-06-24] MEDS: VANCOMYCIN HCL 1,250 MG in SODIUM CHLORIDE 0.9% 250 ML IV SCH (16:21)
[2021-06-24] MEDS: oxyCODONE HCL IR 5 MG TAB (IMMEDIATE RELEASE) PO PRN (20:24)
[2021-06-24] MEDS: SENNA 8.6 MG TAB PO SCH (20:26)
[2021-06-25] MEDS: VANCOMYCIN HCL 1,250 MG in SODIUM CHLORIDE 0.9% 250 ML IV SCH ×4 (00:10→23:57)
[2021-06-25 00:16] LABS: Amphetamine Urine, Confirm 2700 ng/mL (<250); Marijuana Quant, GCMS Urine 35 ng/mL (<5); Methamphetamine, Ur Confirm 4570 ng/mL (<250)
[2021-06-25 07:48] LABS: Creatinine Clr Calc Pharmacy 184.6 ml/min; Est GFR (African American) 142.7 ml/min; Est GFR (Non-African American) 123.1 ml/min
[2021-06-25] MEDS: FERROUS SULFATE 325 MG TAB PO SCH ×3 (08:51→17:04)
[2021-06-25] MEDS: ENOXAPARIN INJ 40 MG/0.4 ML SYR SQ SCH (08:52)
[2021-06-25] MEDS: MULTIVITAMIN TAB PO SCH (08:52)
[2021-06-25] MEDS: hydrOXYzine HCl 25 MG TAB PO SCH (08:52)
[2021-06-25] MEDS: PANTOprazole 40 MG TAB PO SCH (08:53)
[2021-06-25] MEDS: ASCORBIC ACID 500 MG TAB PO SCH ×2 (08:53→17:04)
[2021-06-25] MEDS: GABAPENTIN 300 MG CAP PO SCH ×3 (08:53→20:25)
[2021-06-25] MEDS: DOCUSATE SODIUM 100 MG CAP PO SCH ×2 (08:53→20:25)
[2021-06-25] MEDS: BUPRENORPHINE/NALOXONE 8/2 MG TAB SL SCH ×2 (09:00→20:21)
--- NOTE | 2021-06-25 15:12 | Orthopedic Progress Note ---
Date of Service June 25, 2021 Assessment & Plan (1) Septic joint of right knee joint: (2) Osteomyelitis of right knee region: (3) MRSA infection (methicillin-resistant Staphylococcus aureus): Day 3 S/p Right Tibial Hardware Removal with Open Debridement and Right Knee Arthroscopic Debridement -Making expected progress on POD 3. Clinically stable. -Appreciate Infectious Disease input. Recommend 6 weeks of IV vancomycin. Needs PICC line. -Drain to remain in place today, reassess tomorrow for removal. Dressing changes daily prn if saturated. -Pain control: PO oxycodone and IV dilaudid prn, not needing any of either today. Continue outpatient Suboxone, acetaminophen, gabapentin, and Celebrex. -DVT prophylaxis: Lovenox -Antibiotics: IV vancomycin x 6 weeks total duration. -Activity: He can be weightbearing as tolerated on the knee and use crutches that he has as needed. Continue PT/OT while inpatient. Doing well OOB. -Diet: Regular Disposition: Continue inpatient status. He needs SNF vs inpatient rehab placement to finish his course of IV antibiotics given his history of IVDU and homelessness. Once drain is removed he is stable to discharge from orthopedic perspective. Plan discussed w/ pt at bedside who voiced understanding. Agreeable to SNF vs inpatient rehab after discharge. Subjective Awake and in good spirits today. States pain is much improved w/o IV pain meds. Has been OOB yesterday and today. No complaints. Review of Systems All systems reviewed & are unremarkable except as noted in HPI & below. Physical Exam Dressing remained in place to examination. Drain w/ minimal bloody/serosanguinous drainage. Knee is non-tender to palpation today. Minimal pain w/ AROM today, only with extension. ROM 15-95 degrees. . Results & Data Results & Data Laboratory Results None pertinent . Diagnostic Findings None new . PG Care Time/CCT Total # of Minutes Spent Total Time Spent with Patient: Total time spent is greater than 50% in coordination of care (as documented) at patient's floor/unit and/or counseling patient: Supervising Physician Co-Signing Physician Notes Patient seen and evaluated this afternoon. Knee symptoms much improved. Clinically improving. Agree that parenteral antibiotic therapy necessary to eradicate this diffuse osteomyelitis. No expected need for further surgery. Discharge/transfer will be a challenge. He is a high risk for PICC line if discharged to community. Will need to establish PICC line and continue vancomycin 6 weeks or until August 04. We can follow him in the ortho clinic until resolution. Should have primary care physician established, which would be helpful with vancomycin management and ongoing healthcare. Coding Level of Care Code 55386 Post Operative Follow-Up Diagnoses Septic joint of right knee joint M00.061 Septic arthritis organism: staphylococcal Osteomyelitis of right knee region M86.9 MRSA infection (methicillin-resistant Staphylococcus aureus) A49.02 (1) Septic joint of right knee joint Septic arthritis organism: staphylococcal Qualified Code(s): M00.061 - Staphylococcal arthritis, right knee
[2021-06-25] MEDS: HYDROmorphone INJ 1 MG/ML SYRINGE IV PRN (17:04)
[2021-06-25] MEDS ORDERED: hydrOXYzine HCl 25 MG TAB PO SCH (20:15)
[2021-06-25] MEDS: SENNA 8.6 MG TAB PO SCH (20:22)
[2021-06-26] MEDS ORDERED: VANCOMYCIN TROUGH ONE (07:30)
[2021-06-26 08:08] LABS: Basophils # (auto) 0.05 K/uL (0-0.2); Basophils % (auto) 0.5 %; Eosinophils # (auto) 0.41 K/uL (0-0.5); Eosinophils % (auto) 3.9 %; Hematocrit (blood only) 35.8 % (42-52); Hemoglobin 10.5 g/dL (14.0-18.0); Immature Granulocytes # (auto) 0.32 K/uL (0.00-0.02); Immature Granulocytes % (auto) 3.1 %; Lymphocytes # (auto) 2.95 K/uL (1.2-3.4); Lymphocytes % (auto) 28.4 %; Mean Corpuscular Hemoglobin 23.4 pg (25-34); Mean Corpuscular Hgb Conc 29.3 g/dL (32-36); Mean Corpuscular Volume 79.9 fL (80-100); Mean Platelet Volume 9.3 fL (7.4-10.4); Monocytes # (auto) 0.59 K/uL (0.11-0.59); Monocytes % (auto) 5.7 %; Neutrophils # (auto) 6.08 K/uL (1.4-6.5); Neutrophils % (auto) 58.4 %; Platelet Count 455 K/uL (130-400); RDW Coefficient of Variation 18.2 % (11.5-14.5); RDW Standard Deviation 51.8 fL (36.4-46.3); Red Blood Count 4.48 M/uL (4.7-6.1)
[2021-06-26] MEDS: VANCOMYCIN HCL 1,250 MG in SODIUM CHLORIDE 0.9% 250 ML IV SCH (08:24)
[2021-06-26] MEDS: FERROUS SULFATE 325 MG TAB PO SCH ×3 (08:26→17:47)
[2021-06-26] MEDS: ASCORBIC ACID 500 MG TAB PO SCH ×2 (08:26→17:47)
[2021-06-26] MEDS: MULTIVITAMIN TAB PO SCH (08:27)
[2021-06-26] MEDS: PANTOprazole 40 MG TAB PO SCH (08:27)
[2021-06-26] MEDS: GABAPENTIN 300 MG CAP PO SCH ×4 (08:27→20:46)
[2021-06-26] MEDS: ENOXAPARIN INJ 40 MG/0.4 ML SYR SQ SCH (08:28)
[2021-06-26 08:41] LABS: Est GFR (Non-African American) 119.9 ml/min
[2021-06-26] MEDS: BUPRENORPHINE/NALOXONE 8/2 MG TAB SL SCH ×2 (08:52→20:44)
[2021-06-26] MEDS: DOCUSATE SODIUM 100 MG CAP PO SCH ×2 (08:52→20:49)
--- NOTE | 2021-06-26 10:54 | Pharmacy Report ---
Pharmacy Vanc AUC Short Note - Date of Service June 26, 2021 - Assessment & Plan Assessment 41 year old M receiving Vancomycin for treatment of MRSA joint infection. Pertinent microbiologic data includes: Knee culture resulted in MRSA sensitive to Vancomycin (LYRIC = 2). Day #5 of antimicrobial therapy. Trough level was obtained today AM after 5 doses of Vancomycin 1250 mg IV Q8h. Level is steady state. Laboratory Tests 06/26/21 07:47 Vancomycin Trough 12.6 Plan Vancomycin * AUC/LYRIC is the preferred PK/PD target for vancomycin * AUC guided dosing is effective and associated with decreased risk of nephrotoxicity compared to traditional trough targets * Trough level of 12.6 mcg/mL is predicted to achieve target AUC/LYRIC of 400-600 mg/L.hr (specifically AUC = 478). * For patient with MRSA joint infection, would prefer to target the higher end of the goal AUC range. * Therefore, Vancomycin dose increased to 1500 mg IV q8h which is predicted to achieve a target AUC of 574 and may be associated with only 11% risk of nephrotoxicity. * Trough Vanco level ordered for: 06/27/21 before at 06:00. Pharmacy will continue to follow and will adjust dose/frequency as necessary. Thank you.
[2021-06-26] MEDS ORDERED: NICOTINE POLACRILEX 2 MG GUM MT PRN (13:28)
--- NOTE | 2021-06-26 13:34 | Orthopedic Progress Note ---
Date of Service June 26, 2021 Assessment & Plan (1) Septic joint of right knee joint: (2) Osteomyelitis of right knee region: (3) MRSA infection (methicillin-resistant Staphylococcus aureus): Day 4 S/p Right Tibial Hardware Removal with Open Debridement and Right Knee Arthroscopic Debridement -Making expected progress on POD 4. Clinically stable. -Appreciate Infectious Disease input. Recommend 6 weeks of IV vancomycin. Needs PICC line. Consent on file. -Drain to remain in place today, reassess tomorrow for removal. If by tomorrow his drainage is stable we will remove. Dressing changes daily prn if saturated. -Pain control: PO oxycodone and IV dilaudid prn, not needing any of either today. Continue outpatient Suboxone, acetaminophen, gabapentin, and Celebrex. -DVT prophylaxis: Lovenox -Antibiotics: IV vancomycin x 6 weeks total duration. -Activity: He can be weightbearing as tolerated on the knee and use crutches that he has as needed. Continue PT/OT while inpatient. Doing well OOB. -Diet: Regular Disposition: Continue inpatient status. He needs SNF vs inpatient rehab placement to finish his course of IV antibiotics given his history of IVDU and homelessness. Once drain is removed he is stable to discharge from orthopedic perspective. Spoke w/ Paper Maker today who is working on placement. Appreciate assistance. Plan discussed w/ pt at bedside who voiced understanding. Agreeable to SNF vs inpatient rehab after discharge. Subjective Doing well today. Pain controlled. No complaints. Review of Systems All systems reviewed & are unremarkable except as noted in HPI & below. Physical Exam Dressing remained in place during examination. Drain w/ minimal bloody/serosanguinous drainage. Knee is non-tender to palpation today. Minimal pain w/ AROM today, only with extension. ROM 15-95 degrees. . Results & Data Results & Data Laboratory Results Reviewed - CRP downtrending. Diagnostic Findings None new . PG Care Time/CCT Total # of Minutes Spent Total Time Spent with Patient: Total time spent is greater than 50% in coordination of care (as documented) at patient's floor/unit and/or counseling patient: Coding Level of Care Code 11530 Post Operative Follow-Up Diagnoses Septic joint of right knee joint M00.061 Septic arthritis organism: staphylococcal Osteomyelitis of right knee region M86.9 MRSA infection (methicillin-resistant Staphylococcus aureus) A49.02 (1) Septic joint of right knee joint Septic arthritis organism: staphylococcal Qualified Code(s): M00.061 - Staphylococcal arthritis, right knee
[2021-06-26] MEDS: VANCOMYCIN HCL 1,500 MG in SODIUM CHLORIDE 0.9% 500 ML IV SCH ×2 (14:27→20:51)
[2021-06-26] MEDS: NICOTINE POLACRILEX 2 MG GUM MT PRN (14:28)
[2021-06-26] MEDS: oxyCODONE HCL IR 5 MG TAB (IMMEDIATE RELEASE) PO PRN ×2 (14:35→20:46)
[2021-06-26] MEDS: hydrOXYzine HCl 25 MG TAB PO SCH ×2 (14:49→20:44)
[2021-06-26] MEDS: SENNA 8.6 MG TAB PO SCH (20:46)
[2021-06-27] MEDS: NICOTINE POLACRILEX 2 MG GUM MT PRN ×3 (01:46→14:56)
[2021-06-27] MEDS: VANCOMYCIN HCL 1,500 MG in SODIUM CHLORIDE 0.9% 500 ML IV SCH ×3 (05:27→21:23)
[2021-06-27 06:38] LABS: Creatinine Clr Calc Pharmacy 167.8 ml/min; Est GFR (African American) 137.2 ml/min; Est GFR (Non-African American) 118.4 ml/min
[2021-06-27] MEDS: BUPRENORPHINE/NALOXONE 8/2 MG TAB SL SCH ×2 (07:44→20:30)
[2021-06-27] MEDS: hydrOXYzine HCl 25 MG TAB PO SCH ×2 (07:45→20:30)
[2021-06-27] MEDS: PANTOprazole 40 MG TAB PO SCH (07:45)
[2021-06-27] MEDS: ASCORBIC ACID 500 MG TAB PO SCH ×2 (07:45→18:08)
[2021-06-27] MEDS: MULTIVITAMIN TAB PO SCH (07:46)
[2021-06-27] MEDS: FERROUS SULFATE 325 MG TAB PO SCH ×3 (07:46→17:44)
[2021-06-27] MEDS: GABAPENTIN 300 MG CAP PO SCH ×3 (07:47→20:31)
[2021-06-27] MEDS: ENOXAPARIN INJ 40 MG/0.4 ML SYR SQ SCH (07:47)
[2021-06-27] MEDS: DOCUSATE SODIUM 100 MG CAP PO SCH ×2 (07:52→20:31)
--- NOTE | 2021-06-27 08:56 | Orthopedic Progress Note ---
Date of Service June 27, 2021 Assessment & Plan (1) Septic joint of right knee joint: (2) Osteomyelitis of right knee region: (3) MRSA infection (methicillin-resistant Staphylococcus aureus): Day 5 S/p Right Tibial Hardware Removal with Open Debridement and Right Knee Arthroscopic Debridement -Making expected progress on POD 5. Clinically stable. -Appreciate Infectious Disease input. Recommend 6 weeks of IV vancomycin. Needs PICC line. Consent on file. -Drain removed this morning. Anticipate knee may have ongoing swelling given existing arthritis and infection. Elevate prn. Dressing changes daily prn if saturated. -Pain control: PO oxycodone and IV dilaudid prn, try to minimize use. Continue outpatient Suboxone, acetaminophen, gabapentin, and Celebrex. -DVT prophylaxis: Lovenox -Antibiotics: IV vancomycin x 6 weeks total duration. -Activity: He can be weightbearing as tolerated on the knee and use crutches that he has as needed. Continue PT/OT while inpatient. Doing well OOB. -Diet: Regular Disposition: Continue inpatient status. He needs SNF vs inpatient rehab [facility] to finish his course of IV antibiotics given his history of IVDU and homelessness. Drain removed, once PICC placed he is stable for discharge. Plan discussed w/ pt at bedside who voiced understanding. Subjective Doing well today. Pain controlled. No complaints. Review of Systems All systems reviewed & are unremarkable except as noted in HPI & below. Physical Exam Dressing taken down today. Incisions C/D/I, no drainage. Drain w/ minimal bloody/serosanguinous drainage. Knee is non-tender to palpation today. Minimal pain w/ AROM today, only with extension, which is improved. ROM 15-95 degrees. Results & Data Results & Data Laboratory Results None recent. Diagnostic Findings None recent. PG Care Time/CCT Total # of Minutes Spent Total Time Spent with Patient: Total time spent is greater than 50% in coordination of care (as documented) at patient's floor/unit and/or counseling patient: Coding Level of Care Code 74540 Post Operative Follow-Up Diagnoses Septic joint of right knee joint M00.061 Septic arthritis organism: staphylococcal Osteomyelitis of right knee region M86.9 MRSA infection (methicillin-resistant Staphylococcus aureus) A49.02 (1) Septic joint of right knee joint Septic arthritis organism: staphylococcal Qualified Code(s): M00.061 - Staphylococcal arthritis, right knee
--- NOTE | 2021-06-27 15:28 | Pharmacy Report ---
Pharmacy Vanc AUC Short Note - Date of Service June 27, 2021 - Assessment & Plan Assessment 41 year old M receiving Vancomycin for treatment of Osteomyelitis. Day # 6 of antimicrobial therapy. Trough Vancomycin obtained today afternoon at 14:30 after three maintenance doses of the Vanco 1500 mg IV q8h (dose increased yesterday afternoon). This level is at steady state. (A trough level was ordered this morning but it was drawn after the bag was hung at 05:30, therefore the level was not a true trough). Laboratory Tests 06/27/21 14:31 Vancomycin Trough 12.4 Plan Vancomycin * AUC/LYRIC is the preferred PK/PD target for vancomycin * AUC guided dosing is effective and associated with decreased risk of nephrotoxicity compared to traditional trough targets * Trough level of 12.4 mcg/mL is predicted to achieve target AUC/LYRIC of 400-600 mg/L.hr (specifically AUC = 556) and may be associated with only a 10% risk of nephrotoxicity. Actual extrapolated trough = 15 mg/L. * Continue dose of Vancomycin 1500 mg IV every 8 hours Pharmacy will continue to follow and will adjust dose/frequency as necessary. Thank you.
[2021-06-27] MEDS ORDERED: Nursing to Pharmacy Communication SCH (16:30)
[2021-06-27] MEDS: SENNA 8.6 MG TAB PO SCH (20:31)
[2021-06-28] MEDS: oxyCODONE HCL IR 5 MG TAB (IMMEDIATE RELEASE) PO PRN (00:12)
[2021-06-28] MEDS: VANCOMYCIN HCL 1,500 MG in SODIUM CHLORIDE 0.9% 500 ML IV SCH ×3 (05:14→21:16)
[2021-06-28] MEDS: hydrOXYzine HCl 25 MG TAB PO SCH ×2 (05:16→20:39)
[2021-06-28] MEDS: NICOTINE POLACRILEX 2 MG GUM MT PRN (08:03)
--- NOTE | 2021-06-28 08:26 | Progress Notes ---
DATE OF SERVICE: 06/28/2021. SUBJECTIVE: A 41-year-old gentleman, now 6 days out from I and D and hardware removal of a right kne e infection, status post previous ORIF. He has got MRSA infection. He seems to be doing pretty well this morning. The pain is controlled. He got a PICC line placed. OBJECTIVE: VITAL SIGNS: Temperature is 36.7. Vital signs are stable. GENERAL: Shows a pleasant middle-aged male. Lying in bed, looks pretty comfortable. EXTREMITIES: Examination of the right leg reveals the dressing to be clean, dry and intact. Very mi nimal swelling. He can flex and extend his knee and foot appropriately. He is neurologically intact . ASSESSMENT: A 41-year-old gentleman, now 6 days out from I and D and hardware removal for an MRSA in fection of his right knee. He appears pretty stable. Just waiting for placement. PICC line is in. He is on IV vancomycin. PLAN: Will be 6 weeks of IV vancomycin. We are just waiting for placement. Routine wound care. He will follow up with Dr. Hooper somewhere between 2 and 3 weeks postop. He is okay for discharge any time we can find him a residence or a place to recover. Job ID: [id number]
[2021-06-28] MEDS: FERROUS SULFATE 325 MG TAB PO SCH ×3 (10:02→17:47)
[2021-06-28] MEDS: PANTOprazole 40 MG TAB PO SCH (10:02)
[2021-06-28] MEDS: ASCORBIC ACID 500 MG TAB PO SCH ×2 (10:02→20:39)
[2021-06-28] MEDS: GABAPENTIN 300 MG CAP PO SCH ×3 (10:03→20:39)
[2021-06-28] MEDS: MULTIVITAMIN TAB PO SCH (10:03)
[2021-06-28] MEDS: ENOXAPARIN INJ 40 MG/0.4 ML SYR SQ SCH (10:04)
[2021-06-28] MEDS: BUPRENORPHINE/NALOXONE 8/2 MG TAB SL SCH ×2 (10:17→20:38)
[2021-06-28] MEDS: DOCUSATE SODIUM 100 MG CAP PO SCH ×2 (10:17→20:38)
[2021-06-28] MEDS: SENNA 8.6 MG TAB PO SCH (20:38)
[2021-06-29] MEDS: NICOTINE POLACRILEX 2 MG GUM MT PRN ×4 (00:12→22:30)
[2021-06-29] MEDS: hydrOXYzine HCl 25 MG TAB PO SCH ×2 (05:50→21:07)
[2021-06-29] MEDS: VANCOMYCIN HCL 1,500 MG in SODIUM CHLORIDE 0.9% 500 ML IV SCH ×3 (05:50→22:11)
[2021-06-29 06:50] LABS: Creatinine Clr Calc Pharmacy 165.3 ml/min; Est GFR (African American) 136.4 ml/min; Est GFR (Non-African American) 117.7 ml/min
[2021-06-29] MEDS: BUPRENORPHINE/NALOXONE 8/2 MG TAB SL SCH ×2 (08:05→22:11)
[2021-06-29] MEDS: PANTOprazole 40 MG TAB PO SCH (09:59)
[2021-06-29] MEDS: ASCORBIC ACID 500 MG TAB PO SCH ×2 (09:59→18:38)
[2021-06-29] MEDS: FERROUS SULFATE 325 MG TAB PO SCH ×3 (10:00→18:39)
[2021-06-29] MEDS: MULTIVITAMIN TAB PO SCH (10:00)
[2021-06-29] MEDS: ENOXAPARIN INJ 40 MG/0.4 ML SYR SQ SCH (10:01)
[2021-06-29] MEDS: GABAPENTIN 300 MG CAP PO SCH ×3 (10:01→21:07)
--- NOTE | 2021-06-29 11:46 | Progress Notes ---
DATE: 06/29/2021. SUBJECTIVE: A 41-year-old gentleman now 1 week out from I and D and hardware removal for an infected right knee and leg. No new complaints today. Pain seems to be controlled. He is resting comfortab ly. OBJECTIVE: VITAL SIGNS: Temperature 36.6. Vital signs are stable. GENERAL: Physical examination shows this is a pleasant middle-aged male. He is lying in bed, looks pretty comfortable. EXTREMITIES: Examination of the leg reveals dressing to be clean, dry and intact. Calf is soft and supple. He is neurologically stable. ASSESSMENT: A 41-year-old gentleman now 1 week out from I and D and hardware removal for infected le g with an MRSA infection. He is ready for discharge, but just waiting for placement. PLAN: Continue IV antibiotics for a total of 6 weeks. Routine wound care. We are just awaiting andrea cement. Follow up with Dr. Hooper in about 2 weeks out from surgery. Job ID: [id number]
[2021-06-29] MEDS: DOCUSATE SODIUM 100 MG CAP PO SCH ×2 (14:46→21:07)
[2021-06-29] MEDS: SENNA 8.6 MG TAB PO SCH (21:07)
[2021-06-29] MEDS: ACETAMINOPHEN 500 MG TAB PO PRN (22:30)
[2021-06-30] MEDS: NICOTINE POLACRILEX 2 MG GUM MT PRN ×6 (01:05→19:19)
[2021-06-30] MEDS ORDERED: VANCOMYCIN TROUGH ONE (05:30)
[2021-06-30] MEDS: VANCOMYCIN HCL 1,500 MG in SODIUM CHLORIDE 0.9% 500 ML IV SCH (06:24)
[2021-06-30] MEDS: MULTIVITAMIN TAB PO SCH (07:51)
[2021-06-30] MEDS: ASCORBIC ACID 500 MG TAB PO SCH ×2 (07:51→17:11)
[2021-06-30] MEDS: PANTOprazole 40 MG TAB PO SCH (07:51)
[2021-06-30] MEDS: FERROUS SULFATE 325 MG TAB PO SCH ×3 (07:52→17:11)
[2021-06-30] MEDS: GABAPENTIN 300 MG CAP PO SCH ×3 (07:53→20:19)
[2021-06-30] MEDS: ENOXAPARIN INJ 40 MG/0.4 ML SYR SQ SCH (07:54)
[2021-06-30] MEDS: hydrOXYzine HCl 25 MG TAB PO SCH ×2 (08:04→21:37)
[2021-06-30] MEDS: DOCUSATE SODIUM 100 MG CAP PO SCH ×2 (08:05→20:19)
[2021-06-30] MEDS: BUPRENORPHINE/NALOXONE 8/2 MG TAB SL SCH ×2 (08:05→19:18)
--- NOTE | 2021-06-30 08:46 | Orthopedic Progress Note ---
Date of Service June 30, 2021 Assessment & Plan (1) Septic joint of right knee joint: (2) Osteomyelitis of right knee region: (3) MRSA infection (methicillin-resistant Staphylococcus aureus): 1 week S/p Right Tibial Hardware Removal with Open Debridement and Right Knee Arthroscopic Debridement -Making expected progress. Clinically stable. -Plan for 6 weeks of IV vancomycin per ID recs. Appreciate assistance. PICC in place. -Elevate RLE prn. Dressing changes daily prn if saturated. -Pain control: PO oxycodone and IV dilaudid prn, not requiring. Continue outpatient Suboxone, acetaminophen, gabapentin, and Celebrex. -DVT prophylaxis: Lovenox -Activity: He can be weightbearing as tolerated on the knee and use crutches that he has as needed. Continue PT/OT while inpatient. -Diet: Regular Disposition: Stable for discharge. He needs SNF vs inpatient rehab placement to finish his course of IV antibiotics given his history of IVDU and homelessness. Subjective No issues today. Denies any pain or other complaints. Review of Systems All systems reviewed & are unremarkable except as noted in HPI & below. Physical Exam Dressing remained in place. Knee is non-tender to palpation today. Minimal pain w/ AROM today, only with extension. ROM 15-95 degrees. . Results & Data Results & Data Laboratory Results None recent . Diagnostic Findings None recent. PG Care Time/CCT Total # of Minutes Spent Total Time Spent with Patient: Total time spent is greater than 50% in [facility] of care (as documented) at patient's floor/unit and/or counseling patient: Supervising Physician Co-Signing Physician Notes Agree with above. I saw and evaluated the patient. He is much improved on exam with regard to motion and edema. Motion will be a chronic problem due to chronic deformity and osteoarthritis. Goal is to eradicate this chronic osteomyelitis infection. He needs to establish primary care. Appreciate case management work on this. Continue to wait for placement. Coding Level of Care Code 82806 Post Operative Follow-Up Diagnoses Septic joint of right knee joint M00.061 Septic arthritis organism: staphylococcal Osteomyelitis of right knee region M86.9 MRSA infection (methicillin-resistant Staphylococcus aureus) A49.02 (1) Septic joint of right knee joint Septic arthritis organism: staphylococcal Qualified Code(s): M00.061 - Staphylococcal arthritis, right knee
--- NOTE | 2021-06-30 08:55 | Pharmacy Report ---
Pharmacy Abx Dose Short Note - Date of Service June 30, 2021 - Assessment & Plan Assessment 41 year old M receiving IV vancomycin for treatment of osteo/MRSA infection Day # 9 of antimicrobial therapy. Plan Vancomycin * Trough level came back at ~14 mcg/ml - ideally want closer to ~15 - 20 mcg/ml per ID rec's * Will plan to increase vancomycin to 1750 mg iv q 8 hrs to target higher trough. Based upon estimated kinetics this new dosing will produce trough le fatimah closer to ~17 mcg/ml. PAUC - 100% * Patient will need 6 weeks of IV therapy with vancomycin. Currently awaiting placement * Would recommend checking trough every 3-5 days or once weekly once levels stable. Would recommend checking Scr at least 1-2x/weekly Pharmacy will continue to follow and will adjust dose/frequency as necessary. Thank you.
[2021-06-30] MEDS: VANCOMYCIN HCL 1,750 MG in SODIUM CHLORIDE 0.9% 500 ML IV SCH ×2 (12:47→21:37)
[2021-06-30] MEDS: SENNA 8.6 MG TAB PO SCH (20:19)
[2021-07-01] MEDS: VANCOMYCIN HCL 1,750 MG in SODIUM CHLORIDE 0.9% 500 ML IV SCH ×3 (05:24→22:12)
[2021-07-01 07:05] LABS: Creatinine Clr Calc Pharmacy 184.6 ml/min; Est GFR (African American) 142.7 ml/min; Est GFR (Non-African American) 123.1 ml/min
--- NOTE | 2021-07-01 08:09 | Orthopedic Progress Note ---
Date of Service July 01, 2021 Assessment & Plan (1) Septic joint of right knee joint: (2) Osteomyelitis of right knee region: (3) MRSA infection (methicillin-resistant Staphylococcus aureus): 1 week S/p Right Tibial Hardware Removal with Open Debridement and Right Knee Arthroscopic Debridement -Making expected progress. Clinically stable/improving. -Plan for 6 weeks of IV vancomycin per ID recs. Appreciate assistance. PICC in place. -Elevate RLE prn for swelling. Incisions can be open to air now. -Pain control: PO oxycodone prn, not requiring much. D/c prn dilaudid. Continue outpatient Suboxone, acetaminophen, gabapentin, and Celebrex. -DVT prophylaxis: Lovenox -Activity: He can be weightbearing as tolerated on the knee and use crutches that he has as needed. Continue PT/OT while inpatient. -Diet: Regular Disposition: Stable for discharge. He needs SNF vs inpatient rehab placement to finish his course of IV antibiotics given his history of IVDU and homelessness. Subjective Doing well today. Needed some oxycodone earlier but otherwise pain is pretty well controlled. No complaints. Review of Systems All systems reviewed & are unremarkable except as noted in HPI & below. Physical Exam Dressing removed. Incisions well approximated and healing well. Knee is non- tender to palpation today. Nontender. Minimal knee effusion. No pain w/ AROM. ROM improved, 10-100 degrees. . Results & Data Results & Data Laboratory Results None new . Diagnostic Findings None new . PG Care Time/CCT Total # of Minutes Spent Total Time Spent with Patient: Total time spent is greater than 50% in coordination of care (as documented) at patient's floor/unit and/or counseling patient: Coding Level of Care Code 50261 Post Operative Follow-Up Diagnoses Septic joint of right knee joint M00.061 Septic arthritis organism: staphylococcal Osteomyelitis of right knee region M86.9 MRSA infection (methicillin-resistant Staphylococcus aureus) A49.02 (1) Septic joint of right knee joint Septic arthritis organism: staphylococcal Qualified Code(s): M00.061 - Stap hylococcal arthritis, right knee
[2021-07-01] MEDS: oxyCODONE HCL IR 5 MG TAB (IMMEDIATE RELEASE) PO PRN (08:48)
[2021-07-01] MEDS: ASCORBIC ACID 500 MG TAB PO SCH ×2 (09:54→17:25)
[2021-07-01] MEDS: FERROUS SULFATE 325 MG TAB PO SCH ×3 (09:55→17:25)
[2021-07-01] MEDS: BUPRENORPHINE/NALOXONE 8/2 MG TAB SL SCH ×2 (09:55→21:16)
[2021-07-01] MEDS: DOCUSATE SODIUM 100 MG CAP PO SCH ×2 (09:56→21:16)
[2021-07-01] MEDS: ENOXAPARIN INJ 40 MG/0.4 ML SYR SQ SCH (09:56)
[2021-07-01] MEDS: hydrOXYzine HCl 25 MG TAB PO SCH ×2 (09:57→21:16)
[2021-07-01] MEDS: MULTIVITAMIN TAB PO SCH (09:58)
[2021-07-01] MEDS: PANTOprazole 40 MG TAB PO SCH (09:58)
[2021-07-01] MEDS: GABAPENTIN 300 MG CAP PO SCH ×3 (09:59→21:17)
[2021-07-01] MEDS: NICOTINE POLACRILEX 2 MG GUM MT PRN ×2 (10:03→15:14)
[2021-07-01] MEDS: SENNA 8.6 MG TAB PO SCH (21:17)
[2021-07-02] MEDS: VANCOMYCIN HCL 1,750 MG in SODIUM CHLORIDE 0.9% 500 ML IV SCH ×3 (05:25→21:45)
[2021-07-02 08:05] LABS: Basophils # (auto) 0.06 K/uL (0-0.2); Basophils % (auto) 0.8 %; Eosinophils % (auto) 6.9 %; Hematocrit (blood only) 34.5 % (42-52); Hemoglobin 10.2 g/dL (14.0-18.0); Immature Granulocytes # (auto) 0.08 K/uL (0.00-0.02); Immature Granulocytes % (auto) 1.1 %; Lymphocytes # (auto) 1.98 K/uL (1.2-3.4); Lymphocytes % (auto) 27.2 %; Mean Corpuscular Hemoglobin 23.4 pg (25-34); Mean Corpuscular Hgb Conc 29.6 g/dL (32-36); Mean Corpuscular Volume 79.1 fL (80-100); Mean Platelet Volume 9.6 fL (7.4-10.4); Monocytes # (auto) 0.71 K/uL (0.11-0.59); Monocytes % (auto) 9.8 %; Neutrophils # (auto) 3.95 K/uL (1.4-6.5); Neutrophils % (auto) 54.2 %; Platelet Count 296 K/uL (130-400); RDW Coefficient of Variation 19.8 % (11.5-14.5); RDW Standard Deviation 57.6 fL (36.4-46.3); Red Blood Count 4.36 M/uL (4.7-6.1); White Blood Count 7.28 K/uL (4.8-10.8)
[2021-07-02] MEDS: GABAPENTIN 300 MG CAP PO SCH (08:20)
[2021-07-02] MEDS: PANTOprazole 40 MG TAB PO SCH (08:22)
[2021-07-02] MEDS: FERROUS SULFATE 325 MG TAB PO SCH ×3 (08:22→16:39)
[2021-07-02] MEDS: MULTIVITAMIN TAB PO SCH (08:22)
[2021-07-02] MEDS: ASCORBIC ACID 500 MG TAB PO SCH ×2 (08:22→16:39)
[2021-07-02] MEDS: ENOXAPARIN INJ 40 MG/0.4 ML SYR SQ SCH (08:23)
[2021-07-02] MEDS: NICOTINE POLACRILEX 2 MG GUM MT PRN ×3 (08:25→21:57)
[2021-07-02] MEDS: hydrOXYzine HCl 25 MG TAB PO SCH ×2 (08:36→21:44)
[2021-07-02] MEDS: DOCUSATE SODIUM 100 MG CAP PO SCH ×2 (08:36→21:44)
[2021-07-02] MEDS: BUPRENORPHINE/NALOXONE 8/2 MG TAB SL SCH ×2 (08:36→21:44)
[2021-07-02 08:40] LABS: C Reactive Protein 1.55 mg/dl (0-0.29); Creatinine Clr Calc Pharmacy 217.1 ml/min; Est GFR (African American) > 150.0 ml/min; Est GFR (Non-African American) 131.7 ml/min
--- NOTE | 2021-07-02 08:43 | Orthopedic Progress Note ---
Date of Service July 02, 2021 Assessment & Plan (1) Septic joint of right knee joint: (2) Osteomyelitis of right knee region: (3) MRSA infection (methicillin-resistant Staphylococcus aureus): 1 week S/p Right Tibial Hardware Removal with Open Debridement and Right Knee Arthroscopic Debridement -Making expected progress. Clinically stable/improving. -Plan for 6 weeks of IV vancomycin per ID recs. Appreciate assistance. PICC in place. -Elevate RLE prn for swelling. Incisions can be open to air. -Pain control: PO oxycodone prn, not requiring much.Continue outpatient Suboxone, acetaminophen, and Celebrex. D/c gabapentin, pt not taking. -DVT prophylaxis: Lovenox -Activity: He can be weightbearing as tolerated on the knee and use crutches that he has as needed. Continue PT/OT while inpatient. Encouraged him to continue straight leg raises for quad strengthening while in bed. -Diet: Regular Disposition: Stable for discharge. He needs SNF vs inpatient rehab placement to finish his course of IV antibiotics given his history of IVDU and homelessness. Subjective Doing well today. No pain. No complaints Review of Systems All systems reviewed & are unremarkable except as noted in HPI & below. Physical Exam Incisions well approximated and healing well. Knee is non-tender to palpation today. Minimal knee effusion. No pain w/ AROM. ROM improved, 10-100 degrees. Results & Data Results & Data Laboratory Results Laboratory Tests 07/02/21 07/02/21 07:42 07:42 WBC 7.28 Hgb 10.2 L Hct 34.5 L Plt Count 296 C-Reactive Protein 1.55 H . Diagnostic Findings None recent . PG Care Time/CCT Total # of Minutes Spent Total Time Spent with Patient: Total time spent is greater than 50% in coordination of care (as documented) at patient's floor/unit and/or counseling patient: Coding Level of Care Code 00594 Post Operative Follow-Up Diagnoses Septic joint of right knee joint M00.061 Septic arthritis organism: staphylococcal Osteomyelitis of right knee region M86.9 MRSA infection (methicillin-resistant Staphylococcus aureus) A49.02 (1) Septic joint of right knee joint Septic arthritis organism: staphylococcal Qualified Code(s): M00.061 - Staphylococcal arthritis, right knee
[2021-07-02] MEDS ORDERED: VANCOMYCIN TROUGH ONE (13:30)
--- NOTE | 2021-07-02 15:10 | Pharmacy Report ---
Pharmacy Vanc AUC Short Note - Date of Service July 02, 2021 - Assessment & Plan Assessment 41 year old M receiving IV vancomycin for treatment of MRSA osteomyelitis of right knee * s/p right tibial hardware removal with open debridement and R knee arthroscopic debridement * ID recommending 6 weeks of IV vancomycin * Day # 10 of antimicrobial therapy Plan Vancomycin * Trough level of 15.7 mcg/mL is predicted to achieve target AUC/LYRIC of 400-600 mg/L.hr and may be associated with a 12% risk of nephrotoxicity * AUC/LYRIC is the preferred PK/PD target for vancomycin * AUC guided dosing is effective and associated with decreased risk of nephrotoxicity compared to traditional trough targets * Continue vancomycin 1750 mg IV every 8 hours * Would recommend checking trough every 3-5 days or once weekly once levels stable. Would recommend checking Scr at least 1-2x/weekly Pharmacy will continue to follow and will adjust dose/frequency as necessary. Thank you.
[2021-07-02] MEDS: SENNA 8.6 MG TAB PO SCH (21:46)
[2021-07-02] MEDS: oxyCODONE HCL IR 5 MG TAB (IMMEDIATE RELEASE) PO PRN (21:51)
[2021-07-03] MEDS: VANCOMYCIN HCL 1,750 MG in SODIUM CHLORIDE 0.9% 500 ML IV SCH ×3 (05:51→22:00)
[2021-07-03 06:17] LABS: Creatinine Clr Calc Pharmacy 178.6 ml/min; Est GFR (African American) 140.8 ml/min; Est GFR (Non-African American) 121.5 ml/min
[2021-07-03] MEDS: ENOXAPARIN INJ 40 MG/0.4 ML SYR SQ SCH (08:34)
--- NOTE | 2021-07-03 08:40 | Orthopedic Progress Note ---
Date of Service July 03, 2021 Assessment & Plan (1) Septic joint of right knee joint: (2) Osteomyelitis of right knee region: (3) MRSA infection (methicillin-resistant Staphylococcus aureus): 1 week S/p Right Tibial Hardware Removal with Open Debridement and Right Knee Arthroscopic Debridement -Making expected progress. Clinically stable/improving. -Plan for 6 weeks of IV vancomycin per ID recs. Appreciate assistance. PICC in place. -Elevate RLE prn for swelling. Incisions can be open to air. -Pain control: PO oxycodone prn, not requiring much.Continue outpatient Suboxone, acetaminophen, and Celebrex. D/c gabapentin, pt not taking. -DVT prophylaxis: Lovenox -Activity: He can be weightbearing as tolerated on the knee and use crutches that he has as needed. Continue PT/OT while inpatient. Encouraged him to continue straight leg raises for quad strengthening while in bed. -Diet: Regular Disposition: Stable for discharge. He needs SNF vs inpatient rehab placement to finish his course of IV antibiotics given his history of IVDU and homelessness. Subjective No pain, no complaints. Review of Systems All systems reviewed & are unremarkable except as noted in HPI & below. Physical Exam Incisions well approximated and healing well. Knee is non-tender to palpation today. Minimal knee effusion. No pain w/ AROM. ROM 10-100 degrees. Results & Data Results & Data Laboratory Results N/A . Diagnostic Findings N/A . PG Care Time/CCT Total # of Minutes Spent Total Time Spent with Patient: Total time spent is greater than 50% in coordination of care (as documented) at patient's floor/unit and/or counseling patient: Coding Level of Care Code 34802 Post Operative Follow-Up Diagnoses Septic joint of right knee joint M00.061 Septic arthritis organism: staphylococcal Osteomyelitis of right knee region M86.9 MRSA infection (methicillin-resistant Staphylococcus aureus) A49.02 (1) Septic joint of right knee joint Septic arthritis organism: staphylococcal Qualified Code(s): M00.061 - Staphylococcal arthritis, right knee
[2021-07-03] MEDS: DOCUSATE SODIUM 100 MG CAP PO SCH ×2 (08:53→22:00)
[2021-07-03] MEDS: MULTIVITAMIN TAB PO SCH (08:53)
[2021-07-03] MEDS: hydrOXYzine HCl 25 MG TAB PO SCH ×2 (08:53→22:00)
[2021-07-03] MEDS: PANTOprazole 40 MG TAB PO SCH (08:53)
[2021-07-03] MEDS: ASCORBIC ACID 500 MG TAB PO SCH ×2 (08:53→17:30)
[2021-07-03] MEDS: FERROUS SULFATE 325 MG TAB PO SCH ×3 (08:53→17:30)
[2021-07-03] MEDS: BUPRENORPHINE/NALOXONE 8/2 MG TAB SL SCH ×2 (10:24→22:00)
[2021-07-03] MEDS: NICOTINE POLACRILEX 2 MG GUM MT PRN ×2 (17:31→22:03)
[2021-07-03] MEDS: ALUMINUM/MAGNESIUM SUSP 30 ML UDC PO PRN (17:59)
[2021-07-03] MEDS: SENNA 8.6 MG TAB PO SCH (21:59)
[2021-07-04] MEDS: VANCOMYCIN HCL 1,750 MG in SODIUM CHLORIDE 0.9% 500 ML IV SCH ×3 (05:04→21:29)
[2021-07-04] MEDS: oxyCODONE HCL IR 5 MG TAB (IMMEDIATE RELEASE) PO PRN ×2 (05:09→21:36)
[2021-07-04] MEDS: hydrOXYzine HCl 25 MG TAB PO SCH ×2 (08:06→21:36)
[2021-07-04] MEDS: PANTOprazole 40 MG TAB PO SCH (08:06)
[2021-07-04] MEDS: ENOXAPARIN INJ 40 MG/0.4 ML SYR SQ SCH (08:06)
[2021-07-04] MEDS: FERROUS SULFATE 325 MG TAB PO SCH ×3 (08:06→17:13)
[2021-07-04] MEDS: MULTIVITAMIN TAB PO SCH (08:06)
[2021-07-04] MEDS: ASCORBIC ACID 500 MG TAB PO SCH ×2 (08:06→17:13)
[2021-07-04] MEDS: BUPRENORPHINE/NALOXONE 8/2 MG TAB SL SCH ×2 (08:06→21:28)
[2021-07-04] MEDS: NICOTINE POLACRILEX 2 MG GUM MT PRN ×4 (08:11→23:57)
[2021-07-04] MEDS: DOCUSATE SODIUM 100 MG CAP PO SCH ×2 (08:15→21:35)
--- NOTE | 2021-07-04 08:34 | Orthopedic Progress Note ---
Date of Service July 04, 2021 Assessment & Plan (1) Septic joint of right knee joint: (2) Osteomyelitis of right knee region: (3) MRSA infection (methicillin-resistant Staphylococcus aureus): 11 days S/p Right Tibial Hardware Removal with Open Debridement and Right Knee Arthroscopic Debridement -Making expected progress. Clinically stable/improving. -Plan for 6 weeks of IV vancomycin per ID recs. Appreciate assistance. PICC in place. -Elevate RLE prn for swelling. Incisions can be open to air. Will remove sutures at some point this weekend. -Pain control: PO oxycodone prn.Continue outpatient Suboxone, acetaminophen, and Celebrex. -DVT prophylaxis: Lovenox -Activity: He can be weightbearing as tolerated on the knee and use crutches that he has as needed. Continue PT/OT while inpatient. Encouraged him to continue straight leg raises for quad strengthening while in bed. -Diet: Regular Disposition: Stable for discharge. He needs SNF vs inpatient rehab placement to finish his course of IV antibiotics given his history of IVDU and homelessness. Subjective A little nauseous today, attributes it to his Suboxone. Pain well controlled. Review of Systems All systems reviewed & are unremarkable except as noted in HPI & below. Physical Exam Incisions well approximated and healing well. Knee is non-tender to palpation today. Minimal knee effusion. No pain w/ AROM. ROM 10-110 degrees . He has improvement with straight leg raising and can perform this with reasonably good control. Results & Data Results & Data Laboratory Results Pending today. Diagnostic Findings None recent . PG Care Time/CCT Total # of Minutes Spent Total Time Spent with Patient: Total time spent is greater than 50% in coordination of care (as documented) at patient's floor/unit and/or counseling patient: Coding Level of Care Code 01445 Post Operative Follow-Up Diagnoses Septic joint of right knee joint M00.061 Septic arthritis organism: staphylococcal Osteomyelitis of right knee region M86.9 MRSA infection (methicillin-resistant Staphylococcus aureus) A49.02 (1) Septic joint of right knee joint Septic arthritis organism: staphylococcal Qualified Code(s): M00.061 - Staphylococcal arthritis, right knee
[2021-07-04 08:46] LABS: Basophils # (auto) 0.05 K/uL (0-0.2); Basophils % (auto) 0.6 %; Eosinophils # (auto) 0.49 K/uL (0-0.5); Eosinophils % (auto) 6.3 %; Hematocrit (blood only) 35.4 % (42-52); Hemoglobin 10.6 g/dL (14.0-18.0); Immature Granulocytes # (auto) 0.05 K/uL (0.00-0.02); Immature Granulocytes % (auto) 0.6 %; Lymphocytes # (auto) 2.24 K/uL (1.2-3.4); Lymphocytes % (auto) 28.8 %; Mean Corpuscular Hemoglobin 23.8 pg (25-34); Mean Corpuscular Hgb Conc 29.9 g/dL (32-36); Mean Corpuscular Volume 79.4 fL (80-100); Mean Platelet Volume 9.8 fL (7.4-10.4); Monocytes # (auto) 0.63 K/uL (0.11-0.59); Monocytes % (auto) 8.1 %; Neutrophils # (auto) 4.33 K/uL (1.4-6.5); Neutrophils % (auto) 55.6 %; Platelet Count 266 K/uL (130-400); Red Blood Count 4.46 M/uL (4.7-6.1); White Blood Count 7.79 K/uL (4.8-10.8)
[2021-07-04 09:06] LABS: Blood Urea Nitrogen 15 mg/dl (7-18); Calcium 9.1 mg/dl (8.5-10.1); Carbon Dioxide 29 mmol/L (21-32); Chloride 106 mmol/L (98-107); Creatinine Clr Calc Pharmacy 208.9 ml/min; Est GFR (African American) > 150.0 ml/min; Est GFR (Non-African American) 129.6 ml/min; Glucose 130 mg/dl (70-99); Potassium 3.9 mmol/L (3.5-5.1); Sodium 139 mmol/L (136-145)
[2021-07-04 09:14] LABS: Anisocytosis Present
[2021-07-04] MEDS: SENNA 8.6 MG TAB PO SCH (21:28)
[2021-07-04] MEDS: ACETAMINOPHEN 500 MG TAB PO PRN (21:37)
[2021-07-05] MEDS ORDERED: VANCOMYCIN TROUGH ONE (05:30)
[2021-07-05] MEDS: VANCOMYCIN HCL 1,750 MG in SODIUM CHLORIDE 0.9% 500 ML IV SCH ×3 (06:06→23:03)
[2021-07-05 06:34] LABS: Creatinine Clr Calc Pharmacy 170.4 ml/min; Est GFR (African American) 138.1 ml/min; Est GFR (Non-African American) 119.2 ml/min
[2021-07-05] MEDS: NICOTINE POLACRILEX 2 MG GUM MT PRN ×3 (07:32→18:05)
[2021-07-05] MEDS: ASCORBIC ACID 500 MG TAB PO SCH ×2 (08:53→16:46)
[2021-07-05] MEDS: SENNA 8.6 MG TAB PO SCH (08:55)
--- NOTE | 2021-07-05 09:09 | Pharmacy Report ---
Pharmacy Abx Dose Short Note - Date of Service July 05, 2021 - Assessment & Plan Assessment 41 year old M receiving IV vancomycin for treatment of MRSA osteomyelitis of right knee * s/p right tibial hardware removal with open debridement and R knee arthroscopic debridement * ID recommending 6 weeks of IV vancomycin Plan Vancomycin * Trough level came back therapeutic at ~17.6 mcg/ml (goal 15-20 mcg/ml) * Plan to continue vancomycin 1750 mg IV every 8 hours dosing * Would recommend checking trough every 3-5 days or once weekly once levels stable. Would recommend checking Scr at least 1-2x/weekly Pharmacy will continue to follow and will adjust dose/frequency as necessary. Thank you.
[2021-07-05] MEDS: BUPRENORPHINE/NALOXONE 8/2 MG TAB SL SCH ×2 (09:10→22:23)
[2021-07-05] MEDS: PANTOprazole 40 MG TAB PO SCH (09:10)
[2021-07-05] MEDS: MULTIVITAMIN TAB PO SCH (09:10)
[2021-07-05] MEDS: hydrOXYzine HCl 25 MG TAB PO SCH ×2 (09:11→22:27)
[2021-07-05] MEDS: FERROUS SULFATE 325 MG TAB PO SCH ×3 (09:12→16:44)
[2021-07-05] MEDS: DOCUSATE SODIUM 100 MG CAP PO SCH ×2 (09:12→22:27)
[2021-07-05] MEDS: ENOXAPARIN INJ 40 MG/0.4 ML SYR SQ SCH (09:13)
--- NOTE | 2021-07-05 12:19 | Orthopedic Progress Note ---
Date of Service July 05, 2021 Assessment & Plan (1) Septic joint of right knee joint: (2) Osteomyelitis of right knee region: (3) MRSA infection (methicillin-resistant Staphylococcus aureus): 12 days S/p Right Tibial Hardware Removal with Open Debridement and Right Knee Arthroscopic Debridement No change the plan of care. Vancomycin at goal. -Making expected progress. Clinically stable/improving. -Plan for 6 weeks of IV vancomycin per ID recs. Appreciate assistance. PICC in place. -Elevate RLE prn for swelling. Incisions can be open to air. Will remove sutures at some point this weekend. -Pain control: PO oxycodone prn.Continue outpatient Suboxone, acetaminophen, and Celebrex. -DVT prophylaxis: Lovenox -Activity: He can be weightbearing as tolerated on the knee and use crutches that he has as needed. Continue PT/OT while inpatient. Encouraged him to continue straight leg raises for quad strengthening while in bed. -Diet: Regular Disposition: Stable for discharge. He needs SNF vs inpatient rehab placement to finish his course of IV antibiotics given his history of IVDU and homelessness. Subjective No issues. Trying to get some sleep on my arrival. Review of Systems All systems reviewed & are unremarkable except as noted in HPI & below. Physical Exam Incisions well approximated and healing well. Knee is non-tender to palpation today. Minimal knee effusion. No pain w/ AROM. ROM 10-110 degrees . He has improvement with straight leg raising and can perform this with reasonably good control. Constitutional WD/WN, vitals as above no acute distress and not intoxicated appearing Respiratory normal respiratory effort; no labored breathing Cardiovascular Extremities: normal capillary refill Results & Data Results & Data Laboratory Results Laboratory Tests 07/05/21 05:28 Creatinine 0.65 Diagnostic Findings . PG Care Time/CCT Total # of Minutes Spent Total Time Spent with Patient: Total time spent is greater than 50% in [facility] (as documented) at patient's floor/unit and/or counseling patient: Coding Level of Care Code 39582 Post Operative Follow-Up Diagnoses Septic joint of right knee joint M00.061 Septic arthritis organism: staphylococcal Osteomyelitis of right knee region M86.9 MRSA infection (methicillin-resistant Staphylococcus aureus) A49.02 (1) Septic joint of right knee joint Septic arthritis organism: staphylococcal Qualified Code(s): M00.061 - Staphylococcal arthritis, right knee
[2021-07-06] MEDS: NICOTINE POLACRILEX 2 MG GUM MT PRN ×2 (01:53→08:56)
[2021-07-06] MEDS: VANCOMYCIN HCL 1,750 MG in SODIUM CHLORIDE 0.9% 500 ML IV SCH ×3 (05:38→21:58)
[2021-07-06] MEDS: PANTOprazole 40 MG TAB PO SCH (08:56)
[2021-07-06] MEDS: MULTIVITAMIN TAB PO SCH (08:57)
[2021-07-06] MEDS: FERROUS SULFATE 325 MG TAB PO SCH ×3 (08:57→16:49)
[2021-07-06] MEDS: SENNA 8.6 MG TAB PO SCH (08:57)
[2021-07-06] MEDS: DOCUSATE SODIUM 100 MG CAP PO SCH ×2 (08:58→20:05)
[2021-07-06] MEDS: ENOXAPARIN INJ 40 MG/0.4 ML SYR SQ SCH (08:58)
[2021-07-06] MEDS: ASCORBIC ACID 500 MG TAB PO SCH ×2 (08:58→16:50)
[2021-07-06] MEDS: BUPRENORPHINE/NALOXONE 8/2 MG TAB SL SCH ×2 (08:58→20:05)
[2021-07-06] MEDS: hydrOXYzine HCl 25 MG TAB PO SCH ×2 (08:59→20:05)
[2021-07-06 09:04] LABS: Creatinine Clr Calc Pharmacy 197.8 ml/min; Est GFR (African American) 146.8 ml/min; Est GFR (Non-African American) 126.7 ml/min
[2021-07-06] MEDS: ALUMINUM/MAGNESIUM SUSP 30 ML UDC PO PRN (09:04)
--- NOTE | 2021-07-06 10:48 | Orthopedic Progress Note ---
Date of Service July 06, 2021 Assessment & Plan (1) Septic joint of right knee joint: (2) Osteomyelitis of right knee region: (3) MRSA infection (methicillin-resistant Staphylococcus aureus): 2 weeks S/p Right Tibial Hardware Removal with Open Debridement and Right Knee Arthroscopic Debridement No change the plan of care. Vancomycin at goal. -Making expected progress. Clinically stable/improving. -Plan for 6 weeks of IV vancomycin per ID recs. Appreciate assistance. PICC in place. -Elevate RLE prn for swelling. Incisions can be open to air. Sutures removed today. -Pain control: PO oxycodone prn.Continue outpatient Suboxone, acetaminophen, and Celebrex. -DVT prophylaxis: Lovenox -Activity: He can be weightbearing as tolerated on the knee and use crutches that he has as needed. Continue PT/OT while inpatient. Encouraged him to continue straight leg raises for quad strengthening while in bed. Goal is ambulating independently without crutches. -Diet: Regular Disposition: Stable for discharge. He needs SNF vs inpatient rehab placement to finish his course of IV antibiotics given his history of IVDU and homelessness. Subjective Doing well today. No pain. Review of Systems All systems reviewed & are unremarkable except as noted in HPI & below. Physical Exam . Incisions well approximated and healing well. Knee is non-tender to palpation today. Minimal knee effusion. No pain w/ AROM. ROM 10-110 degrees . He has improvement with straight leg raising and can perform this with reasonably good control. Constitutional WD/WN, vitals as above no acute distress and not intoxicated appearing Respiratory normal respiratory effort; no labored breathing Cardiovascular Extremities: normal capillary refill Results & Data Results & Data Laboratory Results None recent . Diagnostic Findings None recent . PG Care Time/CCT Total # of Minutes Spent Total Time Spent with Patient: Total time spent is greater than 50% in coordination of care (as documented) at patient's floor/unit and/or counseling patient: Coding Level of Care Code 91506 Post Operative Follow-Up Diagnoses Septic joint of right knee joint M00.061 Septic arthritis organism: staphylococcal Osteomyelitis of right knee region M86.9 MRSA infection (methicillin-resistant Staphylococcus aureus) A49.02 (1) Septic joint of right knee joint Septic arthritis organism: staphylococcal Qualified Code(s): M00.061 - Staphylococcal arthritis, right knee
[2021-07-07] MEDS: NICOTINE POLACRILEX 2 MG GUM MT PRN ×5 (00:18→22:28)
[2021-07-07] MEDS: ACETAMINOPHEN 500 MG TAB PO PRN (02:12)
[2021-07-07] MEDS: IBUPROFEN 800 MG TAB PO PRN ×2 (03:24→22:27)
[2021-07-07] MEDS: VANCOMYCIN HCL 1,750 MG in SODIUM CHLORIDE 0.9% 500 ML IV SCH ×3 (05:41→22:25)
[2021-07-07 07:49] LABS: Est GFR (Non-African American) 119.9 ml/min
[2021-07-07] MEDS: hydrOXYzine HCl 25 MG TAB PO SCH ×2 (08:11→22:27)
[2021-07-07] MEDS: FERROUS SULFATE 325 MG TAB PO SCH ×3 (08:11→16:40)
[2021-07-07] MEDS: PANTOprazole 40 MG TAB PO SCH (08:11)
[2021-07-07] MEDS: MULTIVITAMIN TAB PO SCH (08:11)
[2021-07-07] MEDS: ASCORBIC ACID 500 MG TAB PO SCH ×2 (08:11→16:40)
[2021-07-07] MEDS: DOCUSATE SODIUM 100 MG CAP PO SCH ×2 (08:30→22:27)
[2021-07-07] MEDS: BUPRENORPHINE/NALOXONE 8/2 MG TAB SL SCH ×2 (08:30→22:27)
[2021-07-07] MEDS: ENOXAPARIN INJ 40 MG/0.4 ML SYR SQ SCH (08:30)
--- NOTE | 2021-07-07 09:25 | Orthopedic Progress Note ---
Date of Service July 07, 2021 Assessment & Plan (1) Septic joint of right knee joint: (2) Osteomyelitis of right knee region: (3) MRSA infection (methicillin-resistant Staphylococcus aureus): 2 weeks S/p Right Tibial Hardware Removal with Open Debridement and Right Knee Arthroscopic Debridement No change the plan of care. Vancomycin at goal. -Making expected progress. Clinically stable/improving. -Plan for 6 weeks of IV vancomycin per ID recs. Appreciate assistance. PICC in place. -Elevate RLE prn for swelling. Incisions can be open to air. Sutures removed today. -Pain control: Oxycodone d/c'd, Ibuprofen prn. Continue outpatient Suboxone, acetaminophen, and Celebrex. -DVT prophylaxis: Lovenox -Activity: He can be weightbearing as tolerated on the knee and use crutches that he has as needed. Continue PT/OT while inpatient. Encouraged him to continue straight leg raises for quad strengthening while in bed. Goal is ambulating independently without crutches. -Diet: Regular Disposition: Stable for discharge. He needs SNF vs inpatient rehab placement to finish his course of IV antibiotics given his history of IVDU and homelessness. Subjective No new events. Feeling well today, in good spirits. Review of Systems All systems reviewed & are unremarkable except as noted in HPI & below. Physical Exam Incisions well approximated and healing well. Knee is non-tender to palpation today. Minimal knee effusion. No pain w/ AROM. ROM 5-110 degrees . He has improvement with straight leg raising and can perform this without pain and good control. Constitutional WD/WN, vitals as above no acute distress and not intoxicated appearing Respiratory normal respiratory effort; no labored breathing Cardiovascular Extremities: normal capillary refill . Results & Data Results & Data Laboratory Results None recent . Diagnostic Findings None recent PG Care Time/CCT Total # of Minutes Spent Total Time Spent with Patient: Total time spent is greater than 50% in coordination of care (as documented) at patient's floor/unit and/or counseling patient: Coding Level of Care Code 77876 Post Operative Follow-Up Diagnoses Septic joint of right knee joint M00.061 Septic arthritis organism: staphylococcal Osteomyelitis of right knee region M86.9 MRSA infection (methicillin-resistant Staphylococcus aureus) A49.02 (1) Septic joint of right knee joint Septic arthritis organism: staphylococcal Qualified Code(s): M00.061 - Staphylococcal arthritis, right knee
[2021-07-07] MEDS: SENNA 8.6 MG TAB PO SCH (22:27)
[2021-07-07] MEDS: ALUMINUM/MAGNESIUM SUSP 30 ML UDC PO PRN (22:40)
[2021-07-08] MEDS: VANCOMYCIN HCL 1,750 MG in SODIUM CHLORIDE 0.9% 500 ML IV SCH ×3 (05:44→22:12)
[2021-07-08] MEDS: NICOTINE POLACRILEX 2 MG GUM MT PRN ×3 (05:51→11:17)
[2021-07-08 07:47] LABS: Creatinine Clr Calc Pharmacy 178.6 ml/min; Est GFR (African American) 140.8 ml/min; Est GFR (Non-African American) 121.5 ml/min
[2021-07-08] MEDS: BUPRENORPHINE/NALOXONE 8/2 MG TAB SL SCH ×2 (08:08→22:13)
[2021-07-08] MEDS: hydrOXYzine HCl 25 MG TAB PO SCH ×2 (08:08→22:14)
[2021-07-08] MEDS: FERROUS SULFATE 325 MG TAB PO SCH ×3 (08:08→16:40)
[2021-07-08] MEDS: ASCORBIC ACID 500 MG TAB PO SCH ×2 (08:09→16:39)
[2021-07-08] MEDS: PANTOprazole 40 MG TAB PO SCH (08:09)
[2021-07-08] MEDS: ENOXAPARIN INJ 40 MG/0.4 ML SYR SQ SCH (08:09)
[2021-07-08] MEDS: MULTIVITAMIN TAB PO SCH (08:09)
[2021-07-08] MEDS: DOCUSATE SODIUM 100 MG CAP PO SCH ×2 (08:13→22:15)
[2021-07-08] MEDS ORDERED: ALTEPLASE, RECOMBINANT 1 MG/ML 2ML VIAL INSTIL ONE (10:50)
[2021-07-08 11:04] LABS: Basophils # (auto) 0.03 K/uL (0-0.2); Basophils % (auto) 0.5 %; Eosinophils # (auto) 0.43 K/uL (0-0.5); Eosinophils % (auto) 6.8 %; Hematocrit (blood only) 36.7 % (42-52); Hemoglobin 11.2 g/dL (14.0-18.0); Immature Granulocytes # (auto) 0.02 K/uL (0.00-0.02); Immature Granulocytes % (auto) 0.3 %; Lymphocytes % (auto) 29.9 %; Mean Corpuscular Hemoglobin 24.3 pg (25-34); Mean Corpuscular Hgb Conc 30.5 g/dL (32-36); Mean Corpuscular Volume 79.6 fL (80-100); Mean Platelet Volume 9.6 fL (7.4-10.4); Monocytes # (auto) 0.52 K/uL (0.11-0.59); Monocytes % (auto) 8.2 %; Neutrophils # (auto) 3.46 K/uL (1.4-6.5); Neutrophils % (auto) 54.3 %; Platelet Count 196 K/uL (130-400); RDW Coefficient of Variation 20.5 % (11.5-14.5); RDW Standard Deviation 58.8 fL (36.4-46.3); Red Blood Count 4.61 M/uL (4.7-6.1); White Blood Count 6.36 K/uL (4.8-10.8)
[2021-07-08 11:22] LABS: Anisocytosis Present
--- NOTE | 2021-07-08 12:17 | Orthopedic Progress Note ---
Date of Service July 08, 2021 Assessment & Plan (1) Septic joint of right knee joint: (2) Osteomyelitis of right knee region: (3) MRSA infection (methicillin-resistant Staphylococcus aureus): 2 weeks S/p Right Tibial Hardware Removal with Open Debridement and Right Knee Arthroscopic Debridement No change the plan of care. Vancomycin at goal. -Making expected progress. Clinically stable/improving. -Plan for 6 weeks of IV vancomycin per ID recs. Appreciate assistance. PICC in place. -Elevate RLE prn for swelling. Incisions healing well. -Pain control: Ibuprofen prn. Continue outpatient Suboxone, acetaminophen, and Celebrex. -DVT prophylaxis: Lovenox -Activity: He can be weightbearing as tolerated on the knee and use crutches that he has as needed. Continue PT/OT while inpatient. Encouraged him to continue straight leg raises for quad strengthening while in bed. Goal is ambu lating independently without crutches. -Diet: Regular Disposition: Stable for discharge. He needs SNF vs inpatient rehab placement to finish his course of IV antibiotics given his history of IVDU and homelessness. Subjective No acute issues. Review of Systems All systems reviewed & are unremarkable except as noted in HPI & below. Physical Exam Incisions well approximated and healing well. Knee is non-tender to palpation. Minimal knee effusion. No pain w/ AROM. ROM 5-110 degrees . He has improvement with straight leg raising and can perform this without pain and good control. Constitutional WD/WN, vitals as above no acute distress and not intoxicated appearing Respiratory normal respiratory effort; no labored breathing Cardiovascular Extremities: normal capillary refill Results & Data Results & Data Laboratory Results None recent . Diagnostic Findings None recent . PG Care Time/CCT Total # of Minutes Spent Total Time Spent with Patient: Total time spent is greater than 50% in coordination of care (as documented) at patient's floor/unit and/or counseling patient: Coding Level of Care Code 67416 Post Operative Follow-Up Diagnoses Septic joint of right knee joint M00.061 Septic arthritis organism: staphylococcal Osteomyelitis of right knee region M86.9 MRSA infection (methicillin-resistant Staphylococcus aureus) A49.02 (1) Septic joint of right knee joint Septic arthritis organism: staphylococcal Qualified Code(s): M00.061 - Staphylococcal arthritis, right knee
[2021-07-08] MEDS: SENNA 8.6 MG TAB PO SCH (22:13)
[2021-07-09] MEDS ORDERED: VANCOMYCIN TROUGH ONE (05:30)
[2021-07-09] MEDS: NICOTINE POLACRILEX 2 MG GUM MT PRN ×4 (06:20→16:50)
[2021-07-09] MEDS: VANCOMYCIN HCL 1,750 MG in SODIUM CHLORIDE 0.9% 500 ML IV SCH (06:20)
[2021-07-09 06:39] LABS: Creatinine Clr Calc Pharmacy 208.9 ml/min; Est GFR (African American) > 150.0 ml/min; Est GFR (Non-African American) 129.6 ml/min
[2021-07-09] MEDS: FERROUS SULFATE 325 MG TAB PO SCH ×3 (08:54→16:35)
[2021-07-09] MEDS: BUPRENORPHINE/NALOXONE 8/2 MG TAB SL SCH ×2 (08:54→20:40)
[2021-07-09] MEDS: hydrOXYzine HCl 25 MG TAB PO SCH ×2 (08:54→20:40)
[2021-07-09] MEDS: ASCORBIC ACID 500 MG TAB PO SCH ×2 (08:55→16:35)
[2021-07-09] MEDS: DOCUSATE SODIUM 100 MG CAP PO SCH ×2 (08:55→20:40)
[2021-07-09] MEDS: PANTOprazole 40 MG TAB PO SCH (08:55)
[2021-07-09] MEDS: ENOXAPARIN INJ 40 MG/0.4 ML SYR SQ SCH (08:56)
[2021-07-09] MEDS: MULTIVITAMIN TAB PO SCH (08:56)
--- NOTE | 2021-07-09 09:03 | Orthopedic Progress Note ---
Date of Service July 09, 2021 Assessment & Plan (1) Septic joint of right knee joint: (2) Osteomyelitis of right knee region: (3) MRSA infection (methicillin-resistant Staphylococcus aureus): 2 weeks S/p Right Tibial Hardware Removal with Open Debridement and Right Knee Arthroscopic Debridement No change the plan of care. Vancomycin at goal. -Making expected progress. Clinically stable/improving. -Plan for 6 weeks of IV vancomycin per ID recs. Appreciate assistance. PICC in place. -Elevate RLE prn for swelling. Incisions healing well. -Pain control: Ibuprofen prn. Continue outpatient Suboxone, acetaminophen, and Celebrex. -DVT prophylaxis: Lovenox -Activity: He can be weightbearing as tolerated on the knee and use crutches that he has as needed. Continue PT/OT while inpatient. Encouraged him to continue straight leg raises for quad strengthening while in bed. Goal is ambu lating independently without crutches. -Diet: Regular Disposition: Stable for discharge. He needs SNF vs inpatient rehab placement to finish his course of IV antibiotics given his history of IVDU and homelessness. Subjective No acute issues . Review of Systems All systems reviewed & are unremarkable except as noted in HPI & below. Physical Exam Incisions well approximated and healing well. Knee is non-tender to palpation. Minimal knee effusion. No pain w/ AROM. ROM 5-110 degrees . He has improvement with straight leg raising and can perform this without pain and good control. Constitutional WD/WN, vitals as above no acute distress and not intoxicated appearing Respiratory normal respiratory effort; no labored breathing Cardiovascular Extremities: normal capillary refill Results & Data Results & Data Laboratory Results Laboratory Tests 07/08/21 07/08/21 07/08/21 10:46 10:46 10:46 WBC 6.36 Hgb 11.2 L Hct 36.7 L Plt Count 196 ESR 42 H C-Reactive Protein 1.17 H . Diagnostic Findings None recent PG Care Time/CCT Total # of Minutes Spent Total Time Spent with Patient: Total time spent is greater than 50% in coordination of care (as documented) at patient's floor/unit and/or counseling patient: Coding Level of Care Code 52713 Post Operative Follow-Up Diagnoses Septic joint of right knee joint M00.061 Septic arthritis organism: staphylococcal Osteomyelitis of right knee region M86.9 MRSA infection (methicillin-resistant Staphylococcus aureus) A49.02 (1) Septic joint of right knee joint Septic arthritis organism: staphylococcal Qualified Code(s): M00.061 - Staphylococcal arthritis, right knee
[2021-07-09] MEDS: ALUMINUM/MAGNESIUM SUSP 30 ML UDC PO PRN (09:05)
--- NOTE | 2021-07-09 12:56 | Pharmacy Report ---
Pharmacy Vanc AUC Short Note - Date of Service July 09, 2021 - Assessment & Plan Assessment 41 year old M receiving Vancomycin for treatment of R septic knee joint for 6 weeks per ID. Vancomycin was dosed at 1750 mg IV q8h for the past 10 days. A trough level was obtained this morning. Laboratory Tests 07/09/21 05:35 Vancomycin Trough 19.4 Plan Vancomycin * AUC/LYRIC is the preferred PK/PD target for vancomycin * AUC guided dosing is effective and associated with decreased risk of nephrotoxicity compared to traditional trough targets * Patient has been getting Vancomycin 1750 mg IV q8h. * Trough level of 19.4 mcg/mL is predicted to achieve target AUC/LYRIC above 400- 600 mg/L.hr (specifically 665 mg/L.hr) and may be associated with a 15 % risk of nephrotoxicity * Dosing reduced to Vancomycin 1500 mg IV every 8 hours which is predicted to achieve an AUC of 570 mg/L.hr with possible risk of nephrotoxicity of 11%. This dosing would achieve an AUC within the target range of 400-600 mg/L.hr. * Will re-check trough after at least 2 days of therapy with new dosing regimen. Pharmacy will continue to follow and will adjust dose/frequency as necessary. Thank you.
[2021-07-09] MEDS: VANCOMYCIN HCL 1,500 MG in SODIUM CHLORIDE 0.9% 500 ML IV SCH ×2 (16:34→23:34)
[2021-07-09] MEDS: SENNA 8.6 MG TAB PO SCH (20:40)
[2021-07-10] MEDS: NICOTINE POLACRILEX 2 MG GUM MT PRN ×3 (05:50→11:25)
[2021-07-10] MEDS: BUPRENORPHINE/NALOXONE 8/2 MG TAB SL SCH ×2 (08:26→21:02)
[2021-07-10] MEDS: FERROUS SULFATE 325 MG TAB PO SCH ×3 (08:27→16:33)
[2021-07-10] MEDS: ASCORBIC ACID 500 MG TAB PO SCH ×2 (08:27→16:33)
[2021-07-10] MEDS: hydrOXYzine HCl 25 MG TAB PO SCH ×2 (08:27→21:02)
[2021-07-10] MEDS: VANCOMYCIN HCL 1,500 MG in SODIUM CHLORIDE 0.9% 500 ML IV SCH ×3 (08:27→23:15)
[2021-07-10] MEDS: ENOXAPARIN INJ 40 MG/0.4 ML SYR SQ SCH (08:28)
[2021-07-10] MEDS: DOCUSATE SODIUM 100 MG CAP PO SCH ×2 (08:28→21:02)
[2021-07-10] MEDS: MULTIVITAMIN TAB PO SCH (08:29)
[2021-07-10] MEDS: PANTOprazole 40 MG TAB PO SCH (08:29)
--- NOTE | 2021-07-10 10:40 | Orthopedic Progress Note ---
Date of Service July 10, 2021 Assessment & Plan (1) Septic joint of right knee joint: (2) Osteomyelitis of right knee region: (3) MRSA infection (methicillin-resistant Staphylococcus aureus): 2 weeks S/p Right Tibial Hardware Removal with Open Debridement and Right Knee Arthroscopic Debridement No change the plan of care. Vancomycin at goal. -Making expected progress. Clinically stable/improving. -Plan for 6 weeks of IV vancomycin per ID recs. Appreciate assistance. PICC in place. -Elevate RLE prn for swelling. Incisions healing well. -Pain control: Ibuprofen prn. Continue outpatient Suboxone, acetaminophen, and Celebrex. -DVT prophylaxis: Lovenox -Activity: He can be weightbearing as tolerated on the knee and use crutches that he has as needed. Continue with straight leg raises in bed. Encouraging him to work towards ambulating within his room without crutches. Goal is ambulating independently without crutches. -Diet: Regular Disposition: Stable for discharge. He needs placement at a facility upon discharge d/t history of IVDU and homelessness. Placement remains an issue on multiple fronts (hx aggressive behavior, suboxone, low regional bed availability). Appreciate care management assistance. Subjective No issues today. Review of Systems All systems reviewed & are unremarkable except as noted in HPI & below. Physical Exam Incisions well approximated and healing well. Knee is non-tender to palpation. Minimal knee effusion. No pain w/ AROM. ROM 5-110 degrees . Can perform straight leg raise without pain and with good control. Constitutional WD/WN, vitals as above no acute distress and not intoxicated appearing Respiratory normal respiratory effort; no labored breathing Cardiovascular Extremities: normal capillary refill . Results & Data Results & Data Laboratory Results None recent . Diagnostic Findings None recent . PG Care Time/CCT Total # of Minutes Spent Total Time Spent with Patient: Total time spent is greater than 50% in coordination of care (as documented) at patient's floor/unit and/or counseling patient: Coding Level of Care Code 18369 Post Operative Follow-Up Diagnoses Septic joint of right knee joint M00.061 Septic arthritis organism: staphylococcal Osteomyelitis of right knee region M86.9 MRSA infection (methicillin-resistant Staphylococcus aureus) A49.02 (1) Septic joint of right knee joint Septic arthritis organism: staphylococcal Qualified Code(s): M00.061 - Staphylococcal arthritis, right knee
[2021-07-10] MEDS: SENNA 8.6 MG TAB PO SCH (21:02)
[2021-07-11] MEDS ORDERED: VANCOMYCIN TROUGH ONE (07:30)
[2021-07-11 08:34] LABS: Creatinine Clr Calc Pharmacy 190.9 ml/min; Est GFR (African American) 144.7 ml/min; Est GFR (Non-African American) 124.9 ml/min
--- NOTE | 2021-07-11 08:44 | Pharmacy Report ---
Pharmacy Abx Dose Short Note - Date of Service July 11, 2021 - Assessment & Plan Assessment 41 year old M vancomycin for MRSA osteomyelitis infection - ID recommending 6 weeks of IV vancomycin / stop date 08/03 Plan Vancomycin * Trough level came back therapeutic today at 18.4 mcg/ml (goal 15-20 mcg/ml) * Renal function remains stable, plan to continue current regimen of vancomycin 1500 mg iv q 8 hrs * Plan to recheck level in next 2-3 days or sooner if renal function changes Pharmacy will continue to follow and will adjust dose/frequency as necessary. Thank you.
[2021-07-11] MEDS: VANCOMYCIN HCL 1,500 MG in SODIUM CHLORIDE 0.9% 500 ML IV SCH ×3 (09:04→23:20)
[2021-07-11] MEDS: NICOTINE POLACRILEX 2 MG GUM MT PRN ×3 (09:06→20:57)
[2021-07-11] MEDS: PANTOprazole 40 MG TAB PO SCH (09:11)
[2021-07-11] MEDS: ENOXAPARIN INJ 40 MG/0.4 ML SYR SQ SCH (09:11)
[2021-07-11] MEDS: MULTIVITAMIN TAB PO SCH (09:11)
[2021-07-11] MEDS: DOCUSATE SODIUM 100 MG CAP PO SCH ×2 (09:11→20:55)
[2021-07-11] MEDS: FERROUS SULFATE 325 MG TAB PO SCH ×3 (09:11→16:09)
[2021-07-11] MEDS: hydrOXYzine HCl 25 MG TAB PO SCH ×2 (09:11→20:56)
[2021-07-11] MEDS: ASCORBIC ACID 500 MG TAB PO SCH ×2 (09:11→16:09)
[2021-07-11] MEDS: BUPRENORPHINE/NALOXONE 8/2 MG TAB SL SCH ×2 (09:14→20:56)
--- NOTE | 2021-07-11 14:34 | Orthopedic Progress Note ---
Date of Service July 11, 2021 Assessment & Plan (1) Septic joint of right knee joint: (2) Osteomyelitis of right knee region: (3) MRSA infection (methicillin-resistant Staphylococcus aureus): 2 weeks S/p Right Tibial Hardware Removal with Open Debridement and Right Knee Arthroscopic Debridement No change the plan of care. Vancomycin at goal. -Making expected progress. Clinically stable/improving. -Plan for 6 weeks of IV vancomycin per ID recs. Appreciate assistance. PICC in place. -Elevate RLE prn for swelling. Incisions healing well. -Pain control: Ibuprofen prn. Continue outpatient Suboxone, acetaminophen, and Celebrex. -DVT prophylaxis: Lovenox -Activity: He can be weightbearing as tolerated on the knee and use crutches that he has as needed. Continue with straight leg raises in bed. Encouraging him to work towards ambulating within his room without crutches. Goal is ambulating independently without crutches. -Diet: Regular Disposition: Stable for discharge. He needs placement at a facility upon discharge d/t history of IVDU and homelessness. Placement remains an issue on multiple fronts (hx aggressive behavior, suboxone, low regional bed availability). Appreciate care management assistance. Subjective Sleeping at time of evaluation. States knee is a little sore today but otherwise no complaints. Review of Systems All systems reviewed & are unremarkable except as noted in HPI & below. Physical Exam Incisions healing well. Knee is non-tender to palpation. Minimal knee effusion. Some pain w/ active flexion today. ROM 5-110 degrees . Can perform straight leg raise without pain and with good control. Constitutional WD/WN, vitals as above no acute distress and not intoxicated appearing Respiratory normal respiratory effort; no labored breathing Cardiovascular Extremities: normal capillary refill . . Results & Data Results & Data Laboratory Results None recent . Diagnostic Findings None recent . PG Care Time/CCT Total # of Minutes Spent Total Time Spent with Patient: Total time spent is greater than 50% in coordination of care (as documented) at patient's floor/unit and/or counseling patient: Coding Level of Care Code 15811 Post Operative Follow-Up Diagnoses Septic joint of right knee joint M00.061 Septic arthritis organism: staphylococcal Osteomyelitis of right knee region M86.9 MRSA infection (methicillin-resistant Staphylococcus aureus) A49.02 (1) Septic joint of right knee joint Septic arthritis organism: staphylococcal Qualified Code(s): M00.061 - Staphylococcal arthritis, right knee
[2021-07-11] MEDS: SENNA 8.6 MG TAB PO SCH (20:56)
[2021-07-12] MEDS: MULTIVITAMIN TAB PO SCH (08:50)
[2021-07-12] MEDS: FERROUS SULFATE 325 MG TAB PO SCH ×3 (08:50→16:31)
[2021-07-12] MEDS: DOCUSATE SODIUM 100 MG CAP PO SCH ×2 (08:50→20:30)
[2021-07-12] MEDS: ASCORBIC ACID 500 MG TAB PO SCH ×2 (08:50→16:31)
[2021-07-12] MEDS: hydrOXYzine HCl 25 MG TAB PO SCH ×2 (08:50→20:30)
[2021-07-12] MEDS: NICOTINE POLACRILEX 2 MG GUM MT PRN ×3 (08:50→19:52)
[2021-07-12] MEDS: PANTOprazole 40 MG TAB PO SCH (08:50)
[2021-07-12] MEDS: ENOXAPARIN INJ 40 MG/0.4 ML SYR SQ SCH (08:50)
--- NOTE | 2021-07-12 08:57 | Orthopedic Progress Note ---
Date of Service July 12, 2021 Assessment & Plan (1) Septic joint of right knee joint: (2) Osteomyelitis of right knee region: (3) MRSA infection (methicillin-resistant Staphylococcus aureus): 2 weeks S/p Right Tibial Hardware Removal with Open Debridement and Right Knee Arthroscopic Debridement No change the plan of care. Vancomycin at goal. -Making expected progress. Clinically stable/improving. -Plan for 6 weeks of IV vancomycin per ID recs. Appreciate assistance. PICC in place. -Elevate RLE prn for swelling. Incisions healing well. -Pain control: Ibuprofen prn. Continue outpatient Suboxone, acetaminophen, and Celebrex. -DVT prophylaxis: Lovenox -Activity: He can be weightbearing as tolerated on the knee and use crutches that he has as needed. Continue with straight leg raises in bed. Encouraging him to work towards ambulating within his room without crutches. Goal is ambulating independently without crutches. -Diet: Regular Disposition: Stable for discharge. He needs placement at a facility upon discharge d/t history of IVDU and homelessness. Placement remains an issue on multiple fronts (hx aggressive behavior, suboxone, low regional bed availability). Appreciate care management assistance. Dudley Haynes was seen and examined at bedside this morning. Overall his status is unchanged. His knee is feeling a little bit better. He understands that we are basically awaiting placement at a facility that can handle his IV antibiotics.. Review of Systems All systems reviewed & are unremarkable except as noted in HPI & below. Physical Exam Physical examination is unchanged from previous exam by Dr. Hooper.. Results & Data Results & Data Laboratory Results . Diagnostic Findings . PG Care Time/CCT Total # of Minutes Spent Total Time Spent with Patient: Total time spent is greater than 50% in coordination of care (as documented) at patient's floor/unit and/or counseling patient: Coding Level of Care Code 61359 Post Operative Follow-Up Diagnoses Septic joint of right knee joint M00.061 Septic arthritis organism: staphylococcal Osteomyelitis of right knee region M86.9 MRSA infection (methicillin-resistant Staphylococcus aureus) A49.02 (1) Septic joint of right knee joint Septic arthritis organism: staphylococcal Qualified Code(s): M00.061 - Staphylococcal arthritis, right knee
[2021-07-12] MEDS: VANCOMYCIN HCL 1,500 MG in SODIUM CHLORIDE 0.9% 500 ML IV SCH ×2 (08:58→16:33)
[2021-07-12] MEDS: BUPRENORPHINE/NALOXONE 8/2 MG TAB SL SCH ×2 (09:08→20:30)
[2021-07-12 09:26] LABS: Creatinine Clr Calc Pharmacy 190.9 ml/min; Est GFR (African American) 144.7 ml/min; Est GFR (Non-African American) 124.9 ml/min
[2021-07-12] MEDS: IBUPROFEN 800 MG TAB PO PRN (16:38)
[2021-07-12] MEDS: SENNA 8.6 MG TAB PO SCH (20:31)
[2021-07-13] MEDS: VANCOMYCIN HCL 1,500 MG in SODIUM CHLORIDE 0.9% 500 ML IV SCH ×3 (00:01→15:31)
[2021-07-13] MEDS: DOCUSATE SODIUM 100 MG CAP PO SCH ×2 (08:35→21:00)
[2021-07-13] MEDS: ENOXAPARIN INJ 40 MG/0.4 ML SYR SQ SCH (08:35)
[2021-07-13] MEDS: ASCORBIC ACID 500 MG TAB PO SCH ×2 (08:36→15:32)
[2021-07-13] MEDS: MULTIVITAMIN TAB PO SCH (08:36)
[2021-07-13] MEDS: hydrOXYzine HCl 25 MG TAB PO SCH ×2 (08:36→21:00)
[2021-07-13] MEDS: PANTOprazole 40 MG TAB PO SCH (08:37)
[2021-07-13] MEDS: FERROUS SULFATE 325 MG TAB PO SCH ×3 (08:37→15:33)
[2021-07-13] MEDS: IBUPROFEN 800 MG TAB PO PRN (08:42)
[2021-07-13] MEDS: NICOTINE POLACRILEX 2 MG GUM MT PRN ×3 (08:43→20:59)
[2021-07-13] MEDS: BUPRENORPHINE/NALOXONE 8/2 MG TAB SL SCH ×2 (08:48→21:00)
--- NOTE | 2021-07-13 14:55 | Orthopedic Progress Note ---
Date of Service July 13, 2021 Assessment & Plan (1) Septic joint of right knee joint: (2) Osteomyelitis of right knee region: (3) MRSA infection (methicillin-resistant Staphylococcus aureus): 2 weeks S/p Right Tibial Hardware Removal with Open Debridement and Right Knee Arthroscopic Debridement No change the plan of care. Vancomycin at goal. -Making expected progress. Clinically stable/improving. -Plan for 6 weeks of IV vancomycin per ID recs. Appreciate assistance. PICC in place. -Elevate RLE prn for swelling. Incisions healing well. -Pain control: Ibuprofen prn. Continue outpatient Suboxone, acetaminophen, and Celebrex. -DVT prophylaxis: Lovenox -Activity: He can be weightbearing as tolerated on the knee and use crutches that he has as needed. Continue with straight leg raises in bed. Encouraging him to work towards ambulating within his room without crutches. Goal is ambulating independently without crutches. -Diet: Regular Disposition: Stable for discharge. He needs placement at a facility upon discharge d/t history of IVDU and homelessness. Placement remains an issue on multiple fronts (hx aggressive behavior, suboxone, low regional bed availability). Appreciate care management assistance. Dudley Haynes was seen at bedside. He did not have much to say today. He indicated his knee is doing fine and he has no new complaints. We are simply awaiting placement.. Review of Systems All systems reviewed & are unremarkable except as noted in HPI & below. Physical Exam Examination of his right knee is unchanged. Results & Data Results & Data Laboratory Results . Diagnostic Findings . PG Care Time/CCT Total # of Minutes Spent Total Time Spent with Patient: Total time spent is greater than 50% in coordination of care (as documented) at patient's floor/unit and/or counseling patient: Coding Level of Care Code 29782 Post Operative Follow-Up Diagnoses Septic joint of right knee joint M00.061 Septic arthritis organism: staphylococcal Osteomyelitis of right knee region M86.9 MRSA infection (methicillin-resistant Staphylococcus aureus) A49.02 (1) Septic joint of right knee joint Septic arthritis organism: staphylococcal Qualified Code(s): M00.061 - Staphylococcal arthritis, right knee
[2021-07-13] MEDS: SENNA 8.6 MG TAB PO SCH (21:01)
[2021-07-14] MEDS: VANCOMYCIN HCL 1,500 MG in SODIUM CHLORIDE 0.9% 500 ML IV SCH ×4 (00:03→23:53)
[2021-07-14] MEDS ORDERED: VANCOMYCIN TROUGH ONE (07:30)
[2021-07-14 08:34] LABS: Creatinine Clr Calc Pharmacy 190.9 ml/min; Est GFR (African American) 144.7 ml/min; Est GFR (Non-African American) 124.9 ml/min
[2021-07-14] MEDS: BUPRENORPHINE/NALOXONE 8/2 MG TAB SL SCH ×2 (08:52→20:30)
[2021-07-14] MEDS: PANTOprazole 40 MG TAB PO SCH (08:53)
[2021-07-14] MEDS: ENOXAPARIN INJ 40 MG/0.4 ML SYR SQ SCH (08:53)
[2021-07-14] MEDS: hydrOXYzine HCl 25 MG TAB PO SCH ×2 (08:53→20:30)
[2021-07-14] MEDS: DOCUSATE SODIUM 100 MG CAP PO SCH ×2 (08:54→20:30)
[2021-07-14] MEDS: FERROUS SULFATE 325 MG TAB PO SCH ×3 (08:54→18:31)
[2021-07-14] MEDS: ASCORBIC ACID 500 MG TAB PO SCH ×2 (08:54→18:31)
[2021-07-14] MEDS: MULTIVITAMIN TAB PO SCH (08:55)
--- NOTE | 2021-07-14 10:38 | Pharmacy Report ---
Pharmacy Abx Dose Short Note - Date of Service July 14, 2021 - Assessment & Plan Assessment * Mr Owusu is a 41 year old M receiving IV vancomycin for MRSA osteomyelitis infection (R knee). * ID recommending 6 weeks of IV vancomycin / stop date 08/03 Plan Vancomycin * Trough level was therapeutic today: 15.9 mcg/ml (goal 15-20 mcg/ml) * Renal function remains stable, plan to continue current regimen of vancomycin 1500 mg IV q 8 hrs * No further levels have been ordered at this time. Will consider obtaining additional level in several days, or sooner for changes in status or renal function. Pharmacy will continue to follow and will adjust dose/frequency as necessary. Thank you.
--- NOTE | 2021-07-14 13:28 | Orthopedic Progress Note ---
Date of Service July 14, 2021 Assessment & Plan (1) Septic joint of right knee joint: (2) Osteomyelitis of right knee region: (3) MRSA infection (methicillin-resistant Staphylococcus aureus): 3 weeks S/p Right Tibial Hardware Removal with Open Debridement and Right Knee Arthroscopic Debridement No change the plan of care. Vancomycin at goal. -Making expected progress. Clinically stable/improving. -Plan for 6 weeks of IV vancomycin per ID recs. Appreciate assistance. PICC in place. -Elevate RLE prn for swelling. Incisions healing well. -Pain control: Ibuprofen prn. Continue outpatient Suboxone, acetaminophen, and Celebrex. -DVT prophylaxis: Lovenox -Activity: He can be weightbearing as tolerated on the knee and use crutches that he has as needed. Continue with straight leg raises in bed. Encouraging him to work towards ambulating within his room without crutches. Goal is ambulating independently without crutches. -Diet: Regular Disposition: Stable for discharge. He needs placement at a facility upon discharge d/t history of IVDU and homelessness. Placement remains an issue on multiple fronts (hx aggressive behavior, suboxone, low regional bed availability). Appreciate care management assistance. Subjective No concerns today. Knee feels good. Review of Systems All systems reviewed & are unremarkable except as noted in HPI & below. Physical Exam General: Well developed middle aged male in no acute distress. Right knee: Non tender. Mild effusion. Incisions well healed. ROM 5-110 degrees. Can straight leg raise with good control. Results & Data Results & Data Laboratory Results None recent . Diagnostic Findings None recent . PG Care Time/CCT Total # of Minutes Spent Total Time Spent with Patient: Total time spent is greater than 50% in coordination of care (as documented) at patient's floor/unit and/or counseling patient: Coding Level of Care Code 84039 Post Operative Follow-Up Diagnoses Septic joint of right knee joint M00.061 Septic arthritis organism: staphylococcal Osteomyelitis of right knee region M86.9 MRSA infection (methicillin-resistant Staphylococcus aureus) A49.02 (1) Septic joint of right knee joint Septic arthritis organism: staphylococcal Qualified Code(s): M00.061 - Staphylococcal arthritis, right knee
[2021-07-14] MEDS: SENNA 8.6 MG TAB PO SCH (20:30)
[2021-07-14] MEDS: NICOTINE POLACRILEX 2 MG GUM MT PRN ×2 (20:31→23:53)
[2021-07-15] MEDS: hydrOXYzine HCl 25 MG TAB PO SCH ×2 (09:14→21:17)
[2021-07-15] MEDS: VANCOMYCIN HCL 1,500 MG in SODIUM CHLORIDE 0.9% 500 ML IV SCH ×2 (09:14→16:36)
[2021-07-15] MEDS: FERROUS SULFATE 325 MG TAB PO SCH ×3 (09:14→16:36)
[2021-07-15] MEDS: BUPRENORPHINE/NALOXONE 8/2 MG TAB SL SCH ×2 (09:14→21:16)
[2021-07-15] MEDS: DOCUSATE SODIUM 100 MG CAP PO SCH ×2 (09:15→21:17)
[2021-07-15] MEDS: PANTOprazole 40 MG TAB PO SCH (09:15)
[2021-07-15] MEDS: ENOXAPARIN INJ 40 MG/0.4 ML SYR SQ SCH (09:15)
[2021-07-15] MEDS: MULTIVITAMIN TAB PO SCH (09:15)
[2021-07-15] MEDS: ASCORBIC ACID 500 MG TAB PO SCH ×2 (09:16→16:36)
--- NOTE | 2021-07-15 15:29 | Orthopedic Progress Note ---
Date of Service July 15, 2021 Assessment & Plan (1) Septic joint of right knee joint: (2) Osteomyelitis of right knee region: (3) MRSA infection (methicillin-resistant Staphylococcus aureus): 3 weeks S/p Right Tibial Hardware Removal with Open Debridement and Right Knee Arthroscopic Debridement No change the plan of care. Vancomycin at goal. -Making expected progress. Clinically stable/improving. -Plan for 6 weeks of IV vancomycin per ID recs. Appreciate assistance. PICC in place. -Elevate RLE prn for swelling. Incisions healing well. -Pain control: Ibuprofen prn. Continue outpatient Suboxone, acetaminophen, and Celebrex. -DVT prophylaxis: Lovenox -Activity: He can be weightbearing as tolerated on the knee and use crutches that he has as needed. Continue with straight leg raises in bed. Encouraging him to work towards ambulating within his room without crutches. Goal is ambulating independently without crutches. -Diet: Regular Disposition: Stable for discharge. He needs placement at a facility upon discharge d/t history of IVDU and homelessness. Placement remains an issue on multiple fronts (hx aggressive behavior, suboxone, low regional bed availability). Appreciate care management assistance. Subjective No issues. Review of Systems All systems reviewed & are unremarkable except as noted in HPI & below. Physical Exam General: Well developed middle aged male in no acute distress. Right knee: Non tender. Mild effusion. Incisions well healed. ROM 5-110 degrees. Can straight leg raise with good control. . Results & Data Results & Data Laboratory Results none recent . Diagnostic Findings None recent . PG Care Time/CCT Total # of Minutes Spent Total Time Spent with Patient: Total time spent is greater than 50% in coordination of care (as documented) at patient's floor/unit and/or counseling patient: Coding Level of Care Code 76121 Post Operative Follow-Up Diagnoses Septic joint of right knee joint M00.061 Septic arthritis organism: staphylococcal Osteomyelitis of right knee region M86.9 MRSA infection (methicillin-resistant Staphylococcus aureus) A49.02 (1) Septic joint of right knee joint Septic arthritis organism: staphylococcal Qualified Code(s): M00.061 - Staphylococcal arthritis, right knee
[2021-07-15] MEDS: NICOTINE POLACRILEX 2 MG GUM MT PRN ×2 (16:36→21:18)
[2021-07-15] MEDS: SENNA 8.6 MG TAB PO SCH (21:17)
[2021-07-16] MEDS: VANCOMYCIN HCL 1,500 MG in SODIUM CHLORIDE 0.9% 500 ML IV SCH ×4 (00:55→23:47)
[2021-07-16] MEDS: NICOTINE POLACRILEX 2 MG GUM MT PRN ×4 (02:33→23:52)
--- NOTE | 2021-07-16 08:47 | Orthopedic Progress Note ---
Date of Service July 16, 2021 Assessment & Plan (1) Septic joint of right knee joint: (2) Osteomyelitis of right knee region: (3) MRSA infection (methicillin-resistant Staphylococcus aureus): 3 weeks S/p Right Tibial Hardware Removal with Open Debridement and Right Knee Arthroscopic Debridement No change the plan of care. Vancomycin at goal. -Making expected progress. Clinically stable/improving. -Plan for 6 weeks of IV vancomycin per ID recs. Appreciate assistance. PICC in place. -Elevate RLE prn for swelling. Incisions healing well. -Pain control: Ibuprofen prn. Continue outpatient Suboxone, acetaminophen, and Celebrex. -DVT prophylaxis: Lovenox -Activity: He can be weightbearing as tolerated on the knee and use crutches that he has as needed. Continue with straight leg raises in bed. Encouraging him to work towards ambulating within his room without crutches. Goal is ambulating independently without crutches. -Diet: Regular Disposition: Stable for discharge. He needs placement at a facility upon discharge d/t history of IVDU and homelessness. Placement remains an issue on multiple fronts (hx aggressive behavior, suboxone, low regional bed availability). Appreciate care management assistance. Subjective No issues today . Review of Systems All systems reviewed & are unremarkable except as noted in HPI & below. Physical Exam General: Well developed middle aged male in no acute distress. Right knee: Non tender. Mild effusion. Incisions well healed. ROM 5-110 degrees. Can straight leg raise with good control. Results & Data Results & Data Laboratory Results . Diagnostic Findings None recent . PG Care Time/CCT Total # of Minutes Spent Total Time Spent with Patient: Total time spent is greater than 50% in coordination of care (as documented) at patient's floor/unit and/or counseling patient: Coding Level of Care Code 10840 Post Operative Follow-Up Diagnoses Septic joint of right knee joint M00.061 Septic arthritis organism: staphylococcal Osteomyelitis of right knee region M86.9 MRSA infection (methicillin-resistant Staphylococcus aureus) A49.02 (1) Septic joint of right knee joint Septic arthritis organism: staphylococcal Qualified Code(s): M00.061 - Staphylococcal arthritis, right knee
[2021-07-16] MEDS: BUPRENORPHINE/NALOXONE 8/2 MG TAB SL SCH ×2 (09:20→20:34)
[2021-07-16] MEDS: hydrOXYzine HCl 25 MG TAB PO SCH ×2 (09:20→20:37)
[2021-07-16] MEDS: FERROUS SULFATE 325 MG TAB PO SCH ×3 (09:21→16:51)
[2021-07-16] MEDS: DOCUSATE SODIUM 100 MG CAP PO SCH ×2 (09:21→20:38)
[2021-07-16] MEDS: ASCORBIC ACID 500 MG TAB PO SCH ×2 (09:21→16:51)
[2021-07-16] MEDS: ENOXAPARIN INJ 40 MG/0.4 ML SYR SQ SCH (09:22)
[2021-07-16] MEDS: PANTOprazole 40 MG TAB PO SCH (09:33)
[2021-07-16] MEDS: MULTIVITAMIN TAB PO SCH (09:33)
[2021-07-16] MEDS: SENNA 8.6 MG TAB PO SCH (20:38)
[2021-07-16] MEDS: IBUPROFEN 800 MG TAB PO PRN (23:48)
[2021-07-17] MEDS: NICOTINE POLACRILEX 2 MG GUM MT PRN ×4 (07:48→21:13)
[2021-07-17 08:04] LABS: Est GFR (Non-African American) 128.6 ml/min
[2021-07-17 08:05] LABS: Creatinine Clr Calc Pharmacy 205.1 ml/min
[2021-07-17] MEDS: BUPRENORPHINE/NALOXONE 8/2 MG TAB SL SCH ×2 (08:28→21:11)
[2021-07-17] MEDS: hydrOXYzine HCl 25 MG TAB PO SCH ×2 (08:29→21:12)
[2021-07-17] MEDS: MULTIVITAMIN TAB PO SCH (08:29)
[2021-07-17] MEDS: PANTOprazole 40 MG TAB PO SCH (08:29)
[2021-07-17] MEDS: DOCUSATE SODIUM 100 MG CAP PO SCH ×2 (08:29→21:11)
[2021-07-17] MEDS: ASCORBIC ACID 500 MG TAB PO SCH ×2 (08:29→16:34)
[2021-07-17] MEDS: FERROUS SULFATE 325 MG TAB PO SCH ×3 (08:29→16:34)
[2021-07-17] MEDS: ENOXAPARIN INJ 40 MG/0.4 ML SYR SQ SCH (08:31)
[2021-07-17] MEDS: VANCOMYCIN HCL 1,500 MG in SODIUM CHLORIDE 0.9% 500 ML IV SCH ×2 (08:32→16:01)
--- NOTE | 2021-07-17 10:26 | Orthopedic Progress Note ---
Date of Service July 17, 2021 Assessment & Plan (1) Septic joint of right knee joint: (2) Osteomyelitis of right knee region: (3) MRSA infection (methicillin-resistant Staphylococcus aureus): 3 weeks S/p Right Tibial Hardware Removal with Open Debridement and Right Knee Arthroscopic Debridement No change the plan of care. Vancomycin at goal. -Making expected progress. Clinically stable/improving. -Plan for 6 weeks of IV vancomycin per ID recs. Appreciate assistance. PICC in place. -Elevate RLE prn for swelling. Incisions healing well. Can drain knee effusion prn if he desires, wants to hold off today. -Pain control: Ibuprofen prn. Continue outpatient Suboxone, acetaminophen, and Celebrex. -DVT prophylaxis: Lovenox -Activity: He can be weightbearing as tolerated on the knee and use crutches that he has as needed. Continue with straight leg raises in bed. Encouraging him to work towards ambulating within his room without crutches. Goal is ambulating independently without crutches. -Diet: Regular Disposition: Stable for discharge. He needs placement at a facility upon discharge d/t history of IVDU and homelessness. Placement remains an issue on multiple fronts (hx aggressive behavior, suboxone, low regional bed availability). Appreciate care management assistance. Subjective Knee feels a little swollen today. No other complaints. Review of Systems All systems reviewed & are unremarkable except as noted in HPI & below. Physical Exam General: Well developed middle aged male in no acute distress. Right knee: Non tender. Moderate effusion. Incisions well healed. ROM 5-110 degrees. Can straight leg raise with good control. Results & Data Results & Data Laboratory Results None recent . Diagnostic Findings None recent . PG Care Time/CCT Total # of Minutes Spent Total Time Spent with Patient: Total time spent is greater than 50% in coordination of care (as documented) at patient's floor/unit and/or counseling patient: Coding Level of Care Code 03864 Post Operative Follow-Up Diagnoses Septic joint of right knee joint M00.061 Septic arthritis organism: staphylococcal Osteomyelitis of right knee region M86.9 MRSA infection (methicillin-resistant Staphylococcus aureus) A49.02 (1) Septic joint of right knee joint Septic arthritis organism: staphylococcal Qualified Code(s): M00.061 - Staphylococcal arthritis, right knee
[2021-07-17] MEDS: SENNA 8.6 MG TAB PO SCH (21:12)
[2021-07-17] MEDS: IBUPROFEN 800 MG TAB PO PRN (21:12)
[2021-07-18] MEDS: VANCOMYCIN HCL 1,500 MG in SODIUM CHLORIDE 0.9% 500 ML IV SCH ×3 (00:01→17:02)
[2021-07-18] MEDS: MULTIVITAMIN TAB PO SCH (07:59)
[2021-07-18] MEDS: DOCUSATE SODIUM 100 MG CAP PO SCH ×2 (07:59→20:30)
[2021-07-18] MEDS: PANTOprazole 40 MG TAB PO SCH (07:59)
[2021-07-18] MEDS: BUPRENORPHINE/NALOXONE 8/2 MG TAB SL SCH ×2 (07:59→20:29)
[2021-07-18] MEDS: FERROUS SULFATE 325 MG TAB PO SCH ×3 (07:59→17:03)
[2021-07-18] MEDS: ENOXAPARIN INJ 40 MG/0.4 ML SYR SQ SCH (08:00)
[2021-07-18] MEDS: ASCORBIC ACID 500 MG TAB PO SCH ×2 (08:00→17:03)
[2021-07-18] MEDS: hydrOXYzine HCl 25 MG TAB PO SCH ×2 (08:00→20:30)
--- NOTE | 2021-07-18 08:19 | Orthopedic Progress Note ---
Date of Service July 18, 2021 Assessment & Plan (1) Septic joint of right knee joint: (2) Osteomyelitis of right knee region: (3) MRSA infection (methicillin-resistant Staphylococcus aureus): 3 weeks S/p Right Tibial Hardware Removal with Open Debridement and Right Knee Arthroscopic Debridement No change the plan of care. Vancomycin at goal. -Making expected progress. Clinically stable/improving. -Plan for 6 weeks of IV vancomycin per ID recs. Appreciate assistance. PICC in place. -Elevate RLE prn for swelling. Incisions healing well. -Pain control: Ibuprofen prn. Continue outpatient Suboxone, acetaminophen, and Celebrex. -DVT prophylaxis: Lovenox -Activity: He can be weightbearing as tolerated on the knee and use crutches that he has as needed. Continue with straight leg raises in bed. Encouraging him to work towards ambulating within his room without crutches. Goal is ambulating independently without crutches. -Diet: Regular Disposition: Stable for discharge. He needs placement at a facility upon discharge d/t history of IVDU and homelessness. Placement remains an issue on multiple fronts (hx aggressive behavior, suboxone, low regional bed availability). Appreciate care management assistance. Subjective Sleeping this morning on evaluation. No issues. Review of Systems All systems reviewed & are unremarkable except as noted in HPI & below. Physical Exam General: Well developed middle aged male in no acute distress. Right knee: Non tender. Mild effusion. Incisions well healed. ROM 5-110 degrees. Can straight leg raise with good control. . Results & Data Results & Data Laboratory Results CBC, CRP, ESR pending for today . Diagnostic Findings N/A . PG Care Time/CCT Total # of Minutes Spent Total Time Spent with Patient: Total time spent is greater than 50% in coordination of care (as documented) at patient's floor/unit and/or counseling patient: Coding Level of Care Code 76869 Post Operative Follow-Up Diagnoses Septic joint of right knee joint M00.061 Septic arthritis organism: staphylococcal Osteomyelitis of right knee region M86.9 MRSA infection (methicillin-resistant Staphylococcus aureus) A49.02 (1) Septic joint of right knee joint Septic arthritis organism: staphylococcal Qualified Code(s): M00.061 - Staphy lococcal arthritis, right knee
[2021-07-18 09:41] LABS: Basophils # (auto) 0.02 K/uL (0-0.2); Basophils % (auto) 0.4 %; Eosinophils # (auto) 0.45 K/uL (0-0.5); Eosinophils % (auto) 8.2 %; Hematocrit (blood only) 37.3 % (42-52); Hemoglobin 11.5 g/dL (14.0-18.0); Immature Granulocytes # (auto) 0.03 K/uL (0.00-0.02); Immature Granulocytes % (auto) 0.5 %; Lymphocytes # (auto) 1.58 K/uL (1.2-3.4); Lymphocytes % (auto) 28.7 %; Mean Corpuscular Hemoglobin 25.2 pg (25-34); Mean Corpuscular Hgb Conc 30.8 g/dL (32-36); Mean Corpuscular Volume 81.8 fL (80-100); Mean Platelet Volume 10.3 fL (7.4-10.4); Monocytes % (auto) 10.9 %; Neutrophils # (auto) 2.83 K/uL (1.4-6.5); Neutrophils % (auto) 51.3 %; Platelet Count 206 K/uL (130-400); RDW Coefficient of Variation 20.2 % (11.5-14.5); RDW Standard Deviation 60.5 fL (36.4-46.3); Red Blood Count 4.56 M/uL (4.7-6.1); White Blood Count 5.51 K/uL (4.8-10.8)
[2021-07-18 10:05] LABS: Anisocytosis Present
[2021-07-18] MEDS: NICOTINE POLACRILEX 2 MG GUM MT PRN ×2 (17:04→20:31)
[2021-07-18] MEDS: SENNA 8.6 MG TAB PO SCH (20:30)
[2021-07-19] MEDS: VANCOMYCIN HCL 1,500 MG in SODIUM CHLORIDE 0.9% 500 ML IV SCH ×3 (00:15→16:47)
[2021-07-19] MEDS: NICOTINE POLACRILEX 2 MG GUM MT PRN ×4 (00:16→20:28)
[2021-07-19 08:44] LABS: Creatinine Clr Calc Pharmacy 175.8 ml/min; Est GFR (African American) 139.9 ml/min; Est GFR (Non-African American) 120.7 ml/min
[2021-07-19] MEDS: BUPRENORPHINE/NALOXONE 8/2 MG TAB SL SCH ×2 (09:55→20:27)
[2021-07-19] MEDS: ASCORBIC ACID 500 MG TAB PO SCH ×2 (09:56→17:04)
[2021-07-19] MEDS: DOCUSATE SODIUM 100 MG CAP PO SCH ×2 (09:56→20:27)
[2021-07-19] MEDS: MULTIVITAMIN TAB PO SCH (09:56)
[2021-07-19] MEDS: FERROUS SULFATE 325 MG TAB PO SCH ×3 (09:56→17:04)
[2021-07-19] MEDS: PANTOprazole 40 MG TAB PO SCH (09:56)
[2021-07-19] MEDS: hydrOXYzine HCl 25 MG TAB PO SCH ×2 (09:56→20:28)
[2021-07-19] MEDS: ENOXAPARIN INJ 40 MG/0.4 ML SYR SQ SCH (09:57)
[2021-07-19] MEDS: SENNA 8.6 MG TAB PO SCH (20:38)
--- NOTE | 2021-07-19 22:22 | Orthopedic Progress Note ---
Date of Service July 19, 2021 Assessment & Plan (1) Septic joint of right knee joint: (2) Osteomyelitis of right knee region: (3) MRSA infection (methicillin-resistant Staphylococcus aureus): 3 weeks S/p Right Tibial Hardware Removal with Open Debridement and Right Knee Arthroscopic Debridement No change the plan of care. Vancomycin at goal. Continue plan of care. -6 weeks parenteral tx ends ~Aug 04. -Encourage gastroc stretch and mobilization. -Pain control: Ibuprofen prn. Continue outpatient Suboxone, acetaminophen, and Celebrex. -DVT prophylaxis: Lovenox. Will be Rx'd aspirin at discharge or when returns to regular ambulation. -Activity: He can be weightbearing as tolerated on the knee and use crutches that he has as needed. Challenge with PT/OT. Disposition: Stable for discharge. He needs placement at a facility upon discharge d/t history of IVDU and homelessness. Placement remains an issue on multiple fronts (hx aggressive behavior, suboxone, low regional bed availability). Appreciate care management assistance. Needs to continue parenteral tx with elevated inflammatoruy markers. Subjective No issues per nursing. Some concern than he has not been out of bed much. Pain controlled without narcotics. Patient reports increased tolerance to WBing on leg. Feels that ankle is tight. Review of Systems All systems reviewed & are unremarkable except as noted in HPI & below. Physical Exam RLE: wound at knee well healed. No signicant effusion. -10 to 100 deg active motion. Ankle w 20 PF and neutral DF. DNVI. Constitutional WD/WN, vitals as above no acute distress and not intoxicated appearing Respiratory normal respiratory effort; no labored breathing Cardiovascular Extremities: normal capillary refill Results & Data Results & Data Laboratory Results Steady downward trend in inflammatory markers though not back to normal. Diagnostic Findings . PG Care Time/CCT Total # of Minutes Spent Total Time Spent with Patient: Total time spent is greater than 50% in coordination of care (as documented) at patient's floor/unit and/or counseling patient: Coding Level of Care Code 78861 Post Operative Follow-Up Diagnoses Septic joint of right knee joint M00.061 Septic arthritis organism: staphylococcal Osteomyelitis of right knee region M86.9 MRSA infection (methicillin-resistant Staphylococcus aureus) A49.02 (1) Septic joint of right knee joint Septic arthritis organism: staphylococcal Qualified Code(s): M00.061 - Staphylococcal arthritis, right knee
[2021-07-20] MEDS: NICOTINE POLACRILEX 2 MG GUM MT PRN ×5 (00:18→23:21)
[2021-07-20] MEDS: VANCOMYCIN HCL 1,500 MG in SODIUM CHLORIDE 0.9% 500 ML IV SCH ×4 (00:18→23:19)
[2021-07-20] MEDS: hydrOXYzine HCl 25 MG TAB PO SCH ×2 (09:15→21:16)
[2021-07-20] MEDS: FERROUS SULFATE 325 MG TAB PO SCH ×3 (09:15→17:51)
[2021-07-20] MEDS: ASCORBIC ACID 500 MG TAB PO SCH ×2 (09:16→17:51)
[2021-07-20] MEDS: MULTIVITAMIN TAB PO SCH (09:16)
[2021-07-20] MEDS: PANTOprazole 40 MG TAB PO SCH (09:17)
[2021-07-20] MEDS: DOCUSATE SODIUM 100 MG CAP PO SCH ×2 (09:17→21:16)
[2021-07-20] MEDS: BUPRENORPHINE/NALOXONE 8/2 MG TAB SL SCH ×2 (09:18→21:16)
[2021-07-20] MEDS: ENOXAPARIN INJ 40 MG/0.4 ML SYR SQ SCH (09:20)
[2021-07-20] MEDS ORDERED: VANCOMYCIN TROUGH ONE (15:30)
--- NOTE | 2021-07-20 16:21 | Pharmacy Report ---
Pharmacy Abx Dose Short Note - Date of Service July 20, 2021 - Assessment & Plan Assessment 41 year old M receiving Vancomycin for treatment of MRSA osteomyelitis infection of right knee ID recommending 6 weeks of IV vancomycin / stop date 08/03 Plan Vancomycin Laboratory Tests 07/20/21 15:32 Vancomycin Trough 17.9 * Trough level of 17.9 mcg/mL is therapeutic * Continue dose of 1500 mg IV every 8 hours OR Change to mg IV every hours * Goal trough level for osteomyelitis : 15 to 20 mcg/mL Pharmacy will continue to follow and will adjust dose/frequency as necessary. Thank you.
[2021-07-20] MEDS: SENNA 8.6 MG TAB PO SCH (21:16)
--- NOTE | 2021-07-20 23:00 | Orthopedic Progress Note ---
Date of Service July 20, 2021 Assessment & Plan (1) Septic joint of right knee joint: (2) Osteomyelitis of right knee region: (3) MRSA infection (methicillin-resistant Staphylococcus aureus): 3 weeks S/p Right Tibial Hardware Removal with Open Debridement and Right Knee Arthroscopic Debridement No change the plan of care. Vancomycin at goal. Continue plan of care. -6 weeks parenteral tx ends ~Aug 04. -Encourage gastroc stretch and mobilization. -Pain control: Ibuprofen prn. Continue outpatient Suboxone, acetaminophen, and Celebrex. -DVT prophylaxis: Lovenox. Will be Rx'd aspirin at discharge or when returns to regular ambulation. -Activity: He can be weightbearing as tolerated on the knee and use crutches that he has as needed. Challenge with PT/OT. Disposition: Stable for discharge. He needs placement at a facility upon discharge d/t history of IVDU and homelessness. Placement remains an issue on multiple fronts (hx aggressive behavior, suboxone, low regional bed availability). Appreciate care management assistance. Needs to continue parenteral tx with elevated inflammatoruy markers. Subjective No new issues. Reports that he did a telehealth appt with suboxone physician and now has a Rx to fill if he gets a swing bed. Review of Systems All systems reviewed & are unremarkable except as noted in HPI & below. Physical Exam RLE: wound at knee well healed. No signicant effusion. -8 to 110 deg active motion. Ankle w 20 PF and neutral DF. DNVI. Constitutional WD/WN, vitals as above no acute distress and not intoxicated appearing Respiratory normal respiratory effort; no labored breathing Cardiovascular Extremities: normal capillary refill Results & Data Results & Data Laboratory Results . Diagnostic Findings . PG Care Time/CCT Total # of Minutes Spent Total Time Spent with Patient: Total time spent is greater than 50% in coordination of care (as documented) at patient's floor/unit and/or counseling patient: Coding Level of Care Code 13599 Post Operative Follow-Up Diagnoses Septic joint of right knee joint M00.061 Septic arthritis organism: staphylococcal Osteomyelitis of right knee region M86.9 MRSA infection (methicillin-resistant Staphylococcus aureus) A49.02 (1) Septic joint of right knee joint Septic arthritis organism: staphylococcal Qualified Code(s): M00.061 - Staphylococcal arthritis, right knee
[2021-07-21] MEDS: hydrOXYzine HCl 25 MG TAB PO SCH ×2 (08:31→20:00)
[2021-07-21] MEDS: MULTIVITAMIN TAB PO SCH (08:31)
[2021-07-21] MEDS: ASCORBIC ACID 500 MG TAB PO SCH ×2 (08:32→17:35)
[2021-07-21] MEDS: PANTOprazole 40 MG TAB PO SCH (08:32)
[2021-07-21] MEDS: FERROUS SULFATE 325 MG TAB PO SCH ×3 (08:32→17:35)
[2021-07-21] MEDS: DOCUSATE SODIUM 100 MG CAP PO SCH ×2 (08:32→20:00)
[2021-07-21] MEDS: ENOXAPARIN INJ 40 MG/0.4 ML SYR SQ SCH ×2 (08:33→11:57)
[2021-07-21] MEDS: NICOTINE POLACRILEX 2 MG GUM MT PRN ×2 (08:37→20:00)
[2021-07-21] MEDS: BUPRENORPHINE/NALOXONE 8/2 MG TAB SL SCH ×3 (08:46→21:35)
[2021-07-21] MEDS: VANCOMYCIN HCL 1,500 MG in SODIUM CHLORIDE 0.9% 500 ML IV SCH ×3 (08:46→23:12)
[2021-07-21 09:57] LABS: Creatinine Clr Calc Pharmacy 184.6 ml/min; Est GFR (African American) 142.7 ml/min; Est GFR (Non-African American) 123.1 ml/min
--- NOTE | 2021-07-21 10:14 | Orthopedic Progress Note ---
Date of Service July 21, 2021 Assessment & Plan (1) Septic joint of right knee joint: (2) Osteomyelitis of right knee region: (3) MRSA infection (methicillin-resistant Staphylococcus aureus): 4 weeks S/p Right Tibial Hardware Removal with Open Debridement and Right Knee Arthroscopic Debridement No change the plan of care. Vancomycin at goal. Continue plan of care. -6 weeks parenteral tx ends ~Aug 04. -Encourage gastroc stretch and mobilization. -Pain control: Ibuprofen prn. Continue outpatient Suboxone, acetaminophen, and Celebrex. -DVT prophylaxis: Lovenox. Will be Rx'd aspirin at discharge or when returns to regular ambulation. -Activity: He can be weightbearing as tolerated on the knee and use crutches that he has as needed. Challenge with PT/OT. Disposition: Stable for discharge. He needs placement at a facility upon discharge d/t history of IVDU and homelessness. Placement remains an issue on multiple fronts (hx aggressive behavior, suboxone, low regional bed availability). Appreciate care management assistance. Needs to continue parenteral tx with elevated inflammatory markers. Subjective No new issues. Review of Systems All systems reviewed & are unremarkable except as noted in HPI & below. Physical Exam RLE: wound at knee well healed. No significant effusion. -8 to 110 deg active motion. DNVI. Constitutional WD/WN, vitals as above no acute distress and not intoxicated appearing Respiratory normal respiratory effort; no labored breathing Cardiovascular Extremities: normal capillary refill . Results & Data Results & Data Laboratory Results None new . Diagnostic Findings None new . PG Care Time/CCT Total # of Minutes Spent Total Time Spent with Patient: Total time spent is greater than 50% in coordination of care (as documented) at patient's floor/unit and/or counseling patient: Coding Level of Care Code 92953 Post Operative Follow-Up Diagnoses Septic joint of right knee joint M00.061 Septic arthritis organism: staphylococcal Osteomyelitis of right knee region M86.9 MRSA infection (methicillin-resistant Staphylococcus aureus) A49.02 (1) Septic joint of right knee joint Septic arthritis organism: staphylococcal Qualified Code(s): M00.061 - Staphylococcal arthritis, right knee
[2021-07-21] MEDS: SENNA 8.6 MG TAB PO SCH (20:00)
[2021-07-21] MEDS ORDERED: Nursing to Pharmacy Communication SCH (20:30)
[2021-07-22] MEDS: ASCORBIC ACID 500 MG TAB PO SCH (11:35)
[2021-07-22] MEDS: hydrOXYzine HCl 25 MG TAB PO SCH ×2 (11:36→20:04)
[2021-07-22] MEDS: DOCUSATE SODIUM 100 MG CAP PO SCH ×2 (11:36→20:20)
[2021-07-22] MEDS: MULTIVITAMIN TAB PO SCH (11:37)
[2021-07-22] MEDS: BUPRENORPHINE/NALOXONE 8/2 MG TAB SL SCH ×2 (11:50→20:19)
--- NOTE | 2021-07-22 12:03 | Orthopedic Progress Note ---
Date of Service July 22, 2021 Assessment & Plan (1) Septic joint of right knee joint: (2) Osteomyelitis of right knee region: (3) MRSA infection (methicillin-resistant Staphylococcus aureus): 4 weeks S/p Right Tibial Hardware Removal with Open Debridement and Right Knee Arthroscopic Debridement No change the plan of care. Vancomycin at goal. Continue plan of care. -6 weeks parenteral tx ends ~Aug 04. -Encourage gastroc stretch and mobilization. -Pain control: Ibuprofen prn. Continue outpatient Suboxone, acetaminophen, and Celebrex. -DVT prophylaxis: Lovenox. Will be Rx'd aspirin at discharge or when returns to regular ambulation. -Activity: He can be weightbearing as tolerated on the knee and use crutches that he has as needed. Challenge with PT/OT. Disposition: Stable for discharge. He needs placement at a facility upon discharge d/t history of IVDU and homelessness. Placement remains an issue on multiple fronts (hx aggressive behavior, suboxone, low regional bed availability). Appreciate care management assistance. Needs to continue parenteral tx with elevated inflammatory markers. Subjective No issues today . Review of Systems All systems reviewed & are unremarkable except as noted in HPI & below. Physical Exam RLE: wound at knee well healed. No significant effusion. -8 to 110 deg activ e motion. DNVI. Ambulating without crutches w/ a limp. Constitutional WD/WN, vitals as above no acute distress and not intoxicated appearing Respiratory normal respiratory effort; no labored breathing Cardiovascular Extremities: normal capillary refill . . Results & Data Results & Data Laboratory Results None recent . Diagnostic Findings None recent. PG Care Time/CCT Total # of Minutes Spent Total Time Spent with Patient: Total time spent is greater than 50% in coordination of care (as documented) at patient's floor/unit and/or counseling patient: Coding Level of Care Code 70869 Post Operative Follow-Up Diagnoses Septic joint of right knee joint M00.061 Septic arthritis organism: staphylococcal Osteomyelitis of right knee region M86.9 MRSA infection (methicillin-resistant Staphylococcus aureus) A49.02 (1) Septic joint of right knee joint Septic arthritis organism: staphylococcal Qualified Code(s): M00.061 - Staphylococcal arthritis, right knee
[2021-07-22] MEDS: VANCOMYCIN HCL 1,500 MG in SODIUM CHLORIDE 0.9% 500 ML IV SCH ×3 (12:35→23:18)
[2021-07-22] MEDS: NICOTINE POLACRILEX 2 MG GUM MT PRN ×4 (12:41→22:34)
[2021-07-22] MEDS: ENOXAPARIN INJ 40 MG/0.4 ML SYR SQ SCH (12:43)
[2021-07-23] MEDS: VANCOMYCIN HCL 1,500 MG in SODIUM CHLORIDE 0.9% 500 ML IV SCH ×3 (08:00→23:35)
--- NOTE | 2021-07-23 08:43 | Orthopedic Progress Note ---
Date of Service July 23, 2021 Assessment & Plan (1) Septic joint of right knee joint: (2) Osteomyelitis of right knee region: (3) MRSA infection (methicillin-resistant Staphylococcus aureus): 4 weeks S/p Right Tibial Hardware Removal with Open Debridement and Right Knee Arthroscopic Debridement No change the plan of care. Vancomycin at goal. Continue plan of care. -6 weeks parenteral tx ends ~Aug 04. -Encourage gastroc stretch and mobilization. -Pain control: Ibuprofen prn. Continue outpatient Suboxone, acetaminophen, and Celebrex. -DVT prophylaxis: Lovenox. Will be Rx'd aspirin at discharge or when returns to regular ambulation. -Activity: He can be weightbearing as tolerated on the knee and use crutches that he has as needed. Challenge with PT/OT. Disposition: Stable for discharge. He needs placement at a facility upon discharge d/t history of IVDU and homelessness. Placement remains an issue on multiple fronts (hx aggressive behavior, suboxone, low regional bed availability). Appreciate care management assistance. Needs to continue parenteral tx with elevated inflammatory markers. Subjective Sleeping on evaluation. No issues. Review of Systems All systems reviewed & are unremarkable except as noted in HPI & below. Physical Exam RLE: wound at knee well healed. Mild effusion. -8 to 110 deg active motion. DNVI. Ambulating without crutches w/ a limp. Constitutional WD/WN, vitals as above no acute distress and not intoxicated appearing Respiratory normal respiratory effort; no labored breathing Cardiovascular Extremities: normal capillary refill . . . Results & Data Results & Data Laboratory Results None recent . Diagnostic Findings None recent . PG Care Time/CCT Total # of Minutes Spent Total Time Spent with Patient: Total time spent is greater than 50% in coordination of care (as documented) at patient's floor/unit and/or counseling patient: Coding Level of Care Code 05820 Post Operative Follow-Up Diagnoses Septic joint of right knee joint M00.061 Septic arthritis organism: staphylococcal Osteomyelitis of right knee region M86.9 MRSA infection (methicillin-resistant Staphylococcus aureus) A49.02 (1) Septic joint of right knee joint Septic arthritis organism: staphylococcal Qualified Code(s): M00.061 - Staphylococcal arthritis, right knee
[2021-07-23] MEDS: hydrOXYzine HCl 25 MG TAB PO SCH ×2 (09:26→22:06)
[2021-07-23] MEDS: BUPRENORPHINE/NALOXONE 8/2 MG TAB SL SCH ×2 (09:26→22:06)
[2021-07-23 09:50] LABS: Creatinine Clr Calc Pharmacy 187.7 ml/min; Est GFR (African American) 143.7 ml/min
[2021-07-23] MEDS: NICOTINE POLACRILEX 2 MG GUM MT PRN (22:07)
[2021-07-24] MEDS: NICOTINE POLACRILEX 2 MG GUM MT PRN ×4 (02:33→21:09)
[2021-07-24] MEDS: VANCOMYCIN HCL 1,500 MG in SODIUM CHLORIDE 0.9% 500 ML IV SCH ×3 (08:46→23:20)
[2021-07-24] MEDS: BUPRENORPHINE/NALOXONE 8/2 MG TAB SL SCH ×2 (08:48→21:08)
[2021-07-24] MEDS: hydrOXYzine HCl 25 MG TAB PO SCH ×2 (08:48→21:08)
--- NOTE | 2021-07-24 09:59 | Orthopedic Progress Note ---
Date of Service July 24, 2021 Assessment & Plan (1) Septic joint of right knee joint: (2) Osteomyelitis of right knee region: (3) MRSA infection (methicillin-resistant Staphylococcus aureus): 4 weeks S/p Right Tibial Hardware Removal with Open Debridement and Right Knee Arthroscopic Debridement No change the plan of care. Vancomycin at goal. Continue plan of care. -6 weeks parenteral tx ends ~Aug 04. -Encourage gastroc stretch and mobilization. -Pain control: Ibuprofen prn. Continue outpatient Suboxone, acetaminophen, and Celebrex. -DVT prophylaxis: Lovenox. Will be Rx'd aspirin at discharge or when returns to regular ambulation. -Activity: He can be weightbearing as tolerated on the knee and use crutches that he has as needed. Challenge with PT/OT. Disposition: Stable for discharge. He needs placement at a facility upon discharge d/t history of IVDU and homelessness. Placement remains an issue on multiple fronts (hx aggressive behavior, suboxone, low regional bed availability). Appreciate care management assistance. Needs to continue parenteral tx with elevated inflammatory markers. Subjective No issues. Review of Systems All systems reviewed & are unremarkable except as noted in HPI & below. Physical Exam RLE: wound at knee well healed. No significant effusion. -8 to 110 deg active motion. DNVI. Ambulating without crutches w/ a limp. Constitutional WD/WN, vitals as above no acute distress and not intoxicated appearing Respiratory normal respiratory effort; no labored breathing Cardiovascular Extremities: normal capillary refill . Results & Data Results & Data Laboratory Results None recent . Diagnostic Findings None recent . PG Care Time/CCT Total # of Minutes Spent Total Time Spent with Patient: Total time spent is greater than 50% in coordination of care (as documented) at patient's floor/unit and/or counseling patient: Coding Level of Care Code 40186 Post Operative Follow-Up Diagnoses Septic joint of right knee joint M00.061 Septic arthritis organism: staphylococcal Osteomyelitis of right knee region M86.9 MRSA infection (methicillin-resistant Staphylococcus aureus) A49.02 (1) Septic joint of right knee joint Septic arthritis organism: staphylococcal Qualified Code(s): M00.061 - Staphylococcal arthritis, right knee
[2021-07-25] MEDS: NICOTINE POLACRILEX 2 MG GUM MT PRN ×3 (02:18→19:40)
[2021-07-25] MEDS ORDERED: VANCOMYCIN TROUGH ONE (07:30)
[2021-07-25] MEDS: VANCOMYCIN HCL 1,500 MG in SODIUM CHLORIDE 0.9% 500 ML IV SCH ×3 (08:34→23:58)
[2021-07-25] MEDS: hydrOXYzine HCl 25 MG TAB PO SCH ×2 (08:36→19:48)
[2021-07-25] MEDS: BUPRENORPHINE/NALOXONE 8/2 MG TAB SL SCH ×2 (08:36→19:48)
[2021-07-25 08:59] LABS: Creatinine Clr Calc Pharmacy 201.3 ml/min; Est GFR (African American) 147.9 ml/min; Est GFR (Non-African American) 127.6 ml/min
--- NOTE | 2021-07-25 12:29 | Orthopedic Progress Note ---
Date of Service July 25, 2021 Assessment & Plan (1) Septic joint of right knee joint: (2) Osteomyelitis of right knee region: (3) MRSA infection (methicillin-resistant Staphylococcus aureus): 4 weeks S/p Right Tibial Hardware Removal with Open Debridement and Right Knee Arthroscopic Debridement No change the plan of care. Vancomycin at goal. Continue plan of care. -6 weeks parenteral tx ends ~Aug 04. -Encourage gastroc stretch and mobilization. -Pain control: Ibuprofen prn. Continue outpatient Suboxone, acetaminophen, and Celebrex. -DVT prophylaxis: Lovenox. Will be Rx'd aspirin at discharge or when returns to regular ambulation. -Activity: He can be weightbearing as tolerated on the knee and use crutches that he has as needed. Challenge with PT/OT. Disposition: Stable for discharge. He needs placement at a facility upon discharge d/t history of IVDU and homelessness. Placement remains an issue on multiple fronts (hx aggressive behavior, suboxone, low regional bed availability). Appreciate care management assistance. Needs to continue parenteral tx with elevated inflammatory markers. Subjective No issues . Review of Systems All systems reviewed & are unremarkable except as noted in HPI & below. Physical Exam RLE: wound at knee well healed. No significant effusion. -8 to 110 deg active motion. DNVI. Ambulating without crutches w/ a limp. Constitutional WD/WN, vitals as above no acute distress and not intoxicated appearing Respiratory normal respiratory effort; no labored breathing Cardiovascular Extremities: normal capillary refill . . Results & Data Results & Data Laboratory Results None . Diagnostic Findings None . PG Care Time/CCT Total # of Minutes Spent Total Time Spent with Patient: Total time spent is greater than 50% in coordination of care (as documented) at patient's floor/unit and/or counseling patient: Coding Level of Care Code 90957 Post Operative Follow-Up Diagnoses Septic joint of right knee joint M00.061 Septic arthritis organism: staphylococcal Osteomyelitis of right knee region M86.9 MRSA infection (methicillin-resistant Staphylococcus aureus) A49.02 (1) Septic joint of right knee joint Septic arthritis organism: staphylococcal Qualified Code(s): M00.061 - Staphylococcal arthritis, right knee
--- NOTE | 2021-07-25 13:18 | Pharmacy Report ---
Pharmacy Abx Dose Short Note - Date of Service July 25, 2021 - Assessment & Plan Assessment * Mr Owusu is a 41 year old M receiving Vancomycin for treatment of septic R knee, osteomyelitis R knee. * Pt is finishing a 6 week course of IV abx (should be completed ~Aug 04). * Renal function has been very stable. Vanc trough levels obtained every few days have been very stable. * No changes anticipated. Plan Vancomycin * Trough level of 15 mcg/mL is therapeutic * Continue dose of 1500 mg IV every 8 hours * Goal trough level for bone/joint infection: 15 to 20 mcg/mL * Will evaluate another level in a few days if patient remains at [facility] on vancomycin. Pharmacy will continue to follow and will adjust dose/frequency as necessary. Thank you.
[2021-07-25] MEDS ORDERED: LEVALBUTEROL TARTRATE 15 GM HFA.AER.AD INH PRN (16:55)
[2021-07-26] MEDS: VANCOMYCIN HCL 1,500 MG in SODIUM CHLORIDE 0.9% 500 ML IV SCH ×2 (09:47→15:32)
[2021-07-26] MEDS: hydrOXYzine HCl 25 MG TAB PO SCH (09:48)
[2021-07-26] MEDS: BUPRENORPHINE/NALOXONE 8/2 MG TAB SL SCH ×2 (09:59→20:48)
--- NOTE | 2021-07-26 10:20 | Orthopedic Progress Note ---
Date of Service July 26, 2021 Assessment & Plan (1) Septic joint of right knee joint: Plan: Covering for Dr. Hooper, who asked me to see the patient today. He is available by phone if thee are any questions. Continue current treatment. (1) Septic joint of right knee joint: (2) Osteomyelitis of right knee region: (3) MRSA infection (methicillin-resistant Staphylococcus aureus): 4 weeks S/p Right Tibial Hardware Removal with Open Debridement and Right Knee Arthroscopic Debridement No change the plan of care. Vancomycin at goal. Continue plan of care. -6 weeks parenteral tx ends ~Aug 04. -Encourage gastroc stretch and mobilization. -Pain control: Ibuprofen prn. Continue outpatient Suboxone, acetaminophen, and Celebrex. -DVT prophylaxis: Lovenox. Will be Rx'd aspirin at discharge or when returns to regular ambulation. -Activity: He can be weightbearing as tolerated on the knee and use crutches that he has as needed. Challenge with PT/OT. Disposition: Stable for discharge. He needs placement at a facility upon discharge d/t history of IVDU and homelessness. Placement remains an issue on multiple fronts (hx aggressive behavior, suboxone, low regional bed availability). Appreciate care management assistance. Needs to continue parenteral tx with elevated inflammatory markers. Present on Admission?: Yes Admission and Anticipated Discharge Date Admission Date: June 21, 2021 Subjective Man of few words. No new issues. Review of Systems Review of Systems: All systems reviewed & are unremarkable except as noted in HPI & below Physical Exam Musculoskeletal: RLE: wound at knee well healed. No significant effusion. -8 to 110 deg active motion. NVI. Able to preform straight leg raise. Calf soft and non-tender. Results & Data ([facility]) Vital Signs (Past 12 Hours) Vital Signs Temp Pulse Resp BP 07/26/21 00:08 37.1 C 104 H 16 115/70 (1) Septic joint of right knee joint Septic arthritis organism: staphylococcal Qualified Code(s): M00.061 - Staphylococcal arthritis, right knee
[2021-07-26] MEDS: NICOTINE POLACRILEX 2 MG GUM MT PRN ×2 (15:32→17:24)
[2021-07-27] MEDS: VANCOMYCIN HCL 1,500 MG in SODIUM CHLORIDE 0.9% 500 ML IV SCH ×3 (01:11→15:56)
[2021-07-27] MEDS: BUPRENORPHINE/NALOXONE 8/2 MG TAB SL SCH ×2 (08:44→20:26)
[2021-07-27] MEDS: NICOTINE POLACRILEX 2 MG GUM MT PRN (08:44)
[2021-07-27] MEDS ORDERED: ACETAMINOPHEN 500 MG TAB PO PRN (11:09)
--- NOTE | 2021-07-27 11:09 | Orthopedic Progress Note ---
Date of Service July 27, 2021 Assessment & Plan (1) Septic joint of right knee joint: (2) Osteomyelitis of right knee region: (3) MRSA infection (methicillin-resistant Staphylococcus aureus): 4 weeks S/p Right Tibial Hardware Removal with Open Debridement and Right Knee Arthroscopic Debridement Renewed expiring hydroxyzine and Nicotine gum. Will benefit from double hinge brace right knee. Otherwise, no change the plan of care. Vancomycin at goal. Continue plan of care. -6 weeks parenteral tx ends ~Aug 04. -Encourage gastroc stretch and mobilization. -DVT prophylaxis: Lovenox. Will be Rx'd aspirin at discharge or when returns to regular ambulation. -Activity: He can be weightbearing as tolerated on the knee. Disposition: Stable for discharge. He needs placement at a facility upon discharge d/t history of IVDU and homelessness. Placement remains an issue on multiple fronts (hx aggressive behavior, suboxone, low regional bed availability). Appreciate care management assistance. Needs to continue parenteral tx with elevated inflammatory markers - recheck this week. Subjective Reports that he walked quite a bit yesterday, now using walker. Feels like the knee is unstable and asking if he can use a brace like before. Review of Systems All systems reviewed & are unremarkable except as noted in HPI & below. Physical Exam RLE: incision eschar with localized ecchymotic appearance. No fluid collections. Knee ROM improved - -3 - 110. Easy SLR with 3d lag. Constitutional WD/WN, vitals as above no acute distress and not intoxicated appearing Respiratory normal respiratory effort; no labored breathing Cardiovascular Extremities: normal capillary refill Results & Data Results & Data Laboratory Results . Diagnostic Findings . PG Care Time/CCT Total # of Minutes Spent Total Time Spent with Patient: Total time spent is greater than 50% in coordination of care (as documented) at patient's floor/unit and/or counseling patient: Coding Level of Care Code 24488 Post Operative Follow-Up Diagnoses Septic joint of right knee joint M00.061 Septic arthritis organism: staphylococcal Osteomyelitis of right knee region M86.9 MRSA infection (methicillin-resistant Staphylococcus aureus) A49.02 (1) Septic joint of right knee joint Septic arthritis organism: staphylococcal Qualified Code(s): M00.061 - Staphylococcal arthritis, right knee
[2021-07-27] MEDS ORDERED: [UNRECOGNIZED DRUG - OTHER] PO SCH (11:15)
[2021-07-27] MEDS: hydrOXYzine HCl 25 MG TAB PO PRN (11:58)
[2021-07-28] MEDS: VANCOMYCIN HCL 1,500 MG in SODIUM CHLORIDE 0.9% 500 ML IV SCH ×3 (00:26→15:58)
[2021-07-28] MEDS: hydrOXYzine HCl 25 MG TAB PO PRN ×2 (00:30→09:04)
[2021-07-28] MEDS: NICOTINE POLACRILEX 2 MG GUM MT PRN ×5 (00:30→18:50)
[2021-07-28] MEDS: BUPRENORPHINE/NALOXONE 8/2 MG TAB SL SCH ×2 (09:05→21:32)
--- NOTE | 2021-07-28 10:12 | Discharge Summary ---
Date of Service July 28, 2021 Principal Diagnosis Same as "Discharge Diagnosis" noted below under Discharge Instructions. Discharge Exam RLE: incision eschar with localized ecchymotic appearance. No fluid collections. Knee ROM improved - -3 - 110. Easy SLR with 3d lag. Discharge Data Consultations 06/21/21 16:29 ED Decision to Admit Stat 06/22/21 11:18 Consult Infectious Diseases Routine Procedures Performed Operation Date: 06/22/21 07:30 Actual Procedures p Open Debridement and Right Knee Arthroscopic Debridement(Right) - Niall Hooper MD s Right Tibial Hardware Removal(Right) - Niall Hooper MD Ordered Studies 06/22/21 FL knee RT 1 or 2V Routine 06/22/21 11:18 MR knee RT wo/w con Urgent PG Care Time/CCT Total # of Minutes Spent Total Time Spent with Patient: Total time spent is greater than 50% in coordination of care (as documented) at patient's floor/unit and/or counseling patient: Discharge Plan Discharge Items Patient Disposition: Transfer [facility] Reason For Visit: CHRONIC OSTEOMYELITIS Discharge Diagnosis: Same as above Activity: Per Instructions section Non-emergency contact: Surgeon Call non-emergency contact if: your pain is not controlled and your temperature is above 101 Follow-up/Referrals: Ana Miguel MD [Primary Care Provider] - Niall Hooper MD [Surgeon] - Diet: Regular Addtl Attending Provider Instructions: -Needs IV Vancomycin x 6 weeks duration (last day 08/03) -BMP 1-2 x weekly; Vancomycin trough level every 2-3 days -OK for weight bearing as tolerated with crutches and range of motion exercises as tolerated -Ice/elevation as needed for swelling of right knee -Follow up with Dr. Hooper in clinic 6 weeks post op (date of surgery 06/22), ideally done before he is discharged from facility Pending Studies at Discharge: No Stand-Alone Forms: My [facility] Skilled Items Patient informed of condition?: Yes DNR: No Discharge Level of Care: Skilled Communicable Disease: Yes (MRSA) Discharge Prognosis: Stable Lines: PICC Urinary Catheter: No Medications and DC Order Prescriptions: No Action buprenorphine-naloxone 8-2 mg Tablet, Sublingual 1 tab SUBLINGUAL BID RF: 0 hydroxyzine HCl 25 mg Tablet 50 mg PO HSZ Qty: 0 RF: 0 acetaminophen [Tylenol Extra Strength] 500 mg Tablet 1,000 mg PO Q8H PRN (Reason: pain, mild) Qty: 100 RF: 0 aspirin [Ecotrin] 325 mg Tablet,Delayed Release (Dr/Ec) 325 mg PO DAILY Qty: 60 RF: 0 celecoxib [Celebrex] 100 mg Capsule 100 mg PO BID Qty: 90 RF: 0 gabapentin 300 mg Capsule 300 mg PO TID Qty: 90 RF: 2 hydrocodone-acetaminophen 10-325 mg Tablet 1 tab PO Q4H PRN (Reason: pain) Qty: 14 RF: 0 sulfamethoxazole-trimethoprim [Bactrim DS] 800-160 mg Tablet 1 tab PO Q12 Qty: 70 RF: 0 Admission Data Admit Date/Time: 06/21/21 16:41 Attending Provider: Niall Hooper Admit Provider: Niall Hooper Primary Care Provider: Ana Miguel Other Providers: Niall Hooper ; Prabhakar Green ; Nba Omer ; Giorgio Israel I. ; Noah Hernandez II ; Maria Esther Landry ; Ash Olguin ; [facility] ; [place] ; [facility]
[2021-07-28 10:14] LABS: Creatinine Clr Calc Pharmacy 184.6 ml/min; Est GFR (African American) 142.7 ml/min; Est GFR (Non-African American) 123.1 ml/min
--- NOTE | 2021-07-28 10:16 | Orthopedic Progress Note ---
Date of Service July 28, 2021 Assessment & Plan (1) Osteomyelitis of right knee region: (2) MRSA infection (methicillin-resistant Staphylococcus aureus): (3) Septic arthritis of knee, right: 5 weeks S/p Right Tibial Hardware Removal with Open Debridement and Right Knee Arthroscopic Debridement No change the plan of care. Vancomycin at goal. Continue plan of care. -6 weeks parenteral tx ends ~Aug 04. -Encourage gastroc stretch and mobilization. -DVT prophylaxis: Lovenox. Will be Rx'd aspirin at discharge or when returns to regular ambulation. -Activity: He can be weightbearing as tolerated on the knee. Will arrange for double hinge knee brace Disposition: Stable for discharge. He needs placement at a facility upon discharge d/t history of IVDU and homelessness. Placement remains an issue on multiple fronts (hx aggressive behavior, suboxone, low regional bed brandie ilability). Appreciate care management assistance. Needs to continue parenteral tx with elevated inflammatory markers - recheck this week. Subjective No issues . Review of Systems All systems reviewed & are unremarkable except as noted in HPI & below. Physical Exam LLE: Incisions well healed. Mild-moderate effusion. Nontender to palpation. ROM 5-110. Can SLR w/ 3 degrees lag. Results & Data Results & Data Laboratory Results None recent . Diagnostic Findings None recent . PG Care Time/CCT Total # of Minutes Spent Total Time Spent with Patient: Total time spent is greater than 50% in c oordination of care (as documented) at patient's floor/unit and/or counseling patient: Coding Level of Care Code 69334 Post Operative Follow-Up Diagnoses Osteomyelitis of right knee region M86.9 MRSA infection (methicillin-resistant Staphylococcus aureus) A49.02 Septic arthritis of knee, right M00.9
[2021-07-29] MEDS: VANCOMYCIN HCL 1,500 MG in SODIUM CHLORIDE 0.9% 500 ML IV SCH ×3 (00:24→17:14)
[2021-07-29] MEDS: BUPRENORPHINE/NALOXONE 8/2 MG TAB SL SCH ×2 (13:29→21:47)
--- NOTE | 2021-07-29 13:44 | Orthopedic Progress Note ---
Date of Service July 29, 2021 Assessment & Plan (1) Osteomyelitis of right knee region: (2) MRSA infection (methicillin-resistant Staphylococcus aureus): (3) Septic arthritis of knee, right: 5 weeks S/p Right Tibial Hardware Removal with Open Debridement and Right Knee Arthroscopic Debridement No change the plan of care. Vancomycin at goal. Continue plan of care. -6 weeks parenteral tx ends ~Aug 04. Will likely d/c on 2 weeks PO Bactrim DS. -Encourage gastroc stretch and mobilization. -DVT prophylaxis: Lovenox. Will be Rx'd aspirin at discharge or when returns to regular ambulation. -Activity: He can be weightbearing as tolerated on the knee. Orthotics to fit for double hinged knee brace today. Disposition: No outside beds available this week, so will finish out abx course here. Will remain inpatient until August 04. Needs to continue parenteral tx with elevated inflammatory markers - recheck this week. Subjective No issues. Review of Systems All systems reviewed & are unremarkable except as noted in HPI & below. Physical Exam LLE: Incisions well healed. Mild-moderate effusion. Nontender to palpation. ROM 5-110. Can SLR w/ 3 degrees lag. Results & Data Results & Data Laboratory Results None recent . Diagnostic Findings None recent . PG Care Time/CCT Total # of Minutes Spent Total Time Spent with Patient: Total time spent is greater than 50% in coordination of care (as documented) at patient's floor/unit and/or counseling patient: Coding Level of Care Code 35592 Post Operative Follow-Up Diagnoses Osteomyelitis of right knee region M86.9 MRSA infection (methicillin-resistant Staphylococcus aureus) A49.02 Septic arthritis of knee, right M00.9
[2021-07-29] MEDS: NICOTINE POLACRILEX 2 MG GUM MT PRN ×2 (17:18→21:47)
[2021-07-29] MEDS: hydrOXYzine HCl 25 MG TAB PO PRN (21:52)
[2021-07-30] MEDS: VANCOMYCIN HCL 1,500 MG in SODIUM CHLORIDE 0.9% 500 ML IV SCH ×3 (00:24→15:37)
[2021-07-30] MEDS: NICOTINE POLACRILEX 2 MG GUM MT PRN (00:30)
[2021-07-30] MEDS: BUPRENORPHINE/NALOXONE 8/2 MG TAB SL SCH ×2 (09:50→21:17)
[2021-07-30] MEDS: hydrOXYzine HCl 25 MG TAB PO PRN (12:31)
--- NOTE | 2021-07-30 14:32 | Orthopedic Progress Note ---
Date of Service July 30, 2021 Assessment & Plan (1) Osteomyelitis of right knee region: (2) MRSA infection (methicillin-resistant Staphylococcus aureus): (3) Septic arthritis of knee, right: 5 weeks S/p Right Tibial Hardware Removal with Open Debridement and Right Knee Arthroscopic Debridement No change the plan of care. Vancomycin at goal. Continue plan of care. -6 weeks parenteral tx ends ~Aug 04 st. Will d/c on 2 weeks PO Bactrim DS. Recheck inflammatory markers on 08/01. -Encourage gastroc stretch and mobilization. -DVT prophylaxis: Lovenox. Will be Rx'd aspirin at discharge or when returns to regular ambulation. -Activity: He can be weightbearing as tolerated on the knee. Orthotics to fit for double hinged knee brace. Disposition: No outside beds available this week, so will finish out abx course here. Will remain inpatient until August 04. Subjective No issues . Review of Systems All systems reviewed & are unremarkable except as noted in HPI & below. Physical Exam LLE: Incisions well healed. Mild-moderate effusion. Nontender to palpation. ROM 5-110. Can SLR w/ 3 degrees lag. . Results & Data Results & Data Laboratory Results None recent . Diagnostic Findings None recent . PG Care Time/CCT Total # of Minutes Spent Total Time Spent with Patient: Total time spent is greater than 50% in coordination of care (as documented) at patient's floor/unit and/or counseling patient: Coding Level of Care Code 32899 Post Operative Follow-Up Diagnoses Osteomyelitis of right knee region M86.9 MRSA infection (methicillin-resistant Staphylococcus aureus) A49.02 Septic arthritis of knee, right M00.9
[2021-07-31] MEDS: VANCOMYCIN HCL 1,500 MG in SODIUM CHLORIDE 0.9% 500 ML IV SCH ×3 (00:45→15:36)
[2021-07-31] MEDS: hydrOXYzine HCl 25 MG TAB PO PRN ×2 (07:31→22:03)
[2021-07-31] MEDS: BUPRENORPHINE/NALOXONE 8/2 MG TAB SL SCH ×2 (07:31→21:49)
[2021-07-31] MEDS: IBUPROFEN 800 MG TAB PO PRN (07:37)
[2021-07-31] MEDS: NICOTINE POLACRILEX 2 MG GUM MT PRN ×2 (07:38→21:50)
--- NOTE | 2021-07-31 08:47 | Orthopedic Progress Note ---
Date of Service July 31, 2021 Assessment & Plan (1) Osteomyelitis of right knee region: (2) MRSA infection (methicillin-resistant Staphylococcus aureus): (3) Septic arthritis of knee, right: 5 weeks S/p Right Tibial Hardware Removal with Open Debridement and Right Knee Arthroscopic Debridement No change the plan of care. Vancomycin at goal. Continue plan of care. -6 weeks parenteral tx ends ~Aug 04 st. Will d/c on 2 weeks PO Bactrim DS. Recheck inflammatory markers on 08/01. -Encourage gastroc stretch and mobilization. -DVT prophylaxis: Lovenox. Will be Rx'd aspirin at discharge or when returns to regular ambulation. -Activity: He can be weightbearing as tolerated on the knee. Orthotics to fit for double hinged knee brace. Disposition: No outside beds available this week, so will finish out abx course here. Will remain inpatient until August 04. Subjective No concerns . Review of Systems All systems reviewed & are unremarkable except as noted in HPI & below. Physical Exam LLE: Incisions well healed. Mild-moderate effusion. Nontender to palpation. ROM 5-110. Can SLR w/ 3 degrees lag. . Results & Data Results & Data Laboratory Results N/A . Diagnostic Findings N/A . PG Care Time/CCT Total # of Minutes Spent Total Time Spent with Patient: Total time spent is greater than 50% in coordination of care (as documented) at patient's floor/unit and/or counseling patient: Coding Level of Care Code 62436 Post Operative Follow-Up Diagnoses Osteomyelitis of right knee region M86.9 MRSA infection (methicillin-resistant Staphylococcus aureus) A49.02 Septic arthritis of knee, right M00.9
[2021-08-01] MEDS: VANCOMYCIN HCL 1,500 MG in SODIUM CHLORIDE 0.9% 500 ML IV SCH ×4 (00:37→23:28)
[2021-08-01] MEDS: NICOTINE POLACRILEX 2 MG GUM MT PRN ×4 (00:40→21:07)
[2021-08-01] MEDS ORDERED: VANCOMYCIN TROUGH ONE (07:30)
[2021-08-01] MEDS: BUPRENORPHINE/NALOXONE 8/2 MG TAB SL SCH ×2 (08:15→21:07)
[2021-08-01] MEDS: IBUPROFEN 800 MG TAB PO PRN (08:17)
[2021-08-01] MEDS: hydrOXYzine HCl 25 MG TAB PO PRN ×2 (08:17→21:06)
[2021-08-01 08:26] LABS: Basophils # (auto) 0.03 K/uL (0-0.2); Basophils % (auto) 0.4 %; Eosinophils # (auto) 0.34 K/uL (0-0.5); Eosinophils % (auto) 4.1 %; Hematocrit (blood only) 40.5 % (42-52); Hemoglobin 13.3 g/dL (14.0-18.0); Immature Granulocytes # (auto) 0.03 K/uL (0.00-0.02); Immature Granulocytes % (auto) 0.4 %; Lymphocytes # (auto) 2.61 K/uL (1.2-3.4); Lymphocytes % (auto) 31.2 %; Mean Corpuscular Hemoglobin 25.5 pg (25-34); Mean Corpuscular Hgb Conc 32.8 g/dL (32-36); Mean Corpuscular Volume 77.7 fL (80-100); Mean Platelet Volume 9.5 fL (7.4-10.4); Monocytes # (auto) 0.66 K/uL (0.11-0.59); Monocytes % (auto) 7.9 %; Neutrophils # (auto) 4.69 K/uL (1.4-6.5); Platelet Count 250 K/uL (130-400); RDW Coefficient of Variation 17.9 % (11.5-14.5); RDW Standard Deviation 51.2 fL (36.4-46.3); Red Blood Count 5.21 M/uL (4.7-6.1); White Blood Count 8.36 K/uL (4.8-10.8)
--- NOTE | 2021-08-01 08:48 | Pharmacy Report ---
Pharmacy Abx Dose Short Note - Date of Service August 01, 2021 - Assessment & Plan Assessment * Mr Owusu is a 41 year old M receiving Vancomycin for treatment of septic R knee, osteomyelitis R knee. * Pt is finishing a 6 week course of IV abx (should be completed 08/04/21). * Renal function has been very stable. Vanc trough levels obtained every few days have been very stable. * No changes anticipated. Plan Vancomycin * Trough level of 17.6 mcg/mL is therapeutic * Continue dose of 1500 mg IV every 8 hours * Goal trough level: 15 to 20 mcg/mL * No further trough levels will be ordered Pharmacy will continue to follow and will adjust dose/frequency as necessary. Thank you.
--- NOTE | 2021-08-01 09:38 | Orthopedic Progress Note ---
Date of Service August 01, 2021 Assessment & Plan (1) Osteomyelitis of right knee region: (2) MRSA infection (methicillin-resistant Staphylococcus aureus): (3) Septic arthritis of knee, right: 5 weeks S/p Right Tibial Hardware Removal with Open Debridement and Right Knee Arthroscopic Debridement No change the plan of care. Vancomycin at goal. Continue plan of care. -6 weeks parenteral tx ends ~Aug 04 st. Will d/c on 2 weeks PO Bactrim DS. Inflammatory markers pending. -Encourage gastroc stretch and mobilization. -DVT prophylaxis: Lovenox. Will be Rx'd aspirin at discharge or when returns to regular ambulation. -Activity: He can be weightbearing as tolerated on the knee. Has double hinged knee brace he can use for added stability. Disposition: No outside beds available this week, so will finish out abx course here. Will remain inpatient until August 04. Subjective Frustrated with labs being drawn today, otherwise no issues . Review of Systems All systems reviewed & are unremarkable except as noted in HPI & below. Physical Exam LLE: Incisions well healed. Mild-moderate effusion. Nontender to palpation. ROM 5-110. Can SLR w/ 3 degrees lag. . . Results & Data Results & Data Laboratory Results Pending today . Diagnostic Findings None new. PG Care Time/CCT Total # of Minutes Spent Total Time Spent with Patient: Total time spent is greater than 50% in coordination of care (as documented) at patient's floor/unit and/or counseling patient: Coding Level of Care Code 86672 Post Operative Follow-Up Diagnoses Osteomyelitis of right knee region M86.9 MRSA infection (methicillin-resistant Staphylococcus aureus) A49.02 Septic arthritis of knee, right M00.9
[2021-08-02] MEDS: NICOTINE POLACRILEX 2 MG GUM MT PRN ×4 (03:23→21:21)
[2021-08-02] MEDS: VANCOMYCIN HCL 1,500 MG in SODIUM CHLORIDE 0.9% 500 ML IV SCH ×3 (09:11→23:20)
[2021-08-02] MEDS: BUPRENORPHINE/NALOXONE 8/2 MG TAB SL SCH ×2 (09:12→20:34)
[2021-08-02] MEDS: IBUPROFEN 800 MG TAB PO PRN ×2 (09:13→20:35)
[2021-08-02] MEDS: hydrOXYzine HCl 25 MG TAB PO PRN ×2 (09:29→20:34)
--- NOTE | 2021-08-02 13:24 | Orthopedic Progress Note ---
Date of Service August 02, 2021 Assessment & Plan (1) Osteomyelitis of right knee region: (2) MRSA infection (methicillin-resistant Staphylococcus aureus): (3) Septic arthritis of knee, right: Nearly 6 weeks S/p Right Tibial Hardware Removal with Open Debridement and Right Knee Arthroscopic Debridement. Finishing recommended parenteral IV course Aug 04. No change the plan of care. Vancomycin at goal. Continue plan of care. -6 weeks parenteral tx ends ~Aug 04. Will d/c on 2 weeks PO Bactrim DS. Inflammatory markers pending. -Encourage gastroc stretch and mobilization. -DVT prophylaxis: Lovenox. Will be Rx'd aspirin at discharge or when returns to regular ambulation. -Activity: He can be weightbearing as tolerated on the knee. Has double hinged knee brace he can use for added stability. Disposition: No outside beds available this week, so will finish out abx course here. Will remain inpatient until August 04. Subjective No issues. Some concern over placement after discharge, but he said that he would figure it out. Does not want CM help. Review of Systems All systems reviewed & are unremarkable except as noted in HPI & below. Physical Exam RLE: painless ROM. Wound healed. Constitutional WD/WN, vitals as above no acute distress and not intoxicated appearing Respiratory normal respiratory effort; no labored breathing Cardiovascular Extremities: normal capillary refill Results & Data Results & Data Laboratory Results . Diagnostic Findings . PG Care Time/CCT Total # of Minutes Spent Total Time Spent with Patient: Total time spent is greater than 50% in coordination of care (as documented) at patient's floor/unit and/or counseling patient: Coding Level of Care Code 06599 Post Operative Follow-Up Diagnoses Osteomyelitis of right knee region M86.9 MRSA infection (methicillin-resistant Staphylococcus aureus) A49.02 Septic arthritis of knee, right M00.9
[2021-08-03] MEDS: VANCOMYCIN HCL 1,500 MG in SODIUM CHLORIDE 0.9% 500 ML IV SCH ×2 (09:00→15:57)
[2021-08-03] MEDS: IBUPROFEN 800 MG TAB PO PRN ×2 (09:25→19:26)
[2021-08-03] MEDS: BUPRENORPHINE/NALOXONE 8/2 MG TAB SL SCH (09:25)
[2021-08-03] MEDS: NICOTINE POLACRILEX 2 MG GUM MT PRN ×2 (09:27→12:19)
[2021-08-03] MEDS: hydrOXYzine HCl 25 MG TAB PO PRN (09:34)
[2021-08-03] MEDS ORDERED: SEPTRA DS HOME PACK 1 EA VIAL PO ONE (15:10)
--- NOTE | 2021-08-03 15:19 | Orthopedic Progress Note ---
Date of Service August 03, 2021 Assessment & Plan (1) Osteomyelitis of right knee region: (2) MRSA infection (methicillin-resistant Staphylococcus aureus): (3) Septic arthritis of knee, right: Nearly 6 weeks S/p Right Tibial Hardware Removal with Open Debridement and Right Knee Arthroscopic Debridement. Will finish last dose of IV vancomycin today and prefers discharge today. Plan to transition to oral Bactrim DS for 2 weeks. Disposition: discharge to home care on oral abx today. Subjective Asked if he could be discharged today for better coordination of long-term plan. Denies new symptoms. Demonstrated how he is walking with and without the brace. No new symptoms. Review of Systems All systems reviewed & are unremarkable except as noted in HPI & below. Physical Exam Gen: pleasant today, eagerly demonstrated his ambulation and donning of brace. RLE: Knee with small effusion. ROM 5-120. Ambulates with minimal antalgia - likely due to loss of terminal extension which is chronic. Wound is well healed. Constitutional WD/WN, vitals as above no acute distress and not intoxicated appearing Respiratory normal respiratory effort; no labored breathing Cardiovascular Extremities: normal capillary refill Results & Data Results & Data Laboratory Results . Diagnostic Findings . PG Care Time/CCT Total # of Minutes Spent Total Time Spent with Patient: Total time spent is greater than 50% in coordination of care (as documented) at patient's floor/unit and/or counseling patient: Coding Level of Care Code 44478 Post Operative Follow-Up Diagnoses Osteomyelitis of right knee region M86.9 MRSA infection (methicillin-resistant Staphylococcus aureus) A49.02 Septic arthritis of knee, right M00.9
--- NOTE | 2021-08-04 10:55 | Discharge Summary ---
Date of Service August 04, 2021 Admission HPI (Per Admitting) 41-year-old male with history of intravenous drug abuse and psychosis/paranoia return to the ED with increasing pain and swelling to the knee. He was an inpatient approximately 5 weeks ago after being admitted from the psychiatric [facility] with obvious septic right knee. He underwent an irrigation debridement. Multiple culture showed MRSA. He remained as an inpatient for parenteral therapy before discharge to an oral regimen of double strength Bactrim, guided by infectious disease consult. He did not follow-up as instructed. He states that he had no ride. States he came to the ER today because the first time he was available for follow-up in a long time. He admits that he has been walking on the leg but needing crutches at times. He tried to do some work and the knee was too painful. He denies any feelings of malaise nor fevers. He admits to tolerance to the Bactrim. He does admit to use of marijuana and some Adderall because he needed to stay awake and avoid being arrested for being homeless. He notes no other sources of pain or complaints. Admission Exam (Per Admitting) Right lower extremity: The knee has a obvious mild to moderate effusion. He attempts to cooperate but cannot extend past 25 degrees short of full extension. He can flex to about 95 degrees. He is nontender along the medial scar for his plateau surgery. He is diffusely tender over the suprapatellar pouch. Is minimally tender along the joint lines. Constitutional + disheveled and cooperative; no acute distress and not intoxicated appearing Respiratory normal respiratory effort; no respiratory distress Cardiovascular Extremities: normal capillary refill; no edema Skin Diffuse truncal and extremity rashes without any evidence of cellulitis. The skin overlying the right knee without significant compromise or edema. Psychiatric A+Ox3, euthymic affect . Principal Diagnosis Same as "Discharge Diagnosis" noted below under Discharge Instructions. Discharge Exam Gen: AAOx3. Conversant but clearly frustrated. RLE: Dressing off. Wounds well approx without erythema or drainage. Sutures remain. Unclear tenderness bc of lack of cooperation. Still w/ moderate effusion. ROM 15-95. No pain w/ active or passive range of motion and readily shows his motion by moving around the bed. Discharge Data Consultations 06/21/21 16:29 ED Decision to Admit Stat 06/22/21 11:18 Consult Infectious Diseases Routine Procedures Performed Operation Date: 06/22/21 07:30 Actual Procedures p Open Debridement and Right Knee Arthroscopic Debridement(Right) - Niall Hooper MD s Right Tibial Hardware Removal(Right) - Niall Hooper MD Ordered Studies 06/22/21 FL knee RT 1 or 2V Routine 06/22/21 11:18 MR knee RT wo/w con Urgent Hospital Course (1) Osteomyelitis of right knee region: (2) Septic joint of right knee joint: Septic arthritis organism: staphylococcal Qualified Code(s): M00.061 - Staphylococcal arthritis, right knee (3) MRSA infection (methicillin-resistant Staphylococcus aureus): Admitted on 06/22 after failing PO treatment for right knee septic arthritis and osteomyelitis. Underwent right knee arthroscopic debridement and tibial hardware on 06/22. Intraoperative cultures grew MRSA once again. Ldumila OCONNELL consulted who recommended 6 weeks of IV antibiotics. PICC line was placed and he completed 6 weeks of IV vancomycin while in hospital. He was unable to be discharged due to placement issues at outside facilities (bed availability, suboxone rx, psych history), and he was unable to be discharged home with a PICC d/t history of IVDU. No post operative or medical complications while admitted. Given double hinged knee brace prior to discharge and discharged on 2 weeks PO Bactrim DS. PG Care Time/CCT Total # of Minutes Spent Total Time Spent with Patient: Total time spent is greater than 50% in coordination of care (as documented) at patient's floor/unit and/or counseling patient: Discharge Plan Discharge Items Patient Disposition: Home - Self-Care Reason For Visit: CHRONIC OSTEOMYELITIS Discharge Diagnosis: Same as above Activity: Per Instructions section Non-emergency contact: Surgeon Call non-emergency contact if: your pain is not controlled and your temperature is above 101 Follow-up/Referrals: Ana Miguel MD [Primary Care Provider] - 08/12/21 10:15 am Niall Hooper MD [Surgeon] - Diet: Regular Addtl Attending Provider Instructions: You were hospitalized for a recurrent MRSA infection in your right knee. You underwent right knee arthroscopy, debridement and irrigation, and tibial hardware removal on 06/22 to help control the infection. These surgeries involve accessing your knee joint with a camera, cleaning and washing out infected tissue, and removing previous hardware that was in your rose bone (tibia) to treat a previous fracture. You remained in the hospital to complete a 6 week course of IV antibiotics to clear the infection. At this point you no longer require IV antibiotics and the infection is resolving. -We will be discharging you on 2 more weeks of oral antibiotics. Bactrim DS 800/160, take twice daily for 2 weeks. -OK for weight bearing as tolerated with crutches and range of motion exercises as tolerated -Ice/elevation as needed for swelling of right knee. -Use the brace as needed to help with stability in the knee when walking. -Recommend follow up in Dr. Hooper's clinic in another 6 weeks to recheck progress. Pending Studies at Discharge: No Stand-Alone Forms: My [facility], Smoking Cessation Medications and DC Order Prescriptions: New sulfamethoxazole-trimethoprim [Bactrim DS] 800-160 mg tablet 1 tab PO DAILY 14 Days Qty: 14 RF: 0 Continued buprenorphine-naloxone 8-2 mg Tablet, Sublingual 1 tab SUBLINGUAL BID RF: 0 hydroxyzine HCl 25 mg Tablet 50 mg PO HSZ Qty: 0 RF: 0 acetaminophen [Tylenol Extra Strength] 500 mg Tablet 1,000 mg PO Q8H PRN (Reason: pain, mild) Qty: 100 RF: 0 aspirin [Ecotrin] 325 mg Tablet,Delayed Release (Dr/Ec) 325 mg PO DAILY Qty: 60 RF: 0 celecoxib [Celebrex] 100 mg Capsule 100 mg PO BID Qty: 90 RF: 0 Discontinued hydrocodone-acetaminophen 10-325 mg Tablet 1 tab PO Q4H PRN (Reason: pain) Qty: 14 RF: 0 sulfamethoxazole-trimethoprim [Bactrim DS] 800-160 mg Tablet 1 tab PO Q12 Qty: 70 RF: 0 Discharge Orders: Discharge Order (Routine); Ordered 08/03/21 Ordered By: Niall Figueroa/Other Patient Handouts: Osteomyelitis Dc Admission Data Admit Date/Time: 06/21/21 16:41 Attending Provider: Niall Hooper Admit Provider: Niall Hooper Primary Care Provider: Ana Miguel Other Providers: Niall Hooper ; Prabhakar Green ; Nba Omer ; Giorgio Israel I. ; Noah Hernandez II ; Maria Esther Landry ; Ash Olguin ; [facility] ; [place],[facility] ; [place],[facility] Other Interventions: Discharge Summary Assessment (RN) Last Done: 08/03/21 18:21
== END 2021-08-03 19:47 | disposition home or self-care (01) | DRG 486 ==
LOC: ED 13:40 → 3W 16:41 → 3E 06-24 13:10

== ENCOUNTER 2021-11-08 22:26 | Inpatient (IN) ==
[2021-11-08] MEDS ORDERED: VANCOMYCIN HCL 2,000 MG in SODIUM CHLORIDE 0.9% 500 ML IV ONE (22:49)
[2021-11-08] MEDS ORDERED: VANCOMYCIN CONSULT ACTIVE PRN (22:49)
[2021-11-08] MEDS ORDERED: PIPERACILL/TAZOBAC CONSULT ACTIVE PRN (22:54)
[2021-11-08] MEDS ORDERED: ACETAMINOPHEN 1,000 MG/100 ML VIAL IV STA (22:54)
[2021-11-08] MEDS ORDERED: PIPERACILLIN/TAZOBACTAM 4.5 GM/120 ML BAG IV ONE (22:54)
[2021-11-08] MEDS ORDERED: SODIUM CHLORIDE 0.9% 1000ML 1,000 ML IV SCH (23:00)
[2021-11-08 23:34] LABS: Basophils # (auto) 0.01 K/uL (0-0.2); Basophils % (auto) 0.1 %; Eosinophils # (auto) 0.25 K/uL (0-0.5); Eosinophils % (auto) 1.8 %; Hematocrit (blood only) 32.7 % (42-52); Hemoglobin 10.2 g/dL (14.0-18.0); Immature Granulocytes # (auto) 0.08 K/uL (0.00-0.02); Immature Granulocytes % (auto) 0.6 %; Lymphocytes # (auto) 1.57 K/uL (1.2-3.4); Lymphocytes % (auto) 11.2 %; Mean Corpuscular Hemoglobin 25.6 pg (25-34); Mean Corpuscular Hgb Conc 31.2 g/dL (32-36); Mean Corpuscular Volume 82.2 fL (80-100); Mean Platelet Volume 9.4 fL (7.4-10.4); Monocytes # (auto) 0.73 K/uL (0.11-0.59); Monocytes % (auto) 5.2 %; Neutrophils # (auto) 11.35 K/uL (1.4-6.5); Neutrophils % (auto) 81.1 %; Platelet Count 384 K/uL (130-400); RDW Coefficient of Variation 16.8 % (11.5-14.5); RDW Standard Deviation 50.6 fL (36.4-46.3); Red Blood Count 3.98 M/uL (4.7-6.1); White Blood Count 13.99 K/uL (4.8-10.8)
--- NOTE | 2021-11-08 23:49 | Emergency Department Note ---
History of Present Illness General Chief complaint: Knee Injury/Pain Stated complaint: RIGHT KNEE Time Seen by Provider: 11/08/21 22:32 History of Present Illness Maximum Pain Intensity: 4 This is a 41-year-old male presenting to the emergency department for evaluation of right knee pain. The patient has a complicated history regarding his right knee. He is an active IV drug abuser with history of psychosis and aggressive behavior. He is on Suboxone. The patient has followed with [facility] orthopedics after having several surgeries to the right knee, as the keep getting infected. The patient has had extended hospitalizations within the past year, including a 6-week stay at this facility for IV vancomycin. The patient has had social issues in the past as well including homelessness and a son that reportedly has brain cancer. The patient did see orthopedics about 2 weeks ago where the right knee was tapped and had 180,000 white cells. Culture was ordered at that visit, however culture did not occur. It is unsure if this was lab error or other issue. The patient states that he iced his knee a few days ago, and left the ice on for several hours. He states that yesterday his knee "popped" and a large amount of purulent material leaked out. He has not had fev er today but is tachycardic. He has difficulty walking chronically. He rates his current discomfort a 4/10. Home Medications Medication Instructions Recorded Confirmed Type buprenorphine 8 mg-naloxone 2 mg 1 tab SUBLINGUAL BID 10/27/19 11/08/21 History sublingual tablet acetaminophen 500 mg tablet 1,000 mg PO Q8H PRN #100 tab 05/30/21 11/08/21 Rx (Tylenol Extra Strength) aspirin 325 mg tablet,delayed 325 mg PO DAILY #60 tab 05/30/21 11/08/21 Rx release (Ecotrin) Allergies Allergy/AdvReac Type Severity Reaction Status Date / Time cyclobenzaprine Allergy Severe SHORTNESS Verified 11/08/21 23:52 OF BREATH zolpidem Allergy Unknown hallucinati Verified 11/08/21 23:52 ons Benzodiazepines AdvReac Intermediate PSYCH Verified 11/08/21 23:52 ISSUES Past Med/Surg History Medical History Aggressive behavior Anemia Delusions IV drug abuse No pertinent family history Paranoia Psychosis Septic arthritis of knee, right SIRS (systemic inflammatory response syndrome) Surgical History History of hernia surgery S/P right knee arthroscopy for septic joint, Dr. Hooper Social History Smoking Status: Never smoker Tobacco Type: E-cigarettes / Vaping and Smokeless Tobacco (Dip or Chew) Second Hand Exposure: No; Hx Alcohol Use: No Hx Substance Use: Yes Last Used Substance: Unknown Last Used Substance Other:: marijuana 1 week ago Substance Use Type Other:: IV drugs Preferred Language: Wallisian Communication Ability: Effective [employer] Ware[employer] Required: No Beliefs That Will Affect Care: None marital status: Single Current Living Situation: Other Current Living Situation Comment: states that he is homeless Feels Safe at Home: Yes Assistive Devices: Brace/Splint/Immobilizer Review of Systems A total of 10 systems reviewed and were otherwise negative Physical Exam Vital Signs Vital Signs - 24 hr 11/08/21 22:27 11/09/21 00:26 11/09/21 03:16 Temperature 36.8 C Temperature Source Temporal Artery Scan Pulse Rate 121 H Pulse Rate [Right Finger] 97 H 78 Pulse Rhythm [Right Finger] Regular Pulse Strength [Right Finger] Normal Respiratory Rate 16 14 20 Respiratory Effort / Characteristics Non-Labored Spontaneous Non-Labored Respiratory Depth Normal Normal Respiratory Pattern Regular Blood Pressure 138/92 Blood Pressure [Left Arm] 139/81 147/88 H Blood Pressure Mean 107 Blood Pressure Mean [Left Arm] 100 107 Blood Pressure Position [Left Arm] Lying Lying Pulse Oximetry 93 96 96 Oxygen Delivery Method Room Air Room Air Room Air Sepsis Recent Fever Within 48 Hours No Sepsis New/Unexplained Change in Mental Status N/A Sepsis Action Taken by Nursing No Action Required VITALS: Vitals are noted on the nurse's note and reviewed by myself. Vital signs with tachycardia. GENERAL: White male who appears in no acute distress. HEAD: Normocephalic atraumatic. HEART: Regular rate and rhythm without murmurs gallops or rubs. LUNGS: Clear to auscultation bilaterally without wheezes, rales or rhonchi. No retractions or accessory muscle use. MUSCULOSKELETAL: There is a very large cavitary wound pocket along the medial aspect of the right knee with active purulence. This measures not less than 5 cm in maximum length and does seem to penetrate several centimeters deep. No obvious bone exposure is identified. Culture of the purulence was sent to lab. Surrounding tissue is edematous. NEURO: Patient was alert and oriented to person place and time. CN II through XII grossly intact. Course Administered Medications Miscellaneous (Patient's Height And/Or Weight Needed) 1 ea N/A Q2H LADONNA Stop: 12/09/21 03:14 Last Admin: 11/09/21 03:40 Dose: 1 ea Documented by: [id number] Discontinued Medications Vancomycin HCl 2,000 mg/ (Sodium Chloride) 540 mls @ 200 mls/hr IV NOW ONE Stop: 11/09/21 01:30 Last Infusion: 11/09/21 03:00 Dose: 0 mls/hr Documented by: [id number] Admin: 11/09/21 00:18 Dose: 200 mls/hr Documented by: [id number] Piperacillin Sod/Tazobactam Sod (Zosyn) 4.5 gm in 120 mls @ 240 mls/hr IV NOW ONE Stop: 11/08/21 23:23 Last Infusion: 11/09/21 00:27 Dose: 0 mls/hr Documented by: [id number] Admin: 11/08/21 23:42 Dose: 240 mls/hr Documented by: [id number] Sodium Chloride (Nss 1000ml) 1,000 mls @ 999 mls/hr IV .Q1H1M LADONNA Stop: 11/09/21 00:00 Last Infusion: 11/09/21 00:28 Dose: 0 mls/hr Documented by: [id number] Admin: 11/08/21 23:21 Dose: 999 mls/hr Documented by: [id number] Acetaminophen (Ofirmev) 1,000 mg in 100 mls @ 400 mls/hr IV NOW STA Stop: 11/08/21 23:08 Last Infusion: 11/08/21 23:40 Dose: 0 mls/hr Documented by: [id number] Admin: 11/08/21 23:21 Dose: 400 mls/hr Documented by: [id number] Clindamycin Phosphate 600 mg/ (Dextrose) 54 mls @ 100 mls/hr IV ONE ONE Stop: 11/09/21 02:17 Last Infusion: 11/09/21 03:43 Dose: 0 mls/hr Documented by: [id number] Admin: 11/09/21 03:14 Dose: 100 mls/hr Documented by: [id number] Medical Decision Making Laboratory Data Result diagrams: 11/08/21 23:17 11/08/21 23:17 Lab Results 11/08/21 11/08/21 11/08/21 Range/Units 23:17 23:17 23:17 WBC 13.99 H (4.8-10.8) K/uL RBC 3.98 L (4.7-6.1) M/uL Hgb 10.2 L (14.0-18.0) g/dL Hct 32.7 L (42-52) % MCV 82.2 (80-100) fL MCH 25.6 (25-34) pg MCHC 31.2 L (32-36) g/dL RDW Std Deviation 50.6 H (36.4-46.3) fL RDW Coeff of Smitha 16.8 H (11.5-14.5) % Plt Count 384 (130-400) K/uL MPV 9.4 (7.4-10.4) fL Immature Gran % (Auto) 0.6 % Neut % (Auto) 81.1 % Lymph % (Auto) 11.2 % Burt % (Auto) 5.2 % Eos % (Auto) 1.8 % Baso % (Auto) 0.1 % Neut # (Auto) 11.35 H (1.4-6.5) K/uL Lymph # (Auto) 1.57 (1.2-3.4) K/uL Burt # (Auto) 0.73 H (0.11-0.59) K/uL Eos # (Auto) 0.25 (0-0.5) K/uL Baso # (Auto) 0.01 (0-0.2) K/uL Immature Gran # (Auto) 0.08 H (0.00-0.02) K/uL ESR (0-15) mm/hr PT (9.0-12.0) Seconds INR (0.9-1.1) APTT (21.0-31.0) Seconds PTT Ratio Sodium 137 (136-145) mmol/L Potassium 3.8 (3.5-5.1) mmol/L Chloride 101 (98-107) mmol/L Carbon Dioxide 29 (21-32) mmol/L Anion Gap 7 (3-11) BUN 18 (6-23) mg/dl Creatinine 0.56 L (0.6-1.4) mg/dl Est Cr Clr Drug Dosing Not Reportable Est GFR ( Amer) 146.8 ml/min Est GFR (Non-Af Amer) 126.7 ml/min BUN/Creatinine Ratio 32.1 H (10-20) Glucose 105 H (70-99(Fasting)) mg/dl Lactate 0.9 (0.4-2.0) mmol/L Calcium 8.7 (8.5-10.1) mg/dl Total Bilirubin 0.4 (0.2-1.0) mg/dl AST 60 H (13-39) U/L ALT 73 H (7-52) U/L Alkaline Phosphatase 192 H (34-104) U/L C-Reactive Protein 26.68 H (0-0.5) mg/dl Total Protein 7.3 (6.0-8.3) gm/dl Albumin 2.9 L (3.4-5.0) gm/dl Globulin 4.4 H (2.5-4.0) gm/dl Albumin/Globulin Ratio 0.7 L (0.9-2) Urine Color Urine Appearance (Clear) Urine pH (4.5-7.5) Ur Specific Harvel (1.000-1.030) Urine Protein (Negative) Urine Glucose (UA) (Negative) Urine Ketones (Negative) Urine Blood (Negative) Urine Nitrite (Negative) Urine Bilirubin (Negative) Urine Urobilinogen (Negative) Ur Leukocyte Esterase (Negative) SARS-CoV-2, RNA, NAAT (NEGATIVE) 11/08/21 11/08/21 11/08/21 Range/Units 23:17 23:17 23:24 WBC (4.8-10.8) K/uL RBC (4.7-6.1) M/uL Hgb (14.0-18.0) g/dL Hct (42-52) % MCV (80-100) fL MCH (25-34) pg MCHC (32-36) g/dL RDW Std Deviation (36.4-46.3) fL RDW Coeff of Smitha (11.5-14.5) % Plt Count (130-400) K/uL MPV (7.4-10.4) fL Immature Gran % (Auto) % Neut % (Auto) % Lymph % (Auto) % Burt % (Auto) % Eos % (Auto) % Baso % (Auto) % Neut # (Auto) (1.4-6.5) K/uL Lymph # (Auto) (1.2-3.4) K/uL Burt # (Auto) (0.11-0.59) K/uL Eos # (Auto) (0-0.5) K/uL Baso # (Auto) (0-0.2) K/uL Immature Gran # (Auto) (0.00-0.02) K/uL ESR 118 H (0-15) mm/hr PT 10.5 (9.0-12.0) Seconds INR 1.0 (0.9-1.1) APTT 31.8 H (21.0-31.0) Seconds PTT Ratio 1.2 Sodium (136-145) mmol/L Potassium (3.5-5.1) mmol/L Chloride (98-107) mmol/L Carbon Dioxide (21-32) mmol/L Anion Gap (3-11) BUN (6-23) mg/dl Creatinine (0.6-1.4) mg/dl Est Cr Clr Drug Dosing Est GFR ( Amer) ml/min Est GFR (Non-Af Amer) ml/min BUN/Creatinine Ratio (10-20) Glucose (70-99(Fasting)) mg/dl Lactate (0.4-2.0) mmol/L Calcium (8.5-10.1) mg/dl Total Bilirubin (0.2-1.0) mg/dl AST (13-39) U/L ALT (7-52) U/L Alkaline Phosphatase (34-104) U/L C-Reactive Protein (0-0.5) mg/dl Total Protein (6.0-8.3) gm/dl Albumin (3.4-5.0) gm/dl Globulin (2.5-4.0) gm/dl Albumin/Globulin Ratio (0.9-2) Urine Color Urine Appearance (Clear) Urine pH (4.5-7.5) Ur Specific Harvel (1.000-1.030) Urine Protein (Negative) Urine Glucose (UA) (Negative) Urine Ketones (Negative) Urine Blood (Negative) Urine Nitrite (Negative) Urine Bilirubin (Negative) Urine Urobilinogen (Negative) Ur Leukocyte Esterase (Negative) SARS-CoV-2, RNA, NAAT NEGATIVE (NEGATIVE) 11/09/21 Range/Units 02:27 WBC (4.8-10.8) K/uL RBC (4.7-6.1) M/uL Hgb (14.0-18.0) g/dL Hct (42-52) % MCV (80-100) fL MCH (25-34) pg MCHC (32-36) g/dL RDW Std Deviation (36.4-46.3) fL RDW Coeff of Smitha (11.5-14.5) % Plt Count (130-400) K/uL MPV (7.4-10.4) fL Immature Gran % (Auto) % Neut % (Auto) % Lymph % (Auto) % Burt % (Auto) % Eos % (Auto) % Baso % (Auto) % Neut # (Auto) (1.4-6.5) K/uL Lymph # (Auto) (1.2-3.4) K/uL Burt # (Auto) (0.11-0.59) K/uL Eos # (Auto) (0-0.5) K/uL Baso # (Auto) (0-0.2) K/uL Immature Gran # (Auto) (0.00-0.02) K/uL ESR (0-15) mm/hr PT (9.0-12.0) Seconds INR (0.9-1.1) APTT (21.0-31.0) Seconds PTT Ratio Sodium (136-145) mmol/L Potassium (3.5-5.1) mmol/L Chloride (98-107) mmol/L Carbon Dioxide (21-32) mmol/L Anion Gap (3-11) BUN (6-23) mg/dl Creatinine (0.6-1.4) mg/dl Est Cr Clr Drug Dosing Est GFR ( Amer) ml/min Est GFR (Non-Af Amer) ml/min BUN/Creatinine Ratio (10-20) Glucose (70-99(Fasting)) mg/dl Lactate (0.4-2.0) mmol/L Calcium (8.5-10.1) mg/dl Total Bilirubin (0.2-1.0) mg/dl AST (13-39) U/L ALT (7-52) U/L Alkaline Phosphatase (34-104) U/L C-Reactive Protein (0-0.5) mg/dl Total Protein (6.0-8.3) gm/dl Albumin (3.4-5.0) gm/dl Globulin (2.5-4.0) gm/dl Albumin/Globulin Ratio (0.9-2) Urine Color Yellow Urine Appearance Clear (Clear) Urine pH 7.0 (4.5-7.5) Ur Specific Harvel 1.016 (1.000-1.030) Urine Protein Negative (Negative) Urine Glucose (UA) Negative (Negative) Urine Ketones Negative (Negative) Urine Blood Negative (Negative) Urine Nitrite Negative (Negative) Urine Bilirubin Negative (Negative) Urine Urobilinogen Negative (Negative) Ur Leukocyte Esterase Negative (Negative) SARS-CoV-2, RNA, NAAT (NEGATIVE) MDM Narrative Physical exam and history were performed. Nursing notes, EMR, and Medication List were personally reviewed. Patient appears to have severe open wound to the right medial knee area. The patient has a history of chronic osteomyelitis to this region, and his open wound today is quite impressive. Culture was obtained of the wound and this was loosely dressed by nursing. IV access was established and labs were obtained. The case was discussed with my attending. The patient was given IV vancomycin, IV Zosyn, and IV clindamycin. X-ray was performed. An order was placed for continuous cardiac monitoring. The monitor shows a rate of 78 with normal sinus rhythm. The patient's blood work is as above and was reviewed. He does have an elevated white blood cell count of 14,000. He is anemic at 10, however this seems to be essentially his baseline. INR is 1.0. Glucose is 105. Lactic is negative. Inflammatory markers are significantly elevated with a CRP of 26 and sed rate of 118. Blood cultures are pending. X-ray was reviewed and shows a large soft tissue defect medially as well as concern for some gas laterally. Covid is negative. The case was discussed with the on-call orthopedist, Dr. Israel, who recommended the patient remain n.p.o. for likely surgical intervention in the morning. The case was discussed with the on-call hospitalist team who did evaluate the patient here in the ER. Please see their dictation for further patient course, plan, disposition. The chart was completed utilizing [employer] Speech Voice Recognition Software. Grammatical errors, random word insertions, pronoun errors, and incomplete sentences are an occasional consequence of this system due to software li mitations, ambient noise, and hardware issues. Any formal questions or concerns about the content, text, or information contained within the body of this dictation should be directly addressed to the provider for clarification. . Impression & Plan Sepsis, Open leg wound, Chronic infection Discharge Plan Visit Data Chief Complaint: Knee Injury/Pain Stated Complaint: RIGHT KNEE ED Provider: Glenroy Partida ED Midlevel Provider: Corky Samson Discharge Problem: Sepsis, Open leg wound, Chronic infection Forms Stand Alone Forms: [facility] [employer] Prescriptions Prescriptions: No Action buprenorphine-naloxone 8-2 mg Tablet, Sublingual 1 tab SUBLINGUAL BID RF: 0 acetaminophen [Tylenol Extra Strength] 500 mg Tablet 1,000 mg PO Q8H PRN (Reason: pain, mild) Qty: 100 RF: 0 aspirin [Ecotrin] 325 mg Tablet,Delayed Release (Dr/Ec) 325 mg PO DAILY Qty: 60 RF: 0 Referrals Referrals: Ana Miguel MD [Primary Care Provider] -
[2021-11-08 23:51] LABS: Partial Thromboplastin Ratio 1.2; Partial Thromboplastin Time 31.8 Seconds (21.0-31.0); Prothrombin Time 10.5 Seconds (9.0-12.0)
[2021-11-08 23:55] LABS: Alanine Aminotransferase 73 U/L (7-52); Albumin Globulin Ratio 0.7 (0.9-2); Albumin Level 2.9 gm/dl (3.4-5.0); Alkaline Phosphatase 192 U/L (34-104); Anion Gap 7 (3-11); Aspartate Aminotransferase 60 U/L (13-39); BUN Creatinine Ratio 32.1 (10-20); Bilirubin,Total 0.4 mg/dl (0.2-1.0); Blood Urea Nitrogen 18 mg/dl (6-23); C Reactive Protein 26.68 mg/dl (0-0.5); Calcium 8.7 mg/dl (8.5-10.1); Carbon Dioxide 29 mmol/L (21-32); Chloride 101 mmol/L (98-107); Est GFR (African American) 146.8 ml/min; Est GFR (Non-African American) 126.7 ml/min; Globulin 4.4 gm/dl (2.5-4.0); Glucose 105 mg/dl (70-99(Fasting)); Potassium 3.8 mmol/L (3.5-5.1); Sodium 137 mmol/L (136-145); Total Protein 7.3 gm/dl (6.0-8.3)
--- NOTE | 2021-11-09 01:27 | History & Physical Report ---
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 Concern for Septic Joint and Osteomyelitis Of note, patient is status post tibial hardware removal and open debridement + arthroscopic debridement on 06/22/[address] Hooper for septic arthritis and osteomyelitis of R knee At that time, cultures grew MRSA that required 6 weeks of treatment with vancomycin via PICC (ID consulted 06/25/21) and Bactrim oral Patient recently reported to outpatient orthopedics clinic on 10/28/2021 for knee pain and swelling; aspiration performed at that time obtained 110 cc bloody, nonpurulent appearing fluid --> Yielded ~180,000 WBCs (87% PMN) and ~630,000 RBCs. Culture not available from this drawn. X-ray (my read): gaseous/air-like material inside the medial condyle with open communication to the surface -- await official read Consult orthopedics, Dr. Israel; emergency provider discussed w/ Dr. Israel, recommending making patient n.p.o. for possible procedure / wash out / sampling Continue vancomycin, Zosyn for broad-spectrum coverage Consider MRI in the a.m. pending orthopedics evaluation Await blood cultures, wound culture obtained in the ED Will require PT, OT reassessment prior to discharge History of Intravenous Drug Use Patient with reported history of IV drug abuse and recreational drug use, including amphetamines, that have resulted in psychosis requiring 302 On my history taking, says that he has not used any sort of recreational substance in several months; denies any recent alcohol consumption. However, at recent orthopedics visit, patient did endorse utilizing his IV to inject Suboxone. He also endorsed reusing some of his own needles, but denied sharing needles, which puts him at high risk for re-infection / bacteremia. Await UDS to further clarify specific needs while here Continue Suboxone while here Transaminitis On presentation, patient found to have TBili 1, elev AST 60, elev ALT 73, elev ALP 192, low albumin 2.9, INR 1 (platelet 384, creatinine, 0.56, sodium 130). No abdominal pain / complaints. Was unable to locate any files on review to suggest previous issues with transaminitis,/liver injury. Previous labs look normal. If persistently elevated tomorrow, will consider hepatitis panel, HIV, and RUQ ultrasonography in context of patient's history Await UDS, as above Judicious use of hepatotoxic medicines Trend CMP Code: Full code Diet: N.p.o. Dispo: MedSurg Prophylaxis: SCDs (2) Knee effusion, right: (3) Anemia: (4) Septic joint of right knee joint: (5) Osteomyelitis of right knee region: Plan: consider MRI consult Dr. 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 Patient says that approximately 2 nights ago, he was icing his knee when he woke up in the middle of the night and realized that the ice pack was flat. At this time, he noticed that his right knee was draining fluid that appeared purulent. He also says that there was blood mixed in. Of note, patient was seen by orthopedics approximately 2 weeks ago where a right knee aspiration was performed and yielded over 180,000 white cells. No culture available from that time. Of note, patient was admitted between June and August for septic arthritis and osteomyelitis involving the right knee that required arthroscopic debridement and tibial hardware removal on 06/22; at this time, culture grew MRSA, [facility] recommended 6 weeks of vancomycin IV therapy. Patient denies significant discomfort at this time. Denies any pain. Denies any recent fevers, chills, night sweats. Appetite has been strong; no nausea or vomiting. No chest pain or shortness of breath. He says that the last time he used any sort of illicit/recreational drug was "several months ago", and is currently on Suboxone therapy for this. He denies any recent alcohol use. Does endorse chewing tobacco daily. He reports that he is currently been staying with his sister. In the ER, patient was found to be afebrile with high normal heart rates. He did have a mild leukocytosis of 14 with left shift. CRP was appreciably elevated at 27, ESR at 118, alongside patient also had mild transaminitis. My r ead of his right sided knee x-ray does demonstrate severe [id number] knee arthritis with erosive changes noted throughout the lateral condyle and along the tibial plateau. Further, there appears to be gaseous/air-like material inside the medial condyle with open communication with the surface. He was started on vancomycin, clindamycin, and vancomycin as broad-spectrum antibiotics. He was also given fluids. Allergies Allergy/AdvReac Type Severity Reaction Status Date / Time cyclobenzaprine Allergy Severe SHORTNESS Verified 11/08/21 23:52 OF BREATH zolpidem Allergy Unknown hallucinati Verified 11/08/21 23:52 ons Benzodiazepines AdvReac Intermediate PSYCH Verified 11/08/21 23:52 ISSUES Home Medications Medication Instructions Recorded Confirmed Type buprenorphine 8 mg-naloxone 2 mg 1 tab SUBLINGUAL BID 10/27/19 11/08/21 History sublingual tablet acetaminophen 500 mg tablet 1,000 mg PO Q8H PRN #100 tab 05/30/21 11/08/21 Rx (Tylenol Extra Strength) aspirin 325 mg tablet,delayed 325 mg PO DAILY #60 tab 05/30/21 11/08/21 Rx release (Ecotrin) Past Med/Surg History Medical History Aggressive behavior Anemia Delusions IV drug abuse Paranoia Psychosis Septic arthritis of knee, right SIRS (systemic inflammatory response syndrome) Surgical History History of hernia surgery S/P right knee arthroscopy for septic joint, Dr. Hooper Family History Other No pertinent family history Social History Smoking Status: Never smoker Tobacco Type: E-cigarettes / Vaping and Smokeless Tobacco (Dip or Chew) Second Hand Exposure: No; Hx Alcohol Use: No Hx Substance Use: No Preferred Language: Yi Communication Ability: Effective Tong Carrier Required: No Beliefs That Will Affect Care: None marital status: Single Current Living Situation: Other Current Living Situation Comment: states that he is homeless Feels Safe at Home: Yes Assistive Devices: Crutches Review of Systems Review of Systems: as per HPI Physical Exam Physical Exam: General: Tired appearing 41-year-old male lying back in his hospital bed, asleep, upon my arrival. No acute distress HEENT: NCAT. Trachea midline. No JVD Cardiac: Normal rate, regular rhythm, S1 and S2 are present without murmurs rubs or gallops Pulmonary: Good respiratory effort symmetric expansion of the chest. Lungs are clear to auscultation bilaterally without crackles or wheezes Abdominal: Normoactive bowel sounds. Abdomen is soft, nontender, nondistended to palpation. Musculoskeletal: Right knee recently wrapped with fresh bandage; as such, visual examination is limited. Please see emergency providers documentation for this purpose. Examination of the hip does reveal 5 out of 5 strength on the right. Ankle strength on the right is 5 out of 5. Sensation to light touch is intact. Dorsalis pedis pulse 2+. Capillary refill 2 seconds. Results & Data Results & Data ([facility]) Vital Signs (Past 12 Hours) Vital Signs Temp Pulse Pulse Resp BP BP Pulse Ox 11/09/21 00:26 97 H 14 139/81 96 11/08/21 22:27 36.8 C 121 H 16 138/92 93 Supervising Physician Co-Signing Physician Notes Attending addendum: I have physically seen this patient, have supervised the medical residents activities, and agree with the H&P unless as otherwise noted. Assessment and Plan: Recurrent right knee infection/septic joint- Multiple admissions for this problem in the past by orthopedic surgery Placed on vancomycin IV and Zosyn IV in the ED Consult orthopedic surgery Continued medical noncompliance due to history of IVDA and recreational drug use IV drug abuse- Continue Suboxone Remaining orders and notations as noted Resident Activity Tracking Resident Involvement: Resident Care Provided Care Provided: Adult Hospital Medicine (1) Septic joint of right knee joint Septic arthritis organism: staphylococcal Qualified Code(s): M00.061 - Staphylococcal arthritis, right knee
[2021-11-09] MEDS ORDERED: CLINDAMYCIN 600 MG in DEXTROSE 5% 50 ML IV ONE (01:45)
[2021-11-09 02:34] LABS: Appearance Urine Clear (Clear); Bilirubin Urine Negative (Negative); Blood Urine Negative (Negative); Color Urine Yellow; Glucose Urine UA Negative (Negative); Ketones Urine Negative (Negative); Leukocyte Esterase Urine Negative (Negative); Nitrite Urine Negative (Negative); Protein Urine Negative (Negative); Specific Gravity Urine 1.016 (1.000-1.030); Urobilinogen Urine Negative (Negative)
[2021-11-09] MEDS ORDERED: ONDANSETRON INJ 2 MG/ML 2 ML VIAL IV PRN ×2 (02:53→17:06)
[2021-11-09] MEDS ORDERED: PATIENT'S HEIGHT AND/OR WEIGHT NEEDED SCH (03:15)
[2021-11-09] MEDS ORDERED: ACETAMINOPHEN 10MG/ML PEDIATRIC DOSING IV STA (04:47)
--- NOTE | 2021-11-09 04:50 | Pharmacy Report ---
Pharmacy Abx Initial Consult - Date of Service November 09, 2021 - Pharmacy Dosing Scope Date of Consult: 11/09/21 Consultation requested by: Dr. Mcgrath Pharmacy is consulted to initiate Vancomycin/Zosyn IV dosing therapy, order appropriate labs and adjust drug dose/frequency. - Subjective The patient is a 41 year old M admitted on 11/09/21 02:53. - Objective Height: 6 ft 2 in Weight: 101.35 kg Vital Signs (Past 12hrs): Vital Signs Temp Pulse Pulse Resp BP BP Pulse Ox 11/09/21 04:35 36.4 C L 80 16 138/75 98 11/09/21 03:16 78 20 147/88 H 96 11/09/21 00:26 97 H 14 139/81 96 11/08/21 22:27 36.8 C 121 H 16 138/92 93 Lab Results (24hrs): Laboratory Tests (24 Hours) 11/08/21 11/08/21 11/08/21 23:17 23:17 23:17 WBC 13.99 H Neut # (Auto) 11.35 H ESR 118 H Creatinine 0.56 L Est Cr Clr Drug Dosing Not Reportable C-Reactive Protein 26.68 H Micro Results: 11/08/21 23:17 Aerobic Blood Culture - Pending Blood Anaerobic Blood Culture - Pending 11/08/21 23:21 Aerobic Blood Culture - Pending Blood Anaerobic Blood Culture - Pending 11/08/21 22:30 Gram Stain - Pending Knee,Right Wound Culture - Pending - Risk Factors for Resistance * Hospitalization for 48 hours or more within the past 90 days * History of infection with a multidrug-resistant organism: MRSA, Knee, 06/2021 * Antimicrobial use within the last 90 days - Assessment & Plan Assessment 41 year old M admitted with septic right knee, ordered Vancomycin and Zosyn Plan Vancomycin IV * Loading dose: 2000mg (19 mg/kg) * Maintenance dose: 1500mg IV (14 mg/kg) every 8 hours * Goal trough level for MRSA septic joint : 15 to 20 mcg/mL * Trough level ordered for 11/10/21 @ 0800. * Patient is known to pharmacy from previous admissions, most recently in Jun 2021 where he received Vancomycin 1500mg IV q8h ~1 month with acceptable trough levels. Piperacillin/tazobactam * 4.5 g bolus administered over 30 minutes, then 3.375 g IV extended infusion every 8 hours for CrCl greater than 20 mL/min. Pharmacy will continue to follow and will adjust dose/frequency as necessary. Thank you.
[2021-11-09] MEDS ORDERED: ACETAMINOPHEN 500 MG/50 ML VIAL IV SCH (05:00)
[2021-11-09 05:03] LABS: Amphetamines+Metham, Urine Neg (Neg); Barbiturates, Urine Neg (Neg); Benzodiazepine, Urine Neg (Neg); Cocaine, Urine Neg (Neg); MDMA (Ecstacy), Urine Neg (Neg); Methadone, Urine Neg (Neg); Opiate, Urine Neg (Neg); Phencyclidine, Urine Neg (Neg)
[2021-11-09] MEDS: PIPERACILLIN/TAZOBACTAM 3.375 GM in DEXTROSE 5% 100 ML IV SCH ×3 (05:24→21:12)
[2021-11-09 07:28] LABS: Basophils # (auto) 0.02 K/uL (0-0.2); Basophils % (auto) 0.2 %; Eosinophils % (auto) 2.5 %; Hematocrit (blood only) 30.9 % (42-52); Hemoglobin 9.4 g/dL (14.0-18.0); Immature Granulocytes % (auto) 0.8 %; Lymphocytes % (auto) 12.7 %; Mean Corpuscular Hemoglobin 24.9 pg (25-34); Mean Corpuscular Hgb Conc 30.4 g/dL (32-36); Mean Platelet Volume 9.1 fL (7.4-10.4); Monocytes # (auto) 0.66 K/uL (0.11-0.59); Monocytes % (auto) 5.6 %; Neutrophils # (auto) 9.21 K/uL (1.4-6.5); Neutrophils % (auto) 78.2 %; Platelet Count 359 K/uL (130-400); RDW Standard Deviation 50.6 fL (36.4-46.3); Red Blood Count 3.77 M/uL (4.7-6.1); White Blood Count 11.79 K/uL (4.8-10.8)
[2021-11-09 07:53] LABS: Albumin Globulin Ratio 0.7 (0.9-2); Albumin Level 2.7 gm/dl (3.4-5.0); BUN Creatinine Ratio 26.8 (10-20); Bilirubin,Total 0.3 mg/dl (0.2-1.0); Calcium 8.6 mg/dl (8.5-10.1); Creatinine Clr Calc Pharmacy 216.2 ml/min; Est GFR (African American) 146.8 ml/min; Est GFR (Non-African American) 126.7 ml/min; Potassium 3.9 mmol/L (3.5-5.1); Total Protein 6.7 gm/dl (6.0-8.3)
--- NOTE | 2021-11-09 08:11 | XRay Report ---
XR knee RT 3V CLINICAL HISTORY: Knee swelling and pain. Evaluate for infection.. Status post knee surgery in Sept ember with removal of plate and screws. COMPARISON STUDY: 06/21/2021 TECHNIQUE: 5 right knee views FINDINGS: Compared to the previous examination, there has been interval removal of plate and screw fixation inv olving the proximal tibia. There is a large soft tissue ulceration present along the medial aspect of the knee at the level of the medial tibial plateau. Fistula extends from the skin surface into the k nee joint. Air is present within the joint. The findings are characteristic of marked septic arthriti s. Additionally, there is cortical regularity of the articular surfaces of the tibial plateau and femora l condyles which can be seen on the previous study. However, it appears more prominent and the findin gs are highly suspicious for osteomyelitis as well. A small intra-articular effusion is also present within the knee joint. There is no lytic or blastic lesion. There is generous deformity. There is diffuse soft tissue swelling surrounding the entire knee. IMPRESSION: Marked septic arthritis of the right knee as described above with probable osteomyelitis as well. Large soft tissue ulceration medially with a fistula track extending into the joint. ACT 112: Negative or not required by law. Electronically signed by: Constantino Patel M.D. 11/09/2021 8:10 AM
[2021-11-09] MEDS ORDERED: Nursing to Pharmacy Communication SCH (08:15)
[2021-11-09] MEDS: BUPRENORPHINE/NALOXONE 8/2 MG TAB SL SCH ×2 (08:21→22:43)
[2021-11-09] MEDS: ASPIRIN 325 MG ECTAB PO SCH (08:24)
--- NOTE | 2021-11-09 08:26 | Anesthesiology Consultation ---
Date of Service November 09, 2021 Assessment & Plan (1) Encounter for pre-operative examination: Chart Review Chart Review: Acceptable Risk for Surgery History Surgery Operation Date: 11/09/21 13:00 Proposed Procedures p Incision and Drainage Knee(Right) - Corky Israel MD Height/Weight Height: 6 ft 2 in Weight: 101.35 kg Allergies Allergy/AdvReac Type Severity Reaction Status Date / Time cyclobenzaprine Allergy Severe SHORTNESS Verified 11/08/21 23:52 OF BREATH zolpidem Allergy Unknown hallucinati Verified 11/08/21 23:52 ons Benzodiazepines AdvReac Intermediate PSYCH Verified 11/08/21 23:52 ISSUES Medications Home Medications Medication Instructions Recorded Confirmed Last Taken buprenorphine 8 mg-naloxone 2 mg 1 tab SUBLINGUAL BID 10/27/19 11/08/21 05/17/21 sublingual tablet acetaminophen 500 mg tablet 1,000 mg PO Q8H PRN #100 tab 05/30/21 11/08/21 Unknown (Tylenol Extra Strength) aspirin 325 mg tablet,delayed 325 mg PO DAILY #60 tab 05/30/21 11/08/21 Unknown release (Ecotrin) Active Medications Generic Name Dose Route Start Last Admin Trade Name Freq PRN Reason Stop Dose Admin Aspirin 325 mg 11/09/21 09:00 11/09/21 08:24 Aspirin 325 Mg Ectab PO 12/09/21 08:59 Not Given DAILY LADONNA Buprenorphine/Naloxone 1 tab 11/09/21 09:00 11/09/21 08:21 Buprenorphine/Naloxone 8/2 Mg Tab SL 12/09/21 08:59 1 tab BID LADONNA Administration Piperacillin Sod/Tazobactam 115 mls @ 28.75 mls/hr 11/09/21 06:00 11/09/21 05:24 Sod 3.375 gm/ Dextrose IV 12/21/21 05:59 28.8 mls/hr Q8H LADONNA Administration Protocol Past Medical History Medical History (Updated 11/09/21 @ 08:25 by James Villarreal MD) Aggressive behavior Anemia Delusions IV drug abuse Paranoia Psychosis Septic arthritis of knee, right SIRS (systemic inflammatory response syndrome) Past Family History Family History (Updated 11/09/21 @ 08:25 by James Villarreal MD) Other No pertinent family history Past Surgical History Surgical History History of hernia surgery S/P right knee arthroscopy for septic joint, Dr. Hooper Social History Smoking Status: Never smoker tobacco type: cigarettes Hx Alcohol Use: No Hx Substance Use: No substance use type: marijuana Substance Use Type Other:: IV drugs Last Used Substance: Unknown Last Used Substance Other:: marijuana 1 week ago Physical Exam Vital Signs Last Vital Signs Temp 37.0 C 11/09/21 08:01 Pulse 92 H 11/09/21 08:01 Resp 16 11/09/21 08:01 BP 148/80 H 11/09/21 08:01 Pulse Ox 97 11/09/21 08:01 Testing Laboratory Results 11/09/21 07:14 11/09/21 07:14 PT 10.5 Seconds (9.0-12.0) 11/08/21 23:17 INR 1.0 (0.9-1.1) 11/08/21 23:17 APTT 31.8 Seconds (21.0-31.0) H 11/08/21 23:17 Urine Color Yellow 11/09/21 02:27 Urine Appearance Clear (Clear) 11/09/21 02:27 Urine pH 7.0 (4.5-7.5) 11/09/21 02:27 Ur Specific [place] 1.016 (1.000-1.030) 11/09/21 02:27 Urine Protein Negative (Negative) 11/09/21 02:27 Urine Glucose (UA) Negative (Negative) 11/09/21 02:27 Urine Ketones Negative (Negative) 11/09/21 02:27 Urine Nitrite Negative (Negative) 11/09/21 02:27 Ur Leukocyte Esterase Negative (Negative) 11/09/21 02:27 11/08/21 22:30 Gram Stain - Final Knee,Right
[2021-11-09] MEDS: VANCOMYCIN HCL 1,500 MG in SODIUM CHLORIDE 0.9% 500 ML IV SCH ×2 (08:50→20:25)
--- NOTE | 2021-11-09 08:54 | Hospitalist Progress Note ---
Date of Service November 09, 2021 Assessment & Plan (1) Osteoarthritis of right knee: Plan: 41-year-old male with a PMHx right knee septic joint with MRSA s/p washout and hardware removal in 06/2021 followed by 6 weeks of vancomycin therapy, IV drug use with h/o psychosis and aggressionin remission on Suboxone with anemia who presented to [facility] for evaluation of purulent R knee fluid drainage in the setting of a recent joint aspiration that yielded >180,000 intraarticular WBCs, concerning for septic joint. (1) Septic joint with osteomyelitis s/p tibial hardware removal and open + arthroscopic debridement (06/22/2021 Dr. Hooper) for septic arthritis and osteomyelitis of R knee At that time, cultures grew MRSA that required 6 weeks of tx with vancomycin via PICC and PO Bactrim visited ortho clinic on 10/28/2021 for knee pain and swelling; aspiration performed at that time obtained 110 cc bloody, nonpurulent appearing fluid --> Yielded ~180,000 WBCs (87% PMN) and ~630,000 RBCs. Culture not available, did not process. -WBC 11.79 R knee XR: marked septic arthritis, high suspicion for osteomyelitis, large soft tissue ulceration w/ fistula track into joint Consulted ortho: open irrigation debridement R knee (11/09) per patient request with subsequent wound vac; knee may require future amputation due to recurrences of infection blood and wound cx pending cont. vancomycin, zosyn for broad-spectrum coverage will require PT/OT s/p procedure -will need to educate on proper wound care to prevent reinfection -trend CBC (2) H/o IV drug use history of IV drug abuse and recreational drug use, including amphetamines, that have resulted in psychosis requiring 302 patient states he has not used any recreational substance in several months; denies any recent alcohol consumption. However, at recent ortho visit, endorsed utilizing his IV to inject Suboxone. Also endorsed reusing some of his own needles, but denied sharing needles, which puts him at high risk for re- infection/bacteremia. UDS: positive marijuana Cont. Suboxone -will need to assess and educate on IV drug abuse relapse if dc with PICC line (3) Transaminitis initially found to have TBili 1, elev AST 60, elev ALT 73, elev ALP 192, low albumin 2.9, INR 1 (platelet 384, creatinine, 0.56, sodium 130). No abdominal pain/complaints. unable to locate any files to suggest previous transaminitis/liver injury. Prior labs appear normal. -(/) AST 41, ALT 64, ALP 159, downtrending -hepatitis panel ordered consider HIV and RUQ ultrasonography in context of patient's history Judicious use of hepatotoxic medicines Trend CMP DVT ppx: SCDs FEN/GI: npo Code Status: full Dispo: med/surg (2) Knee effusion, right: (3) Anemia: (4) Septic joint of right knee joint: (5) Osteomyelitis of right knee region: Admission and Anticipated Discharge Date Admission Date: November 09, 2021 Supervising Physician Co-Signing Physician Notes I personally examined the patient and verified all short points of history and exam, discussed case, and agree with decision making with Dr Dhillon knee lara. surgery pending. notes that his skin was good/healed until just the day or so before admission when an area opened up and pus started coming out. as it relates to hx of IVDA he feels he is doing well and an IV at home would not be untoward temptation, but notes that where he lives isn't really his home so he probably wouldnt' be able to have IVs there. Vitals noted, in general he is awake and alert pleasant no distress. HEENT normocephalic atraumatic mucous membranes moist. Breathing unlabored no accessory muscle use good effort. Skin shows no rashes no pallor or icterus. Neuro without focal deficits. Recurrent septic kneeI question if he was smoldering MRSA in his knee even after the previous infection was treatedin discussion with him it does not sound like there was any open wound to provide a new portal of entry, and it does not sound like he is continuing to use IV drugs to reintroduce infection. Blood cultures are negative pleading against a bacteremic source as well. For surgical washout later today. Continue antibiotics. Will likely need a prolonged course IV, and I wonder if he will need chronic suppressive therapy. It sounds like with his social situation he will likely need a rehab facility both postop as it relates to his knee, as well as for ongoing IV antibiotics. otherwise as above Subjective Sleeping comfortably at bedside. No acute complaints. Planned irrigation and debridement right knee later today. Review of Systems Review of Systems: All systems reviewed & are unremarkable except as noted in HPI & below Constitutional: denies fevers, chills, fatigue CV: denies chest pain Resp: denies shortness of breath GI: denies abdominal pain, nausea, vomiting, constipation, diarrhea : denies pain with urination, change in urinary frequency Musculoskeletal: denies recent injury Neuro: denies new numbness, tingling Physical Exam Physical Exam: General: comfortable, in no acute distress HEENT: normocephalic, atraumatic. Cardiac: normal rate and rhythm. Pulmonary: Good respiratory effort. Lungs are clear to auscultation bilaterally without crackles or wheezes. Abdominal: Normoactive BS. Abdomen is soft, nontender, nondistended to palpation. MSK: R knee wrapped in bandage, visual examination limited. ED documentation for further info. Examination of the hip 5/5 strength on the right. Ankle strength 5/5 right. Sensation to light touch is intact. Warm. Pedal pulses 2+. Results & Data Results & Data ([facility]) Vital Signs (Past 12 Hours) Vital Signs Temp Pulse Pulse Resp BP BP Pulse Ox 11/09/21 08:01 37.0 C 92 H 16 148/80 H 97 11/09/21 04:35 36.4 C L 80 16 138/75 98 11/09/21 03:16 78 20 147/88 H 96 11/09/21 00:26 97 H 14 139/81 96 11/08/21 22:27 36.8 C 121 H 16 138/92 93 Resident Activity Tracking Resident Involvement: Resident Care Provided Care Provided: Adult Hospital Medicine (1) Septic joint of right knee joint Septic arthritis organism: staphylococcal Qualified Code(s): M00.061 - Staphylococcal arthritis, right knee
--- NOTE | 2021-11-09 09:03 | Orthopedic Consultation ---
Date of Service November 09, 2021 Assessment & Plan (1) Open leg wound: I discussed treatment options with the patient. I think is extremely unlikely that anything short of amputations can affect this gentleman's problems. He has had recurrent bone infection with MRSA. We talked about treat ment options including just a washout with antibiotics followed by chronic suppression antibiotics versus amputation. This would need to be above-knee amputation. He refuses that. He would like to try to wash this out as they feel he felt it was doing better for a while. In light of this we will taken the operating today doing irrigation debridement. We will packed this wound open. He will likely need a wound VAC. I think it is unlikely this is can solve his problem but will give it a try at his request. The risks med this procedure explained the patient and he understands that it may lead amputation in the future. He is on IV antibiotics as per the medicine service. We will get him type and screen. We will keep him n.p.o. DVT prophylaxis include thigh teds and SCDs. (2) Chronic infection: (3) Osteoarthritis of right knee: (4) Anemia: (5) Septic joint of right knee joint: (6) Osteomyelitis of right knee region: History of Present Illness Reason for Consultation: . Recurrent right leg infection. Requesting Physician: . Attending Physician: Jono Jones DO . Patient is a 41-year-old gentleman with multiple medical comorbidities including history of substance abuse as well as underlying psychiatric disorders whose had a chronically infected right knee and leg. He has been through extensive conservative treatment in the past. He has had 2 arthroscopic irrigation debridement by Dr. Hooper which showed MRSA. He went through 6 weeks of IV vancomycin followed by a short course of Bactrim. He says he was doing okay for several week period of time and then got Covid and everything went downhill. Over the past several days he has had increased pain and swelling in his leg. He was seen in clinic and his knee was aspirated revealed over 100,000 white c ells. The since then his knee is more swollen and it started draining pus. Came to the emergency room last night. No other complaints. Allergies Allergy/AdvReac Type Severity Reaction Status Date / Time cyclobenzaprine Allergy Severe SHORTNESS Verified 11/08/21 23:52 OF BREATH zolpidem Allergy Unknown hallucinati Verified 11/08/21 23:52 ons Benzodiazepines AdvReac Intermediate PSYCH Verified 11/08/21 23:52 ISSUES Home Medications Medication Instructions Recorded Confirmed Type buprenorphine 8 mg-naloxone 2 mg 1 tab SUBLINGUAL BID 10/27/19 11/08/21 History sublingual tablet acetaminophen 500 mg tablet 1,000 mg PO Q8H PRN #100 tab 05/30/21 11/08/21 Rx (Tylenol Extra Strength) aspirin 325 mg tablet,delayed 325 mg PO DAILY #60 tab 05/30/21 11/08/21 Rx release (Ecotrin) Past Med/Surg History Medical History Aggressive behavior Anemia Delusions IV drug abuse Paranoia Psychosis Septic arthritis of knee, right SIRS (systemic inflammatory response syndrome) Surgical History History of hernia surgery S/P right knee arthroscopy for septic joint, Dr. Hooper Family History Other No pertinent family history Social History Smoking Status: Never smoker Tobacco Type: E-cigarettes / Vaping and Smokeless Tobacco (Dip or Chew) Second Hand Exposure: No; Hx Alcohol Use: No Hx Substance Use: No Preferred Language: Sami Communication Ability: Effective Gre Instructor Required: No Beliefs That Will Affect Care: None marital status: Single Current Living Situation: Other Current Living Situation Comment: states that he is homeless Feels Safe at Home: Yes Assistive Devices: Crutches Review of Systems All systems reviewed & are unremarkable except as noted in HPI & below. Physical Exam . Physical examination reveals a somewhat noncompliant poorly responsive patient. Just seemed irritated and somewhat angry. Examination of the right leg reveals a patient who really refuses to let me examine it much other than does look at it. Is got a large open wound to the medial side of his leg measuring about 5 cm x 4 cm with gross pus coming out of it. He cannot do a straight leg raise. He holds his knee in about 30 degrees of flexion refuse let me bend it. There is moderate diffuse swelling. He can flex extend his toes appropriately and he is got no swelling distally. He is neurologically intact. Results & Data Results & Data Laboratory Results . Diagnostic Findings . X-rays of the right knee revealed a markedly destroyed right knee joint. He is got tibiofemoral subluxation with bone degeneration and changes throughout. He is got air in his subcu tissues as well as air in the joint. PG Care Time/CCT Total # of Minutes Spent Total Time Spent with Patient: Total time spent is greater than 50% in coordination of care (as documented) at patient's floor/unit and/or counseling patient: Coding Level of Care Code 50941 Inpt Consult Level 5 Diagnoses Open leg wound S81.809A Chronic infection B99.9 Osteoarthritis of right knee M17.11 Anemia D64.9 Septic joint of right knee joint M00.061 Septic arthritis organism: staphylococcal Osteomyelitis of right knee region M86.9 (1) Septic joint of right knee joint Septic arthritis organism: staphylococcal Qualified Code(s): M00.061 - Staphylococcal arthritis, right knee
[2021-11-09] MEDS ORDERED: MIDAZOLAM HCL 1 MG/ML 2ML VIAL ONE (16:04)
[2021-11-09] MEDS ORDERED: fentaNYL citrate 100 MCG/2 ML VIAL ONE ×2 (16:04→16:40)
[2021-11-09] MEDS ORDERED: VANCOMYCIN HCL 1000MG/20ML VIAL ONE (16:08)
[2021-11-09] MEDS ORDERED: ROCURONIUM BROMIDE 10 MG/ML 5 ML VIAL IV ONE (16:44)
[2021-11-09] MEDS ORDERED: PROPOFOL IV EMULSION 10 MG/ML 20 ML VIAL IV ONE (16:44)
[2021-11-09] MEDS ORDERED: LIDOCAINE 2% 2 ML VIAL/AMP(20MG/ML) INFIL ONE (16:44)
[2021-11-09] MEDS ORDERED: ONDANSETRON INJ 2 MG/ML 2 ML VIAL ONE (16:44)
[2021-11-09] MEDS ORDERED: LABETALOL HCL IV 5 MG/ML 20ML IV PRN (17:06)
[2021-11-09] MEDS ORDERED: ATROPINE SULFATE 0.1 MG/ML 10ML SYR IV PRN (17:06)
[2021-11-09] MEDS ORDERED: KETOROLAC 30 MG/ML VIAL IV PRN (17:06)
--- NOTE | 2021-11-09 17:12 | Operative Report ---
Post Operative Report Pre & Post Diagnosis Operation Date: 11/09/21 13:00 Pre-Op Diagnosis: Right knee osyteomyelitis , septic arthritis Post-Op Diagnosis: Right knee osyteomyelitis , septic arthritis I identified the patient and participated in the time-out.: Yes Procedure Operation Date: 11/09/21 13:00 Actual Procedures p Incision and Drainage Knee(Right) - Corky Israel MD Surgeon Corky Israel MD Rehabilitation Psychologist Jorge Alberto Galvez PA-C Estimated Blood Loss 50 Findings Consistent with Post-Op Diagnosis Operative findings were extensive erosive arthritic changes of his joint with tibiofemoral subluxation. He extensive past and is knee throughout his knee joint and bone destruction. Fluids 800 cc Specimens Right knee fluid sent for culture x2 Anesthesia Type General Complications none Disposition Accompanied Patient To Recovery: No Indications The patient is a 41-year-old gentleman who is got a history of a ORIF of tibial plateau fracture many years ago. He is got a known history of sick and psychiatric disorders along with IV drug use. He has had recurrent infections in this right leg in the consistent with MRSA. Over the past year he has devel oped marked progressive arthritic changes as well. Is been through extensive antibiotic management but continues to get recurrent infections. Is not been compliant. He came into the ER yesterday with a purulent open wound to the medial side of his leg. Treatment options were explained including amputation which was suggested but he deferred this. Patient was therefore indicated for irrigation debridement. Description of Procedure The patient was taken the operating, identified, placed on the operating table supine position protectors were properly padded. Patient has been receiving IV antibiotics preoperatively. A general anesthetic was implemented. A right thigh turn was then placed. The right lower extremities then prepped and draped in usual sterile fashion. The right leg was elevated but not exsanguinated. The tourniquet was placed at 300 mmHg. There is a large medial wound of about 5 cm x 5 cm millimeters was then extended proximally about 8 cm and distally about 5 cm. I opened this up to the knee joint. There is obvious pus in the joint. We did take culture of the pus in the knee joint. We also took a culture of the pus within the tibiofemoral articulation. These were sent off for analysis. I then irrigated the wound extensively. We did expose the knee joint and irrigated this with a total of 9 L of pulsatile lavage solution. Once this was complete the tourniquet was let down for turn time 50 minutes. The upper and lower extensions of the incision were then closed with a combination of 3-0 nylon and #1 PDS suture in a simple fashion. I did excise the edges of the previous wound. I then packed the wound with Betadine soaked gauze. The tourniquet was let down for 15minutes and hemostasis was assured. We then packed the wound with the Betadine soaked gauze. I did place 1 bottle of vancomycin powder deep in the knee wound. The leg was then cleaned and dried a sterile dressing composed of Xeroform, 4 x 4's, sterile ABD pad, sterile cast padding, Jamaal bandage were applied. The patient then brought out of general incision transferred to the recovery room in stable condition per the patient tolerated the procedure well and there were no complications. Jorge Alberto Aguilar, my physician assistant store manager operations, was present for the entire procedure. His assistance was required for proper patient positioning, prepping and draping, surgical exposure, performed the technical details the operation, closure of the wound, placement of the bandage. I attest to the content of the Intraoperative Record and any orders documented therein. Any exceptions are noted below.
[2021-11-09] MEDS ORDERED: HYDROmorphone INJ 2 MG/ML SYR/VIAL ONE ×2 (17:17→17:37)
[2021-11-09] MEDS: HYDROmorphone INJ 1 MG/ML SYRINGE IV PRN ×8 (17:18→18:00)
[2021-11-09] MEDS ORDERED: NEOSTIGMINE METHYLSULFATE 1 MG/ML 10ML VIAL ONE (17:20)
[2021-11-09] MEDS ORDERED: GLYCOPYRROLATE 0.2 MG/ML VIAL ONE (17:20)
--- NOTE | 2021-11-09 18:37 | Anesthesiology Progress Note ---
Date of Service November 09, 2021 Anesthesia Post Procedure Vital Signs Vital Signs: Temp Pulse Pulse Resp BP BP Pulse Ox 11/09/21 18:30 85 14 137/80 97 11/09/21 18:20 83 14 138/78 98 11/09/21 18:10 36.5 C 76 12 130/92 97 11/09/21 18:00 82 23 97 11/09/21 17:50 86 18 97 11/09/21 17:40 84 19 100 11/09/21 17:30 79 23 132/72 98 11/09/21 17:20 78 28 H 117/72 98 11/09/21 17:14 36.2 C L 87 19 111/76 98 11/09/21 08:01 37.0 C 92 H 16 148/80 H 97 11/09/21 04:35 36.4 C L 80 16 138/75 98 11/09/21 03:16 78 20 147/88 H 96 11/09/21 00:26 97 H 14 139/81 96 11/08/21 22:27 36.8 C 121 H 16 138/92 93 Pain Intensity Right Knee: Pain Intensity: 7 Transfer of Care Handoff Completed per policy Notes Mental Status: alert / awake / arousable Patient Amnestic to Procedure: Yes Nausea / Vomiting: adequately controlled Pain: adequately controlled Airway Patency, RR, SpO2: stable & adequate BP & HR: stable & adequate Hydration State: stable & adequate Anesthetic Complications: no major complications apparent
[2021-11-09] MEDS: oxyCODONE HCL IR 5 MG TAB (IMMEDIATE RELEASE) PO PRN (20:29)
--- NOTE | 2021-11-09 20:39 | Billing Data ---
Date of Service November 09, 2021 Coding Level of Care Code 36627 Initial Inpt Care Lvl 3
[2021-11-10] MEDS: VANCOMYCIN HCL 1,500 MG in SODIUM CHLORIDE 0.9% 500 ML IV SCH ×4 (00:57→22:57)
[2021-11-10] MEDS: PIPERACILLIN/TAZOBACTAM 3.375 GM in DEXTROSE 5% 100 ML IV SCH ×3 (06:29→20:49)
[2021-11-10] MEDS ORDERED: VANCOMYCIN TROUGH ONE (07:30)
[2021-11-10 07:41] LABS: Basophils # (auto) 0.02 K/uL (0-0.2); Basophils % (auto) 0.2 %; Eosinophils # (auto) 0.23 K/uL (0-0.5); Eosinophils % (auto) 2.2 %; Hematocrit (blood only) 31.3 % (42-52); Hemoglobin 9.6 g/dL (14.0-18.0); Lymphocytes # (auto) 1.78 K/uL (1.2-3.4); Lymphocytes % (auto) 17.1 %; Mean Corpuscular Hemoglobin 24.9 pg (25-34); Mean Corpuscular Hgb Conc 30.7 g/dL (32-36); Mean Corpuscular Volume 81.1 fL (80-100); Mean Platelet Volume 8.7 fL (7.4-10.4); Monocytes # (auto) 0.51 K/uL (0.11-0.59); Monocytes % (auto) 4.9 %; Neutrophils # (auto) 7.75 K/uL (1.4-6.5); Neutrophils % (auto) 74.6 %; Platelet Count 387 K/uL (130-400); RDW Coefficient of Variation 16.8 % (11.5-14.5); RDW Standard Deviation 49.5 fL (36.4-46.3); Red Blood Count 3.86 M/uL (4.7-6.1); White Blood Count 10.39 K/uL (4.8-10.8)
[2021-11-10 08:03] LABS: Albumin Globulin Ratio 0.7 (0.9-2); Albumin Level 2.9 gm/dl (3.4-5.0); BUN Creatinine Ratio 13.8 (10-20); Bilirubin,Total 0.3 mg/dl (0.2-1.0); Calcium 8.8 mg/dl (8.5-10.1); Creatinine Clr Calc Pharmacy 186.2 ml/min; Est GFR (African American) 138.1 ml/min; Est GFR (Non-African American) 119.2 ml/min; Globulin 4.4 gm/dl (2.5-4.0); Potassium 3.8 mmol/L (3.5-5.1); Total Protein 7.3 gm/dl (6.0-8.3)
--- NOTE | 2021-11-10 08:42 | Progress Notes ---
DATE OF SERVICE: 11/10/2021. SUBJECTIVE: A 41-year-old gentleman, postoperative day 1 from irrigation and debridement of an exten sively infected knee. He is doing okay this morning. Pain seems to be a bit improved. No other com plaints. OBJECTIVE: VITAL SIGNS: Temperature 37.3. Vital signs are stable. PHYSICAL EXAMINATION: GENERAL: Shows a middle-aged male. He is lying in bed. He is arousable, but just kind of responds half asleep to any questions. No new complaints. Knee is sore, but seems to be better. EXTREMITIES: Examination of the right knee reveals the dressing to be clean, dry and intact. Swelli ng is slightly decreased. No obvious drainage. He is neurologically intact. He can dorsiflex and p lantarflex his foot appropriately. LABORATORY DATA: Hemoglobin 9.4. Hematocrit 30.9. White cell count 11.79. Electrolytes are stable . ASSESSMENT: A 41-year-old male with multiple medical comorbidities, now postoperative day 1 from irr igation and debridement of an extensive leg abscess and knee abscess. 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 PLAN: We will continue broad-spectrum antibiotics until cultures are back. We are going to have the wound care service to see him for wound VAC placement. I think this is his best chance to getting t his healed up. Ideally, we may be able to get this wound healed up and he could be a possible candid ate for a knee fusion versus above-knee amputation. We are going to see how his wound responds to th e antibiotics and the wound care. He can be mobilized as tolerated. He can weight bear as tolerated . Job ID: [id number]
[2021-11-10] MEDS: ASPIRIN 325 MG ECTAB PO SCH (08:51)
[2021-11-10 08:56] LABS: Hepatitis B Surf Ag Rflx Conf Neg (Neg)
--- NOTE | 2021-11-10 09:24 | Pharmacy Report ---
Pharmacy Vanc AUC Short Note - Date of Service November 10, 2021 - Assessment & Plan Assessment 41 year old M receiving vancomycin/zosyn for septic joint/knee. S/p I&D and awaiting culture. Ortho saw patient and likely will need wound VAC placement. Plan for IV antibiotics for now. Plan Vancomycin * AUC/LYRIC is the preferred PK/PD target for vancomycin * AUC guided dosing is effective and associated with decreased risk of nephrotoxicity compared to traditional trough targets * Trough level came back at ~16 mcg/mL and is predicted to achieve target AUC/LYRIC of 400-600 mg/L.hr * Dose yesterday afternoon not documented on for ~1600 (notes say given in PACU, however cannot find documentation that dose was actually given or time it was given). Patient on this vancomycin dosing previous admission and levels stable, reasonable to continue same dosing and repeat trough level tomorrow AM * Trough or random level ordered for: 11/11 @0730 Pharmacy will continue to follow and will adjust dose/frequency as necessary. Thank you.
[2021-11-10] MEDS: BUPRENORPHINE/NALOXONE 8/2 MG TAB SL SCH ×2 (10:19→20:49)
[2021-11-10] MEDS: oxyCODONE HCL IR 5 MG TAB (IMMEDIATE RELEASE) PO PRN ×3 (10:26→20:51)
--- NOTE | 2021-11-10 11:21 | Hospitalist Progress Note ---
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 (1) Septic joint with osteomyelitis s/p tibial hardware removal and open + arthroscopic debridement (06/22/21 Dr. Hooper) for septic arthritis and osteomyelitis of R knee cultures grew MRSA that required 6 weeks of tx in hospital with vancomycin via PICC and PO Bactrim visited ortho clinic (10/28/21) for knee pain and swelling; aspiration performed, obtained 110 cc bloody, nonpurulent appearing fluid --> Yielded ~180,000 WBCs (87% PMN) and ~630,000 RBCs. Culture not available, did not process. -WBC decreased, 10.39 blood cx: no growth after 24 hours -surface wound cx grew staphylococcus -joint fluid cx grew staphylococcus R knee XR: marked septic arthritis, high suspicion for osteomyelitis, large soft tissue ulceration w/ fistula track into joint Consulted ortho: s/p open irrigation debridement R knee (11/09) per patient request versus above knee amputation; -wound care consulted for wound VAC placement cont. vancomycin, zosyn for broad-spectrum coverage; will need exterminator helper termite IV abx tx likely in hospital or acute rehab due to his h/o of IV drug abuse and unstable living situation will require PT/OT s/p procedure -will need to educate on proper wound care to prevent reinfection -trend CBC (2) H/o IV drug use history of IV drug abuse and recreational drug use, including amphetamines, that have resulted in psychosis requiring 302 pt states he has not used any recreational substance in several months. However, at recent ortho visit, endorsed utilizing his previous IV to inject Suboxone. Also endorsed reusing some of his own needles, but denied sharing needles, which puts him at high risk for re-infection/bacteremia. UDS: positive marijuana Cont. Suboxone; has refused last two doses because "it does not help with his pain" (3) Transaminitis initially found to have TBili 1, elev AST 60, elev ALT 73, elev ALP 192, low albumin 2.9, INR 1 (platelet 384, creatinine, 0.56, sodium 130). No abdominal pain/complaints. unable to locate any files to suggest previous transaminitis/liver injury. Prior labs appear normal. -(2/) AST 15, ALT 46, ALP 149, downtrending -HCV preliminary antibody positive, PCR pending consider HIV and RUQ ultrasonography Judicious use of hepatotoxic medicines Trend CMP DVT ppx: Lovenox 40mg qAM SQ FEN/GI: regular Code Status: full Dispo: med/surg (2) Knee effusion, right: (3) Anemia: (4) Septic joint of right knee joint: (5) Osteomyelitis of right knee region: Admission and Anticipated Discharge Date Admission Date: November 09, 2021 Supervising Physician Co-Signing Physician Notes Resident Physician Supervision Note: I independently interviewed and examined the patient and verified the short history and physical, reviewed labs and image studies and agree with resident Dr. Dhillon findings and care plan. Subjective Half awake comfortably at bedside. No acute complaints. Says surgery went well. The last time he had a long course IV abx this past fall he completed the full course in the hospital. Review of Systems Review of Systems: Constitutional: denies fevers, chills CV: denies chest pain Resp: denies shortness of breath GI: denies abdominal pain, nausea, vomiting, constipation, diarrhea : denies pain with urination, change in urinary frequency Neuro: denies new numbness, tingling Physical Exam Physical Exam: General: comfortable, in no acute distress HEENT: normocephalic, atraumatic. Cardiac: normal rate and rhythm. Pulmonary: Good respiratory effort. Lungs are clear to auscultation bilaterally without crackles or wheezes. Abdominal: Normoactive BS. Abdomen is soft, nontender, nondistended to palpation. MSK: s/p irrigation and debridement R knee fully wrapped so visual examination limited, dressing clean and dry, dorsiflexion and plantarflexion right foot intact. Results & Data Results & Data ([facility]) Vital Signs (Past 12 Hours) Vital Signs Temp Pulse Resp BP Pulse Ox 11/10/21 07:30 36.7 C 68 16 129/81 96 11/10/21 03:40 37.3 C 98 H 18 151/92 H 97 Resident Activity Tracking Resident Involvement: Resident Care Provided Care Provided: Adult Hospital Medicine (1) Septic joint of right knee joint Septic arthritis organism: staphylococcal Qualified Code(s): M00.061 - Staphylococcal arthritis, right knee
[2021-11-10] MEDS: ENOXAPARIN INJ 40 MG/0.4 ML SYR SQ SCH (13:11)
[2021-11-10] MEDS: ACETAMINOPHEN 500 MG TAB PO PRN (15:33)
[2021-11-10] MEDS ORDERED: oxyCODONE HCL IR 5 MG TAB (IMMEDIATE RELEASE) PO STA (15:52)
[2021-11-11] MEDS: oxyCODONE HCL IR 5 MG TAB (IMMEDIATE RELEASE) PO PRN ×5 (01:47→20:29)
[2021-11-11] MEDS: ACETAMINOPHEN 500 MG TAB PO PRN ×2 (03:11→15:40)
[2021-11-11] MEDS: PIPERACILLIN/TAZOBACTAM 3.375 GM in DEXTROSE 5% 100 ML IV SCH (05:32)
[2021-11-11] MEDS ORDERED: VANCOMYCIN TROUGH ONE (07:30)
[2021-11-11 07:55] LABS: Basophils # (auto) 0.03 K/uL (0-0.2); Basophils % (auto) 0.3 %; Eosinophils # (auto) 0.35 K/uL (0-0.5); Eosinophils % (auto) 3.4 %; Hematocrit (blood only) 31.7 % (42-52); Hemoglobin 9.8 g/dL (14.0-18.0); Immature Granulocytes # (auto) 0.17 K/uL (0.00-0.02); Immature Granulocytes % (auto) 1.7 %; Lymphocytes # (auto) 2.28 K/uL (1.2-3.4); Lymphocytes % (auto) 22.4 %; Mean Corpuscular Hemoglobin 24.9 pg (25-34); Mean Corpuscular Hgb Conc 30.9 g/dL (32-36); Mean Corpuscular Volume 80.5 fL (80-100); Mean Platelet Volume 8.6 fL (7.4-10.4); Monocytes # (auto) 0.63 K/uL (0.11-0.59); Monocytes % (auto) 6.2 %; Neutrophils # (auto) 6.71 K/uL (1.4-6.5); Platelet Count 397 K/uL (130-400); RDW Coefficient of Variation 16.6 % (11.5-14.5); RDW Standard Deviation 48.8 fL (36.4-46.3); Red Blood Count 3.94 M/uL (4.7-6.1); White Blood Count 10.17 K/uL (4.8-10.8)
[2021-11-11] MEDS: ASPIRIN 325 MG ECTAB PO SCH (08:20)
[2021-11-11] MEDS: BUPRENORPHINE/NALOXONE 8/2 MG TAB SL SCH ×2 (08:20→20:29)
[2021-11-11] MEDS: ENOXAPARIN INJ 40 MG/0.4 ML SYR SQ SCH (08:20)
[2021-11-11 08:26] LABS: Albumin Globulin Ratio 0.6 (0.9-2); Albumin Level 2.9 gm/dl (3.4-5.0); BUN Creatinine Ratio 20.4 (10-20); Bilirubin,Total 0.2 mg/dl (0.2-1.0); Calcium 8.8 mg/dl (8.5-10.1); Creatinine Clr Calc Pharmacy 224.2 ml/min; Est GFR (Non-African American) 128.6 ml/min; Globulin 4.6 gm/dl (2.5-4.0); Potassium 3.6 mmol/L (3.5-5.1); Total Protein 7.5 gm/dl (6.0-8.3)
[2021-11-11] MEDS: VANCOMYCIN HCL 1,500 MG in SODIUM CHLORIDE 0.9% 500 ML IV SCH ×2 (09:09→16:22)
--- NOTE | 2021-11-11 09:15 | Pharmacy Report ---
Pharmacy Vanc AUC Short Note - Date of Service November 11, 2021 - Assessment & Plan Assessment 41 year old M receiving vancomycin/zosyn for septic joint/knee. S/p I&D and cultures prelim with MRSA. Ortho saw patient and likely will need wound VAC placement. Plan for IV antibiotics for now. Plan Vancomycin * AUC/LYRIC is the preferred PK/PD target for vancomycin * AUC guided dosing is effective and associated with decreased risk of nephrotoxicity compared to traditional trough targets * Trough level came back at 16 mcg/ml - this is associated with estimated AUC of 500-600, therefore will continue same vancomycin dosing for now * Renal function remains stable, will plan to order repeat trough level in next 3-4 days Pharmacy will continue to follow and will adjust dose/frequency as necessary. Thank you.
--- NOTE | 2021-11-11 13:35 | Hospitalist Progress Note ---
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 (1) Septic joint with osteomyelitis s/p tibial hardware removal and open + arthroscopic debridement (06/22/21 Dr. Hooper) for septic arthritis and osteomyelitis of R knee cultures grew MRSA that required 6 weeks of tx in hospital with vancomycin via PICC and PO Bactrim visited ortho clinic (10/28/21) for knee pain and swelling; aspiration performed, obtained 110 cc bloody, nonpurulent appearing fluid --> Yielded ~180,000 WBCs (87% PMN) and ~630,000 RBCs. Culture not available, did not process. -WBC 10.17, stable blood cx: no growth -surface wound cx: MRSA -joint fluid cx: MRSA R knee XR: marked septic arthritis, high suspicion for osteomyelitis, large soft tissue ulceration w/ fistula track into joint Consulted ortho: s/p open irrigation debridement R knee (11/09) -wound: recommends 6 weeks IV abx followed with lifelong PO abx -knee: recommends arthrodesis if infection clears versus above knee amputation; pt not in favor of amputation -wound care following: wound VAC placed (11/11) zosyn d/c, cont. 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 However, at recent ortho visit, endorsed utilizing his previous IV to inject Suboxone. Also endorsed reusing some of his own needles, but denied sharing needles, which puts him at high risk for re-infection/bacteremia. UDS: positive marijuana cont. Suboxone; has been compliant with past few doses (3) Transaminitis initially found to have TBili 1, elev AST 60, elev ALT 73, elev ALP 192, low albumin 2.9, INR 1 (platelet 384, creatinine, 0.56, sodium 130). No abdominal pain/complaints. unable to locate any files to suggest previous transaminitis/liver injury. Prior labs appear normal. -(2/) AST 9, ALT 31, ALP 143, downtrending -HCV preliminary antibody positive, PCR pending consider HIV and RUQ ultrasonography Judicious use of hepatotoxic medicines Trend CMP DVT ppx: Lovenox 40mg qAM SQ FEN/GI: regular Code Status: full Dispo: med/surg (2) Knee effusion, right: (3) Anemia: (4) Septic joint of right knee joint: (5) Osteomyelitis of right knee region: Admission and Anticipated Discharge Date Admission Date: November 09, 2021 Supervising Physician Co-Signing Physician Notes Resident Physician Supervision Note: I independently interviewed and examined the patient and verified the short history and physical, reviewed labs and image studies and agree with resident Dr. Dhillon findings and care plan. Subjective Half awake comfortably at bedside. No acute complaints. Had his wound VAC placed yesterday. He skipped some doses of suboxone yesterday but has been taking it regularly since. Review of Systems Review of Systems: Constitutional: denies fevers, chills CV: denies chest pain Resp: denies shortness of breath GI: denies abdominal pain, nausea, vomiting, constipation, diarrhea : denies pain with urination, change in urinary frequency Neuro: denies new numbness, tingling Physical Exam Physical Exam: General: appears comfortable HEENT: normocephalic, atraumatic. Cardiac: normal rate and rhythm. Pulmonary: Good respiratory effort. Lungs are clear to auscultation bilaterally without crackles or wheezes. Abdominal: Bowel sounds present. Abdomen is soft, nontender, and nondistended to palpation. MSK: s/p irrigation and debridement R knee, wound vac in place without signs of infection, dorsiflexion and plantarflexion right foot intact. Lower extremity sensation intact. Resident Activity Tracking Resident Involvement: Resident Care Provided Care Provided: Adult Hospital Medicine (1) Septic joint of right knee joint Septic arthritis organism: staphylococcal Qualified Code(s): M00.061 - Staphylococcal arthritis, right knee
--- NOTE | 2021-11-11 13:41 | Progress Notes ---
DATE OF SERVICE: 11/11/2021. SUBJECTIVE: A 41-year-old gentleman, postoperative day 2 from I and D of an extensive knee infection with underlying osteomyelitis. He is doing okay. He had a wound VAC placed yesterday. No new comp laints. OBJECTIVE: VITAL SIGNS: Temperature 37.0. Vital signs are stable. PHYSICAL EXAMINATION: GENERAL: Shows a 41-year-old gentleman, lying in bed. He appears relatively pleasant today. EXTREMITIES: Examination of the right leg reveals some moderate swelling. He has got a wound VAC in place. He can dorsiflex and plantarflex his foot appropriately. LABORATORY DATA: Hemoglobin 9.8. Hematocrit 31.7. Electrolytes are stable. ASSESSMENT: A 41-year-old gentleman postoperative day 2 from irrigation and drainage of an extensive knee and leg infection with osteomyelitis. Seems to be doing okay with the wound VAC. Once again, I think it is unlikely he is going to be able to clear this infection. PLAN: He will need 6 weeks of IV antibiotics followed by lifelong p.o. antibiotics. As far as manag ing his knee issue, treatment options are arthrodesis if he can clear the infection versus amputation , which would get him better a lot quicker. I would certainly encourage the amputation, but he is no t in favor of this. We will continue with the antibiotics and wound VAC management. He can be activ e as tolerated. He is okay for discharge any time medically stable. He will need a wound VAC manage ment postoperatively and post-hospital discharge. Any orthopedic questions can be directed to me at [phone]. Job ID: [id number]
[2021-11-12] MEDS: ACETAMINOPHEN 500 MG TAB PO PRN ×2 (00:01→23:05)
[2021-11-12] MEDS: oxyCODONE HCL IR 5 MG TAB (IMMEDIATE RELEASE) PO PRN ×5 (00:32→20:05)
[2021-11-12] MEDS: VANCOMYCIN HCL 1,500 MG in SODIUM CHLORIDE 0.9% 500 ML IV SCH ×4 (00:33→23:06)
[2021-11-12] MEDS ORDERED: KETOROLAC TROMETHAMINE 15 MG/ML VIAL IV ONE (05:35)
[2021-11-12] MEDS: ASPIRIN 325 MG ECTAB PO SCH (07:51)
[2021-11-12 08:03] LABS: Marijuana Quant, GCMS Urine 2351 ng/mL (<5)
[2021-11-12] MEDS: BUPRENORPHINE/NALOXONE 8/2 MG TAB SL SCH ×2 (09:01→20:05)
[2021-11-12] MEDS: ENOXAPARIN INJ 40 MG/0.4 ML SYR SQ SCH (09:02)
[2021-11-12 09:27] LABS: Basophils # (auto) 0.03 K/uL (0-0.2); Basophils % (auto) 0.2 %; Eosinophils # (auto) 0.52 K/uL (0-0.5); Hematocrit (blood only) 32.7 % (42-52); Hemoglobin 10.2 g/dL (14.0-18.0); Immature Granulocytes # (auto) 0.33 K/uL (0.00-0.02); Immature Granulocytes % (auto) 2.5 %; Lymphocytes % (auto) 18.3 %; Mean Corpuscular Hemoglobin 25.1 pg (25-34); Mean Corpuscular Hgb Conc 31.2 g/dL (32-36); Mean Corpuscular Volume 80.5 fL (80-100); Mean Platelet Volume 8.5 fL (7.4-10.4); Monocytes # (auto) 0.42 K/uL (0.11-0.59); Monocytes % (auto) 3.2 %; Neutrophils # (auto) 9.43 K/uL (1.4-6.5); Neutrophils % (auto) 71.8 %; Platelet Count 395 K/uL (130-400); RDW Coefficient of Variation 16.9 % (11.5-14.5); RDW Standard Deviation 48.3 fL (36.4-46.3); Red Blood Count 4.06 M/uL (4.7-6.1); White Blood Count 13.13 K/uL (4.8-10.8)
[2021-11-12 09:54] LABS: Albumin Globulin Ratio 0.7 (0.9-2); Albumin Level 3.1 gm/dl (3.4-5.0); BUN Creatinine Ratio 24.1 (10-20); Bilirubin,Total 0.2 mg/dl (0.2-1.0); Calcium 9.1 mg/dl (8.5-10.1); Creatinine Clr Calc Pharmacy 224.2 ml/min; Est GFR (Non-African American) 128.6 ml/min; Globulin 4.6 gm/dl (2.5-4.0); Potassium 3.5 mmol/L (3.5-5.1); Total Protein 7.7 gm/dl (6.0-8.3)
--- NOTE | 2021-11-12 11:22 | Hospitalist Progress Note ---
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 (1) Septic joint with osteomyelitis s/p tibial hardware removal and open + arthroscopic debridement (06/22/21 Dr. Hooper) for septic arthritis and osteomyelitis of R knee cultures grew MRSA that required 6 weeks of tx in hospital with vancomycin via PICC and PO Bactrim visited ortho clinic (10/28/21) for knee pain and swelling; aspiration performed, obtained 110 cc bloody, nonpurulent appearing fluid --> Yielded ~180,000 WBCs (87% PMN) and ~630,000 RBCs. Culture not available, did not process. R knee XR: marked septic arthritis, high suspicion for osteomyelitis, large soft tissue ulceration w/ fistula track into joint Consulted ortho: s/p open irrigation debridement R knee (11/09) -joint fluid cx: MRSA -wound: recommends 6 weeks IV abx followed with lifelong PO abx -knee: recommends arthrodesis if infection clears versus above knee amputation; pt not in favor of amputation -wound care following: wound VAC placed (11/11) zosyn d/c, cont. vancomycin; will need halfway IV abx tx likely in hospital or acute rehab due to his h/o of IV drug abuse and unstable living situation cont. PT/OT -will need to educate on proper wound care to prevent reinfection -trend CBC (2) H/o IV drug use history of IV drug abuse and recreational drug use, including amphetamines, that have resulted in psychosis requiring 302 pt states he has not used any recreational substance in several months. However, at recent ortho visit, endorsed utilizing his previous IV to inject Suboxone. Also endorsed reusing some of his own needles, but denied sharing needles, which puts him at high risk for re-infection/bacteremia. UDS: positive marijuana cont. Suboxone; has been recently compliant (3) Transaminitis initially found to have TBili 1, elev AST 60, elev ALT 73, elev ALP 192, low albumin 2.9, INR 1 (platelet 384, creatinine, 0.56, sodium 130). No abdominal pain/complaints. unable to locate any files to suggest previous transaminitis/liver injury. Prior labs appear normal. -(2/) AST 9, ALT 31, ALP 122, downtrending -HCV preliminary antibody positive, PCR neg consider HIV and RUQ ultrasonography Judicious use of hepatotoxic medicines Trend CMP DVT ppx: Lovenox 40mg qAM SQ FEN/GI: regular Code Status: full Dispo: med/surg (2) Knee effusion, right: (3) Anemia: (4) Septic joint of right knee joint: (5) Osteomyelitis of right knee region: Admission and Anticipated Discharge Date Admission Date: November 09, 2021 Supervising Physician Co-Signing Physician Notes Resident Physician Supervision Note: I independently interviewed and examined the patient and verified the short history and physical, reviewed labs and image studies and agree with resident Dr. Dhillon findings and care plan. Subjective Very awake this morning. Laying comfortably in bed. Knee/lower leg pain controlled at the moment. Does complain of some right hip pain but says it may be due to immobilization of right leg. Otherwise no acute complaints. Review of Systems Review of Systems: All systems reviewed & are unremarkable except as noted in HPI & below Constitutional: denies fevers, chills CV: denies chest pain Resp: denies shortness of breath GI: denies abdominal pain, nausea, vomiting, constipation, diarrhea : denies pain with urination, change in urinary frequency Neuro: denies new numbness, tingling Physical Exam Physical Exam: General: appears comfortable laying in bed HEENT: normocephalic, atraumatic. Cardiac: normal rate and rhythm. Pulmonary: Good respiratory effort. Lungs are clear to auscultation bilaterally without crackles or wheezes. Abdominal: Bowel sounds present. Abdomen is soft, nontender, and nondistended to palpation. MSK: s/p irrigation and debridement R knee, wound vac in place without signs of infection, dorsiflexion and plantarflexion right foot intact. Lower extremity sensation intact. R lateral hip mildly TTP without bruising. Results & Data Results & Data ([facility]) Vital Signs (Past 12 Hours) Vital Signs Temp Pulse Resp BP BP Pulse Ox 11/12/21 07:22 138/84 11/12/21 07:08 36.8 C 88 18 156/68 H 96 11/12/21 06:59 36.7 C 83 18 162/107 H 98 11/12/21 04:56 36.9 C 82 16 148/85 H 97 Resident Activity Tracking Resident Involvement: Resident Care Provided Care Provided: Adult Hospital Medicine (1) Septic joint of right knee joint Septic arthritis organism: staphylococcal Qualified Code(s): M00.061 - Staphylococcal arthritis, right knee
[2021-11-12 11:42] LABS: Hepatitis A Antibody IgM NON-REACTIVE (NON-REACTIVE); Hepatitis B Core Antibody IgM NON-REACTIVE (NON-REACTIVE); Hepatitis C Vira RNA (Log) PCR <1.18 NOT DETECTED Log IU/mL (NOT DETECTED); Hepatitis C Viral RNA by PCR <15 NOT DETECTED IU/mL (NOT DETECTED)
[2021-11-13] MEDS: oxyCODONE HCL IR 5 MG TAB (IMMEDIATE RELEASE) PO PRN ×7 (00:01→20:47)
[2021-11-13] MEDS: ACETAMINOPHEN 500 MG TAB PO PRN ×2 (07:56→15:54)
[2021-11-13] MEDS: ENOXAPARIN INJ 40 MG/0.4 ML SYR SQ SCH (07:57)
[2021-11-13] MEDS: BUPRENORPHINE/NALOXONE 8/2 MG TAB SL SCH ×2 (08:14→20:47)
[2021-11-13] MEDS: VANCOMYCIN HCL 1,500 MG in SODIUM CHLORIDE 0.9% 500 ML IV SCH ×3 (08:16→23:44)
--- NOTE | 2021-11-13 08:34 | Progress Notes ---
DATE OF SERVICE: 11/13/2021. SUBJECTIVE: A 41-year-old gentleman postoperative day 4 from I and D of an infected right knee and l eg wound. He is complaining of a lot of pain in his knee and his distal thigh today. He is exhibiti ng some drug-seeking behavior. He says he just wants somebody to take away the pain. He is begging for additional pain medicines. Denies any chest pain or shortness of breath. OBJECTIVE: VITAL SIGNS: Temperature 37.0. Vital signs are stable. PHYSICAL EXAMINATION: EXTREMITIES: Physical examination of the right leg reveals the wound VAC to be in place. His knee s hows obvious arthritic changes, but no obvious fluid accumulation. Not a lot of swelling. He is gely rologically intact. LABORATORY DATA: Culture results are showing methicillin-resistant Staphylococcus aureus. ASSESSMENT: A 41-year-old gentleman with recurrent chronic right knee infection with destructive ost eomyelitis. He is postoperative day 4. Long-term drug use and seems to be exhibiting some drug-seeki ng behavior here in the hospital. Difficult to manage. PLAN: He is going to need IV antibiotics. As far as pain control, I think we will consult the pain service and see if they have any recommendations on how to manage this gentleman. Needing IV antibio tics and having a history of drug use in the past, certainly makes things very difficult. His leg it self actually looks pretty good. Treatment options with this over the long haul are amputation versu s a possible arthrodesis/fusion if we can get the infection cleared up. We will continue medical management as per the medicine service. He can weight bear as tolerated on the right leg. Continue wound VAC management. IV antibiotics probably for 6 weeks and then chronic suppression antibiotics. Any orthopedic questions can be directed to me at [phone]. Job ID: [id number]
[2021-11-13 09:23] LABS: Basophils # (auto) 0.03 K/uL (0-0.2); Basophils % (auto) 0.2 %; Eosinophils # (auto) 0.53 K/uL (0-0.5); Eosinophils % (auto) 3.8 %; Hematocrit (blood only) 31.8 % (42-52); Hemoglobin 9.9 g/dL (14.0-18.0); Immature Granulocytes # (auto) 0.34 K/uL (0.00-0.02); Immature Granulocytes % (auto) 2.4 %; Lymphocytes # (auto) 2.28 K/uL (1.2-3.4); Lymphocytes % (auto) 16.3 %; Mean Corpuscular Hemoglobin 25.1 pg (25-34); Mean Corpuscular Hgb Conc 31.1 g/dL (32-36); Mean Corpuscular Volume 80.7 fL (80-100); Mean Platelet Volume 8.4 fL (7.4-10.4); Monocytes # (auto) 0.66 K/uL (0.11-0.59); Monocytes % (auto) 4.7 %; Neutrophils # (auto) 10.17 K/uL (1.4-6.5); Neutrophils % (auto) 72.6 %; Platelet Count 385 K/uL (130-400); RDW Coefficient of Variation 17.2 % (11.5-14.5); RDW Standard Deviation 49.7 fL (36.4-46.3); Red Blood Count 3.94 M/uL (4.7-6.1); White Blood Count 14.01 K/uL (4.8-10.8)
[2021-11-13 09:46] LABS: Albumin Globulin Ratio 0.7 (0.9-2); Albumin Level 3.1 gm/dl (3.4-5.0); BUN Creatinine Ratio 24.1 (10-20); Bilirubin,Total 0.3 mg/dl (0.2-1.0); Calcium 8.8 mg/dl (8.5-10.1); Creatinine Clr Calc Pharmacy 208.7 ml/min; Est GFR (African American) 144.7 ml/min; Est GFR (Non-African American) 124.9 ml/min; Globulin 4.4 gm/dl (2.5-4.0); Potassium 3.7 mmol/L (3.5-5.1); Total Protein 7.5 gm/dl (6.0-8.3)
--- NOTE | 2021-11-13 10:52 | Hospitalist Progress Note ---
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 (1) Septic joint with osteomyelitis s/p tibial hardware removal and open + arthroscopic debridement (06/22/21 Dr. Hooper) for septic arthritis and osteomyelitis of R knee cultures grew MRSA that required 6 weeks of tx in hospital with vancomycin via PICC and PO Bactrim visited ortho clinic (10/28/21) for knee pain and swelling; aspiration performed, obtained 110 cc bloody, nonpurulent appearing fluid --> Yielded ~180,000 WBCs (87% PMN) and ~630,000 RBCs. Culture not available, did not process. R knee XR: marked septic arthritis, high suspicion for osteomyelitis, large soft tissue ulceration w/ fistula track into joint Consulted ortho: s/p open irrigation debridement R knee (11/09) -joint fluid cx: MRSA -wound: recommends 6 weeks IV abx followed with lifelong PO abx -knee: recommends arthrodesis if infection clears versus above knee amputation; pt not in favor of amputation -wound care following: wound VAC placed (11/11) zosyn d/c, cont. 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 PT/OT -will need to educate on proper wound care to prevent reinfection -trend CBC (2) H/o IV drug use history of IV drug abuse and recreational drug use, including amphetamines, that have resulted in psychosis requiring 302 pt states he has not used any recreational substance in several months. However, at recent ortho visit, endorsed utilizing his previous IV to inject Suboxone. Also endorsed reusing some of his own needles, but denied sharing needles, which puts him at high risk for re-infection/bacteremia. UDS: positive marijuana cont. Suboxone; has been recently compliant (3) Transaminitis initially found to have TBili 1, elev AST 60, elev ALT 73, elev ALP 192, low albumin 2.9, INR 1 (platelet 384, creatinine 0.56, sodium 130). No abdominal pain/complaints. unable to locate any files to suggest previous transaminitis/liver injury. Prior labs appear normal. -(11/13) AST 8, ALT 15, ALP 113, downtrending -HCV preliminary antibody positive, PCR neg consider HIV and RUQ ultrasonography Judicious use of hepatotoxic medicines Trend CMP DVT ppx: Lovenox 40mg qAM SQ FEN/GI: regular Code Status: full Dispo: med/surg (2) Knee effusion, right: (3) Anemia: (4) Septic joint of right knee joint: (5) Osteomyelitis of right knee region: Admission and Anticipated Discharge Date Admission Date: November 09, 2021 Supervising Physician Co-Signing Physician Notes Resident Physician Supervision Note: I independently interviewed and examined the patient and verified the short history and physical, reviewed labs and image studies and agree with resident Dr. Dhillon findings and care plan. Subjective In good spirits this morning. Didn't sleep very well due to leg pain but more comfortable at this time. Able to ambulate to bathroom on crutches, non weight bearing. Will try to sit in chair today to relieve stress from his hip. Requests ice pack for right hip. Review of Systems Review of Systems: All systems reviewed & are unremarkable except as noted in HPI & below Constitutional: denies fevers, chills CV: denies chest pain Resp: denies shortness of breath GI: denies abdominal pain, nausea, vomiting, constipation, diarrhea : denies pain with urination, change in urinary frequency Neuro: denies new numbness, tingling Physical Exam Physical Exam: General: appears comfortable laying in bed HEENT: normocephalic, atraumatic. Cardiac: normal rate and rhythm. Pulmonary: Good respiratory effort. Lungs are clear to auscultation bilaterally without crackles or wheezes. Abdominal: Bowel sounds present. Abdomen is soft, nontender, and nondistended to palpation. MSK: s/p irrigation and debridement R knee, wound vac in place without signs of infection, dorsiflexion and plantarflexion right foot intact, able to wiggle toes. Lower extremity sensation intact. R lateral hip nontender to palpation without bruising. Results & Data Results & Data ([facility]) Vital Signs (Past 12 Hours) Vital Signs Temp Pulse Resp BP Pulse Ox 11/13/21 09:59 36.6 C 85 18 134/80 96 11/13/21 07:24 36.4 C L 100 H 16 124/78 96 11/12/21 23:10 37.0 C 92 H 16 148/80 H 95 Resident Activity Tracking Resident Involvement: Resident Care Provided Care Provided: Adult Hospital Medicine (1) Septic joint of right knee joint Septic arthritis organism: staphylococcal Qualified Code(s): M00.061 - Staphylococcal arthritis, right knee
[2021-11-13] MEDS ORDERED: LOPERAMIDE HCL 2 MG CAP PO STA (21:56)
[2021-11-14] MEDS: oxyCODONE HCL IR 5 MG TAB (IMMEDIATE RELEASE) PO PRN ×2 (00:44→05:39)
[2021-11-14] MEDS: ACETAMINOPHEN 500 MG TAB PO PRN ×2 (01:10→15:43)
[2021-11-14 07:34] LABS: Basophils # (auto) 0.02 K/uL (0-0.2); Basophils % (auto) 0.1 %; Eosinophils # (auto) 0.42 K/uL (0-0.5); Hematocrit (blood only) 33.2 % (42-52); Hemoglobin 10.3 g/dL (14.0-18.0); Immature Granulocytes # (auto) 0.22 K/uL (0.00-0.02); Immature Granulocytes % (auto) 1.6 %; Lymphocytes # (auto) 2.45 K/uL (1.2-3.4); Lymphocytes % (auto) 17.6 %; Mean Corpuscular Hemoglobin 24.9 pg (25-34); Mean Corpuscular Volume 80.2 fL (80-100); Mean Platelet Volume 8.5 fL (7.4-10.4); Monocytes # (auto) 0.62 K/uL (0.11-0.59); Monocytes % (auto) 4.5 %; Neutrophils # (auto) 10.16 K/uL (1.4-6.5); Neutrophils % (auto) 73.2 %; Platelet Count 400 K/uL (130-400); RDW Coefficient of Variation 17.3 % (11.5-14.5); RDW Standard Deviation 49.6 fL (36.4-46.3); Red Blood Count 4.14 M/uL (4.7-6.1); White Blood Count 13.89 K/uL (4.8-10.8)
--- NOTE | 2021-11-14 07:58 | Progress Notes ---
DATE OF SERVICE: 11/14/2021. SUBJECTIVE: A 41-year-old gentleman, now postop day 5 from an I and D of a septic knee with osteomye litis. He seems to be doing a little better this morning. Less complaints of pain. No new complain ts. OBJECTIVE: VITAL SIGNS: Temperature 37.0. Vital signs are stable. PHYSICAL EXAMINATION: GENERAL: Shows a middle-aged male lying in bed. Always difficult to arouse in the morning. EXTREMITIES: Examination of the right leg reveals the incision to be well approximated. He has got a wound VAC in place. Some mild swelling. He is neurologically intact. Calf is soft and supple. LABORATORY DATA: Hemoglobin 10.3. Hematocrit 33.2. White cell count is 13.89. Electrolytes are pe nding. Culture results showing MRSA. ASSESSMENT: A 41-year-old male with multiple medical issues postoperative day 5 from irrigation and debridement of a right infected knee with osteomyelitis. Seems to be improving slowly. PLAN: At this point, he just needs IV antibiotics and wound care. Does not necessarily need to be i n the hospital from the orthopedic standpoint. He can weight bear as tolerated. I need to see him b ack 2-3 weeks out from his surgery date. Any orthopedic questions can be directed to me at . We will continue to check on him intermittently in the hospital, but not likely every day unles s needed. Job ID: [id number]
--- NOTE | 2021-11-14 08:35 | Pain Management Consultation ---
Date of Consultation November 14, 2021 Assessment & Plan (1) Sepsis: (2) Septic joint of right knee joint: Septic arthritis organism: staphylococcal Qualified Code(s): M00.061 - Staphylococcal arthritis, right knee (3) Osteomyelitis of right knee region: (4) Lateral pain of right hip: (5) History of intravenous drug abuse: 1. We discussed adding adjuvant medications to help diminish pain but the patient adamantly deferred 2. Will initiate Toradol 30 mg IV every 6 hours as needed 3. Consider discontinuation of OxyIR as the patient indicates no relief and that it is "not enough". Would not recommend escalation of any opiate therapies. 4. Could consider escalation of Suboxone to 3 times daily in the short-term 5. Would not recommend discharge with any opiate therapy due to significant r isk of opiate misuse/abuse and the fact that he uses illicits stating that he uses "whatever he can get his hands on" in the outpatient setting and admits to daily marijuana usage History of Present Illness Reason for Consultation: Intractable right lower extremity pain with history of osteomyelitis status post I&D of right knee Requesting Physician: Corky Israel MD Attending Physician: Ruma Jones MD History of Present Illness Mr. Fowler is a 41-year-old white male who was admitted on 11/09/2021 due to right knee fluid drainage in the setting of a recent joint aspiration that yielded greater than 180,000 intra-articular WBCs concerning for septic joint who was found to have osteomyelitis with septic joint and underwent I&D of the right knee with Dr. Israel on 11/09/2021. The patient has a longstanding history of polysubstance abuse and IV drug use as well as psychosis and aggression who is currently on Suboxone in the outpatient clinic. Pain service has been consulted due to his ongoing pain complaints upon this admission status post a surgical procedure. Patient reports daily marijuana usage in the outpatient setting. He does report compliance with the Suboxone. He indicates illicit drug use within the past 2-3 months injecting "anything he can get his hands on" being extremely vague and noncommittal to what drugs he was injecting. Patient is reporting pain in the right knee and right lateral hip. He reports the right lateral hip pain is new since time of the surgical procedure. He describes as a deep bone aching discomfort in the lateral hip and similar pain characteristic in the knee region. He reports some radiation between the hip and the knee but denies a true radicular pattern to his pain. Patient is rating his pain at a 5-7/10. He reports that oxycodone is not providing any relief of his pain although nursing notes appear to indicate reduction in pain due to behavioral change status post dosing. Patient was unable to identify the name of the outpatient Suboxone clinic that he follows with. He admits to excessive NSAID utilization in the outpatient setting and reports that NSAIDs provide him the most relief. Patient was previously on gabapentin but reported side effects and indicates that he will refuse any similar medication such as Lyrica. Patient has no further constitutional complaints. Plan of care discussed with Dr. Chelsy Urias. Pain Assessment Full Body Front + Back: 1. Right lateral hip 2. Right knee status post I&D-wound VAC in place Pain scale - at its best (0-10): 5 Pain scale - at its worst (0-10): 7 Allergies Allergy/AdvReac Type Severity Reaction Status Date / Time cyclobenzaprine Allergy Severe SHORTNESS Verified 11/08/21 23:52 OF BREATH zolpidem Allergy Unknown hallucinati Verified 11/08/21 23:52 ons Benzodiazepines AdvReac Intermediate PSYCH Verified 11/08/21 23:52 ISSUES Home Medications Medication Instructions Recorded Confirmed Type buprenorphine 8 mg-naloxone 2 mg 1 tab SUBLINGUAL BID 10/27/19 11/08/21 History sublingual tablet acetaminophen 500 mg tablet 1,000 mg PO Q8H PRN #100 tab 05/30/21 11/08/21 Rx (Tylenol Extra Strength) aspirin 325 mg tablet,delayed 325 mg PO DAILY #60 tab 05/30/21 11/08/21 Rx release (Ecotrin) Pain History Pain Intensity Pain scale - at its best (0-10): 5 Pain scale - at its worst (0-10): 7 Patient History Medical History (Updated 11/14/21 @ 08:53 by Kyle Lock PA-C) Aggressive behavior Anemia Delusions IV drug abuse Lateral pain of right hip Paranoia Psychosis Septic arthritis of knee, right SIRS (systemic inflammatory response syndrome) Surgical History History of hernia surgery S/P right knee arthroscopy for septic joint, Dr. Hooper Family History Other No pertinent family history Social History Smoking Status: Never smoker Tobacco Type: E-cigarettes / Vaping and Smokeless Tobacco (Dip or Chew) Second Hand Exposure: No; Hx Alcohol Use: No Hx Substance Use: No Preferred Language: Divehi Communication Ability: Effective Automatic Wheel Line Operator Required: No Beliefs That Will Affect Care: None marital status: Single Current Living Situation: Other Current Living Situation Comment: states that he is homeless Feels Safe at Home: Yes Assistive Devices: Crutches Physical Exam Physical Exam: General: Patient lying quietly in exam room in no acute distress. Speech and thought process appropriate. Mood and affect appropriate. Cognition intact. Abdomen: Soft and nondistended. No organomegaly. Bowel sounds active. Lower extremities: Patient is moderately tender over the right greater trochanter to direct palpation. Sensation is intact distally. No appreciable edema. Wound VAC in place in the right infra knee region. Patient requested limited physical exam and therefore unwilling to participate in flexion extension maneuvering of the knee or hip. Left leg without limitation throughout range of motion with dorsi/plantarflexion or knee flexion/extension. Neurologic: Cranial nerves grossly intact. Ambulatory function not witnessed. Results (Pain Clinic) Diagnostic Review Radiology Findings: [place] [phone] XRay Report Patient:CATERINA FOWLER Admit Date:11/09/21 MR#:[id number] Address1:[address] [place] [address] Acct ID:[id number] Address2: Date:1980 [facility] Zip:[place] [address] Age:41 Location:3E Sex:M Room/Bed:E321-1 Att Phy:Geronimo Matthews M.D. Diagnosis:SUSPECTED SEPTIC ARTHRITIS RIGHT KNEE Shara Phy:Ana Miguel MD Service Date:11/08/21 Fam Phy: Interpreting Phy:Constantino Patel MDAdmit Phy:Jono Mcgrath MD Ordering Phy:Corky Samson PA-C cc: ~ XR knee RT 3V CLINICAL HISTORY: Knee swelling and pain. Evaluate for infection.. Status post knee surgery in June with removal of plate and screws. COMPARISON STUDY: 06/21/2021 TECHNIQUE: 5 right knee views FINDINGS: Compared to the previous examination, there has been interval removal of plate and screw fixation involving the proximal tibia. There is a large soft tissue ulceration present along the medial aspect of the knee at the level of the medial tibial plateau. Fistula extends from the skin surface into the knee joint. Air is present within the joint. The findings are characteristic of marked septic arthritis. Additionally, there is cortical regularity of the articular surfaces of the tibial plateau and femoral condyles which can be seen on the previous study. However, it appears more prominent and the findings are highly suspicious for osteomyelitis as well. A small intra-articular effusion is also present within the knee joint. There is no lytic or blastic lesion. There is generous deformity. There is diffuse soft tissue swelling surrounding the entire knee. IMPRESSION: Marked septic arthritis of the right knee as described above with probable osteomyelitis as well. Large soft tissue ulceration medially with a fistula track extending into the joint. ACT 112: Negative or not required by law. Electronically signed by: Constantino Patel M.D. 11/09/2021 8:10 AM Dictated:11/09/21801 Transcribed: 11/09/21 08 Opioid Risk Assessment Opioid Risk Assessment: risk assessment performed and high risk identified Additional Findings: Patient has significant risks of opioid and illicit drug misuse/abuse due to prior history. He admits to ongoing chronic daily marijuana usage at this time and IV drug use within the past 3 months.
[2021-11-14] MEDS: KETOROLAC 30 MG/ML VIAL IV PRN ×3 (08:50→21:50)
[2021-11-14] MEDS: BUPRENORPHINE/NALOXONE 8/2 MG TAB SL SCH ×2 (08:50→21:51)
[2021-11-14] MEDS: ENOXAPARIN INJ 40 MG/0.4 ML SYR SQ SCH (08:50)
[2021-11-14] MEDS: VANCOMYCIN HCL 1,500 MG in SODIUM CHLORIDE 0.9% 500 ML IV SCH ×2 (09:03→15:42)
[2021-11-14 10:00] LABS: Alanine Aminotransferase 14 U/L (7-52); Albumin Globulin Ratio 0.7 (0.9-2); Albumin Level 3.2 gm/dl (3.4-5.0); Alkaline Phosphatase 112 U/L (34-104); Anion Gap 7 (3-11); Aspartate Aminotransferase 9 U/L (13-39); BUN Creatinine Ratio 25.5 (10-20); Bilirubin,Total 0.3 mg/dl (0.2-1.0); Blood Urea Nitrogen 13 mg/dl (6-23); Calcium 8.8 mg/dl (8.5-10.1); Carbon Dioxide 29 mmol/L (21-32); Chloride 100 mmol/L (98-107); Creatinine Clr Calc Pharmacy 237.4 ml/min; Est GFR (African American) > 150.0 ml/min; Est GFR (Non-African American) 131.7 ml/min; Globulin 4.3 gm/dl (2.5-4.0); Glucose 110 mg/dl (70-99(Fasting)); Potassium 3.5 mmol/L (3.5-5.1); Sodium 136 mmol/L (136-145); Total Protein 7.5 gm/dl (6.0-8.3)
--- NOTE | 2021-11-14 16:56 | Hospitalist Progress Note ---
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 (1) Septic joint with osteomyelitis s/p tibial hardware removal and open + arthroscopic debridement (06/22/21 Dr. Hooper) for septic arthritis and osteomyelitis of R knee cultures grew MRSA that required 6 weeks of tx in hospital with vancomycin via PICC and PO Bactrim visited ortho clinic (10/28/21) for knee pain and swelling; aspiration performed, obtained 110 cc bloody, nonpurulent appearing fluid --> Yielded ~180,000 WBCs (87% PMN) and ~630,000 RBCs. Culture not available, did not process. R knee XR: marked septic arthritis, high suspicion for osteomyelitis, large soft tissue ulceration w/ fistula track into joint Consulted ortho: s/p open irrigation debridement R knee (11/09) -joint fluid cx: MRSA -wound: recommends 6 weeks IV abx followed with lifelong PO abx -knee: recommends arthrodesis if infection clears versus above knee amputation; pt not in favor of amputation -wound care following: wound VAC placed (11/11) zosyn d/c, cont. vancomycin; will need watermaster IV abx tx likely in hospital or acute rehab due to his h/o of IV drug abuse and unstable living situation -Pain management consulted: d/c oxycodone, start Toradol q6h; consider inc. to suboxone 8mg TID if needed -will need to educate on proper wound care to prevent reinfection -trend CBC (2) H/o IV drug use history of IV drug abuse and recreational drug use, including amphetamines, that have resulted in psychosis requiring 302 pt states he has not used any recreational substance in several months. However, at recent ortho visit, endorsed utilizing his previous IV to inject Suboxone. Also endorsed reusing some of his own needles, but denied sharing needles, which puts him at high risk for re-infection/bacteremia. UDS: positive marijuana cont. Suboxone; has been recently compliant (3) Transaminitis initially found to have TBili 1, elev AST 60, elev ALT 73, elev ALP 192, low albumin 2.9, INR 1 (platelet 384, creatinine 0.56, sodium 130). No abdominal pain/complaints. unable to locate any files to suggest previous transaminitis/liver injury. Prior labs appear normal. -(11/13) AST 9, ALT 14, ALP 112, downtrending -HCV preliminary antibody positive, PCR neg consider HIV and RUQ ultrasonography Judicious use of hepatotoxic medicines Trend CMP DVT ppx: Lovenox 40mg qAM SQ FEN/GI: regular Code Status: full Dispo: med/surg; CM seeking placement (2) Knee effusion, right: (3) Anemia: (4) Septic joint of right knee joint: (5) Osteomyelitis of right knee region: Admission and Anticipated Discharge Date Admission Date: November 09, 2021 Supervising Physician Co-Signing Physician Notes Resident Physician Supervision Note: I independently interviewed and examined the patient and verified the short history and physical, reviewed labs and image studies and agree with resident Dr. Dhillon findings and care plan. Subjective Half awake this morning but comfortable. No acute complaints. Pain controlled well. Review of Systems Review of Systems: Constitutional: denies fevers, chills CV: denies chest pain Resp: denies shortness of breath GI: denies abdominal pain, nausea, vomiting, constipation, diarrhea : denies pain with urination, change in urinary frequency Neuro: denies new numbness, tingling Physical Exam Physical Exam: General: appears comfortable laying in bed HEENT: normocephalic, atraumatic. Cardiac: normal rate and rhythm. Pulmonary: Good respiratory effort. Lungs are clear to auscultation bilaterally without crackles or wheezes. Abdominal: Bowel sounds present. Abdomen is soft, nontender, and nondistended to palpation. MSK: s/p irrigation and debridement R knee, wound vac in place without signs of infection, dorsiflexion and plantarflexion right foot intact, able to wiggle toes. Lower extremity sensation intact. R lateral hip nontender to palpation wi thout bruising. Results & Data Results & Data ([facility]) Vital Signs (Past 12 Hours) Vital Signs Temp Pulse Resp BP Pulse Ox 11/14/21 15:50 36.4 C L 76 16 128/73 95 11/14/21 08:03 36.6 C 71 18 115/69 97 Resident Activity Tracking Resident Involvement: Resident Care Provided Care Provided: Adult Hospital Medicine (1) Septic joint of right knee joint Septic arthritis organism: staphylococcal Qualified Code(s): M00.061 - Staphylococcal arthritis, right knee
[2021-11-15] MEDS: VANCOMYCIN HCL 1,500 MG in SODIUM CHLORIDE 0.9% 500 ML IV SCH ×3 (00:19→15:31)
[2021-11-15] MEDS: ACETAMINOPHEN 500 MG TAB PO PRN ×3 (00:29→21:21)
[2021-11-15] MEDS: KETOROLAC 30 MG/ML VIAL IV PRN ×3 (03:53→19:59)
[2021-11-15] MEDS: BUPRENORPHINE/NALOXONE 8/2 MG TAB SL SCH ×2 (08:31→21:21)
[2021-11-15] MEDS: ENOXAPARIN INJ 40 MG/0.4 ML SYR SQ SCH (08:33)
--- NOTE | 2021-11-15 16:33 | Hospitalist Progress Note ---
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 (1) Septic joint with osteomyelitis s/p tibial hardware removal and open + arthroscopic debridement (06/22/21 Dr. Hooper) for septic arthritis and osteomyelitis of R knee cultures grew MRSA that required 6 weeks of tx in hospital with vancomycin via PICC and PO Bactrim visited ortho clinic (10/28/21) for knee pain and swelling; aspiration performed, obtained 110 cc bloody, nonpurulent appearing fluid --> Yielded ~180,000 WBCs (87% PMN) and ~630,000 RBCs. Culture not available, did not process. R knee XR: marked septic arthritis, high suspicion for osteomyelitis, large soft tissue ulceration w/ fistula track into joint Consulted ortho: s/p open irrigation debridement R knee (11/09) -joint fluid cx: MRSA -wound: recommends 6 weeks IV abx followed with lifelong PO abx -knee: recommends arthrodesis if infection clears versus above knee amputation; pt not in favor of amputation -wound care following: wound VAC placed (11/11) zosyn d/c, cont. vancomycin; will need long term care social worker IV abx tx likely in hospital or acute rehab due to his h/o of IV drug abuse and unstable living situation cont. PT/OT -Pain management consulted: d/c oxycodone, start Toradol q6h; consider inc. to suboxone 8mg TID if needed (2) H/o IV drug use history of IV drug abuse and recreational drug use, including amphetamines, that have resulted in psychosis requiring 302 pt states he has not used any recreational substance in several months. However, at recent ortho visit, endorsed utilizing his previous IV to inject Suboxone. Also endorsed reusing some of his own needles, but denied sharing needles, which puts him at high risk for re-infection/bacteremia. UDS: positive marijuana cont. Suboxone; has been recently compliant (3) Transaminitis initially found to have TBili 1, elev AST 60, elev ALT 73, elev ALP 192, low albumin 2.9, INR 1 (platelet 384, creatinine 0.56, sodium 130). No abdominal pain/complaints. unable to locate any files to suggest previous transaminitis/liver injury. Prior labs appear normal. -(11/13) AST 9, ALT 14, ALP 112, downtrending -HCV preliminary antibody positive, PCR neg consider HIV and RUQ ultrasonography Judicious use of hepatotoxic medicines Trend CMP DVT ppx: Lovenox 40mg qAM SQ FEN/GI: regular Code Status: full Dispo: med/surg; CM seeking placement (2) Knee effusion, right: (3) Anemia: (4) Septic joint of right knee joint: (5) Osteomyelitis of right knee region: Admission and Anticipated Discharge Date Admission Date: November 09, 2021 Supervising Physician Co-Signing Physician Notes Resident Physician Supervision Note: I independently interviewed and examined the patient and verified the short history and physical, reviewed labs and image studies and agree with resident Dr. Haas findings and care plan. Subjective Patient seen at bedside this morning. No acute events reported overnight. Patient is asleep at the time of my examination but was awoken for few minutes for examination and review of systems. Per nursing, patient has been very rude with staff and making staff feel uncomfortable. Behavior includes yelling at nurses for waking him up or when the lights are turned on while he is sleeping. Otherwise no other complaints are reported at this time patient seems to otherwise have pain in control currently. Review of Systems Review of Systems: Constitutional: denies fevers, chills CV: denies chest pain Resp: denies shortness of breath GI: denies abdominal pain, nausea, vomiting, constipation, diarrhea : denies pain with urination, change in urinary frequency Neuro: denies new numbness, tingling Physical Exam Physical Exam: General: appears comfortable laying in bed HEENT: normocephalic, atraumatic. Cardiac: normal rate and rhythm without murmur rub or gallop. Pulmonary: Good respiratory effort. Lungs are clear to auscultation bilaterally without crackles or wheezes. Abdominal: Bowel sounds present. Abdomen is soft, nontender, and nondistended to palpation. MSK: s/p irrigation and debridement R knee, wound vac in place without signs of infection. Neuro: Sensation distal to wound VAC intact. Results & Data Results & Data ([facility]) Vital Signs (Past 12 Hours) Vital Signs Temp Pulse Resp BP Pulse Ox 11/15/21 15:09 36.4 C L 96 H 18 151/77 H 96 11/15/21 08:11 36.5 C 94 H 16 142/74 H 94 Resident Activity Tracking Resident Involvement: Resident Care Provided Care Provided: Adult Hospital Medicine (1) Septic joint of right knee joint Septic arthritis organism: staphylococcal Qualified Code(s): M00.061 - Staphylococcal arthritis, right knee
[2021-11-16] MEDS: VANCOMYCIN HCL 1,500 MG in SODIUM CHLORIDE 0.9% 500 ML IV SCH ×3 (00:13→16:53)
[2021-11-16] MEDS: KETOROLAC 30 MG/ML VIAL IV PRN ×3 (04:45→20:40)
[2021-11-16] MEDS ORDERED: VANCOMYCIN TROUGH ONE (07:30)
[2021-11-16 07:39] LABS: Basophils # (auto) 0.02 K/uL (0-0.2); Basophils % (auto) 0.2 %; Eosinophils # (auto) 0.43 K/uL (0-0.5); Eosinophils % (auto) 4.1 %; Hematocrit (blood only) 32.2 % (42-52); Hemoglobin 9.9 g/dL (14.0-18.0); Immature Granulocytes # (auto) 0.13 K/uL (0.00-0.02); Immature Granulocytes % (auto) 1.2 %; Lymphocytes # (auto) 2.23 K/uL (1.2-3.4); Lymphocytes % (auto) 21.2 %; Mean Corpuscular Hemoglobin 24.9 pg (25-34); Mean Corpuscular Hgb Conc 30.7 g/dL (32-36); Mean Corpuscular Volume 80.9 fL (80-100); Mean Platelet Volume 8.8 fL (7.4-10.4); Monocytes # (auto) 0.51 K/uL (0.11-0.59); Monocytes % (auto) 4.8 %; Neutrophils # (auto) 7.22 K/uL (1.4-6.5); Neutrophils % (auto) 68.5 %; Platelet Count 393 K/uL (130-400); RDW Coefficient of Variation 16.9 % (11.5-14.5); RDW Standard Deviation 49.8 fL (36.4-46.3); Red Blood Count 3.98 M/uL (4.7-6.1); White Blood Count 10.54 K/uL (4.8-10.8)
[2021-11-16 08:00] LABS: Alanine Aminotransferase 11 U/L (7-52); Albumin Globulin Ratio 0.8 (0.9-2); Alkaline Phosphatase 102 U/L (34-104); Anion Gap 6 (3-11); Aspartate Aminotransferase 9 U/L (13-39); BUN Creatinine Ratio 31.9 (10-20); Bilirubin,Total 0.3 mg/dl (0.2-1.0); Blood Urea Nitrogen 15 mg/dl (6-23); Carbon Dioxide 28 mmol/L (21-32); Chloride 105 mmol/L (98-107); Creatinine Clr Calc Pharmacy 257.6 ml/min; Est GFR (African American) > 150.0 ml/min; Est GFR (Non-African American) 136.1 ml/min; Glucose 82 mg/dl (70-99(Fasting)); Potassium 3.7 mmol/L (3.5-5.1); Sodium 139 mmol/L (136-145)
[2021-11-16] MEDS: ENOXAPARIN INJ 40 MG/0.4 ML SYR SQ SCH (08:16)
[2021-11-16] MEDS: BUPRENORPHINE/NALOXONE 8/2 MG TAB SL SCH ×2 (08:16→20:40)
--- NOTE | 2021-11-16 09:00 | Pharmacy Report ---
Pharmacy Vanc AUC Short Note - Date of Service November 16, 2021 - Assessment & Plan Assessment 41 year old M receiving vancomycin for septic right knee, osteomyelitis. Patient is s/p I&D on 11/09/21 with operative cultures growing MRSA. Planning for 6 weeks IV abx followed by lifelong PO abx Plan Vancomycin * Trough level resulted at 16.8 mcg/mL this morning. AUC is calculated to be ~578, which is within goal AUC/LYRIC of 500-600 mg/L.hr for osteo * AUC/LYRIC is the preferred PK/PD target for vancomycin * AUC guided dosing is effective and associated with decreased risk of nephrotoxicity compared to traditional trough targets * Continue vancomycin 1500 mg IV every 8 hours * No further levels ordered at this time Pharmacy will continue to follow and will adjust dose/frequency as necessary. Thank you.
--- NOTE | 2021-11-16 11:58 | Hospitalist Progress Note ---
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 (1) Septic joint with osteomyelitis s/p tibial hardware removal and open + arthroscopic debridement (06/22/21 Dr. Hooper) for septic arthritis and osteomyelitis of R knee cultures grew MRSA that required 6 weeks of tx in hospital with vancomycin via PICC and PO Bactrim visited ortho clinic (10/28/21) for knee pain and swelling; aspiration performed, obtained 110 cc bloody, nonpurulent appearing fluid --> Yielded ~180,000 WBCs (87% PMN) and ~630,000 RBCs. Culture not available, did not process. R knee XR: marked septic arthritis, high suspicion for osteomyelitis, large soft tissue ulceration w/ fistula track into joint Consulted ortho: s/p open irrigation debridement R knee (11/09) -joint fluid cx: MRSA -wound: recommends 6 weeks IV abx followed with lifelong PO abx -knee: recommends arthrodesis if infection clears versus above knee amputation; pt not in favor of amputation -wound care following: wound VAC placed (11/11) zosyn d/c, cont. 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 PT/OT -Pain management consulted: d/c oxycodone, start Toradol q6h; consider inc. to suboxone 8mg TID if needed (2) H/o IV drug use history of IV drug abuse and recreational drug use, including amphetamines, that have resulted in psychosis requiring 302 pt states he has not used any recreational substance in several months. However, at recent ortho visit, endorsed utilizing his previous IV to inject Suboxone. Also endorsed reusing some of his own needles, but denied sharing needles, which puts him at high risk for re-infection/bacteremia. UDS: positive marijuana cont. Suboxone; has been recently compliant (3) Transaminitis, Resolved initially found to have TBili 1, elev AST 60, elev ALT 73, elev ALP 192, low albumin 2.9, INR 1 (platelet 384, creatinine 0.56, sodium 130). No abdominal pain/complaints. unable to locate any files to suggest previous transaminitis/liver injury. Prior labs appear normal. -(11/16) AST 9, ALT 11, ALP 102 -HCV preliminary antibody positive, PCR neg (4) Asthma -Chronic medical condition -Patient typically uses albuterol inhaler in morning since having Covid a few months prior to admission -Home albuterol inhaler ran out, provided pt with inhaler while he is here. DVT ppx: Lovenox 40mg qAM SQ FEN/GI: regular Code Status: full Dispo: med/surg; CM seeking placement Admission and Anticipated Discharge Date Admission Date: November 09, 2021 Supervising Physician Co-Signing Physician Notes Resident Physician Supervision Note: I independently interviewed and examined the patient and verified the short history and physical, reviewed labs and image studies and agree with resident Dr. Haas findings and care plan. Subjective Patient seen at bedside this morning. No acute events reported overnight. Per nursing later in the day, patient was requesting an albuterol inhaler as the one that he brought was empty. He reports that he has been using it in the morning since he had Covid a while ago and he feels a little short of breath which is typical for him in the morning. Otherwise patient reports no other complaints today and is looking forward to watching the [employer]. Review of Systems Review of Systems: All systems reviewed & are unremarkable except as noted in HPI & below Physical Exam Physical Exam: General: appears comfortable laying in bed HEENT: normocephalic, atraumatic. Cardiac: normal rate and rhythm without murmur rub or gallop. Pulmonary: Good respiratory effort. Lungs are clear to auscultation bilaterally without crackles or wheezes. Abdominal: Bowel sounds present. Abdomen is soft, nontender, and nondistended to palpation. MSK: s/p irrigation and debridement R knee, wound vac in place without signs of infection. Neuro: Sensation distal to wound VAC intact. Results & Data Results & Data ([facility]) Vital Signs (Past 12 Hours) Vital Signs Temp Pulse Resp BP Pulse Ox 11/15/21 21:17 37.2 C 111 H 18 154/118 H 99 Resident Activity Tracking Resident Involvement: Resident Care Provided Care Provided: Adult Hospital Medicine
[2021-11-16] MEDS: ALBUTEROL HFA 8 GM INHALER INH PRN (12:24)
[2021-11-16] MEDS: ACETAMINOPHEN 500 MG TAB PO PRN (19:45)
[2021-11-17] MEDS: VANCOMYCIN HCL 1,500 MG in SODIUM CHLORIDE 0.9% 500 ML IV SCH ×3 (00:16→16:52)
[2021-11-17] MEDS: KETOROLAC 30 MG/ML VIAL IV PRN ×2 (05:27→16:58)
[2021-11-17] MEDS: ENOXAPARIN INJ 40 MG/0.4 ML SYR SQ SCH (08:45)
[2021-11-17] MEDS: BUPRENORPHINE/NALOXONE 8/2 MG TAB SL SCH ×2 (08:45→20:03)
--- NOTE | 2021-11-17 11:04 | Hospitalist Progress Note ---
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 (1) Septic joint with osteomyelitis s/p tibial hardware removal and open + arthroscopic debridement (06/22/21 Dr. Hooper) for septic arthritis and osteomyelitis of R knee cultures grew MRSA that required 6 weeks of tx in hospital with vancomycin via PICC and PO Bactrim visited ortho clinic (10/28/21) for knee pain and swelling; aspiration performed, obtained 110 cc bloody, nonpurulent appearing fluid --> Yielded ~180,000 WBCs (87% PMN) and ~630,000 RBCs. Culture not available, did not process. R knee XR: marked septic arthritis, high suspicion for osteomyelitis, large soft tissue ulceration w/ fistula track into joint Consulted ortho: s/p open irrigation debridement R knee (11/09) -joint fluid cx: MRSA -wound: recommends 6 weeks IV abx followed with lifelong PO abx -knee: recommends arthrodesis if infection clears versus above knee amputation; pt not in favor of amputation -wound care following: wound VAC placed (11/11) zosyn d/c, cont. vancomycin; will need intermediate accountant IV abx tx likely in hospital or acute rehab due to his h/o of IV drug abuse and unstable living situation -Pt medically stable, case management searching for placement -Pt has yet to start PT/OT, ordered and will encourage pt to begin -Pain management consulted: d/c oxycodone, continue Toradol q6h; consider inc. to suboxone 8mg TID if needed (2) H/o IV drug use history of IV drug abuse and recreational drug use, including amphetamines, that have resulted in psychosis requiring 302 pt states he has not used any recreational substance in several months. However, at recent ortho visit, endorsed utilizing his previous IV to inject Suboxone. Also endorsed reusing some of his own needles, but denied sharing needles, which puts him at high risk for re-infection/bacteremia. UDS: positive marijuana cont. Suboxone; has been recently compliant (3) Transaminitis, Resolved initially found to have TBili 1, elev AST 60, elev ALT 73, elev ALP 192, low albumin 2.9, INR 1 (platelet 384, creatinine 0.56, sodium 130). No abdominal pain/complaints. unable to locate any files to suggest previous transaminitis/liver injury. Prior labs appear normal. -(11/16) AST 9, ALT 11, ALP 102 -HCV preliminary antibody positive, PCR neg consider HIV and RUQ ultrasonography if transaminitis recurs (4) Asthma -Chronic medical condition -Patient typically uses albuterol inhaler in morning since having Covid a few months prior to admission -Home albuterol inhaler ran out, provided pt with inhaler while he is here. DVT ppx: Lovenox 40mg qAM SQ FEN/GI: regular Code Status: full Dispo: med/surg; CM seeking placement Admission and Anticipated Discharge Date Admission Date: November 09, 2021 Supervising Physician Co-Signing Physician Notes chart reviewed, case discussed, and agree w Dr Velez pt sleeping comfortably at the time i enter the room. vitals noted nad heent nc at mmm. breathing unlabored with faint snore but no witnessed apneas. skin without rashes/pallor/icterus. wound picture reviewed recurrent septic knee - vanco. working on placement. otherwise as above Subjective No acute events overnight. Pt denies R knee pain at rest, states it only occurs with palpation. Denies any other acute concerns, still would prefer arthrodesis over amputation. Review of Systems Review of Systems: Constitutional: denies fevers, chills CV: denies chest pain Resp: denies shortness of breath GI: denies abdominal pain, nausea, vomiting, constipation, diarrhea : denies pain with urination, change in urinary frequency Neuro: denies new numbness, tingling Physical Exam Physical Exam: General: appears comfortable laying in bed HEENT: normocephalic, atraumatic. Cardiac: normal rate and rhythm without murmurs, rubs or gallops Pulmonary: Good respiratory effort. Lungs are clear to auscultation bilaterally without crackles or wheezes. Abdominal: Soft, nontender, and nondistended to palpation. MSK: s/p irrigation and debridement R knee, wound vac in place without surrounding erythema or drainage, some warmth and tenderness over R knee Neuro: Motor strength and sensation intact both proximally and distally to wound VAC. Results & Data Results & Data ([facility]) Vital Signs (Past 12 Hours) Vital Signs Temp Pulse Resp BP Pulse Ox 11/17/21 08:49 36.5 C 90 16 143/80 H 99 Resident Activity Tracking Resident Involvement: Resident Care Provided Care Provided: Adult Hospital Medicine
--- NOTE | 2021-11-17 16:35 | Billing Data ---
Date of Service November 17, 2021 Coding Level of Care Code 98277 Subseq Hosp Care Lvl 1
[2021-11-17] MEDS: ADVANCED PROBIOTIC 1250 MG CAPSULE PO SCH (18:40)
[2021-11-17] MEDS: ACETAMINOPHEN 500 MG TAB PO PRN (20:02)
[2021-11-18] MEDS: KETOROLAC 30 MG/ML VIAL IV PRN ×3 (00:45→15:31)
[2021-11-18] MEDS: VANCOMYCIN HCL 1,500 MG in SODIUM CHLORIDE 0.9% 500 ML IV SCH ×3 (00:48→15:31)
[2021-11-18 08:44] LABS: Hematocrit (blood only) 33.7 % (42-52); Hemoglobin 10.2 g/dL (14.0-18.0); Mean Corpuscular Hgb Conc 30.3 g/dL (32-36); Mean Corpuscular Volume 82.6 fL (80-100); Mean Platelet Volume 9.1 fL (7.4-10.4); Platelet Count 483 K/uL (130-400); RDW Coefficient of Variation 17.4 % (11.5-14.5); RDW Standard Deviation 51.9 fL (36.4-46.3); Red Blood Count 4.08 M/uL (4.7-6.1); White Blood Count 10.42 K/uL (4.8-10.8)
[2021-11-18] MEDS: ADVANCED PROBIOTIC 1250 MG CAPSULE PO SCH (08:57)
[2021-11-18] MEDS: ENOXAPARIN INJ 40 MG/0.4 ML SYR SQ SCH (08:57)
[2021-11-18 09:06] LABS: Anion Gap 7 (3-11); BUN Creatinine Ratio 34.7 (10-20); Blood Urea Nitrogen 17 mg/dl (6-23); Carbon Dioxide 26 mmol/L (21-32); Chloride 104 mmol/L (98-107); Creatinine Clr Calc Pharmacy 247.1 ml/min; Est GFR (African American) > 150.0 ml/min; Est GFR (Non-African American) 133.8 ml/min; Glucose 81 mg/dl (70-99(Fasting)); Potassium 4.3 mmol/L (3.5-5.1); Sodium 137 mmol/L (136-145)
[2021-11-18] MEDS: BUPRENORPHINE/NALOXONE 8/2 MG TAB SL SCH ×2 (09:28→20:30)
--- NOTE | 2021-11-18 11:44 | Hospitalist Progress Note ---
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 (1) Septic joint with osteomyelitis s/p tibial hardware removal and open + arthroscopic debridement (06/22/21 Dr. Hooper) for septic arthritis and osteomyelitis of R knee cultures grew MRSA that required 6 weeks of tx in hospital with vancomycin via PICC and PO Bactrim visited ortho clinic (10/28/21) for knee pain and swelling; aspiration performed, obtained 110 cc bloody, nonpurulent appearing fluid --> Yielded ~180,000 WBCs (87% PMN) and ~630,000 RBCs. Culture not available, did not process. R knee XR: marked septic arthritis, high suspicion for osteomyelitis, large soft tissue ulceration w/ fistula track into joint Consulted ortho: s/p open irrigation debridement R knee (11/09) -joint fluid cx: MRSA -wound: recommends 6 weeks IV abx followed with lifelong PO abx -knee: recommends arthrodesis if infection clears versus above knee amputation; pt not in favor of either surgery at this time -wound care following: wound VAC placed (11/11) zosyn d/c, continue vancomycin; will need long-term IV abx tx likely in hospital or acute rehab due to his h/o of IV drug abuse and unstable living situation -Pt medically stable, case management searching for placement -Pt more amenable to PT/OT -Pain management consulted: d/c oxycodone, continue Toradol q6h; consider inc. to suboxone 8mg TID if needed (2) H/o IV drug use history of IV drug abuse and recreational drug use, including amphetamines, that have resulted in psychosis requiring 302 pt states he has not used any recreational substance in several months. However, at recent ortho visit, endorsed utilizing his previous IV to inject Suboxone. Also endorsed reusing some of his own needles, but denied sharing needles, which puts him at high risk for re-infection/bacteremia. UDS: positive marijuana cont. Suboxone; has been recently compliant (3) Transaminitis, Resolved initially found to have TBili 1, elev AST 60, elev ALT 73, elev ALP 192, low albumin 2.9, INR 1 (platelet 384, creatinine 0.56, sodium 130). No abdominal pain/complaints. unable to locate any files to suggest previous transaminitis/liver injury. Prior labs appear normal. -(11/16) AST 9, ALT 11, ALP 102 -HCV preliminary antibody positive, PCR neg consider HIV and RUQ ultrasonography if transaminitis recurs (4) Asthma -Chronic medical condition -Patient typically uses albuterol inhaler in morning since having Covid a few months prior to admission -Home albuterol inhaler ran out, provided pt with inhaler while he is here. DVT ppx: Lovenox 40mg qAM SQ FEN/GI: regular Code Status: full Dispo: med/surg; CM seeking placement Admission and Anticipated Discharge Date Admission Date: November 09, 2021 Supervising Physician Co-Signing Physician Notes chart reviewed, case discussed, and agree w Dr Velez worked with therapy today. about to shave. no new complaints vitals noted nad heent nc at mmm. breathing unlabored no accessory muscles no conversational dyspnea no focal neuro deficits recurrent septic knee - vanco. working on placement - having participated w PT should help w this. otherwise as above Subjective No acute events overnight. Pt denies R knee pain at rest, states it only occurs with palpation. Denies any other acute concerns. Not interested in arthrodesis or amputation, would prefer just physical therapy and is aware of the risks of recurrent infection should he decline surgical intervention. Review of Systems Review of Systems: Constitutional: denies fevers, chills CV: denies chest pain Resp: denies shortness of breath GI: denies abdominal pain, nausea, vomiting, constipation, diarrhea : denies pain with urination, change in urinary frequency Neuro: denies new numbness, tingling Physical Exam Physical Exam: General: appears comfortable laying in bed HEENT: normocephalic, atraumatic. Cardiac: normal rate and rhythm without murmurs, rubs or gallops Pulmonary: Good respiratory effort. Lungs are clear to auscultation bilaterally without crackles or wheezes. Abdominal: Soft, nontender, and nondistended to palpation. MSK: s/p irrigation and debridement R knee, wound vac in place without surrounding erythema or drainage, some warmth and tenderness over R knee Neuro: Motor strength and sensation intact both proximally and distally to wound VAC. Resident Activity Tracking Resident Involvement: Resident Care Provided Care Provided: Adult [facility] Medicine
--- NOTE | 2021-11-18 17:54 | Billing Data ---
Date of Service November 18, 2021 Coding Level of Care Code 78666 Subseq Hosp Care Lvl 2
[2021-11-18] MEDS: ACETAMINOPHEN 500 MG TAB PO PRN (20:29)
--- NOTE | 2021-11-18 21:32 | Progress Notes ---
SUBJECTIVE: A 41-year-old gentleman postoperative day #9 from [facility] D of a septic knee with underlyi ng osteomyelitis. Seems to be doing a little bit better today. He was watching a movie. Knee pain seems to be improved. OBJECTIVE: VITAL SIGNS: Temperature 36.6. Vital signs are stable. GENERAL: Physical examination shows a pleasant middle-aged male. He is sitting up in his bedside ch air, watching a movie and looks pretty comfortable. EXTREMITIES: Examination of the right leg reveals a wound VAC to be in place. He has got varus alig nment to his knee. He is neurologically intact. LABORATORY DATA: Culture results revealed MRSA. Hemoglobin 10.2. Hematocrit 33.7. ASSESSMENT: A 41-year-old gentleman with a chronically infected right knee with underlying osteomyel itis. He has failed IV antibiotics in the past. He seems to be doing better currently. Pain is imp roved. PLAN: We had a discussion with the patient as far as treatment options. He is not interested in art hrodesis or amputation at this point. In light of this then, it is just IV antibiotics along with wo und care per the wound team. He has got a wound VAC in place and I would plan on just continuing wit h that. He can weight bear as tolerated. He would likely need 6 weeks of IV antibiotics followed by lifelong suppression with Bactrim. I think it is unlikely he will do that, but that is his best opt ion at this point. As far as DVT prophylaxis, just use TEDs and SCDs, and a baby aspirin. I know he is on Lovenox, which is certainly up to the medicine service. We will have pain management deal wit h his pain. We need to check him back in about 2-3 weeks out from his surgery date. Any orthopedic questions can be directed to me at [phone]. We will check on him once a week while he is in the hospital itself. If any orthopedic issues come up, let me know. Job ID: [id number]
[2021-11-19] MEDS ORDERED: Nursing to Pharmacy Communication SCH (03:00)
[2021-11-19] MEDS ORDERED: LINEZOLID CONSULT ACTIVE PRN (03:43)
[2021-11-19] MEDS ORDERED: LINEZOLID 600 MG TAB PO ONE (03:44)
[2021-11-19] MEDS ORDERED: KETOROLAC TROMETHAMINE 10 MG TABLET PO PRN (03:48)
[2021-11-19] MEDS: VANCOMYCIN HCL 1,500 MG in SODIUM CHLORIDE 0.9% 500 ML IV SCH ×3 (03:50→21:11)
[2021-11-19] MEDS ORDERED: ONDANSETRON 4 MG OD TAB PO PRN (03:53)
[2021-11-19] MEDS: ACETAMINOPHEN 500 MG TAB PO PRN (05:57)
[2021-11-19 08:33] LABS: Hematocrit (blood only) 33.2 % (42-52); Hemoglobin 10.1 g/dL (14.0-18.0); Red Blood Count 4.08 M/uL (4.7-6.1); White Blood Count 10.16 K/uL (4.8-10.8)
[2021-11-19 08:34] LABS: Mean Corpuscular Hemoglobin 24.8 pg (25-34); Mean Corpuscular Hgb Conc 30.4 g/dL (32-36); Mean Corpuscular Volume 81.4 fL (80-100); Mean Platelet Volume 9.1 fL (7.4-10.4); Platelet Count 506 K/uL (130-400); RDW Coefficient of Variation 17.2 % (11.5-14.5); RDW Standard Deviation 50.8 fL (36.4-46.3)
[2021-11-19 09:02] LABS: Anion Gap 6 (3-11); BUN Creatinine Ratio 29.4 (10-20); Blood Urea Nitrogen 15 mg/dl (6-23); Carbon Dioxide 30 mmol/L (21-32); Chloride 101 mmol/L (98-107); Creatinine Clr Calc Pharmacy 237.4 ml/min; Est GFR (African American) > 150.0 ml/min; Est GFR (Non-African American) 131.7 ml/min; Glucose 106 mg/dl (70-99(Fasting)); Potassium 3.5 mmol/L (3.5-5.1); Sodium 137 mmol/L (136-145)
[2021-11-19] MEDS: BUPRENORPHINE/NALOXONE 8/2 MG TAB SL SCH ×2 (09:09→21:11)
[2021-11-19] MEDS: ENOXAPARIN INJ 40 MG/0.4 ML SYR SQ SCH (09:10)
[2021-11-19] MEDS: ADVANCED PROBIOTIC 1250 MG CAPSULE PO SCH (09:10)
[2021-11-19] MEDS ORDERED: ONDANSETRON INJ 2 MG/ML 2 ML VIAL IV PRN (09:41)
[2021-11-19] MEDS ORDERED: VANCOMYCIN CONSULT ACTIVE PRN (09:41)
[2021-11-19] MEDS ORDERED: VANCOMYCIN HCL 1,500 MG in SODIUM CHLORIDE 0.9% 500 ML IV SCH (09:45)
--- NOTE | 2021-11-19 10:03 | Hospitalist Progress Note ---
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 (1) Septic joint with osteomyelitis s/p tibial hardware removal and open + arthroscopic debridement (06/22/21 Dr. Hooper) for septic arthritis and osteomyelitis of R knee cultures grew MRSA that required 6 weeks of tx in hospital with vancomycin via PICC and PO Bactrim visited ortho clinic (10/28/21) for knee pain and swelling; aspiration performed, obtained 110 cc bloody, nonpurulent appearing fluid --> Yielded ~180,000 WBCs (87% PMN) and ~630,000 RBCs. Culture not available, did not process. R knee XR: marked septic arthritis, high suspicion for osteomyelitis, large soft tissue ulceration w/ fistula track into joint Consulted ortho: s/p open irrigation debridement R knee (11/09) -joint fluid cx: MRSA -wound: recommends 6 weeks IV abx followed with lifelong PO Bactrim -knee: recommends arthrodesis if infection clears versus above knee amputation; pt not in favor of either surgery at this time -wound care following: wound VAC placed (11/11) zosyn d/c, continue vancomycin; will need retirement IV abx tx likely in acute rehab due to his h/o of IV drug abuse and unstable living situation -Pt medically stable, case management searching for placement -Pain management consulted: d/c oxycodone, continue Toradol q6h; consider inc. to suboxone 8mg TID if needed (2) H/o IV drug use history of IV drug abuse and recreational drug use, including amphetamines, that have resulted in psychosis requiring 302 pt states he has not used any recreational substance in several months. However, at recent ortho visit, endorsed utilizing his previous IV to inject Suboxone. Also endorsed reusing some of his own needles, but denied sharing needles, which puts him at high risk for re-infection/bacteremia. UDS: positive marijuana cont. Suboxone; has been recently compliant (3) Transaminitis, Resolved initially found to have TBili 1, elev AST 60, elev ALT 73, elev ALP 192, low albumin 2.9, INR 1 (platelet 384, creatinine 0.56, sodium 130). No abdominal pain/complaints. unable to locate any files to suggest previous transaminitis/liver injury. Prior labs appear normal. -(11/16) AST 9, ALT 11, ALP 102 -HCV preliminary antibody positive, PCR neg consider HIV and RUQ ultrasonography if transaminitis recurs (4) Asthma -Chronic medical condition -Patient typically uses albuterol inhaler in morning since having Covid a few months prior to admission -Home albuterol inhaler ran out, provided pt with inhaler while he is here. DVT ppx: Lovenox 40mg qAM SQ FEN/GI: regular Code Status: full Dispo: med/surg; CM seeking placement Admission and Anticipated Discharge Date Admission Date: November 09, 2021 Supervising Physician Co-Signing Physician Notes chart reviewed, case discussed, and agree w Dr Velez discussed possible swing bed later this week. he notes he would need a day's notice to get medication from home first. d/w him that frequently the approval/bed availability process comes together quite quickly, so if this is the case, would ask him to have someone bring meds from home now so that he'll have what he needs when bed comes available so that he does not lose potential rehab bed. vitals noted nad heent nc at mmm. breathing unlabored no accessory muscles no conversational dyspnea no focal neuro deficits recurrent septic knee - vanco. working on placement. otherwise as above Subjective Pt lost IV access overnight before vancomycin dose, IV team failed to regain access overnight and PO linezolid given as well as PO toradol and Zofran. This morning IV team was able to regain access, IV abx and medications resumed. Pt denies R knee pain at rest, states it only occurs with palpation. Denies any other acute concerns. Review of Systems Review of Systems: Constitutional: denies fevers, chills CV: denies chest pain Resp: denies shortness of breath GI: denies abdominal pain, nausea, vomiting, constipation, diarrhea : denies pain with urination, change in urinary frequency Neuro: denies new numbness, tingling Physical Exam Physical Exam: General: appears comfortable laying in bed HEENT: normocephalic, atraumatic. Cardiac: normal rate and rhythm without murmurs, rubs or gallops Pulmonary: Good respiratory effort. Lungs are clear to auscultation bilaterally without crackles or wheezes. Abdominal: Soft, nontender, and nondistended to palpation. MSK: s/p irrigation and debridement R knee, wound vac in place without surrounding erythema or drainage, minor warmth and tenderness over R knee Neuro: Motor strength and sensation intact both proximally and distally to wound VAC. Results & Data Results & Data ([facility]) Vital Signs (Past 12 Hours) Vital Signs Temp Pulse Resp BP BP Pulse Ox 11/19/21 07:00 36.7 C 84 18 135/73 99 11/18/21 23:25 37.0 C 75 16 136/81 97 Resident Activity Tracking Resident Involvement: Resident Care Provided Care Provided: Adult Hospital Medicine
[2021-11-19] MEDS: KETOROLAC 30 MG/ML VIAL IV PRN ×2 (10:26→21:12)
--- NOTE | 2021-11-19 18:48 | Billing Data ---
Date of Service November 19, 2021 Coding Level of Care Code 04732 Subseq Hosp Care Lvl 2
[2021-11-20] MEDS: KETOROLAC 30 MG/ML VIAL IV PRN ×2 (04:08→21:14)
[2021-11-20] MEDS: VANCOMYCIN HCL 1,500 MG in SODIUM CHLORIDE 0.9% 500 ML IV SCH ×3 (04:09→21:15)
[2021-11-20] MEDS: ENOXAPARIN INJ 40 MG/0.4 ML SYR SQ SCH (09:10)
[2021-11-20] MEDS: ADVANCED PROBIOTIC 1250 MG CAPSULE PO SCH (09:10)
[2021-11-20] MEDS: BUPRENORPHINE/NALOXONE 8/2 MG TAB SL SCH ×2 (09:10→21:13)
[2021-11-20 09:30] LABS: Creatinine Clr Calc Pharmacy 232.8 ml/min; Est GFR (African American) > 150.0 ml/min; Est GFR (Non-African American) 130.6 ml/min
--- NOTE | 2021-11-20 12:37 | Hospitalist Progress Note ---
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 (1) Septic joint with osteomyelitis s/p tibial hardware removal and open + arthroscopic debridement (06/22/21 Dr. Hooper) for septic arthritis and osteomyelitis of R knee cultures grew MRSA that required 6 weeks of tx in hospital with vancomycin via PICC and PO Bactrim visited ortho clinic (10/28/21) for knee pain and swelling; aspiration performed, obtained 110 cc bloody, nonpurulent appearing fluid --> Yielded ~180,000 WBCs (87% PMN) and ~630,000 RBCs. Culture not available, did not process. R knee XR: marked septic arthritis, high suspicion for osteomyelitis, large soft tissue ulceration w/ fistula track into joint Consulted ortho: s/p open irrigation debridement R knee (11/09) -joint fluid cx: MRSA -wound: recommends 6 weeks IV abx followed with lifelong PO Bactrim -knee: recommends arthrodesis if infection clears versus above knee amputation; pt not in favor of either surgery at this time -wound care following: wound VAC placed (11/11) zosyn d/c, continue vancomycin; will need intermediate IV abx tx likely in acute rehab due to his h/o of IV drug abuse and unstable living situation -Pt medically stable, case management searching for placement -Pain management consulted: d/c oxycodone, continue Toradol q6h; consider inc. to suboxone 8mg TID if needed (2) H/o IV drug use history of IV drug abuse and recreational drug use, including amphetamines, that have resulted in psychosis requiring 302 pt states he has not used any recreational substance in several months. However, at recent ortho visit, endorsed utilizing his previous IV to inject Suboxone. Also endorsed reusing some of his own needles, but denied sharing needles, which puts him at high risk for re-infection/bacteremia. UDS: positive marijuana cont. Suboxone; has been recently compliant (3) Transaminitis, Resolved initially found to have TBili 1, elev AST 60, elev ALT 73, elev ALP 192, low albumin 2.9, INR 1 (platelet 384, creatinine 0.56, sodium 130). No abdominal pain/complaints. unable to locate any files to suggest previous transaminitis/liver injury. Prior labs appear normal. -(11/16) AST 9, ALT 11, ALP 102 -HCV preliminary antibody positive, PCR neg consider HIV and RUQ ultrasonography if transaminitis recurs (4) Asthma -Chronic medical condition -Patient typically uses albuterol inhaler in morning since having Covid a few months prior to admission -Home albuterol inhaler ran out, provided pt with inhaler while he is here. DVT ppx: Lovenox 40mg qAM SQ FEN/GI: regular Code Status: full Dispo: med/surg; CM seeking placement Admission and Anticipated Discharge Date Admission Date: November 09, 2021 Supervising Physician Co-Signing Physician Notes chart reviewed, case discussed, and agree w Dr Velez no new complaints. still waiting on rehab bed. sister to be bringing his home meds later today vitals noted nad heent nc at mmm. breathing unlabored no accessory muscles no conversational dyspnea no focal neuro deficits recurrent septic knee - vanco. working on placement - anticipate [facility] swing bed soon. otherwise as above Subjective No acute events overnight, feeling well, no acute concerns. States he'll have his sister bring his medications and clothes tonight so that he'll have them in case a bed opens up for rehab. Reports typical minor knee pain responsive to PRN pain medications. Review of Systems Review of Systems: Constitutional: denies fevers, chills CV: denies chest pain Resp: denies shortness of breath GI: denies abdominal pain, nausea, vomiting, constipation, diarrhea : denies pain with urination, change in urinary frequency Neuro: denies new numbness, tingling Physical Exam Physical Exam: General: appears comfortable laying in bed HEENT: normocephalic, atraumatic. Cardiac: normal rate and rhythm without murmurs, rubs or gallops Pulmonary: Good respiratory effort. Lungs are clear to auscultation bilaterally without crackles or wheezes. Abdominal: Soft, nontender, and nondistended to palpation. MSK: s/p irrigation and debridement R knee, wound vac in place without surrounding erythema or drainage, minor warmth and tenderness over R knee Neuro: Motor strength and sensation intact both proximally and distally to wound VAC. Results & Data Results & Data ([facility]) Vital Signs (Past 12 Hours) Vital Signs Temp Pulse Resp BP Pulse Ox 11/20/21 07:40 36.8 C 106 H 18 148/84 H 93 Resident Activity Tracking Resident Involvement: Resident Care Provided Care Provided: Adult Hospital Medicine
--- NOTE | 2021-11-20 18:19 | Billing Data ---
Date of Service November 20, 2021 Coding Level of Care Code 53400 Subseq Hosp Care Lvl 1
[2021-11-21] MEDS: ACETAMINOPHEN 500 MG TAB PO PRN ×2 (00:17→19:38)
[2021-11-21] MEDS: VANCOMYCIN HCL 1,500 MG in SODIUM CHLORIDE 0.9% 500 ML IV SCH ×3 (05:01→20:01)
[2021-11-21] MEDS: ADVANCED PROBIOTIC 1250 MG CAPSULE PO SCH (09:04)
[2021-11-21] MEDS: BUPRENORPHINE/NALOXONE 8/2 MG TAB SL SCH ×2 (09:04→20:00)
[2021-11-21] MEDS: ENOXAPARIN INJ 40 MG/0.4 ML SYR SQ SCH (09:04)
[2021-11-21] MEDS: KETOROLAC 30 MG/ML VIAL IV PRN (09:09)
--- NOTE | 2021-11-21 12:10 | Communication Note ---
Date of Service: November 21, 2021 Pt's sister will come today around 8-8:30 PM to deliver his home medications and clothes. Please allow pt's sister to come up to room to deliver these items, with supervision. Pt should not have access to his medications but he can have his clothes. This is to prevent any further delay when he can get rehab placement.
--- NOTE | 2021-11-21 12:13 | Hospitalist Progress Note ---
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 (1) Septic joint with osteomyelitis s/p tibial hardware removal and open + arthroscopic debridement (06/22/21 Dr. Hooper) for septic arthritis and osteomyelitis of R knee cultures grew MRSA that required 6 weeks of tx in hospital with vancomycin via PICC and PO Bactrim visited ortho clinic (10/28/21) for knee pain and swelling; aspiration performed, obtained 110 cc bloody, nonpurulent appearing fluid --> Yielded ~180,000 WBCs (87% PMN) and ~630,000 RBCs. Culture not available, did not process. R knee XR: marked septic arthritis, high suspicion for osteomyelitis, large soft tissue ulceration w/ fistula track into joint Consulted ortho: s/p open irrigation debridement R knee (11/09) -joint fluid cx: MRSA -wound: recommends 6 weeks IV abx followed with lifelong PO Bactrim -knee: recommends arthrodesis if infection clears versus above knee amputation; pt not in favor of either surgery at this time -wound care following: wound VAC placed (11/11) zosyn d/c, continue vancomycin; will need fdc IV abx tx likely in acute rehab due to his h/o of IV drug abuse and unstable living situation -Pt medically stable, case management searching for placement -Pain management consulted: d/c oxycodone, continue Toradol q6h; consider inc. to suboxone 8mg TID if needed (2) H/o IV drug use history of IV drug abuse and recreational drug use, including amphetamines, that have resulted in psychosis requiring 302 pt states he has not used any recreational substance in several months. However, at recent ortho visit, endorsed utilizing his previous IV to inject Suboxone. Also endorsed reusing some of his own needles, but denied sharing needles, which puts him at high risk for re-infection/bacteremia. UDS: positive marijuana cont. Suboxone; has been recently compliant (3) Transaminitis, Resolved initially found to have TBili 1, elev AST 60, elev ALT 73, elev ALP 192, low albumin 2.9, INR 1 (platelet 384, creatinine 0.56, sodium 130). No abdominal pain/complaints. unable to locate any files to suggest previous transaminitis/liver injury. Prior labs appear normal. -(11/16) AST 9, ALT 11, ALP 102 -HCV preliminary antibody positive, PCR neg consider HIV and RUQ ultrasonography if transaminitis recurs (4) Asthma -Chronic medical condition -Patient typically uses albuterol inhaler in morning since having Covid a few months prior to admission -Home albuterol inhaler ran out, provided pt with inhaler while he is here. DVT ppx: Lovenox 40mg qAM SQ FEN/GI: regular Code Status: full Dispo: med/surg; CM seeking placement Admission and Anticipated Discharge Date Admission Date: November 09, 2021 Supervising Physician Co-Signing Physician Notes chart reviewed, case discussed, and agree w Dr Velez no new complaints. asks for warm blankets vitals noted nad heent nc at mmm. breathing unlabored no accessory muscles no conversational dyspnea no focal neuro deficits recurrent septic knee - vanco. working on placement - unfortunately no beds this week. otherwise as above Subjective No acute events overnight, feeling well, no acute concerns. States his sister wasn't allowed to come upstairs to deliver his belongings last night so he refused to have them brought over by staff. Pt was noticeably irate during evaluation today. Still reports minor knee pain responsive to PRN pain medications. Review of Systems Review of Systems: Constitutional: denies fevers, chills CV: denies chest pain Resp: denies shortness of breath GI: denies abdominal pain, nausea, vomiting, constipation, diarrhea : denies pain with urination, change in urinary frequency Neuro: denies new numbness, tingling Physical Exam Physical Exam: General: appears comfortable laying in bed HEENT: normocephalic, atraumatic. Cardiac: normal rate and rhythm without murmurs, rubs or gallops Pulmonary: Good respiratory effort. Lungs are clear to auscultation bilaterally without crackles or wheezes. Abdominal: Soft, nontender, and nondistended to palpation. MSK: s/p irrigation and debridement R knee, wound vac in place without surrounding erythema or drainage, minor warmth and tenderness over R knee Neuro: Motor strength and sensation intact both proximally and distally to wound VAC. Results & Data Results & Data ([facility]) Vital Signs (Past 12 Hours) Vital Signs Temp Pulse Resp BP Pulse Ox 11/21/21 07:27 36.7 C 68 18 130/79 97 Resident Activity Tracking Resident Involvement: Resident Care Provided Care Provided: Adult Hospital Medicine
--- NOTE | 2021-11-21 17:52 | Billing Data ---
Date of Service November 21, 2021 Coding Level of Care Code 30070 Subseq Hosp Care Lvl 1
[2021-11-22] MEDS: VANCOMYCIN HCL 1,500 MG in SODIUM CHLORIDE 0.9% 500 ML IV SCH ×3 (03:29→20:25)
[2021-11-22 04:13] LABS: Creatinine Clr Calc Pharmacy 247.1 ml/min; Est GFR (African American) > 150.0 ml/min; Est GFR (Non-African American) 133.8 ml/min
[2021-11-22] MEDS: BUPRENORPHINE/NALOXONE 8/2 MG TAB SL SCH ×2 (09:00→20:26)
[2021-11-22] MEDS: ADVANCED PROBIOTIC 1250 MG CAPSULE PO SCH (09:01)
[2021-11-22] MEDS: ENOXAPARIN INJ 40 MG/0.4 ML SYR SQ SCH (09:04)
--- NOTE | 2021-11-22 11:29 | Hospitalist Progress Note ---
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 (1) Septic joint with osteomyelitis s/p tibial hardware removal and open + arthroscopic debridement (06/22/21 Dr. Hooper) for septic arthritis and osteomyelitis of R knee cultures grew MRSA that required 6 weeks of tx in hospital with vancomycin via PICC and PO Bactrim visited ortho clinic (10/28/21) for knee pain and swelling; aspiration performed, obtained 110 cc bloody, nonpurulent appearing fluid --> Yielded ~180,000 WBCs (87% PMN) and ~630,000 RBCs. Culture not available, did not process. R knee XR: marked septic arthritis, high suspicion for osteomyelitis, large soft tissue ulceration w/ fistula track into joint Consulted ortho: s/p open irrigation debridement R knee (11/09) -joint fluid cx: MRSA -wound: recommends 6 weeks IV abx followed with lifelong PO Bactrim -knee: recommends arthrodesis if infection clears versus above knee amputation; pt not in favor of either surgery at this time -wound care following: wound VAC placed (11/11) zosyn d/c, continue vancomycin; will need jail IV abx tx likely in acute rehab due to his h/o of IV drug abuse and unstable living situation -Pt medically stable, case management searching for placement -Pain management consulted: d/c oxycodone, continue Toradol q6h; consider inc. to suboxone 8mg TID if needed (2) H/o IV drug use history of IV drug abuse and recreational drug use, including amphetamines, that have resulted in psychosis requiring 302 pt states he has not used any recreational substance in several months. However, at recent ortho visit, endorsed utilizing his previous IV to inject Suboxone. Also endorsed reusing some of his own needles, but denied sharing needles, which puts him at high risk for re-infection/bacteremia. UDS: positive marijuana cont. Suboxone; has been recently compliant (3) Transaminitis, Resolved initially found to have TBili 1, elev AST 60, elev ALT 73, elev ALP 192, low albumin 2.9, INR 1 (platelet 384, creatinine 0.56, sodium 130). No abdominal pain/complaints. unable to locate any files to suggest previous transaminitis/liver injury. Prior labs appear normal. -(11/16) AST 9, ALT 11, ALP 102 -HCV preliminary antibody positive, PCR neg consider HIV and RUQ ultrasonography if transaminitis recurs (4) Asthma -Chronic medical condition -Patient typically uses albuterol inhaler in morning since having Covid a few months prior to admission -Home albuterol inhaler ran out, provided pt with inhaler while he is here. DVT ppx: Lovenox 40mg qAM SQ FEN/GI: regular Code Status: full Dispo: med/surg; CM seeking placement Admission and Anticipated Discharge Date Admission Date: November 09, 2021 Supervising Physician Co-Signing Physician Notes chart reviewed, case discussed, and agree w Dr Velez no new complaints. no placement yet. vitals noted nad heent nc at mmm. breathing unlabored no accessory muscles no conversational dyspnea no focal neuro deficits recurrent septic knee - continue vanco. placement has been difficult. at this point has basically completed 2 of his 6wks of IV vanco otherwise as above Subjective No acute events overnight, feeling well, no acute concerns. Sister was able to drop off his medications and clothes last night. Requesting Toradol for usual pain. Review of Systems Review of Systems: Constitutional: denies fevers, chills CV: denies chest pain Resp: denies shortness of breath GI: denies abdominal pain, nausea, vomiting, constipation, diarrhea : denies pain with urination, change in urinary frequency Neuro: denies new numbness, tingling Physical Exam Physical Exam: General: appears comfortable laying in bed HEENT: normocephalic, atraumatic. Cardiac: normal rate and rhythm without murmurs, rubs or gallops Pulmonary: Good respiratory effort. Lungs are clear to auscultation bilaterally without crackles or wheezes. Abdominal: Soft, nontender, and nondistended to palpation. MSK: s/p irrigation and debridement R knee, wound vac in place without surrounding erythema or drainage, minor warmth and tenderness over R knee Neuro: Motor strength and sensation intact both proximally and distally to wound VAC. Results & Data Results & Data ([facility]) Vital Signs (Past 12 Hours) Vital Signs Temp Pulse Resp BP Pulse Ox 11/22/21 08:15 36.9 C 106 H 18 111/66 98 Resident Activity Tracking Resident Involvement: Resident Care Provided Care Provided: Adult Hospital Medicine
[2021-11-22] MEDS: KETOROLAC 30 MG/ML VIAL IV PRN ×2 (12:14→19:35)
[2021-11-22] MEDS: ACETAMINOPHEN 500 MG TAB PO PRN (15:00)
--- NOTE | 2021-11-22 15:44 | Billing Data ---
Date of Service November 22, 2021 Coding Level of Care Code 99223 Subseq Hosp Care Lvl 1
[2021-11-23] MEDS ORDERED: VANCOMYCIN TROUGH ONE (03:30)
[2021-11-23] MEDS: KETOROLAC 30 MG/ML VIAL IV PRN ×3 (04:17→17:48)
[2021-11-23] MEDS: VANCOMYCIN HCL 1,500 MG in SODIUM CHLORIDE 0.9% 500 ML IV SCH ×3 (04:22→20:38)
[2021-11-23 06:18] LABS: Creatinine Clr Calc Pharmacy 183.4 ml/min; Est GFR (African American) 137.2 ml/min; Est GFR (Non-African American) 118.4 ml/min
--- NOTE | 2021-11-23 08:22 | Pharmacy Report ---
Pharmacy [facility] Short Note - Date of Service November 23, 2021 - Assessment & Plan Assessment 41 year old M receiving Vancomycin for treatment of septic joint. Pertinent microbiologic data includes: Culture of the right knee is growing MRSA Plan Vancomycin * Trough result on 11/22 slightly elevated compared to previous troughs at 19.3. Appears as though nursing began the infusion (0329) 6 minutes prior to the lab drawing the trough level. Another trough was drawn 11/23 at 0314 that resulted at 15.4. Will continue with current dose of Vancomycin 1500mg IV Q8H. Pharmacy will continue to follow and will adjust dose/frequency as necessary. Thank you.
[2021-11-23 08:57] LABS: BUN Creatinine Ratio 26.7 (10-20); Calcium 9.2 mg/dl (8.5-10.1); Creatinine Clr Calc Pharmacy 201.8 ml/min; Est GFR (African American) 142.7 ml/min; Est GFR (Non-African American) 123.1 ml/min; Potassium 3.9 mmol/L (3.5-5.1)
[2021-11-23] MEDS: ENOXAPARIN INJ 40 MG/0.4 ML SYR SQ SCH (09:20)
[2021-11-23] MEDS: ADVANCED PROBIOTIC 1250 MG CAPSULE PO SCH (09:20)
[2021-11-23] MEDS: BUPRENORPHINE/NALOXONE 8/2 MG TAB SL SCH ×2 (09:20→20:37)
[2021-11-23] MEDS: ACETAMINOPHEN 500 MG TAB PO SCH ×2 (10:25→19:45)
--- NOTE | 2021-11-23 10:32 | Hospitalist Progress Note ---
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 (1) Septic joint with osteomyelitis s/p tibial hardware removal and open + arthroscopic debridement (06/22/21 Dr. Hooper) for septic arthritis and osteomyelitis of R knee cultures grew MRSA that required 6 weeks of tx in hospital with vancomycin via PICC and PO Bactrim visited ortho clinic (10/28/21) for knee pain and swelling; aspiration performed, obtained 110 cc bloody, nonpurulent appearing fluid --> Yielded ~180,000 WBCs (87% PMN) and ~630,000 RBCs. Culture not available, did not process. R knee XR: marked septic arthritis, high suspicion for osteomyelitis, large soft tissue ulceration w/ fistula track into joint Consulted ortho: s/p open irrigation debridement R knee (11/09) -joint fluid cx: MRSA -wound: recommends 6 weeks IV abx followed with lifelong PO Bactrim -knee: recommends arthrodesis if infection clears versus above knee amputation; pt not in favor of either surgery at this time -wound care following: wound VAC placed (11/11) zosyn d/c, continue vancomycin; will need care home IV abx tx likely in acute rehab due to his h/o of IV drug abuse and unstable living situation -Vancomycin trough levels appropriate -Pt medically stable, case management searching for placement -Pain control- Toradol q6h, scheduled Tylenol (2) H/o IV drug use history of IV drug abuse and recreational drug use, including amphetamines, that have resulted in psychosis requiring 302 pt states he has not used any recreational substance in several months. However, at recent ortho visit, endorsed utilizing his previous IV to inject Suboxone. Also endorsed reusing some of his own needles, but denied sharing needles, which puts him at high risk for re-infection/bacteremia. UDS: positive marijuana continue Suboxone; has been recently compliant (3) Transaminitis, Resolved initially found to have TBili 1, elev AST 60, elev ALT 73, elev ALP 192, low albumin 2.9, INR 1 (platelet 384, creatinine 0.56, sodium 130). No abdominal pain/complaints. unable to locate any files to suggest previous transaminitis/liver injury. Prior labs appear normal. -(11/16) AST 9, ALT 11, ALP 102 -HCV preliminary antibody positive, PCR neg consider HIV and RUQ ultrasonography if transaminitis recurs (4) Asthma -Chronic medical condition -Patient typically uses albuterol inhaler in morning since having Covid a few months prior to admission -Home albuterol inhaler ran out, provided pt with inhaler while he is here. DVT ppx: Lovenox 40mg qAM SQ FEN/GI: regular Code Status: full Dispo: med/surg; CM seeking placement Admission and Anticipated Discharge Date Admission Date: November 09, 2021 Supervising Physician Co-Signing Physician Notes chart reviewed, case discussed, and agree w Dr Velez "the other doc was just in earlier" no new complaints. no placement yet. vitals noted nad heent nc at mmm. breathing unlabored no accessory muscles no conversational dyspnea no focal neuro deficits recurrent septic knee - continue IV vanco x 6wks, then likely chronic suppressiv e therapy (probably bactrim) as he does not want arthrodesis or amputation at this time. placement has been difficult. at this point has basically completed 2 of his 6wks of IV vanco otherwise as above Subjective No acute events overnight, feeling well, no acute concerns aside from usual R hip and R knee pain which is relieved by Toradol. Review of Systems Review of Systems: Constitutional: denies fevers, chills CV: denies chest pain Resp: denies shortness of breath GI: denies abdominal pain, nausea, vomiting, constipation, diarrhea : denies pain with urination, change in urinary frequency Neuro: denies new numbness, tingling Physical Exam Physical Exam: General: appears comfortable laying in bed HEENT: normocephalic, atraumatic. Cardiac: normal rate and rhythm without murmurs, rubs or gallops Pulmonary: Good respiratory effort. Lungs are clear to auscultation bilaterally without crackles or wheezes. Abdominal: Soft, nontender, and nondistended to palpation. MSK: s/p irrigation and debridement R knee, wound vac in place without surrounding erythema or drainage, minor warmth and tenderness over R knee Neuro: Motor strength and sensation intact both proximally and distally to wound VAC. Results & Data Results & Data ([facility]) Vital Signs (Past 12 Hours) Vital Signs Temp Pulse Resp BP Pulse Ox 11/23/21 06:57 36.9 C 88 18 143/88 H 94
--- NOTE | 2021-11-23 13:20 | Billing Data ---
Date of Service November 23, 2021 Coding Level of Care Code 62869 Subseq Hosp Care Lvl 1
[2021-11-24] MEDS: ACETAMINOPHEN 500 MG TAB PO SCH ×3 (03:46→18:48)
[2021-11-24] MEDS: VANCOMYCIN HCL 1,500 MG in SODIUM CHLORIDE 0.9% 500 ML IV SCH ×4 (03:47→20:08)
[2021-11-24] MEDS: KETOROLAC 30 MG/ML VIAL IV PRN ×2 (03:47→10:55)
[2021-11-24] MEDS: BUPRENORPHINE/NALOXONE 8/2 MG TAB SL SCH ×2 (08:46→20:12)
[2021-11-24] MEDS: ENOXAPARIN INJ 40 MG/0.4 ML SYR SQ SCH (08:46)
[2021-11-24] MEDS: ADVANCED PROBIOTIC 1250 MG CAPSULE PO SCH (08:47)
[2021-11-24 09:40] LABS: Creatinine Clr Calc Pharmacy 232.8 ml/min; Est GFR (African American) > 150.0 ml/min; Est GFR (Non-African American) 130.6 ml/min
--- NOTE | 2021-11-24 10:52 | Hospitalist Progress Note ---
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 (1) Septic joint with osteomyelitis s/p tibial hardware removal and open + arthroscopic debridement (06/22/21 Dr. Hooper) for septic arthritis and osteomyelitis of R knee cultures grew MRSA that required 6 weeks of tx in hospital with vancomycin via PICC and PO Bactrim visited ortho clinic (10/28/21) for knee pain and swelling; aspiration performed, obtained 110 cc bloody, nonpurulent appearing fluid --> Yielded ~180,000 WBCs (87% PMN) and ~630,000 RBCs. Culture not available, did not process. R knee XR: marked septic arthritis, high suspicion for osteomyelitis, large soft tissue ulceration w/ fistula track into joint Consulted ortho: s/p open irrigation debridement R knee (11/09) -joint fluid cx: MRSA -wound: recommends 6 weeks IV abx followed with lifelong PO Bactrim -knee: recommends arthrodesis if infection clears versus above knee amputation; pt not in favor of either surgery at this time -wound care following: wound VAC placed (11/11) zosyn d/c, continue vancomycin; will need longterm IV abx tx likely in acute rehab due to his h/o of IV drug abuse and unstable living situation -Vancomycin trough levels appropriate -Pt medically stable, case management searching for placement -Pain control- Toradol q6h, scheduled Tylenol (2) H/o IV drug use history of IV drug abuse and recreational drug use, including amphetamines, that have resulted in psychosis requiring 302 pt states he has not used any recreational substance in several months. However, at recent ortho visit, endorsed utilizing his previous IV to inject Suboxone. Also endorsed reusing some of his own needles, but denied sharing needles, which puts him at high risk for re-infection/bacteremia. UDS: positive marijuana continue Suboxone; has been recently compliant (3) Transaminitis, Resolved initially found to have TBili 1, elev AST 60, elev ALT 73, elev ALP 192, low albumin 2.9, INR 1 (platelet 384, creatinine 0.56, sodium 130). No abdominal pain/complaints. unable to locate any files to suggest previous transaminitis/liver injury. Prior labs appear normal. -(11/16) AST 9, ALT 11, ALP 102 -HCV preliminary antibody positive, PCR neg consider HIV and RUQ ultrasonography if transaminitis recurs (4) Asthma -Chronic medical condition -Patient typically uses albuterol inhaler in morning since having Covid a few months prior to admission -Home albuterol inhaler ran out, provided pt with inhaler while he is here. DVT ppx: Lovenox 40mg qAM SQ FEN/GI: regular Code Status: full Dispo: med/surg; CM seeking placement Admission and Anticipated Discharge Date Admission Date: November 09, 2021 Supervising Physician Co-Signing Physician Notes I also saw the patient with the resident physician and confirmed short portions of the history and physical examination. I agree with the impression plan as noted in the resident documentation. Patient without complaints today. His primary concern was arranging the Toradol prior to his physical therapy. VS 137/80, 105, 16, 36.6, 95% on room air DATA Creatinine 0.52 IMPRESSION & PLAN recurrent septic knee IV vancomycin for 6 weeks, then transition to chronic suppressive therapy, likely Bactrim Case management continue efforts at placement Else as noted above Subjective No acute events overnight, still endorsing R hip pain relieved by Toradol. Expressed some frustration with not getting Toradol every time he requested it over the past few days. Review of Systems Review of Systems: Constitutional: denies fevers, chills CV: denies chest pain Resp: denies shortness of breath GI: denies abdominal pain, nausea, vomiting, constipation, diarrhea : denies pain with urination, change in urinary frequency Neuro: denies new numbness, tingling Physical Exam Physical Exam: General: appears comfortable laying in bed HEENT: normocephalic, atraumatic. Cardiac: normal rate and rhythm without murmurs, rubs or gallops Pulmonary: Good respiratory effort. Lungs are clear to auscultation bilaterally without crackles or wheezes. Abdominal: Soft, nontender, and nondistended to palpation. MSK: s/p irrigation and debridement R knee, wound vac in place without surrounding erythema or drainage, minor warmth and tenderness over R knee Neuro: Motor strength and sensation intact both proximally and distally to wound VAC. Results & Data Results & Data ([facility]) Vital Signs (Past 12 Hours) Vital Signs Temp Pulse Resp BP Pulse Ox 11/24/21 07:41 36.5 C 84 16 131/77 96
[2021-11-24] MEDS ORDERED: KETOROLAC 30 MG/ML VIAL IV SCH (17:00)
[2021-11-24] MEDS: IBUPROFEN 600 MG TAB PO SCH (18:49)
[2021-11-24] MEDS ORDERED: CELECOXIB 100 MG CAP PO SCH (21:00)
[2021-11-25] MEDS: ACETAMINOPHEN 500 MG TAB PO SCH ×3 (02:06→17:45)
[2021-11-25] MEDS: VANCOMYCIN HCL 1,500 MG in SODIUM CHLORIDE 0.9% 500 ML IV SCH ×3 (03:56→20:18)
[2021-11-25] MEDS: IBUPROFEN 600 MG TAB PO SCH (03:57)
[2021-11-25] MEDS: BUPRENORPHINE/NALOXONE 8/2 MG TAB SL SCH ×2 (08:45→20:20)
[2021-11-25] MEDS: ENOXAPARIN INJ 40 MG/0.4 ML SYR SQ SCH (08:45)
[2021-11-25] MEDS: ADVANCED PROBIOTIC 1250 MG CAPSULE PO SCH (08:46)
--- NOTE | 2021-11-25 09:39 | Hospitalist Progress Note ---
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 (1) Septic joint with osteomyelitis s/p tibial hardware removal and open + arthroscopic debridement (06/22/21 Dr. Hooper) for septic arthritis and osteomyelitis of R knee cultures grew MRSA that required 6 weeks of tx in hospital with vancomycin via PICC and PO Bactrim visited ortho clinic (10/28/21) for knee pain and swelling; aspiration performed, obtained 110 cc bloody, nonpurulent appearing fluid --> Yielded ~180,000 WBCs (87% PMN) and ~630,000 RBCs. Culture not available, did not process. R knee XR: marked septic arthritis, high suspicion for osteomyelitis, large soft tissue ulceration w/ fistula track into joint Consulted ortho: s/p open irrigation debridement R knee (11/09) -joint fluid cx: MRSA -wound: recommends 6 weeks IV abx followed with lifelong PO Bactrim -knee: recommends arthrodesis if infection clears versus above knee amputation; pt not in favor of either surgery at this time -wound care following: wound VAC placed (11/11) zosyn d/c, continue vancomycin; will need assisted IV abx tx likely in acute rehab due to his h/o of IV drug abuse and unstable living situation -Vancomycin trough levels appropriate, kidney function intact -Pain control- ibuprofen q8h PRN, scheduled Tylenol -Pt accepted to [facility] for tomorrow pending insurance authorization, will require PICC line if approved. Messaged orthopedics regarding f/u for sutures/wound VAC, awaiting response (2) H/o IV drug use history of IV drug abuse and recreational drug use, including amphetamines, that have resulted in psychosis requiring 302 pt states he has not used any recreational substance in several months. However, at recent ortho visit, endorsed utilizing his previous IV to inject Suboxone. Also endorsed reusing some of his own needles, but denied sharing needles, which puts him at high risk for re-infection/bacteremia. UDS: positive marijuana continue Suboxone; has been recently compliant. Can get home Suboxone at [facility] on discharge (3) Transaminitis, Resolved initially found to have TBili 1, elev AST 60, elev ALT 73, elev ALP 192, low albumin 2.9, INR 1 (platelet 384, creatinine 0.56, sodium 130). No abdominal pain/complaints. unable to locate any files to suggest previous transaminitis/liver injury. Prior labs appear normal. -(11/16) AST 9, ALT 11, ALP 102 -HCV preliminary antibody positive, PCR neg consider HIV and RUQ ultrasonography if transaminitis recurs (4) Asthma -Chronic medical condition -Patient typically uses albuterol inhaler in morning since having Covid a few months prior to admission -Home albuterol inhaler ran out, provided pt with inhaler while he is here. DVT ppx: Lovenox 40mg qAM SQ FEN/GI: regular Code Status: full Dispo: med/surg; CM seeking placement Admission and Anticipated Discharge Date Admission Date: November 09, 2021 Supervising Physician Co-Signing Physician Notes I also saw the patient with the resident physician and confirmed short portions of the history and physical examination. I agree with the impression plan as noted in the resident documentation. Patient is feeling better today - less pain. Case management may have secured placement. If so, would need PICC placement. VS 148/84, 91, 16 Alert and oriented. Cooperative. Wound vac draining serosanguinous fluid DATA Creatinine 0.50 IMPRESSION & PLAN recurrent septic knee IV vancomycin for 6 weeks, then transition to chronic suppressive therapy, likely Bactrim Case management has potential placement for tomorrow Will need PICC line Will need outpatient follow up for ortho and wound care arranged Else as noted above Subjective No acute events overnight, pain well controlled with scheduled Tylenol and ibuprofen PRN. Pt feels more comfortable with movement, experiencing less R hip and R knee pain today. Review of Systems Review of Systems: Constitutional: denies fevers, chills CV: denies chest pain Resp: denies shortness of breath GI: denies abdominal pain, nausea, vomiting, constipation, diarrhea : denies pain with urination, change in urinary frequency Neuro: denies new numbness, tingling Physical Exam Physical Exam: General: appears comfortable laying in bed HEENT: normocephalic, atraumatic. Cardiac: normal rate and rhythm without murmurs, rubs or gallops Pulmonary: Good respiratory effort. Lungs are clear to auscultation bilaterally without crackles or wheezes. Abdominal: Soft, nontender, and nondistended to palpation. MSK: s/p irrigation and debridement R knee, wound vac in place without surrounding erythema or drainage, sutures in place, minor warmth and tenderness over R knee Neuro: Motor strength and sensation intact both proximally and distally to wound VAC. Results & Data Results & Data ([facility]) Vital Signs (Past 12 Hours) Vital Signs Temp Pulse Resp BP Pulse Ox 11/25/21 07:28 36.7 C 91 H 16 148/84 H 98 11/25/21 01:57 36.5 C 90 22 151/94 H 97 Resident Activity Tracking Resident Involvement: Resident Care Provided Care Provided: Adult [facility] Medicine
[2021-11-25 10:49] LABS: Creatinine Clr Calc Pharmacy 242.1 ml/min; Est GFR (African American) > 150.0 ml/min; Est GFR (Non-African American) 132.7 ml/min
[2021-11-25] MEDS: IBUPROFEN 600 MG TAB PO PRN ×2 (10:59→17:46)
--- NOTE | 2021-11-25 20:53 | Progress Notes ---
DATE OF SERVICE: 11/25/2021 SUBJECTIVE: A 41-year-old gentleman, now a little over 2 weeks out from I and D of a recurrently inf ected knee. He is doing basically baseline. He is on Wound VAC care. He has got IV antibiotics. Yasmine chow is waiting for placement. He has no new complaints this evening. He refused to let me look at his leg as he was asleep and uncomfortable. OBJECTIVE: VITAL SIGNS: Temperature 36.7. Vital signs are stable. PHYSICAL EXAMINATION: GENERAL: Physical examination shows a middle-aged male and he has been sleeping on his side. EXTREMITIES: Examination of the leg is limited due to refusing to allow me to examine it. His Wound VAC noted to be in place. No obvious signs of problems. He is neurologically intact. ASSESSMENT: A 41-year-old gentleman, a little over 2 weeks out from I and D of a recurrently infecte d knee with osteomyelitis. He seems to be doing okay. This is going to be painful for him, may be yasmine chow developed significant arthritic changes and deformity over time. He has had bone destruction. We talked to him extensively about treatment options, which are just antibiotic management versus arthro desis versus amputation. He is adamantly opposed against arthrodesis or knee amputation. We will co ntinue antibiotic management. He is going to need lifelong antibiotic management likely. PLAN: Continue Wound VAC care. He can follow up with the wound clinic for Wound VAC changes. I ashleigh lly do not need to see him, except for maybe a month down the road to see how he is doing. He can we ight bear as tolerated. Once again, he should go to the wound clinic for a Wound VAC management and changes. Antibiotics as per infectious disease, but I would recommend once he is off the IV to go on a long-term chronic oral suppression with likely Bactrim. I suspect he would not be real compliant with this. I did instruct the wound care nurse to remove his stitches tomorrow when they change his Wound VAC. I will see him back in a month or so. Any questions can be directed to me at . Job ID: [id number]
[2021-11-26] MEDS: VANCOMYCIN HCL 1,500 MG in SODIUM CHLORIDE 0.9% 500 ML IV SCH ×3 (04:18→21:02)
[2021-11-26] MEDS: ACETAMINOPHEN 500 MG TAB PO SCH ×3 (04:18→18:26)
[2021-11-26] MEDS: IBUPROFEN 600 MG TAB PO PRN ×3 (04:19→18:26)
--- NOTE | 2021-11-26 08:57 | Discharge Summary ---
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 Patient says that approximately 2 nights ago, he was icing his knee when he woke up in the middle of the night and realized that the ice pack was flat. At this time, he noticed that his right knee was draining fluid that appeared purulent. He also says that there was blood mixed in. Of note, patient was seen by orthopedics approximately 2 weeks ago where a right knee aspiration was performed and yielded over 180,000 white cells. No culture available from that time. Of note, patient was admitted between June and August for septic arthritis and osteomyelitis involving the right knee that required arthroscopic debridement and tibial hardware removal on 06/22; at this time, culture grew MRSA, Gechariser ID recommended 6 weeks of vancomycin IV therapy. Patient denies significant discomfort at this time. Denies any pain. Denies any recent fevers, chills, night sweats. Appetite has been strong; no nausea or vomiting. No chest pain or shortness of breath. He says that the last time he used any sort of illicit/recreational drug was "several months ago", and is currently on Suboxone therapy for this. He denies any recent alcohol use. Does endorse chewing tobacco daily. He reports that he is currently been staying with his sister. In the ER, patient was found to be afebrile with high normal heart rates. He did have a mild leukocytosis of 14 with left shift. CRP was appreciably elevated at 27, ESR at 118, alongside patient also had mild transaminitis. My read of his right sided knee x-ray does demonstrate severe uhgd-sc-oaki knee arthritis with erosive changes noted throughout the lateral condyle and along the tibial plateau. Further, there appears to be gaseous/air-like material ins stiven the medial condyle with open communication with the surface. He was started on vancomycin, clindamycin, and vancomycin as broad-spectrum antibiotics. He was also given fluids. Admission Exam Per Admitting Provider General: Tired appearing 41-year-old male lying back in his hospital bed, asleep, upon my arrival. No acute distress HEENT: NCAT. Trachea midline. No JVD Cardiac: Normal rate, regular rhythm, S1 and S2 are present without murmurs rubs or gallops Pulmonary: Good respiratory effort symmetric expansion of the chest. Lungs are clear to auscultation bilaterally without crackles or wheezes Abdominal: Normoactive bowel sounds. Abdomen is soft, nontender, nondistended to palpation. Musculoskeletal: Right knee recently wrapped with fresh bandage; as such, visual examination is limited. Please see emergency providers documentation for this purpose. Examination of the hip does reveal 5 out of 5 strength on the right. Ankle strength on the right is 5 out of 5. Sensation to light touch is intact. Dorsalis pedis pulse 2+. Capillary refill 2 seconds. Principal Diagnosis Septic arthritis with osteomyelitis Discharge Exam General: appears comfortable laying in bed HEENT: normocephalic, atraumatic. Cardiac: normal rate and rhythm without murmurs, rubs or gallops Pulmonary: Good respiratory effort. Lungs are clear to auscultation bilaterally without crackles or wheezes. Abdominal: Soft, nontender, and nondistended to palpation. MSK: s/p irrigation and debridement R knee, wound vac in place without surrounding erythema or drainage, sutures in place, minor warmth and tenderness over R knee Neuro: Motor strength and sensation intact both proximally and distally to wound VAC. Discharge Data Allergies Allergy/AdvReac Type Severity Reaction Status Date / Time cyclobenzaprine Allergy Severe SHORTNESS Verified 11/08/21 23:52 OF BREATH zolpidem Allergy Unknown hallucinati Verified 11/08/21 23:52 ons Benzodiazepines AdvReac Intermediate PSYCH Verified 11/08/21 23:52 ISSUES Consultations 11/09/21 00:51 ED Decision to Admit Stat 11/09/21 02:53 Consult Orthopedic Surgery Stat 11/13/21 07:48 Consult Pain Management Routine Procedures Performed Operation Date: 11/09/21 13:00 Actual Procedures p Incision and Drainage Knee(Right) - Corky Israel MD Hospital Course (1) Osteoarthritis of right knee: 41 yo male with a PMHx right knee septic joint with MRSA s/p washout and hardware removal in 06/2021 followed by 6 weeks of vancomycin therapy, IV drug use with h/o psychosis and aggressionin remission on Suboxone with anemia who presented to [facility] for evaluation of purulent R knee fluid drainage in the setting of a recent joint aspiration that yielded >180,000 intraarticular WBCs, concerning for septic joint. (1) Septic joint with osteomyelitis s/p tibial hardware removal and open + arthroscopic debridement (06/22/21 Dr. Hooper) for septic arthritis and osteomyelitis of R knee cultures grew MRSA that required 6 weeks of tx in hospital with vancomycin via PICC and PO Bactrim visited ortho clinic (10/28/21) for knee pain and swelling; aspiration performed, obtained 110 cc bloody, nonpurulent appearing fluid --> Yielded ~180,000 WBCs (87% PMN) and ~630,000 RBCs. Culture not available, did not process. R knee XR: marked septic arthritis, high suspicion for osteomyelitis, large soft tissue ulceration w/ fistula track into joint Consulted ortho: s/p open irrigation debridement R knee (11/09) -joint fluid cx: MRSA -wound: recommends 6 weeks IV abx followed with lifelong PO Bactrim -knee: recommends arthrodesis if infection clears versus above knee amputation; pt not in favor of either surgery at this time -wound care following: wound VAC placed (11/11), sutures removed and vacuum changed on day of discharge 11/26, pt will require f/u with wound care clinic while at rehab zosyn d/c, continue vancomycin -Vancomycin trough levels appropriate, kidney function intact at time of discharge -Pain control- ibuprofen q8h PRN, scheduled Tylenol -PICC placed and discharged to rehab at [place] on 11/26. Vancomycin to continue until 12/21, monitor kidney function while on vancomycin, will require lifelong PO Bactrim afterwards (2) H/o IV drug use history of IV drug abuse and recreational drug use, including amphetamines, that have resulted in psychosis requiring 302 pt states he has not used any recreational substance in several months. However, at recent ortho visit, endorsed utilizing his previous IV to inject Suboxone. Also endorsed reusing some of his own needles, but denied sharing needles, which puts him at high risk for re-infection/bacteremia. UDS: positive marijuana continue Suboxone; has been recently compliant. Can get home Suboxone at [place] on discharge (3) Transaminitis,Resolved initially found to have TBili 1, elev AST 60, elev ALT 73, elev ALP 192, low albumin 2.9, INR 1 (platelet 384, creatinine 0.56, sodium 130). No abdominal pain/complaints. unable to locate any files to suggest previous transaminitis/liver injury. Prior labs appear normal. -(11/16) AST 9, ALT 11, ALP 102 -HCV preliminary antibody positive, PCR neg consider HIV and RUQ ultrasonography if transaminitis recurs (4) Asthma -Chronic medical condition -Patient typically uses albuterol inhaler in morning since having Covid a few months prior to admission -Home albuterol inhaler ran out, provided pt with inhaler while he is here. Total Time Total Time Spent Total Time Spent (In Minutes): 30 Discharge Plan Discharge Items Patient Disposition: Transfer Inpatient Rehab Fac Reason For Visit: SUSPECTED SEPTIC ARTHRITIS RIGHT KNEE Discharge Diagnosis: MRSA septic arthritis with osteomyelitis Activity: Per Instructions section Non-emergency contact: Primary Care Provider and Surgeon Call non-emergency contact if: you have any medication questions, your symptoms worsen, your pain is worsening and you have a fever Follow-up/Referrals: Ana Miguel MD [Primary Care Provider] - Corky Israel MD [Physician] - (F/u in 1 month) Diet: Regular Addtl Attending Provider Instructions: FOR PATIENT You were admitted to the hospital for management of an infected joint and bone, known as septic arthritis and osteomyelitis respectively. You were treated with removal of the infected tissue surgically and long-term IV antibiotics, which will continue for 6 weeks total (about 3.5 more to go). You will likely require lifelong oral antibiotics to prevent further infections from occurring. You will complete the remainder of your antibiotics at rehab, which is why the PICC line was placed. A discharge summary will be sent to your physicians to ensure continuity of care. Please bring this discharge summary with you to your next office appointment so that your provider can review it at that time. Follow-up appointments: Dr. Israel will follow up with you in about 1 month. Wound care will also follow up with you regularly as you complete your antibiotics at rehab. Please inform your providers at rehab that you will need regular wound clinic follow- up. Please set up an appointment with your PCP sometime within the next 4 weeks. Medications: Your medication list has been reviewed and reconciled upon discharge to ensure accuracy and continuity of care. An updated list of all your medications is included with your hospital discharge paperwork. Please review this list closely, and make note of any changes. Take your medications as instructed; do not skip a dose of your medicines. Make sure all of your doctors know every medicine you are taking (including uhra-nlw-dklxjrl medicines, vitamins, and supplements). Call your primary care provider before taking any new medicines (including wykx-hpm-gqlfoyy medicines, vitamins, and supplements), because some of these may interact with your current medications, or may make your symptoms worse. Tell your primary care provider if you cannot afford your medications. CONTACT YOUR PRIMARY CARE PROVIDER if you experience any of the following: Fever Chills Knee/hip pain Nausea/vomiting Lightheadedness Wound pain, redness, swelling or drainage Diarrhea Difficulty following your treatment plan, or difficulty taking medications CALL 911 OR GO TO THE EMERGENCY DEPARTMENT if you experience any of the following: Sudden, severe abdominal pain or nausea/vomiting Severe chest pain, or chest pain that radiates (moves) to your jaw or arm Sudden, severe shortness of breath or difficulty breathing Thank you for allowing us to participate in your care. FOR PROVIDER AT FACILITY (1) Septic joint with osteomyelitis s/p tibial hardware removal and open + arthroscopic debridement (06/22/21 Dr. Hooper) for septic arthritis and osteomyelitis of R knee cultures grew MRSA that required 6 weeks of tx in hospital with vancomycin via PICC and PO Bactrim visited ortho clinic (10/28/21) for knee pain and swelling; aspiration performed, obtained 110 cc bloody, nonpurulent appearing fluid --> Yielded ~180,000 WBCs (87% PMN) and ~630,000 RBCs. Culture not available, did not process. R knee XR: marked septic arthritis, high suspicion for osteomyelitis, large soft tissue ulceration w/ fistula track into joint Consulted ortho: s/p open irrigation debridement R knee (11/09) -joint fluid cx: MRSA -wound: recommends 6 weeks IV abx followed with lifelong PO Bactrim -knee: recommends arthrodesis if infection clears versus above knee amputation; pt not in favor of either surgery at this time -wound care following: wound VAC placed (11/11) zosyn d/c, continue vancomycin -Vancomycin trough levels appropriate, kidney function intact at time of discharge -Pain control- ibuprofen q8h PRN, scheduled Tylenol -PICC placed and discharged to rehab at [place] on 11/26. Abx to continue until 12/21, monitor kidney function while on vancomycin, will require lifelong PO Bactrim afterwards (2) H/o IV drug use history of IV drug abuse and recreational drug use, including amphetamines, that have resulted in psychosis requiring 302 pt states he has not used any recreational substance in several months. However, at recent ortho visit, endorsed utilizing his previous IV to inject Suboxone. Also endorsed reusing some of his own needles, but denied sharing needles, which puts him at high risk for re-infection/bacteremia. UDS: positive marijuana continue Suboxone; has been recently compliant. Can get home Suboxone at [place] on discharge (3) Transaminitis,Resolved initially found to have TBili 1, elev AST 60, elev ALT 73, elev ALP 192, low albumin 2.9, INR 1 (platelet 384, creatinine 0.56, sodium 130). No abdominal pain/complaints. unable to locate any files to suggest previous transaminitis/liver injury. Prior labs appear normal. -(11/16) AST 9, ALT 11, ALP 102 -HCV preliminary antibody positive, PCR neg consider HIV and RUQ ultrasonography if transaminitis recurs (4) Asthma -Chronic medical condition -Patient typically uses albuterol inhaler in morning since having Covid a few months prior to admission -Home albuterol inhaler ran out, provided pt with inhaler while he is here. DVT ppx: Lovenox 40mg qAM SQ FEN/GI: regular Code Status: full Pending Studies at Discharge: No Stand-Alone Forms: My [facility] Skilled Items Patient informed of condition?: Yes DNR: No Discharge Level of Care: Acute rehab Communicable Disease: No Discharge Prognosis: Improving Lines: PICC Urinary Catheter: No Medications and DC Order Prescriptions: Continued buprenorphine-naloxone 8-2 mg Tablet, Sublingual 1 tab SUBLINGUAL BID RF: 0 acetaminophen [Tylenol Extra Strength] 500 mg Tablet 1,000 mg PO Q8H PRN (Reason: pain, mild) Qty: 100 RF: 0 aspirin [Ecotrin] 325 mg Tablet,Delayed Release (Dr/Ec) 325 mg PO DAILY Qty: 60 RF: 0 Discharge Orders: Discharge Order (Routine); Ordered 11/26/21 Ordered By: Edu Figueroa/Other Patient Handouts: Preventing Deep Vein Thrombosis Admission Data Admit Date/Time: 11/09/21 02:53 Attending Provider: Maxime Angelo Admit Provider: Jono Mcgrath Primary Care Provider: Ana Miguel Other Providers: Geronimo Matthews ; Corky Israel ; Kyle Lock ; Chelsy Urias ; Edward Zaldivar ; Drea Pratt ; [facility] ; Ruma Jones Other Interventions: Discharge Summary Assessment (RN) Last Done: 11/26/21 09:40 Supervising Physician Co-Signing Physician Notes I also saw the patient with the resident physician and confirmed short portions of the history and physical examination. I agree with the impression plan as noted in the resident documentation. Patient is looking forward to transfer to a swing bed for continued IV antibiotics. PICC line has been placed. Wound care will see the patient prior to discharge to both remove the michaela and replace/pack a wound VAC. VS 153/89, 97, 17, 37.0, 85% on room air Alert and oriented. Cooperative. Wound vac draining serosanguinous fluid, subjectively looks to be less collected when compared to previous IMPRESSION & PLAN recurrent septic knee IV vancomycin for 6 weeks, then transition to chronic suppressive therapy, likely Bactrim PICC line has been placed Transfer to [facility] swing bed later today Wound management will manage wound VAC there Outpatient follow-up with orthopedics as scheduled Else as noted above Resident Activity Tracking Resident Involvement: Resident Care Provided Care Provided: Adult Hospital Medicine
[2021-11-26] MEDS: ADVANCED PROBIOTIC 1250 MG CAPSULE PO SCH (09:25)
[2021-11-26] MEDS: ENOXAPARIN INJ 40 MG/0.4 ML SYR SQ SCH (09:25)
[2021-11-26] MEDS: BUPRENORPHINE/NALOXONE 8/2 MG TAB SL SCH ×2 (09:25→21:45)
[2021-11-26 10:09] LABS: Creatinine Clr Calc Pharmacy 216.2 ml/min; Est GFR (African American) 146.8 ml/min; Est GFR (Non-African American) 126.7 ml/min
[2021-11-26 14:56] VITALS: TEMP 98.2
--- NOTE | 2021-11-26 17:32 | Hospitalist Progress Note ---
Date of Service November 26, 2021 Assessment & Plan (1) Osteoarthritis of right knee: Plan: 41 yo male with a PMHx right knee septic joint with MRSA s/p washout and hardware removal in 06/2021 followed by 6 weeks of vancomycin therapy, IV drug use with h/o psychosis and aggressionin remission on Suboxone with anemia who presented to [facility] for evaluation of purulent R knee fluid drainage in the setting of a recent joint aspiration that yielded >180,000 intraarticular WBCs, concerning for septic joint. (1) Septic joint with osteomyelitis s/p tibial hardware removal and open + arthroscopic debridement (06/22/21 Dr. Hooper) for septic arthritis and osteomyelitis of R knee cultures grew MRSA that required 6 weeks of tx in hospital with vancomycin via PICC and PO Bactrim visited ortho clinic (10/28/21) for knee pain and swelling; aspiration performed, obtained 110 cc bloody, nonpurulent appearing fluid --> Yielded ~180,000 WBCs (87% PMN) and ~630,000 RBCs. Culture not available, did not process. R knee XR: marked septic arthritis, high suspicion for osteomyelitis, large soft tissue ulceration w/ fistula track into joint Consulted ortho: s/p open irrigation debridement R knee (11/09) -joint fluid cx: MRSA -wound: recommends 6 weeks IV abx followed with lifelong PO Bactrim -knee: recommends arthrodesis if infection clears versus above knee amputation; pt not in favor of either surgery at this time -wound care following: wound VAC placed (11/11), sutures removed and vacuum changed on 11/26 but wound opened requiring re-evaluation by orthopedics will delay discharge until 11/27, pt will require f/u with wound care clinic while at rehab zosyn d/c, continue vancomycin -Vancomycin trough levels appropriate, kidney function intact -Pain control- ibuprofen q8h PRN, scheduled Tylenol -PICC placed 11/26. Vancomycin to continue until 12/21, monitor kidney function while on vancomycin, will require lifelong PO Bactrim afterwards (2) H/o IV drug use history of IV drug abuse and recreational drug use, including amphetamines, that have resulted in psychosis requiring 302 pt states he has not used any recreational substance in several months. However, at recent ortho visit, endorsed utilizing his previous IV to inject Suboxone. Also endorsed reusing some of his own needles, but denied sharing needles, which puts him at high risk for re-infection/bacteremia. UDS: positive marijuana continue Suboxone; has been recently compliant. Can get home Suboxone at [place] on discharge (3) Transaminitis,Resolved initially found to have TBili 1, elev AST 60, elev ALT 73, elev ALP 192, low albumin 2.9, INR 1 (platelet 384, creatinine 0.56, sodium 130). No abdominal pain/complaints. unable to locate any files to suggest previous transaminitis/liver injury. Prior labs appear normal. -(11/16) AST 9, ALT 11, ALP 102 -HCV preliminary antibody positive, PCR neg consider HIV and RUQ ultrasonography if transaminitis recurs (4) Asthma -Chronic medical condition -Patient typically uses albuterol inhaler in morning since having Covid a few months prior to admission -Home albuterol inhaler ran out, provided pt with inhaler while he is here. Admission and Anticipated Discharge Date Admission Date: November 09, 2021 Supervising Physician Co-Signing Physician Notes I also saw the patient with the resident physician and confirmed short portions of the history and physical examination. I agree with the impression plan as noted in the resident documentation. Patient is looking forward to transfer to a swing bed for continued IV antibiotics. PICC line has been placed. Wound care will see the patient prior to discharge to both remove the michaela and replace/pack a wound VAC. VS 153/89, 97, 17, 37.0, 85% on room air Alert and oriented. Cooperative. Wound vac draining serosanguinous fluid, subjectively looks to be less collected when compared to previous IMPRESSION & PLAN recurrent septic knee IV vancomycin for 6 weeks, then transition to chronic suppressive therapy, likely Bactrim PICC line has been placed Transfer to [facility] swing bed later today Wound management will manage wound VAC there Outpatient follow-up with orthopedics as scheduled Else as noted above Subjective No acute events overnight, pain well controlled with scheduled Tylenol and ibu profen PRN. Pt feels more comfortable with movement, experiencing less R hip and R knee pain today. Review of Systems Review of Systems: Constitutional: denies fevers, chills CV: denies chest pain Resp: denies shortness of breath GI: denies abdominal pain, nausea, vomiting, constipation, diarrhea : denies pain with urination, change in urinary frequency Neuro: denies new numbness, tingling Physical Exam Physical Exam: General: appears comfortable laying in bed HEENT: normocephalic, atraumatic. Cardiac: normal rate and rhythm without murmurs, rubs or gallops Pulmonary: Good respiratory effort. Lungs are clear to auscultation bilaterally without crackles or wheezes. Abdominal: Soft, nontender, and nondistended to palpation. MSK: s/p irrigation and debridement R knee, wound vac in place without surrounding erythema or drainage, sutures in place, minor warmth and tenderness over R knee Neuro: Motor strength and sensation intact both proximally and distally to wound VAC. Results & Data Results & Data ([facility]) Vital Signs (Past 12 Hours) Vital Signs Temp Pulse Resp BP Pulse Ox 11/26/21 14:56 36.8 C 99 H 17 147/75 H 95 11/26/21 07:50 37.0 C 97 H 17 153/89 H 95 Resident Activity Tracking Resident Involvement: Resident Care Provided Care Provided: Adult Hospital Medicine
[2021-11-27] MEDS: VANCOMYCIN HCL 1,500 MG in SODIUM CHLORIDE 0.9% 500 ML IV SCH (03:33)
[2021-11-27] MEDS: IBUPROFEN 600 MG TAB PO PRN (03:39)
[2021-11-27] MEDS: ACETAMINOPHEN 500 MG TAB PO SCH (03:39)
--- NOTE | 2021-11-27 07:04 | Discharge Summary ---
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 Patient says that approximately 2 nights ago, he was icing his knee when he woke up in the middle of the night and realized that the ice pack was flat. At this time, he noticed that his right knee was draining fluid that appeared purulent. He also says that there was blood mixed in. Of note, patient was seen by orthopedics approximately 2 weeks ago where a right knee aspiration was performed and yielded over 180,000 white cells. No culture available from that time. Of note, patient was admitted between June and August for septic arthritis and osteomyelitis involving the right knee that required arthroscopic debridement and tibial hardware removal on 06/22; at this time, culture grew MRSA, Gechariser ID recommended 6 weeks of vancomycin IV therapy. Patient denies significant discomfort at this time. Denies any pain. Denies any recent fevers, chills, night sweats. Appetite has been strong; no nausea or vomiting. No chest pain or shortness of breath. He says that the last time he used any sort of illicit/recreational drug was "several months ago", and is currently on Suboxone therapy for this. He denies any recent alcohol use. Does endorse chewing tobacco daily. He reports that he is currently been staying with his sister. In the ER, patient was found to be afebrile with high normal heart rates. He did have a mild leukocytosis of 14 with left shift. CRP was appreciably elevated at 27, ESR at 118, alongside patient also had mild transaminitis. My read of his right sided knee x-ray does demonstrate severe wayp-kq-xmms knee arthritis with erosive changes noted throughout the lateral condyle and along the tibial plateau. Further, there appears to be gaseous/air-like material ins stiven the medial condyle with open communication with the surface. He was started on vancomycin, clindamycin, and vancomycin as broad-spectrum antibiotics. He was also given fluids. Admission Exam Per Admitting Provider General: Tired appearing 41-year-old male lying back in his hospital bed, asleep, upon my arrival. No acute distress HEENT: NCAT. Trachea midline. No JVD Cardiac: Normal rate, regular rhythm, S1 and S2 are present without murmurs rubs or gallops Pulmonary: Good respiratory effort symmetric expansion of the chest. Lungs are clear to auscultation bilaterally without crackles or wheezes Abdominal: Normoactive bowel sounds. Abdomen is soft, nontender, nondistended to palpation. Musculoskeletal: Right knee recently wrapped with fresh bandage; as such, visual examination is limited. Please see emergency providers documentation for this purpose. Examination of the hip does reveal 5 out of 5 strength on the right. Ankle strength on the right is 5 out of 5. Sensation to light touch is intact. Dorsalis pedis pulse 2+. Capillary refill 2 seconds. Principal Diagnosis MRSA septic arthritis with osteomyelitis Discharge Exam General: appears comfortable laying in bed HEENT: normocephalic, atraumatic. Cardiac: normal rate and rhythm without murmurs, rubs or gallops Pulmonary: Good respiratory effort. Lungs are clear to auscultation bilaterally without crackles or wheezes. Abdominal: Soft, nontender, and nondistended to palpation. MSK: s/p irrigation and debridement R knee, wound vac in place without surrounding erythema or drainage, serosanguinous drainage from wound vac, minimal warmth and tenderness over R knee Neuro: Motor strength and sensation intact both proximally and distally to wound VAC. Discharge Data Allergies Allergy/AdvReac Type Severity Reaction Status Date / Time cyclobenzaprine Allergy Severe SHORTNESS Verified 11/08/21 23:52 OF BREATH zolpidem Allergy Unknown hallucinati Verified 11/08/21 23:52 ons Benzodiazepines AdvReac Intermediate PSYCH Verified 11/08/21 23:52 ISSUES Consultations 11/09/21 00:51 ED Decision to Admit Stat 11/09/21 02:53 Consult Orthopedic Surgery Stat 11/13/21 07:48 Consult Pain Management Routine Procedures Performed Operation Date: 11/09/21 13:00 Actual Procedures p Incision and Drainage Knee(Right) - Corky Israel MD Hospital Course (1) Osteoarthritis of right knee: 41 yo male with a PMHx right knee septic joint with MRSA s/p washout and hardware removal in 06/2021 followed by 6 weeks of vancomycin therapy, IV drug use with h/o psychosis and aggressionin remission on Suboxone with anemia who presented to [facility] for evaluation of purulent R knee fluid drainage in the setting of a recent joint aspiration that yielded >180,000 intraarticular WBCs, concerning for septic joint. (1) Septic joint with osteomyelitis s/p tibial hardware removal and open + arthroscopic debridement (06/22/21 Dr. Hooper) for septic arthritis and osteomyelitis of R knee cultures grew MRSA that required 6 weeks of tx in hospital with vancomycin via PICC and PO Bactrim visited ortho clinic (10/28/21) for knee pain and swelling; aspiration performed, obtained 110 cc bloody, nonpurulent appearing fluid --> Yielded ~180,000 WBCs (87% PMN) and ~630,000 RBCs. Culture not available, did not process. R knee XR: marked septic arthritis, high suspicion for osteomyelitis, large soft tissue ulceration w/ fistula track into joint Consulted ortho: s/p open irrigation debridement R knee (11/09) -joint fluid cx: MRSA -wound: recommends 6 weeks IV abx followed with lifelong PO Bactrim -knee: recommends arthrodesis if infection clears versus above knee amputation; pt not in favor of either surgery at this time -wound care following: wound VAC placed (11/11), sutures removed and vacuum changed on 11/26 but wound opened requiring re-evaluation by orthopedics will delay discharge until 11/27, pt will require f/u with wound care clinic while at rehab zosyn d/c, continue vancomycin -Vancomycin trough levels appropriate, kidney function intact -Pain control- ibuprofen q8h PRN, scheduled Tylenol -PICC placed 11/26. Discharged on 11/27 to rehab facility. Vancomycin to continue until 12/21, monitor kidney function while on vancomycin, will require lifelong PO Bactrim afterwards (2) H/o IV drug use history of IV drug abuse and recreational drug use, including amphetamines, that have resulted in psychosis requiring 302 pt states he has not used any recreational substance in several months. However, at recent ortho visit, endorsed utilizing his previous IV to inject Suboxone. Also endorsed reusing some of his own needles, but denied sharing needles, which puts him at high risk for re-infection/bacteremia. UDS: positive marijuana continue Suboxone; has been recently compliant. Can get home Suboxone at [facility] on discharge (3) Transaminitis,Resolved initially found to have TBili 1, elev AST 60, elev ALT 73, elev ALP 192, low albumin 2.9, INR 1 (platelet 384, creatinine 0.56, sodium 130). No abdominal pain/complaints. unable to locate any files to suggest previous transaminitis/liver injury. Prior labs appear normal. -(11/16) AST 9, ALT 11, ALP 102 -HCV preliminary antibody positive, PCR neg consider HIV and RUQ ultrasonography if transaminitis recurs (4) Asthma -Chronic medical condition -Patient typically uses albuterol inhaler in morning since having Covid a few months prior to admission -Home albuterol inhaler ran out, provided pt with inhaler while he is here. Total Time Total Time Spent Total Time Spent (In Minutes): 30 Discharge Plan Discharge Items Patient Disposition: Transfer Inpatient Rehab Fac Reason For Visit: SUSPECTED SEPTIC ARTHRITIS RIGHT KNEE Discharge Diagnosis: MRSA septic arthritis with osteomyelitis Activity: Per Instructions section Non-emergency contact: Primary Care Provider and Surgeon Call non-emergency contact if: you have any medication questions, your symptoms worsen, your pain is worsening and you have a fever Follow-up/Referrals: Ana Miguel MD [Primary Care Provider] - Corky Israel MD [Physician] - (F/u in 1 month) Diet: Regular Addtl Attending Provider Instructions: FOR PATIENT You were admitted to the hospital for management of an infected joint and bone, known as septic arthritis and osteomyelitis respectively. You were treated with removal of the infected tissue surgically and long-term IV antibiotics, which will continue for 6 weeks total (about 3.5 more to go). You will likely require lifelong oral antibiotics to prevent further infections from occurring. You will complete the remainder of your antibiotics at rehab, which is why the PICC line was placed. A discharge summary will be sent to your physicians to ensure continuity of care. Please bring this discharge summary with you to your next office appointment so that your provider can review it at that time. Follow-up appointments: Dr. sIrael will follow up with you in about 1 month. Wound care will also follow up with you regularly as you complete your antibiotics at rehab. Please inform your providers at rehab that you will need regular wound clinic follow- up. Please set up an appointment with your PCP sometime within the next 4 weeks. Medications: Your medication list has been reviewed and reconciled upon discharge to ensure accuracy and continuity of care. An updated list of all your medications is included with your hospital discharge paperwork. Please review this list closely, and make note of any changes. Take your medications as instructed; do not skip a dose of your medicines. Make sure all of your doctors know every medicine you are taking (including ttlh-git-zxhczvk medicines, vitamins, and supplements). Call your primary care provider before taking any new medicines (including vwal-dwn-afrvgio medicines, vitamins, and supplements), because some of these may interact with your current medications, or may make your symptoms worse. Tell your primary care provider if you cannot afford your medications. CONTACT YOUR PRIMARY CARE PROVIDER if you experience any of the following: Fever Chills Knee/hip pain Nausea/vomiting Lightheadedness Wound pain, redness, swelling or drainage Diarrhea Difficulty following your treatment plan, or difficulty taking medications CALL 911 OR GO TO THE EMERGENCY DEPARTMENT if you experience any of the following: Sudden, severe abdominal pain or nausea/vomiting Severe chest pain, or chest pain that radiates (moves) to your jaw or arm Sudden, severe shortness of breath or difficulty breathing Thank you for allowing us to participate in your care. FOR PROVIDER AT FACILITY (1) Septic joint with osteomyelitis s/p tibial hardware removal and open + arthroscopic debridement (06/22/21 Dr. Hooper) for septic arthritis and osteomyelitis of R knee cultures grew MRSA that required 6 weeks of tx in hospital with vancomycin via PICC and PO Bactrim visited ortho clinic (10/28/21) for knee pain and swelling; aspiration performed, obtained 110 cc bloody, nonpurulent appearing fluid --> Yielded ~180,000 WBCs (87% PMN) and ~630,000 RBCs. Culture not available, did not process. R knee XR: marked septic arthritis, high suspicion for osteomyelitis, large soft tissue ulceration w/ fistula track into joint Consulted ortho: s/p open irrigation debridement R knee (11/09) -joint fluid cx: MRSA -wound: recommends 6 weeks IV abx followed with lifelong PO Bactrim -knee: recommends arthrodesis if infection clears versus above knee amputation; pt not in favor of either surgery at this time -wound care following: wound VAC placed (11/11) and replaced 11/26 after suture removal zosyn d/c, continue vancomycin -Vancomycin trough levels appropriate, kidney function intact at time of discharge -Pain control- ibuprofen q8h PRN, scheduled Tylenol -PICC placed and discharged to rehab at [facility] on 11/27. Abx to continue until 12/21, monitor kidney function while on vancomycin, will require lifelong PO Bactrim afterwards (2) H/o IV drug use history of IV drug abuse and recreational drug use, including amphetamines, that have resulted in psychosis requiring 302 pt states he has not used any recreational substance in several months. However, at recent ortho visit, endorsed utilizing his previous IV to inject Suboxone. Also endorsed reusing some of his own needles, but denied sharing needles, which puts him at high risk for re-infection/bacteremia. UDS: positive marijuana continue Suboxone; has been recently compliant. Can get home Suboxone at [facility] on discharge (3) Transaminitis,Resolved initially found to have TBili 1, elev AST 60, elev ALT 73, elev ALP 192, low albumin 2.9, INR 1 (platelet 384, creatinine 0.56, sodium 130). No abdominal pain/complaints. unable to locate any files to suggest previous transaminitis/liver injury. Prior labs appear normal. -(11/16) AST 9, ALT 11, ALP 102 -HCV preliminary antibody positive, PCR neg consider HIV and RUQ ultrasonography if transaminitis recurs (4) Asthma -Chronic medical condition -Patient typically uses albuterol inhaler in morning since having Covid a few months prior to admission -Home albuterol inhaler ran out, provided pt with inhaler while he is here. DVT ppx: Lovenox 40mg qAM SQ FEN/GI: regular Code Status: full Pending Studies at Discharge: No Stand-Alone Forms: My [facility] Skilled Items Patient informed of condition?: Yes DNR: No Discharge Level of Care: Acute rehab Communicable Disease: No Discharge Prognosis: Improving Lines: PICC Urinary Catheter: No Medications and DC Order Prescriptions: Continued buprenorphine-naloxone 8-2 mg Tablet, Sublingual 1 tab SUBLINGUAL BID RF: 0 acetaminophen [Tylenol Extra Strength] 500 mg Tablet 1,000 mg PO Q8H PRN (Reason: pain, mild) Qty: 100 RF: 0 aspirin [Ecotrin] 325 mg Tablet,Delayed Release (Dr/Ec) 325 mg PO DAILY Qty: 60 RF: 0 Discharge Orders: Discharge Order (Routine); Ordered 11/27/21 Ordered By: Edu Figueroa/Other Patient Handouts: Preventing Deep Vein Thrombosis Admission Data Admit Date/Time: 11/09/21 02:53 Attending Provider: Maxime Angelo Admit Provider: Jono Mcgrath Primary Care Provider: Ana Miguel Other Providers: Geronimo Matthews ; Corky Israel ; Kyle Lock ; Chelsy Urias ; Edward Zaldivar ; Drea Pratt ; [facility] ; Ruma Jones Other Interventions: Discharge Summary Assessment (RN) Last Done: 11/27/21 10:00 Supervising Physician Co-Signing Physician Notes I also saw the patient with the resident physician and confirmed short portions of the history and physical examination. I agree with the impression plan as noted in the resident documentation. Also discussed the case with the orthopedic senior application security consultant. The patient's discharge was delayed yesterday due to the wound reopening when the wound care team done to remove the sutures. The wound VAC has been repositioned to accommodate the larger wound. Things are now line for discharge today to [facility] swing bed for continued wound care and IV antibiotics. A PICC line had been placed yesterday. VS 164/86, 94, 16, 36.9 Alert and oriented. Cooperative. Wound vac draining serosanguinous fluid. IMPRESSION & PLAN recurrent septic knee IV vancomycin for 6 weeks, then transition to chronic suppressive therapy, likely Bactrim PICC line has been placed Transfer to [facility] swing bed later today Wound management will manage wound VAC there Outpatient follow-up with orthopedics as scheduled Else as noted above Resident Activity Tracking Resident Involvement: Resident Care Provided Care Provided: Adult Hospital Medicine
[2021-11-27 08:23] VITALS: BP 164/86; PULSE 94; O2SAT 90
[2021-11-27] MEDS: BUPRENORPHINE/NALOXONE 8/2 MG TAB SL SCH (08:25)
[2021-11-27] MEDS: ADVANCED PROBIOTIC 1250 MG CAPSULE PO SCH (08:25)
[2021-11-27] MEDS: ALBUTEROL HFA 8 GM INHALER INH PRN (08:26)
[2021-11-27] MEDS: ENOXAPARIN INJ 40 MG/0.4 ML SYR SQ SCH (08:26)
== END 2021-11-27 11:11 | DRG 488 ==
LOC: ED 22:26 → SUATTDRO 11-09 02:53 → 3E 11-09 02:53

== ENCOUNTER 2024-09-02 09:23 | Inpatient (IN) ==
--- NOTE | 2024-09-02 10:17 | Emergency Department Note ---
Impression & Plan Complicated acute bronchitis, Rhinovirus infection ED Provider Note Name: CATERINA FOWLER Age: 44 Sex: Male Arrives Via: Walk-In Informant: Patient ED Provider: Emre Trinidad MD Chief Complaint: Shortness of breath Impression: As per impressions above Medical Decision Makin-year-old gentleman with history of nicotine abuse and what sounds like probably some underlying COPD. Also has a history of previous IV drug abuse sepsis and anemia. Arrives for evaluation of worsening shortness of breath and cough. He is hypoxic on arrival. Sepsis workup initiated. Fortunately patient does not appear to be in severe sepsis at this time. He did test positive for rhinovirus thus I think this is a viral acute complicated bronchitis and in the setting of nicotine abuse will be started on an antibiotic. With the hypoxia he will require hospitalization thus hospitalist consulted for further management. Patient is feeling better after being on nasal cannula O2 and getting a nebulizer treatment. Triage/Nursing Notes reviewed by Me Differential:Reactive airway disease, pneumonia, pneumothorax, COPD, CHF, infections, cardiac ischemia, pulmonary embolism, musculoskeletal, gastrointestinal, as well as other pathologies. Vital Signs: reviewed and remarkable for hypoxia and hypertension Interventions: DuoNeb, Tylenol IV, Decadron IV, doxycycline p.o. Labs:ED labs Reviewed by me and remarkable for no significant abnormalities beyond positive BioFire for rhinovirus Imagin view chest x-ray as per my interpretation there is no evidence of pneumonia, effusion or pneumothorax. [facility] and manage. Plan: Disposition:Hospitalization. Condition: Good History of Present Illness: 44-year-old gentleman arrives for evaluation of cough. Patient with 2 days of worsening cough, fevers, chills. Notes he has been taking Tylenol Motrin at home with some improvement. Today feeling so weak he comes into the ER. Noted to be hypoxic on arrival. Patient denies a productive cough. Denies any specific chest pain, palpitations, headache, abdominal pain, nausea, vomiting, urinary symptoms, leg swelling or other concerning signs or symptoms. No falls, trauma, injuries. No recent antibiotic use. No known sick contacts. Past Medical History:See Below Home Medications:See Below Allergies: Cyclobenzaprine, zolpidem, benzodiazepine Vitals:Blood Pressure: 180/84, Pulse 73, RR 20, T 36.8C, O2 88% on RA Physical Exam: GENERAL: Patient is unwell appearing and in mild distress. RESPIRATORY: Mild tachypnea with dry nonproductive cough. Mild crackles at bases bilaterally though no overt decreased breath sounds throughout CARDIOVASCULAR: Regular rate and rhythm.No murmur appreciated. GASTROINTESTINAL: Abdomen soft, non-tender, no peritonitis. BACK: No midline tenderness, no CVA tenderness EXTREMITIES: Normal motion all extremities, no cyanosis, no edema. NEUROLOGIC: Alert and oriented. No focal neurologic deficits appreciated SKIN: No rash, no jaundice, no diaphoresis. PSYCH: Appropriate GCS: 15 ED Course: Times/Reassessments: Patient's breathing is improved. Continues to require nasal cannula O2 Emre Trinidad MD Past Med/Surg History Problem List (Updated 09/02/24 @ 20:08 by Emre Trinidad MD) Rhinovirus infection (Acute) Complicated acute bronchitis (Acute) Nicotine abuse Hypoxia Instability of left knee joint Surgical wound, non healing (Acute) History of intravenous drug abuse Lateral pain of right hip Sepsis (Acute) Open leg wound (Acute) Chronic infection (Acute) Osteoarthritis of right knee Knee effusion, right Anemia Septic joint of right knee joint (Acute) Osteomyelitis of right knee region (Acute) Septic arthritis of knee, right Medical History Tobacco use Hypertension Acquired knee deformity Chronic osteomyelitis of knee MRSA infection (methicillin-resistant Staphylococcus aureus) Polysubstance abuse Unspecified mood [affective] disorder Aggressive behavior Delusions Paranoia Psychosis IV drug user SIRS (systemic inflammatory response syndrome) IV drug abuse Surgical History S/P right knee arthroscopy for septic joint, Dr. Hooper History of hernia surgery Family History Other No pertinent family history Social History Smoking Status: Current every day smoker Tobacco Type: Cigarettes Second Hand Exposure: No; Do You Dip or Chew Tobacco: No; Tobacco Cessation Education Requested by Patient: No Hx Alcohol Use: No Hx Substance Use: Yes Last Used Substance: Hours (ago) Last Used Substance Other:: marijuana 1 week ago Substance Use Type Other:: IV drugs Preferred Language: Turkish Communication Ability: Effective Surgical Assistant Certified Required: No Beliefs That Will Affect Care: None marital status: Single Current Living Situation: Alone Current Living Situation Comment: states that he is homeless Other Information That Helps Us Care for You: No Feels Safe at Home: Yes Safety Concerns: Feels Safe At This Time Assistive Devices: Cane Allergies Allergies Allergy/AdvReac Type Severity Reaction Status Date / Time cyclobenzaprine Allergy Severe SHORTNESS Verified 09/02/24 12:38 OF BREATH zolpidem Allergy Unknown hallucinati Verified 09/02/24 12:38 ons Benzodiazepines AdvReac Intermediate PSYCH Verified 09/02/24 12:38 ISSUES Home Meds Home Medications Medication Instructions Recorded Confirmed buprenorphine 8 mg-naloxone 2 mg 1 film sublingual TID 09/02/24 09/02/24 sublingual film gabapentin 800 mg tablet 800 mg PO TID 09/02/24 09/02/24 Previous Rx's Medication Instructions Recorded aspirin 325 mg tablet,delayed 325 mg PO DAILY #60 tabs 05/30/21 release (Ecotrin) Results & Data (ED) Vital Signs Vital Signs - 24 hr 09/02/24 09:29 09/02/24 10:14 09/02/24 10:15 Temperature 36.8 C Temperature Source Oral Pulse Rate 86 73 Pulse Rate [Apical] Pulse Strength [Apical] Respiratory Rate 20 Respiratory Effort / Characteristics Non-Labored Spontaneous Respiratory Depth Normal Respiratory Pattern Regular Blood Pressure 180/84 H Blood Pressure [Left Arm] Blood Pressure Mean 116 Blood Pressure Mean [Left Arm] Pulse Oximetry 91 88 L Oxygen Delivery Method Room Air Room Air Oxygen Flow Rate Sepsis Recent Fever Within 48 Hours No Sepsis New/Unexplained Change in Mental Status N/A Sepsis Action Taken by Nursing No Action Required Oxygen Flow Rate - Titration 2 Pulse Oximetry Post Tiitration 93 09/02/24 10:16 09/02/24 10:18 09/02/24 11:31 Temperature Temperature Source Pulse Rate Pulse Rate [Apical] 72 64 Pulse Strength [Apical] Normal Normal Respiratory Rate 18 19 Respiratory Effort / Characteristics Spontaneous SOB on Exertion Non-Labored Spontaneous Respiratory Depth Normal Normal Respiratory Pattern Regular Regular Regular Blood Pressure Blood Pressure [Left Arm] 144/88 H 157/88 H Blood Pressure Mean Blood Pressure Mean [Left Arm] 106 111 Pulse Oximetry 93 92 Oxygen Delivery Method Nasal Cannula Room Air Room Air Oxygen Flow Rate 2 Sepsis Recent Fever Within 48 Hours Sepsis New/Unexplained Change in Mental Status Sepsis Action Taken by Nursing Oxygen Flow Rate - Titration Pulse Oximetry Post Tiitration 09/02/24 13:30 Temperature Temperature Source Pulse Rate Pulse Rate [Apical] 73 Pulse Strength [Apical] Normal Respiratory Rate 19 Respiratory Effort / Characteristics Non-Labored Spontaneous Respiratory Depth Normal Respiratory Pattern Regular Blood Pressure Blood Pressure [Left Arm] 131/93 Blood Pressure Mean Blood Pressure Mean [Left Arm] 105 Pulse Oximetry 93 Oxygen Delivery Method Room Air Oxygen Flow Rate Sepsis Recent Fever Within 48 Hours Sepsis New/Unexplained Change in Mental Status Sepsis Action Taken by Nursing Oxygen Flow Rate - Titration Pulse Oximetry Post Tiitration Laboratory Data 09/02/24 10:23 09/02/24 10:23 Lab Results 09/02/24 09/02/24 Range/Units 10:00 10:23 WBC 9.24 (4.8-10.8) K/ul RBC 4.82 (4.70-6.10) M/uL Hgb 13.4 L (14.0-18.0) g/dl Hct 42.1 (42.0-52.0) % MCV 87.3 (80.0-100.0) fL MCH 27.8 (25.0-34.0) pg MCHC 31.8 L (32.0-36.0) g/dL RDW Std Deviation 48.9 H (36.4-46.3) fL RDW Coeff of [place] 15.2 H (11.5-14.5) % Plt Count 227 (130-400) K/uL MPV 11.6 (9.4-12.4) fL Immature Gran % (Auto) 0.4 % Neut % (Auto) 77.6 % Lymph % (Auto) 12.4 % [place] % (Auto) 6.4 % Eos % (Auto) 2.8 % Baso % (Auto) 0.4 % Neut # (Auto) 7.16 H (1.40-6.50) K/uL Lymph # (Auto) 1.15 L (1.20-3.40) K/uL [place] # (Auto) 0.59 (0.11-0.59) K/uL Eos # (Auto) 0.26 (0.00-0.50) K/uL Baso # (Auto) 0.04 (0.00-0.20) K/uL Immature Gran # (Auto) 0.04 (0.01-0.20) K/uL Sodium 140 (136-145) mmol/L Potassium 4.2 (3.5-5.1) mmol/L Chloride 104 (98-107) mmol/L Carbon Dioxide 29 (21-32) mmol/L Anion Gap 7 (3-11) BUN 11 (6-23) mg/dl Creatinine 0.71 (0.6-1.4) mg/dl Est Cr Clr Drug Dosing 174.9 ml/min eGFR 114.59 BUN/Creatinine Ratio 15.5 (10-20) Glucose 139 H (70-99(Fasting)) mg/dl Lactate 1.3 (0.4-2.0) mmol/L Calcium 8.8 (8.6-10.3) mg/dl Magnesium 2.1 (1.7-2.4) mg/dl Total Bilirubin 0.3 (0.2-1.0) mg/dl Direct Bilirubin TNP AST 24 (13-39) U/L ALT 29 (7-52) U/L Alkaline Phosphatase 86 (34-104) U/L Troponin I High Sens 5.8 (0-20) pg/ml Total Protein 6.7 (6.0-8.3) gm/dl Albumin 4.0 (3.4-5.0) gm/dl Procalcitonin 0.12 (0-0.5) ng/ml Adenovirus (PCR) Not Detected (NotDetected) B. pertussis DNA (PCR) Not Detected (NotDetected) B.parapertussis DNA PCR Not Detected (NotDetected) C. pneumoniae DNA (PCR) Not Detected (NotDetected) Coronavirus OC43 (PCR) Not Detected (NotDetected) Coronavirus HKU1 (PCR) Not Detected (NotDetected) Coronavirus 229E (PCR) Not Detected (NotDetected) SARS-CoV-2 (PCR) Not Detected (NotDetected) Coronavirus NL63 (PCR) Not Detected (NotDetected) Human Metapneumovir PCR Not Detected (NotDetected) Influenza Type A (PCR) Not Detected (NotDetected) Influenza Type B (PCR) Not Detected (NotDetected) M. pneumoniae (PCR) Not Detected (NotDetected) Parainfluenza 1 (PCR) Not Detected (NotDetected) Parainfluenza 2 (PCR) Not Detected (NotDetected) Parainfluenza 3 (PCR) Not Detected (NotDetected) Parainfluenza 4 (PCR) Not Detected (NotDetected) RSV (PCR) Not Detected (NotDetected) Entero/Rhino (PCR) DETECTED A (NotDetected) Administered Medications Buprenorphine/Naloxone (Buprenorphine/Naloxone 8/2 Mg Tab) 1 tab SL TID [facility] Stop: 10/02/24 17:59 Last Admin: 09/02/24 18:25 Dose: 1 tab Documented By: FADI Gabapentin (Gabapentin 800 Mg Tab) 800 mg PO TID [facility] Stop: 10/02/24 17:59 Last Admin: 09/02/24 18:26 Dose: 800 mg Documented By: FADI Nicotine (Nicotine 21 Mg/24 Hr Tdsy) 1 patch TD QAM [facility] Stop: 10/02/24 17:59 Last Admin: 09/02/24 18:26 Dose: Not Given Documented By: FADI Discontinued Medications Albuterol (Albut/Ipratrop 3mg/0.5mg Neb 3 Ml Vial) 3 ml NEB NOW STA; Protocol Stop: 09/02/24 11:41 Last Admin: 09/02/24 11:58 Dose: 3 ml Documented By: FROY Dexamethasone Sodium Phosphate (DexamethasonePf 10 Mg/Ml Vial) 10 mg IV NOW ONE Stop: 09/02/24 11:41 Last Admin: 09/02/24 11:58 Dose: 10 mg Documented By: FROY Doxycycline Hyclate (Doxycycline Hyclate 100 Mg Cap) 100 mg PO NOW STA Stop: 09/02/24 11:41 Last Admin: 09/02/24 11:58 Dose: 100 mg Documented By: FROY Imaging Data Radiologist's Impression: Chest X-Ray 09/02/24 09:57 EXAM: Radiograph of the Chest 1 View INDICATION: Cough and hypoxia. TECHNIQUE: Frontal view of the chest. COMPARISON: No relevant prior studies available. FINDINGS: Lungs and pleural spaces: There is minimal airway thickening. The lungs are normally and symmetrically inflated. No consolidation or pulmonary edema. No pleural effusion or pneumothorax. Heart: Shape and configuration within normal limits allowing for technique. Mediastinum: Normal contour. Bones/joints: No fracture, erosion or dislocation. Soft tissues: No abnormality noted. No radiopaque foreign body noted. Upper abdomen: No abnormality noted. IMPRESSION: Mild airway thickening consistent with acute and/or chronic bronchitis. No pneumonia. ACT 112: Negative or not required by law. Electronically signed by Florence Shaw 09-02-2024 11:06 AM Discharge Plan Visit Data Chief Complaint: Shortness of Breath/Dyspnea Stated Complaint: TROUBLE BREATHING, VERY CONGESTED, SOB ED Provider: Emre Trinidad Discharge Problem: Complicated acute bronchitis, Rhinovirus infection Patient Disposition: Admitted As Inpatient Discharge Instructions Interventions: ED Discharge Assessment Last Done: 09/02/24 16:50
[2024-09-02 10:40] LABS: Basophils # (auto) 0.04 K/uL (0.00-0.20); Basophils % (auto) 0.4 %; Eosinophils # (auto) 0.26 K/uL (0.00-0.50); Eosinophils % (auto) 2.8 %; Hematocrit (blood only) 42.1 % (42.0-52.0); Hemoglobin 13.4 g/dl (14.0-18.0); Immature Granulocytes # (auto) 0.04 K/uL (0.01-0.20); Immature Granulocytes % (auto) 0.4 %; Lymphocytes # (auto) 1.15 K/uL (1.20-3.40); Lymphocytes % (auto) 12.4 %; Mean Corpuscular Hemoglobin 27.8 pg (25.0-34.0); Mean Corpuscular Hgb Conc 31.8 g/dL (32.0-36.0); Mean Corpuscular Volume 87.3 fL (80.0-100.0); Mean Platelet Volume 11.6 fL (9.4-12.4); Monocytes # (auto) 0.59 K/uL (0.11-0.59); Monocytes % (auto) 6.4 %; Neutrophils # (auto) 7.16 K/uL (1.40-6.50); Neutrophils % (auto) 77.6 %; Platelet Count 227 K/uL (130-400); RDW Coefficient of Variation 15.2 % (11.5-14.5); RDW Standard Deviation 48.9 fL (36.4-46.3); Red Blood Count 4.82 M/uL (4.70-6.10); White Blood Count 9.24 K/ul (4.8-10.8)
--- NOTE | 2024-09-02 11:06 | XRay Report ---
EXAM: Radiograph of the Chest 1 View INDICATION: Cough and hypoxia. TECHNIQUE: Frontal view of the chest. COMPARISON: No relevant prior studies available. FINDINGS: Lungs and pleural spaces: There is minimal airway thickening. The lungs are normally and symmetrically inflated. No consolidation or pulmonary edema. No pleural effusion or pneumothorax. Heart: Shape and configuration within normal limits allowing for technique. Mediastinum: Normal contour. Bones/joints: No fracture, erosion or dislocation. Soft tissues: No abnormality noted. No radiopaque foreign body noted. Upper abdomen: No abnormality noted. IMPRESSION: Mild airway thickening consistent with acute and/or chronic bronchitis. No pneumonia. ACT 112: Negative or not required by law. Electronically signed by Florence Shaw 09-02-2024 11:06 AM
[2024-09-02 11:19] LABS: Alanine Aminotransferase 29 U/L (7-52); Alkaline Phosphatase 86 U/L (34-104); Anion Gap 7 (3-11); Aspartate Aminotransferase 24 U/L (13-39); BUN Creatinine Ratio 15.5 (10-20); Bilirubin,Total 0.3 mg/dl (0.2-1.0); Blood Urea Nitrogen 11 mg/dl (6-23); Calcium 8.8 mg/dl (8.6-10.3); Carbon Dioxide 29 mmol/L (21-32); Chloride 104 mmol/L (98-107); Creatinine Clr Calc Pharmacy 174.9 ml/min; Glucose 139 mg/dl (70-99(Fasting)); Magnesium 2.1 mg/dl (1.7-2.4); Potassium 4.2 mmol/L (3.5-5.1); Sodium 140 mmol/L (136-145); Total Protein 6.7 gm/dl (6.0-8.3); Troponin I High Sensitivity 5.8 pg/ml (0-20)
[2024-09-02 11:34] LABS: Adenovirus PCR Not Detected (NotDetected); Bordetella parapertussis PCR Not Detected (NotDetected); Bordetella pertussis PCR Not Detected (NotDetected); Chlamydia pneumoniae PCR Not Detected (NotDetected); Coronavirus 229E PCR Not Detected (NotDetected); Coronavirus CoV-2 (COVID19)PCR Not Detected (NotDetected); Coronavirus HKU1 PCR Not Detected (NotDetected); Coronavirus NL63 PCR Not Detected (NotDetected); Coronavirus OC43PCR Not Detected (NotDetected); Human Metapneumovirus PCR Not Detected (NotDetected); Influenza A PCR Not Detected (NotDetected); Influenza B PCR Not Detected (NotDetected); Mycoplasma pneumoniae PCR Not Detected (NotDetected); Parainfluenza Virus 1 PCR Not Detected (NotDetected); Parainfluenza Virus 2 PCR Not Detected (NotDetected); Parainfluenza Virus 3 PCR Not Detected (NotDetected); Parainfluenza Virus 4 PCR Not Detected (NotDetected); Respiratory Syncytial VirusPCR Not Detected (NotDetected); Rhinovirus/Enterovirus PCR DETECTED (NotDetected)
[2024-09-02 11:38] LABS: Appearance Urine Clear (Clear); Bilirubin Urine Negative (Negative); Blood Urine Negative (Negative); Color Urine Yellow; Glucose Urine UA Negative (Negative); Ketones Urine Negative (Negative); Leukocyte Esterase Urine Negative (Negative); Nitrite Urine Negative (Negative); Protein Urine Negative (Negative); Specific Gravity Urine 1.013 (1.000-1.030); Urobilinogen Urine Negative (Negative)
[2024-09-02] MEDS: ALBUT/IPRATROP 3MG/0.5MG NEB 3 ML VIAL NEB STA (11:58)
[2024-09-02] MEDS: dexAMETHasone**PF** 10 MG/ML VIAL IV ONE (11:58)
[2024-09-02] MEDS: DOXYCYCLINE HYCLATE 100 MG CAP PO STA (11:58)
--- NOTE | 2024-09-02 13:43 | History & Physical Report ---
Date of Service September 02, 2024 Assessment & Plan (1) Hypoxia: Plan: SOB with cough, reported fever/chills and nasal congestion x 2 days, sick contact nephew; ? underlying COPD - Admit tele - CBC without leukocytosis, but does have neutrophil predominance - Procalcitonin 0.12 - CXR with mild airway thickening consistent with acute or chronic bronchitis, no pneumonia noted - Biofire positive for entero/rhinovirus - Hypoxic on arrival; currently 92% on supplemental O2 via NC - No oxygen at baseline; O2 via NC as needed- Wean the patient off as tolerated - Obtain sputum culture if able - IC + flutter valve - [place] nasal spray q30min prn for nasal congestion - Duoneb prn wheezing - Solumedrol 40mg daily - No leukocytosis, current fever, or imaging findings warranting starting abx - defer at this time; consider adding if clinical condition changes (received 1 dose doxycycline ED) - CBC am (2) Nicotine abuse: Plan: E-cigarettes/Vaping, daily - Cessation recommended - Nicotine Patch (3) History of intravenous drug abuse: Plan: 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, and IV abuse of Suboxone - Suboxone 3 times daily, takes as prescribed- continue - Attempt to limit ANY pain control measure to Tylenol - LFTs WNL (4) Rhinovirus infection: (5) Complicated acute bronchitis: (6) Reactive airway disease: Plan H/o chronic OM of R knee- H/o fx from trauma and h/o MRSA, just recently took few doses of Bactrim; med list states he is on Gabapentin 800 TID Dispo: Admit Diet: Regular VTE Prophylaxis: Lovenox Code: Full Admission and Anticipated Discharge Date Admission Date: 09/02/2024 History of Present Illness Chief Complaint: SOB Primary Care Provider: Ana Miguel MD 44-year-old male presenting to ED for SOB x 2 days with associated chest congestion, has had sick contact of nephew. ED course: CBC H&H 13.4/42.1, MCHC 31.8, RDW 48.9, neutrophils 7.16 without leukocytosis; CMP grossly WNL with exception of glucose 139; procalcitonin 0.12; UA without infection; CXR mild airway thickening consistent with acute or chronic bronchitis, no pneumonia; EKG NSR, rate 70 bpm, QTc 427.; Provided with doxycycline 100 mg, dexamethasone 10 mg, and albuterol nebulizer in ED. Patient is a 44-year-old male PMHx of anemia, orthopedic conditions, and h/o IV drug abuse presenting to ED for evaluation of cough. Approximately 2 nights ago started to have worsening cough. States that he has sputum production that occurs when moving around, red in color. Associated nasal congstion. Has been taking ghdt-xwo-wyieago Tylenol and Motrin which provide some relief. Noted that today he became very weak and came to the ED. Afraid to go to sleep because he says that he is afraid he will stop breathing. Feels feverish, has not taken temperature. Only other complaint is that he feels as though he is urinating often. No chest pain, palpitations, abdominal pain, N/V/D/C, numbness/tingling. Recently started Bactrim again for "new scabs." Hypoxic on arrival (91%), sick contact of nephew. Took AM medications. Please see Dr. Cr's attestation for adjustments/additions to treatment plan. Allergies Allergy/AdvReac Type Severity Reaction Status Date / Time cyclobenzaprine Allergy Severe SHORTNESS Verified 09/02/24 12:38 OF BREATH zolpidem Allergy Unknown hallucinati Verified 09/02/24 12:38 ons Benzodiazepines AdvReac Intermediate PSYCH Verified 09/02/24 12:38 ISSUES Home Medications Medication Instructions Recorded Confirmed Type aspirin 325 mg tablet,delayed 325 mg PO DAILY #60 tabs 05/30/21 09/02/24 Rx release (Ecotrin) buprenorphine 8 mg-naloxone 2 mg 1 film sublingual TID 09/02/24 09/02/24 History sublingual film gabapentin 800 mg tablet 800 mg PO TID 09/02/24 09/02/24 History Past Med/Surg History Problem List (Updated 09/03/24 @ 10:36 by Angel Cr MD) Reactive airway disease Rhinovirus infection (Acute) Complicated acute bronchitis (Acute) Nicotine abuse Hypoxia Instability of left knee joint Surgical wound, non healing (Acute) History of intravenous drug abuse Lateral pain of right hip Sepsis (Acute) Open leg wound (Acute) Chronic infection (Acute) Osteoarthritis of right knee Knee effusion, right Anemia Septic joint of right knee joint (Acute) Osteomyelitis of right knee region (Acute) Septic arthritis of knee, right Medical History Tobacco use Hypertension Acquired knee deformity Chronic osteomyelitis of knee MRSA infection (methicillin-resistant Staphylococcus aureus) Polysubstance abuse Unspecified mood [affective] disorder Aggressive behavior Delusions Paranoia Psychosis IV drug user SIRS (systemic inflammatory response syndrome) IV drug abuse Surgical History S/P right knee arthroscopy for septic joint, Dr. Hooper History of hernia surgery Family History Other No pertinent family history Social History Smoking Status: Current every day smoker Tobacco Type: Cigarettes Second Hand Exposure: No; Do You Dip or Chew Tobacco: No; Tobacco Cessation Education Requested by Patient: No Hx Alcohol Use: No Hx Substance Use: Yes Last Used Substance: Hours (ago) Last Used Substance Other:: marijuana 1 week ago Substance Use Type Other:: IV drugs Preferred Language: Italian Communication Ability: Effective Material Scheduler Required: No Beliefs That Will Affect Care: None marital status: Single Current Living Situation: Alone Current Living Situation Comment: states that he is homeless Other Information That Helps Us Care for You: No Feels Safe at Home: Yes Safety Concerns: Feels Safe At This Time Assistive Devices: Cane Review of Systems Review of Systems: All systems reviewed & are unremarkable except as noted in Subjective Physical Exam Physical Exam: General: No acute distress, mildly diaphoretic Skin: Warm and dry Head: Normocephalic, atraumatic Eyes: PERRL, conjunctivae clear, sclera non-icteric ENT: External ear and ear canal without swelling; nose atraumatic Neck: Supple, no LAD Cardio: RRR, no M/G/R, S1 and S2 normal Resp: No respiratory distress, expiratory wheezing throughout, crackles bilateral bases; supplemental O2 via NC Abdomen: Soft, symmetric, nontender; No masses or hepatosplenomegaly MSK: No deformities able to be appreciated given patient's position in bed; pulses palpable and equal; no edema. Neuro: Awake, alert Psych: Answering questions, but demanding, slightly agitated because bed is not long enough Results & Data Results & Data Vital Signs (Past 12 Hours) Vital Signs Temp Pulse Pulse Resp BP BP Pulse Ox 09/02/24 13:30 73 19 131/93 93 09/02/24 11:31 64 19 157/88 H 92 09/02/24 10:18 72 18 144/88 H 93 09/02/24 10:16 09/02/24 10:15 88 L 09/02/24 10:14 73 09/02/24 09:29 36.8 C 86 20 180/84 H 91 O2 Del Method O2 Flow Rate 09/02/24 13:30 Room Air 09/02/24 11:31 Room Air 09/02/24 10:18 Room Air 09/02/24 10:16 Nasal Cannula 2 09/02/24 10:15 Room Air 09/02/24 10:14 09/02/24 09:29 Room Air Laboratory Results 09/02/24 10:57 Aerobic Blood Culture - Pending Blood Anaerobic Blood Culture - Pending 09/02/24 10:23 Aerobic Blood Culture - Pending Blood Anaerobic Blood Culture - Pending 09/02/24 09/02/24 09/02/24 Unknown 10:23 10:00 WBC 9.24 RBC 4.82 Hgb 13.4 L Hct 42.1 MCV 87.3 MCH 27.8 MCHC 31.8 L RDW Std Deviation 48.9 H RDW Coeff of [place] 15.2 H Plt Count 227 MPV 11.6 Immature Gran % (Auto) 0.4 Neut % (Auto) 77.6 Lymph % (Auto) 12.4 [place] % (Auto) 6.4 Eos % (Auto) 2.8 Baso % (Auto) 0.4 Neut # (Auto) 7.16 H Lymph # (Auto) 1.15 L [place] # (Auto) 0.59 Eos # (Auto) 0.26 Baso # (Auto) 0.04 Immature Gran # (Auto) 0.04 Sodium 140 Potassium 4.2 Chloride 104 Carbon Dioxide 29 Anion Gap 7 BUN 11 Creatinine 0.71 Est Cr Clr Drug Dosing 174.9 eGFR 114.59 BUN/Creatinine Ratio 15.5 Glucose 139 H Lactate 1.3 Calcium 8.8 Magnesium 2.1 Total Bilirubin 0.3 Direct Bilirubin TNP AST 24 ALT 29 Alkaline Phosphatase 86 Troponin I High Sens 5.8 Total Protein 6.7 Albumin 4.0 Procalcitonin 0.12 Urine Color Yellow Urine Appearance Clear Urine pH 8.0 H Ur Specific [place] 1.013 Urine Protein Negative Urine Glucose (UA) Negative Urine Ketones Negative Urine Blood Negative Urine Nitrite Negative Urine Bilirubin Negative Urine Urobilinogen Negative Ur Leukocyte Esterase Negative Adenovirus (PCR) Not Detected B. pertussis DNA (PCR) Not Detected B.parapertussis DNA PCR Not Detected C. pneumoniae DNA (PCR) Not Detected Coronavirus OC43 (PCR) Not Detected Coronavirus HKU1 (PCR) Not Detected Coronavirus 229E (PCR) Not Detected SARS-CoV-2 (PCR) Not Detected Coronavirus NL63 (PCR) Not Detected Human Metapneumovir PCR Not Detected Influenza Type A (PCR) Not Detected Influenza Type B (PCR) Not Detected M. pneumoniae (PCR) Not Detected Parainfluenza 1 (PCR) Not Detected Parainfluenza 2 (PCR) Not Detected Parainfluenza 3 (PCR) Not Detected Parainfluenza 4 (PCR) Not Detected RSV (PCR) Not Detected Entero/Rhino (PCR) DETECTED A Diagnostic Findings Chest X-Ray 09/02/24 09:57 EXAM: Radiograph of the Chest 1 View INDICATION: Cough and hypoxia. TECHNIQUE: Frontal view of the chest. COMPARISON: No relevant prior studies available. FINDINGS: Lungs and pleural spaces: There is minimal airway thickening. The lungs are normally and symmetrically inflated. No consolidation or pulmonary edema. No pleural effusion or pneumothorax. Heart: Shape and configuration within normal limits allowing for technique. Mediastinum: Normal contour. Bones/joints: No fracture, erosion or dislocation. Soft tissues: No abnormality noted. No radiopaque foreign body noted. Upper abdomen: No abnormality noted. IMPRESSION: Mild airway thickening consistent with acute and/or chronic bronchitis. No pneumonia. ACT 112: Negative or not required by law. Electronically signed by Florence Shaw 09-02-2024 11:06 AM Code Status & VTE Plan Code Status Full VTE Prophylaxis Plan VTE Prophylaxis will be ordered: Yes Supervising Physician Co-Signing Physician Notes I personally saw and examined the patient. I independently reviewed the labs, EKG, imaging, problem list, medication list, past medical history and family history. I verified all short points and agree with Nneka Cesar, PA-C with the following exceptions and/or additions: 44 year old presents to the ER with shortness of breath and productive cough started 2 night ago. O/E HS RRR, no murmurs, Chest expiratory wheezing throughout, Abdo SNT A/P Acute bronchitis secondary to entero-rhinovirus with hypoxia - likely underlying reactive airway disease such as COPD, questionable history of asthma. Solu- medrol 40mg IV daily, Duonebs QID. Given no confirmed COPD diagnosis will hold off azithromycin at this time. Sputum culture. Cellulitis - ongoing likely ingrown hairs occasional getting infected with Contact dermatitis - steroid cream PRN PG Care Time/CCT Total # of Minutes Spent Total Time Spent with Patient: Total time spent is greater than 50% in coordination of care (as documented) at patient's floor/unit and/or counseling patient: Coding Level of Care Code 36425 INT INP/OBS CARE 2/55MIN Diagnoses Hypoxia R09.02 Nicotine abuse Z72.0 History of intravenous drug abuse F19.11 Rhinovirus infection B34.8 Complicated acute bronchitis J20.9 Reactive airway disease J45.909 Time Spent (min) 45
[2024-09-02] MEDS ORDERED: SODIUM CHLORIDE 0.65% NA SOLN 45 ML (OCEAN) PRN (17:44)
[2024-09-02] MEDS ORDERED: ALBUT/IPRATROP 3MG/0.5MG NEB 3 ML VIAL NEB PRN (17:44)
[2024-09-02] MEDS: BUPRENORPHINE/NALOXONE 8/2 MG TAB SL SCH (18:25)
[2024-09-02] MEDS: GABAPENTIN 800 MG TAB PO SCH (18:26)
[2024-09-02] MEDS: NICOTINE 21 MG/24 HR TDSY TD SCH (18:26)
[2024-09-02] MEDS: ALBUT/IPRATROP 3MG/0.5MG NEB 3 ML VIAL NEB SCH (20:28)
[2024-09-02] MEDS: ENOXAPARIN INJ 40 MG/0.4 ML SYR SQ SCH (21:37)
[2024-09-02] MEDS: SULFAMETHOXAZOLE/TRIMETHOPRIM DS 800/160MG TAB PO SCH (21:38)
[2024-09-02] MEDS: ACETAMINOPHEN 325 MG TAB PO PRN (21:40)
--- NOTE | 2024-09-03 07:08 | Hospitalist Progress Note ---
Date of Service September 03, 2024 Assessment & Plan Plan (1) Hypoxia SOB with cough, reported fever/chills and nasal congestion x 2 days, sick contact nephew; ? underlying COPD - CBC without leukocytosis (but w/ neutrophil predominance); Procalcitonin 0.12 - CXR with mild airway thickening consistent with acute or chronic bronchitis, no pneumonia noted - Biofire positive for entero/rhinovirus - Hypoxic on arrival; currently 92% on supplemental O2 via NC - No oxygen at baseline; O2 via NC as needed- Wean the patient off as tolerated - Obtain sputum culture (says received) - IC + flutter valve; [place] nasal spray q30min, PRN, for nasal congestion - Duoneb (Alb/Ipratrop), PRN, wheezing; Solumedrol, IV, 40mg, daily - No leukocytosis, current fever, or imaging findings warranting starting abx - defer at this time; consider adding if clinical condition changes (received 1 dose doxycycline ED) - consider discharging on short oral steroid course taper, albuterol inhaler (blue one/Ventolin) - CBC am (2) Nicotine abuse E-cigarettes/Vaping, daily - Cessation recommended - Nicotine Patch (3) History of intravenous drug abuse 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 arm Dispo: Med-Tele Diet: Regular VTE Prophylaxis: Lovenox, 40 mg, SQ, q24hrs Code: Full Admission and Anticipated Discharge Date Admission Date: September 02, 2024 Subjective Patient is a 44 yo M w/ a PMHx Results & Data Results & Data Vital Signs (Past 12 Hours) Vital Signs Temp Pulse Pulse Resp BP Pulse Ox O2 Del Method 09/03/24 04:51 96 Oxymask 09/03/24 03:23 36.6 C 75 18 138/86 96 Oxymask 09/03/24 01:04 83 20 95 Aerosol Mask 09/03/24 00:00 36.8 C 97 H 18 153/72 H 95 Oxymask 09/02/24 21:53 100 H 09/02/24 20:29 96 H 18 96 Nasal Cannula 09/02/24 20:02 36.9 C 80 19 150/62 H 90 Nasal Cannula 09/02/24 20:00 Nasal Cannula O2 Flow Rate 09/03/24 04:51 3 09/03/24 03:23 7 09/03/24 01:04 8 09/03/24 00:00 6 09/02/24 21:53 09/02/24 20:29 4 09/02/24 20:02 2 09/02/24 20:00 2
[2024-09-03 07:47] LABS: Hematocrit (blood only) 43.3 % (42.0-52.0); Hemoglobin 13.7 g/dl (14.0-18.0); Mean Corpuscular Hemoglobin 27.3 pg (25.0-34.0); Mean Corpuscular Hgb Conc 31.6 g/dL (32.0-36.0); Mean Corpuscular Volume 86.4 fL (80.0-100.0); Mean Platelet Volume 11.3 fL (9.4-12.4); Platelet Count 264 K/uL (130-400); RDW Coefficient of Variation 15.5 % (11.5-14.5); RDW Standard Deviation 48.9 fL (36.4-46.3); Red Blood Count 5.01 M/uL (4.70-6.10); White Blood Count 13.23 K/ul (4.8-10.8)
[2024-09-03] MEDS: methylPREDNISolone 40 MG in SYRINGE 0 ML IV SCH (08:03)
[2024-09-03] MEDS: ASPIRIN 325 MG ECTAB PO SCH (08:04)
[2024-09-03] MEDS ORDERED: methylPREDNISolone 1000 MG/16 ML IV SCH (09:00)
[2024-09-03 12:11] VITALS: BP 174/91; TEMP 97.7; O2SAT 92
[2024-09-03] MEDS: ALBUT/IPRATROP 3MG/0.5MG NEB 3 ML VIAL NEB SCH (12:18)
[2024-09-03 12:23] VITALS: PULSE 80; RESP 18
[2024-09-03] MEDS: INFLUENZA VACC TS2024-25(6m+)/PF (IIV3) 0.5mL Syr IM ONE (13:56)
--- NOTE | 2024-09-03 16:34 | Discharge Summary ---
Date of Service September 03, 2024 Admission HPI Per Admitting Provider 44-year-old male presenting to ED for SOB x 2 days with associated chest congestion, has had sick contact of nephew. ED course: CBC H&H 13.4/42.1, MCHC 31.8, RDW 48.9, neutrophils 7.16 without leukocytosis; CMP grossly WNL with exception of glucose 139; procalcitonin 0.12; UA without infection; CXR mild airway thickening consistent with acute or chronic bronchitis, no pneumonia; EKG NSR, rate 70 bpm, QTc 427.; Provided with doxycycline 100 mg, dexamethasone 10 mg, and albuterol nebulizer in ED. Patient is a 44-year-old male PMHx of anemia, orthopedic conditions, and h/o IV drug abuse presenting to ED for evaluation of cough. Approximately 2 nights ago started to have worsening cough. States that he has sputum production that occurs when moving around, red in color. Associated nasal congstion. Has been taking qutz-mlc-bjtqcpw Tylenol and Motrin which provide some relief. Noted that today he became very weak and came to the ED. Afraid to go to sleep because he says that he is afraid he will stop breathing. Feels feverish, has not taken temperature. Only other complaint is that he feels as though he is urinating often. No chest pain, palpitations, abdominal pain, N/V/D/C, numbness/tingling. Recently started Bactrim again for "new scabs." Hypoxic on arrival (91%), sick contact of nephew. Took AM medications. Please see Dr. Cr's attestation for adjustments/additions to treatment plan. Admission Exam Per Admitting Provider General: No acute distress, mildly diaphoretic Skin: Warm and dry Head: Normocephalic, atraumatic Eyes: PERRL, conjunctivae clear, sclera non-icteric ENT: External ear and ear canal without swelling; nose atraumatic Neck: Supple, no LAD Cardio: RRR, no M/G/R, S1 and S2 normal Resp: No respiratory distress, expiratory wheezing throughout, crackles bilateral bases; supplemental O2 via NC Abdomen: Soft, symmetric, nontender; No masses or hepatosplenomegaly MSK: No deformities able to be appreciated given patient's position in bed; pulses palpable and equal; no edema. Neuro: Awake, alert Psych: Answering questions, but demanding, slightly agitated because bed is not long enough Principal Diagnosis Rhinovirus/Enterovirus infection Discharge Exam Constitutional WD/WN, vitals as above Respiratory + labored breathing, + cough and able to speak in complete sentences Auscultation: + wheezes; no crackles Cardiovascular RRR, no murmur, no edema Extremities: normal capillary refill; no calf tenderness and no pedal edema Gastrointestinal (Abdomen) normal bowel sounds, soft, nontender, no hepatosplenomegaly Psychiatric A+Ox3, euthymic affect Eye Contact: good eye contact Affect: + anxious affect Mood: + anxious mood Discharge Data Allergies Allergy/AdvReac Type Severity Reaction Status Date / Time cyclobenzaprine Allergy Severe SHORTNESS Verified 09/02/24 12:38 OF BREATH zolpidem Allergy Unknown hallucinati Verified 09/02/24 12:38 ons Benzodiazepines AdvReac Intermediate PSYCH Verified 09/02/24 12:38 ISSUES Consultations 09/02/24 11:53 ED Decision to Admit Stat Hospital Course (1) Reactive airway disease: (2) Rhinovirus infection: (3) Complicated acute bronchitis: Plan (1) Hypoxia/Rhino-entero virus infection/reactive airway disease/complicated acute bronchitis SOB with cough, reported fever/chills and nasal congestion x 2 days, sick conta ct nephew; ? underlying COPD - CBC without leukocytosis (but w/ neutrophil predominance); Procalcitonin 0.12 - CXR with mild airway thickening consistent with acute or chronic bronchitis, no pneumonia noted - Biofire positive for entero/rhinovirus - Hypoxic on arrival; 94% O2 Sat on room air this morning - No oxygen at baseline; O2 via NC as needed- Wean the patient off as tolerated - Obtain sputum culture (says received) - IC + flutter valve; [place] nasal spray q30min, PRN, for nasal congestion - Duoneb (Alb/Ipratrop), PRN, wheezing; Solumedrol, IV, 40mg, daily - No leukocytosis, current fever, or imaging findings warranting starting abx - defer at this time; consider adding if clinical condition changes (received 1 dose doxycycline ED) - Discharged on short oral steroid course taper of 5 days: 50/40/30/20/10 mg for Day 1/2/3/4/5 - Discharged on an albuterol inhaler (blue one) Ventolin, q6hr, inhalation, PRN for wheezing, dyspnea (2) Nicotine abuse E-cigarettes/Vaping, daily - Cessation recommended - Nicotine Patches recommended (3) History of intravenous drug abuse 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 arm, advised patient to finish Abx course Total Time Total Time Spent Total Time Spent (In Minutes): see attending attestation Discharge Plan Discharge Items Patient Disposition: Home - Self-Care Reason For Visit: HYPOXIA Discharge Diagnosis: Enterovirus/Rhinovirus infection Activity: Resume your previous activity Non-emergency contact: Primary Care Provider Call non-emergency contact if: you have any medication questions and your symptoms worsen Follow-up/Referrals: Ana Miguel MD [Primary Care Provider] - Diet: Regular Addtl Attending Provider Instructions: You were admitted to the hospital for respiratory distress, wheezing, dyspnea at rest. You were treated with IV steroids, nebulized Duonebs (albuterol/ipratropium). A discharge summary will be sent to your primary care physician to ensure continuity of care. Please bring this discharge summary with you to your next of fice appointment so that your provider can review it at that time. Follow-up appointments: We have requested a follow-up appointment with your primary care physician within one week of discharge. Please call their office if you do not hear from them. Keep all your follow-up appointments as already scheduled. If you cannot make an appointment, notify your provider. Medications: Your medication list has been reviewed and reconciled upon discharge to ensure accuracy and continuity of care. An updated list of all your medications is included with your hospital discharge paperwork. Please review this list closely, and make note of any changes. We sent a new medication called Ventolin (albuterol) to your pharmacy. Take Ventolin, 1 inhalation, every 6 hours, as needed, while having bronchitis- related symptoms. We sent a new medication called prednisone to your pharmacy. Take prednisone, 10 mg/1 tablet, as a tapered dose (Day 1, 5 tabs; Day 2, 4 tabs; Day 3, 3 tabs; Day 2, 2 tabs; Day 1, 1 tab). Take your medications as instructed; do not skip a dose of your medicines. Make sure all of your doctors know every medicine you are taking (including fdem-abs-ovychez medicines, vitamins, and supplements). Call your primary care provider before taking any new medicines (including kfgh-wdu-tpuomxf medicines, vitamins, and supplements), because some of these may interact with your current medications, or may make your symptoms worse. Tell your primary care provider if you cannot afford your medications. CONTACT YOUR PRIMARY CARE PROVIDER if you experience any of the following: fever, chills shortness of breath, wheezing, Difficulty following your treatment plan, or difficulty taking medications CALL 911 OR GO TO THE EMERGENCY DEPARTMENT if you experience any of the following: Sudden, severe abdominal pain or nausea/vomiting Severe chest pain, or chest pain that radiates (moves) to your jaw or arm Sudden, severe shortness of breath or difficulty breathing Thank you for allowing us to participate in your care Pending Studies at Discharge: No Stand-Alone Forms: My [facility], Smoking Cessation Medications and DC Order Prescriptions: New prednisone 10 mg tablet 10 mg PO DIRECTED Qty: 15 0RF Rx Instructions: see taper instructions: 50 mg Day 1, 40 mg Day 2, 30 mg Day 3, 20 mg Day 2, 10 mg Day 1 albuterol sulfate [Ventolin HFA] 90 mcg/actuation HFA aerosol inhaler 1 inh inhalation Q4H PRN (Reason: shortness of breath or wheezing) Qty: 8.5 0RF Continued gabapentin 800 mg tablet 800 mg PO TID buprenorphine-naloxone 8-2 mg film 1 film sublingual TID Discontinued aspirin [Ecotrin] 325 mg Tablet,Delayed Release (Dr/Ec) 325 mg PO DAILY Qty: 60 0RF Discharge Orders: Discharge Order (Routine); Ordered 09/03/24 Ordered By: Jf Veronica Admission Data Admit Date/Time: 09/02/24 13:37 Attending Provider: Becki Armstrong Admit Provider: Angel Cr Primary Care Provider: Ana Miguel Other Providers: Angel Cr Other Interventions: Discharge Summary Assessment (RN) Last Done: 09/03/24 13:45 Supervising Physician Co-Signing Physician Notes I personally examined the patient and verified short points of history and exam, discussed case, and agree with decision making and plan documented by Dr. Veronica. Patient with a history of asthma presenting in acute exacerbation as a result of rhino/enterovirus infection with initial hypoxia. Patient was using pkdv-brt-zvclheo epinephrine for wheezing, came to hospital for evaluation for worsening shortness of breath and cough, was found to be hypoxic at 88% on room air. Patient was given doxycycline and methylprednisolone in addition to albuterol nebulizer. When up on floor, patient reported feeling much better, he was anxious to leave. On exam, bilateral lungs with faint diffuse inspiratory and expiratory wheezing in all griggs, heart regular rate and rhythm, nontender abdomen, no lower extremity edema. During exam, patient's pulse ox 92 to 95% on room air. Patient was advised to have a two-step prior to discharge however he refused and left. Patient prescribed prednisone course on discharge and addition to a Ventolin inhaler. He was advised to follow-up with PCP for continued management of his asthma. Patient was advised to discontinue smoking as well.
== END 2024-09-03 14:42 | disposition home or self-care (01) | DRG 191 ==
LOC: ED 09:23 → SUATTDRO 13:37 → 2W 13:37